=== PATIENT | female | born 1940 | race Caucasian/White ===

== ENCOUNTER 2017-06-03 12:57 | Emergency (ER) | payer BC ==
[~2017-06-03] VITALS: Ht 165.1 cm; Wt 74.7 kg
[~2017-06-03 12:57] MED LIST: ACET325T30 PO; ASPI81TA28 PO; ATEN-175 PO; ATOR-22 PO; ATV1 PO; CHOL100027 PO; CLOP1TAB5 PO; DICY20TA10 PO; ESCI1TAB10 PO; ESZO1TAB6 PO; FENO200C6 PO; LEVO125T4 PO; MULTTAB58 PO; OMEP40CA41 PO; [UNRECOGNIZED DRUG - MIXTURE] PO
[2017-06-03 13:17] VITALS: TEMP 37; Ht 165.1 cm; Wt 74.7 kg
[2017-06-03 13:35] VITALS: O2SAT 96
--- NOTE | 2017-06-03 14:15 | EMERGENCY ROOM VISIT NOTE ---
History First contact with patient: 13:45 Chief Complaint: SHORTNESS OF BREATH Stated Complaint: TROUBLE BREATHING, SOB Nursing Triage Summary: Patient reports shortness of breath for a couple weeks with increase in shortness of breath over the past two days. Patient does have a cardiac history denies any recent illness or cough. History of Present Illness The patient is a 76 year old female with a history of henderson's palsy (left side), left thalamic stroke in 2012, recent RCA stent placement who presents to the Emergency Room with complaints of shortness of breath. The patient states that she had been suffering for some time with chest pressure and SOBOE at the beginning of summer and it was decided she would undergo a cath to assess the heart. This was done in [place] in March by a Dr Sexton and it was found that the patient required a stent in her RCA. She was completely symptomatic after the stent until approx 2 weeks ago when she started to have gradual SOBOE. She states that it was very minor however on ( approx 5 days prior) she had a "different and more intense" SOB. This was not associated with the chest pressure/ discomfort or pain but with palpitations. As these symptoms continue the patient was concerned and contacted her PCP who recommended that she come to the ED for evaluation. Source of History: patient Onset: 2 weeks prior Review of Systems a 10 point review of systems was completed and was negative Past Medical/Surgical History Medical Problems: (1) Henderson's palsy Stroke RCA stent 2016 Hypertension Hyperlipidemia Hypothyroidism Anxiety/Depression Family History Diabetes mellitus Uncle Social History Smoking Status: Former Smoker Marital Status: Housing Status: lives with significant other Occupation Status: retired Current/Historical Medications Scheduled Amlodipine (Norvasc), 7.5 MG PO DAILY Aspirin (Aspir-81), 1 TAB PO DAILY Atenolol (Tenormin), 100 MG PO DAILY Atorvastatin Calcium (Lipitor), 80 MG PO Q2D Baclofen (Lioresal), 20 MG PO UD Cholecalciferol (Vitamin D3), 1 TAB PO DAILY Ciprofloxacin Tab (Cipro), 1 TAB PO BID Ciprofloxacin-Dexamethasone (Ciprodex Otic), 4 DROPS OT BID Clopidogrel Bisulfate (Plavix), 75 MG PO DAILY Dicyclomine Hcl (Bentyl), 20 MG PO BID Escitalopram Oxalate (Lexapro), 20 MG PO DAILY Levothyroxine Sodium (Synthroid), 175 MCG PO DAILY Lisinopril (Prinivil), 20 MG PO BID Mirtazapine (Remeron), 15 MG PO HS Omeprazole (Prilosec), 40 MG PO BID Propranolol (Inderal), 10 MG PO BID Scheduled PRN Acetaminophen (Tylenol), 500 MG PO TID PRN for Pain Lorazepam (Ativan), 0.5 MG PO TID PRN for Anxiety Physical Exam Vital Signs Date Time Temp Pulse Resp B/P (MAP) Pulse Ox O2 Delivery O2 Flow Rate FiO2 06/03/17 16:00 71 18 136/73 95 Room Air 06/03/17 14:15 71 16 142/85 96 Room Air 06/03/17 13:40 96 Room Air 06/03/17 13:35 96 06/03/17 13:33 74 06/03/17 13:17 37.0 72 24 167/79 98 Room Air Physical Exam General: ambulatory, not in acute distress Skin: no rashes noted, no suspicious lesions, no areas of inflammations/ lacerations/ erythema noted CVS: S1/ S2 noted, RRR, no rubs/ murmurs noted, no cyanosis. no pedal edema, bilat dorsal pedalis noted at +2 RVS: Clear throughout bilaterally, not in acute respiratory distress, no wheezing/ rales/ crackles noted ENT: TM on left clear, on right there is erythema in the canal and desquamation , no erythema/ injection/ ulcerations noted in the pharynx, no lymphadenopathy , [place] Neck: inspection WNL, full ROM of neck, no bruits noted ABD: BSx4, no pain/ tenderness on palpation, no organomegaly, negative murphys, psoas, Rovsing, CVA tenderness MSK: inspection of all limbs WNL, motor and sensation intact in all limbs, no swelling/ pain on palpation of joints NVS: PERRL, EOMI, sensation intact in all extremities, left facial drooping which is BL for the patient Lymph: No lymphadenopathy palpable Medical Decision & Procedures ER Provider Diagnostic Interpretation: [~ rep ct add3]] CHEST ONE VIEW PORTABLE HISTORY: Short of breath. COMPARISON: Chest 02/16/2013. FINDINGS: The lungs are clear. Cardiac silhouette is normal in size. No pleural effusions. No pneumothorax. IMPRESSION: No acute process. Laboratory Results 06/03/17 13:40 Red Blood Count 4.30, Mean Corpuscular Volume 87.0, Mean Corpuscular Hemoglobin 27.9, Mean Corpuscular Hemoglobin Concent 32.1, Mean Platelet Volume 9.9, Neutrophils (%) (Auto) 67.6, Lymphocytes (%) (Auto) 21.6, Monocytes (%) (Auto) 8.8, Eosinophils (%) (Auto) 1.3, Basophils (%) (Auto) 0.4, Neutrophils # (Auto) 6.07, Lymphocytes # (Auto) 1.94, Monocytes # (Auto) 0.79, Eosinophils # (Auto) 0.12, Basophils # (Auto) 0.04 06/03/17 13:40 Test 06/03/17 13:40 06/03/17 14:31 White Blood Count 8.99 K/uL (4.8-10.8) Red Blood Count 4.30 M/uL (4.2-5.4) Hemoglobin 12.0 g/dL (12.0-16.0) Hematocrit 37.4 % (37-47) Mean Corpuscular Volume 87.0 fL (80-100) Mean Corpuscular Hemoglobin 27.9 pg (25-34) Mean Corpuscular Hemoglobin Concent 32.1 g/dl (32-36) Platelet Count 253 K/uL (130-400) Mean Platelet Volume 9.9 fL (7.4-10.4) Neutrophils (%) (Auto) 67.6 % Lymphocytes (%) (Auto) 21.6 % Monocytes (%) (Auto) 8.8 % Eosinophils (%) (Auto) 1.3 % Basophils (%) (Auto) 0.4 % Neutrophils # (Auto) 6.07 K/uL (1.4-6.5) Lymphocytes # (Auto) 1.94 K/uL (1.2-3.4) Monocytes # (Auto) 0.79 K/uL (0.11-0.59) Eosinophils # (Auto) 0.12 K/uL (0-0.5) Basophils # (Auto) 0.04 K/uL (0-0.2) RDW Standard Deviation 49.1 fL (36.4-46.3) RDW Coefficient of Variation 15.4 % (11.5-14.5) Immature Granulocyte % (Auto) 0.3 % Immature Granulocyte # (Auto) 0.03 K/uL (0.00-0.02) Prothrombin Time 10.0 SECONDS (9.0-12.0) Prothromb Time International Ratio 0.9 (0.9-1.1) Anion Gap 12.0 mmol/L (3-11) Est Creatinine Clear Calc Drug Dose 49.9 ml/min Estimated GFR () 64.3 Estimated GFR (Non- 55.5 BUN/Creatinine Ratio 11.1 (10-20) Calcium Level 9.6 mg/dl (8.5-10.1) Total Bilirubin 0.4 mg/dl (0.2-1) Aspartate Amino Transf (AST/SGOT) 20 U/L (15-37) Alanine Aminotransferase (ALT/SGPT) 37 U/L (12-78) Alkaline Phosphatase 97 U/L (45-117) Troponin I < 0.015 ng/ml (0-0.045) Total Protein 7.6 gm/dl (6.4-8.2) Albumin 4.0 gm/dl (3.4-5.0) Globulin 3.6 gm/dl (2.5-4.0) Albumin/Globulin Ratio 1.1 (0.9-2) Thyroid Stimulating Hormone (TSH) 0.020 uIu/ml (0.300-4.500) Free Thyroxine 1.42 ng/dl (0.80-1.60) Urine Color YELLOW Urine Appearance CLEAR (CLEAR) Urine pH 6.5 (4.5-7.5) Urine Specific [place] 1.003 (1.000-1.030) Urine Protein NEG (NEG) Urine Glucose (UA) NEG (NEG) Urine Ketones NEG (NEG) Urine Occult Blood NEG (NEG) Urine Nitrite NEG (NEG) Urine Bilirubin NEG (NEG) Urine Urobilinogen NEG (NEG) Urine Leukocyte Esterase MODERATE (NEG) Urine WBC (Auto) /hpf (0-5) Urine RBC (Auto) /hpf (0-4) Urine Hyaline Casts (Auto) /lpf (0-5) Urine Epithelial Cells (Auto) /lpf (0-5) Urine Bacteria (Auto) (NEG) Urine RBC 0-4 /hpf (0-4) Urine WBC 5-10 /hpf (0-5) Urine Epithelial Cells 10-20 /lpf (0-5) Urine Bacteria 2+ (NEG) ECG Indication: SOB/dyspnea Rate (beats per minute): 73 Rhythm: normal sinus Findings: other (moderate voltage criteria for LVH, no ectopy, no ischemic changes noted) Change: no significant change ED Course 1404: patient was assessed and evaluated by resident; appropriate w/u was ordered Medical Decision Differential diagnosis includes but is not limited to unstable angina, myocardial infarction, pulmonary embolism, iatrogenic hyperthyroidism, atrial fibrillation, pancreatitis, cholecystitis, anxiety and others were entertained This 76 yo f with a significant past medical history has been suffering from SOBOE and palpitations for approx 2 weeks in time. Appropriate labs and imaging were ordered. A ddimer was deferred as the patient has no history fo DVT or PE in her or family members and her Well's Criteria was 0. CBC was not reflective of anemia and no leukocytosis was noted. There was a slight left shift noted. CMP was unremarkable with a slightly elevated glucose at 139 which could be secondary to stress. Troponin was negative and this is very reassuring considering that the patient has been suffering from these symptoms for approx 2 weeks. The patient's urine was suspicious for a UTI so the patient was given 200 mg IV of cipro in house and d/c on 250 mg bid x 5 days. This could very well be the cause of the patient's shortness of breath however it was noted that the patient's free T4 was 1.42 and her TSH was 0.020. If the symptoms do not resolve after the course of abx it may be warranted to change her levothyroxine dose. The patient was also found to have a right OE so an rx for ciprodex was also transmitted to her pharmacy. 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 Head Trauma GCS Score: 15 Medication Reconcilliation Current Medication List: was personally reviewed by tx Blood Pressure Screening Patient's blood pressure: Elevated blood pressure Blood pressure disposition: Elevated BP felt to be situational, Referred to PCP Impression Primary Impression: Urinary tract infection Additional Impressions: Palpitations Low TSH level Departure Information Dispostion Home / Self-Care Condition GOOD Prescriptions Ciprofloxacin Tab (Cipro) 250 Mg Tab 1 TAB PO BID for 5 Days, #10 TAB Prov: Cortney Lund MD 06/03/17 Ciprofloxacin-Dexamethasone (CIPRODEX OTIC) 1 Allison Allison 4 DROPS OT BID for 7 Days, #1 BTL Prov: Cortney Lund MD 06/03/17 Referrals No Doctor, Assigned (PCP) Patient Instructions [facility] Problem Qualifiers Primary Impression: Urinary tract infection Urinary tract infection type: acute cystitis Hematuria presence: without hematuria Qualified Codes: N30.00 - Acute cystitis without hematuria
[2017-06-03] MEDS ORDERED: BACL20TA PO (14:34)
[2017-06-03] MEDS ORDERED: CHOL1000 PO (14:34)
[2017-06-03] MEDS ORDERED: ATV/1 PO (14:34)
[2017-06-03] MEDS ORDERED: MIRT15TA PO (14:34)
[2017-06-03] MEDS ORDERED: CLOP1TAB5 PO (14:34)
[2017-06-03] MEDS ORDERED: PROP10TA7 PO (14:34)
[2017-06-03] MEDS ORDERED: LISI20TA3 PO (14:34)
[2017-06-03] MEDS ORDERED: DICY20TA35 PO (14:34)
[2017-06-03] MEDS ORDERED: ESCI1TAB18 PO (14:34)
[2017-06-03] MEDS ORDERED: ACET-1256 PO (14:34)
[2017-06-03] MEDS ORDERED: ATEN-175 PO (14:34)
[2017-06-03] MEDS ORDERED: AMLO-110 PO (14:34)
[2017-06-03] MEDS ORDERED: LEVO175T PO (14:34)
[2017-06-03] MEDS ORDERED: ASPI-232 PO (14:34)
[2017-06-03] MEDS ORDERED: OMEP40CA41 PO (14:34)
[2017-06-03] MEDS ORDERED: ATOR80TA PO (14:35)
[2017-06-03 14:46] LABS: URINE APPEARANCE CLEAR (CLEAR); URINE BILIRUBIN NEG (NEG); URINE COLOR YELLOW; URINE NITRITE NEG (NEG); URINE PH 6.5 (4.5-7.5); URINE SPECIFIC GRAVITY 1.003 (1.000-1.030); UROBILINOGEN NEG (NEG); ZZUR CULT IF INDIC CLEAN CATCH YES
[2017-06-03 14:47] LABS: MANUAL MICROSCOPIC REQUIRED? YES; REVIEW REQ? NO
--- NOTE | 2017-06-03 14:55 | EMERGENCY ROOM VISIT NOTE ---
ED Visit Note First contact with patient: 13:45 Resident Physician Supervision Note: I was present with Dr. Lund during the history and exam. I discussed the case with the resident and agree with the findings and plan as documented in the note. Documented By: Herber Ruiz
--- NOTE | 2017-06-03 14:55 | DIAGNOSTIC IMAGING REPORT ---
CHEST ONE VIEW PORTABLE HISTORY: Short of breath. COMPARISON: Chest 02/16/2013. FINDINGS: The lungs are clear. Cardiac silhouette is normal in size. No pleural effusions. No pneumothorax. IMPRESSION: No acute process. Electronically signed by: Dat Connelly M.D. 06/03/2017 2:54 PM Dictated Date/Time: 06/03/2017 2:53 PM
[2017-06-03 15:05] LABS: URINE RBC 0-4 /hpf (0-4)
[2017-06-03 15:06] LABS: URINE BACTERIA 2+ (NEG)
[2017-06-03 15:45] LABS: BASO % 0.4 %; BASO ABS # 0.04 K/uL (0-0.2); COMPLETE YES; EOS % 1.3 %; HEMATOCRIT 37.4 % (37-47); IG% 0.3 %; LYMPH % 21.6 %; LYMPH ABS # 1.94 K/uL (1.2-3.4); MEAN CORPUSCULAR HEMOGLOBIN 27.9 pg (25-34); MEAN CORPUSCULAR HGB CONC 32.1 g/dl (32-36); MEAN PLATELET VOLUME 9.9 fL (7.4-10.4); MONO % 8.8 %; NEUT % 67.6 %; PLATELET COUNT 253 K/uL (130-400); WHITE BLOOD COUNT 8.99 K/uL (4.8-10.8)
[2017-06-03 15:53] LABS: ALT/SGPT 37 U/L (12-78); BLOOD UREA NITROGEN 11 mg/dl (7-18); BUN/CREATININE RATIO 11.1 (10-20); CALCIUM 9.6 mg/dl (8.5-10.1); CARBON DIOXIDE 22 mmol/L (21-32); CHLORIDE 104 mmol/L (98-107); GLUCOSE 139 mg/dl (70-99); POTASSIUM 4.3 mmol/L (3.5-5.1); SODIUM 138 mmol/L (136-145)
[2017-06-03 15:58] LABS: ALB/GLOB RATIO 1.1 (0.9-2); ALKALINE PHOSPHATASE 97 U/L (45-117); AST/SGOT 20 U/L (15-37); INR 0.9 (0.9-1.1)
[2017-06-03 16:13] LABS: THYROID STIMULATING HORMONE 0.02 uIu/ml (0.300-4.500)
[2017-06-03] MEDS ORDERED: CIPROFLOXACIN / D5W 200 MG in PREMIXED IN D5W 100 ML IV ONE (16:15)
[2017-06-03] MEDS ORDERED: CIPR1TAB11 PO (16:18)
[2017-06-03] MEDS ORDERED: CPRDOTS OT (16:18)
[2017-06-03 17:51] VITALS: BP 136/76; PULSE 60; O2SAT 95
== END 2017-06-03 18:19 | disposition home or self-care (01) ==
LOC: C.EDB 12:58 → C.EDA 18:19
DX: N30.00 Acute cystitis without hematuria (principal); R00.2 Palpitations; R94.6 Abnormal results of thyroid function studies; H60.91 Unspecified otitis externa, right ear; G51.0 Bell's palsy; I10 Essential (primary) hypertension; E78.5 Hyperlipidemia, unspecified; E03.9 Hypothyroidism, unspecified; F32.9 Major depressive disorder, single episode, unspecified; F41.9 Anxiety disorder, unspecified; Z86.73 Personal history of transient ischemic attack (TIA), and cerebral infarction without residual deficits; Z95.5 Presence of coronary angioplasty implant and graft; Z87.891 Personal history of nicotine dependence; Z79.82 Long term (current) use of aspirin; Z83.3 Family history of diabetes mellitus

== ENCOUNTER 2019-04-25 17:16 | Inpatient (IN) ==
--- OUTSIDE RECORDS SUMMARY | 2019-04-25 17:22 | External Medical Summary | Continuity of Care Document ---
:1940 Author Name Karina Alvarez Address Unavailable Unavailable , Care Team Providers Name Role Phone Unavailable Unavailable Unavailable Melida COREAS Unavailable Unavailable Problems Active medical history not documented Allergies and Adverse Reactions Allergy history not documented Medications Medications not documented Procedures Procedures not documented Immunizations Immunizations not documented Plan of Treatment Planned Observations Planned Goals not documented Results No Known Results Results not documented
[2019-04-25 18:04] LABS: Basophils # (auto) 0.04 K/uL (0-0.2); Basophils % (auto) 0.3 %; Eosinophils # (auto) 0.04 K/uL (0-0.5); Eosinophils % (auto) 0.3 %; Hematocrit (blood only) 29.6 % (37-47); Hemoglobin 9.4 g/dL (12.0-16.0); Immature Granulocytes # (auto) 0.04 K/uL (0.00-0.02); Immature Granulocytes % (auto) 0.3 %; Lymphocytes # (auto) 2.18 K/uL (1.2-3.4); Lymphocytes % (auto) 16.3 %; Mean Corpuscular Hgb Conc 31.8 g/dL (32-36); Mean Corpuscular Volume 87.6 fL (80-100); Mean Platelet Volume 9.4 fL (7.4-10.4); Monocytes # (auto) 0.64 K/uL (0.11-0.59); Monocytes % (auto) 4.8 %; Neutrophils # (auto) 10.42 K/uL (1.4-6.5); Platelet Count 338 K/uL (130-400); RDW Coefficient of Variation 15.2 % (11.5-14.5); RDW Standard Deviation 48.6 fL (36.4-46.3); Red Blood Count 3.38 M/uL (4.2-5.4); White Blood Count 13.36 K/uL (4.8-10.8)
[2019-04-25 18:14] LABS: INR 1.1 (0.9-1.1); Partial Thromboplastin Ratio 0.8; Partial Thromboplastin Time 22.5 Seconds (21.0-31.0); Prothrombin Time 10.8 Seconds (9.0-12.0)
--- NOTE | 2019-04-25 18:15 | XRay Report ---
XR chest 1V portable CLINICAL HISTORY: Atypical chest pain COMPARISON STUDY: 06/03/2017 FINDINGS: The cardiac and mediastinal contours are normal. There is no evidence of focal pulmonary co nsolidation. There is no evidence of failure. No pleural effusions are visualized.[ IMPRESSION: No active disease in the chest. Electronically signed by: Parveen Diane M.D. 04/25/2019 6:14 PM
[2019-04-25 18:28] LABS: Alanine Aminotransferase 54 U/L (12-78); Albumin Level 3.5 gm/dl (3.4-5.0); Aspartate Aminotransferase 30 U/L (15-37); BUN Creatinine Ratio 40.3 (10-20); Blood Urea Nitrogen 50 mg/dl (7-18); Calcium 9.8 mg/dl (8.5-10.1); Carbon Dioxide 26 mmol/L (21-32); Chloride 105 mmol/L (98-107); Creatinine Clr Calc Pharmacy 39.7 ml/min; Est GFR (African American) 48.9; Est GFR (Non-African American) 42.2; Glucose 197 mg/dl (70-99); Magnesium 1.8 mg/dl (1.8-2.4); Potassium 4.7 mmol/L (3.5-5.1); Sodium 138 mmol/L (136-145)
[2019-04-25 18:33] LABS: Albumin Globulin Ratio 1.1 (0.9-2); Alkaline Phosphatase 74 U/L (45-117); Bilirubin,Total 0.3 mg/dl (0.2-1); Globulin 3.1 gm/dl (2.5-4.0); Total Protein 6.6 gm/dl (6.4-8.2); Troponin I < 0.015 ng/ml (0-0.045)
[2019-04-25] MEDS ORDERED: SODIUM CHLORIDE 0.9% 1000ML 1,000 ML IV ONE (18:41)
--- NOTE | 2019-04-25 19:11 | Emergency Department Note ---
Entered by Briana Machado acting as a scribe for Donato Wilkerson MD History of Present Illness General Chief complaint: Chest Pain Time Seen by Provider: 04/25/19 17:19 Source: patient History of Present Illness Provider complaint: Chest pain Onset (ago): hour(s) Location: chest Pain Consistency: + now resolved Quality: + burning Associated symptoms: + diaphoresis, + nausea/vomiting (nausea), + shortness of breath (due to COPD) and + other (Positive: left sided jaw pain, feels "funny". Negative: vomiting, calf pain, leg swelling.); no chest pain The patient is a 78 year old white female w/ PMHx of blood clot in kidney, CAD, who presents to the ED w/ CC of now resolved chest pain that happened this morning when she woke up. The patient reports she woke up with a burning sensation in her and felt funny. She notes she developed jaw pain because she was anxious and crying. The patient additionally states the jaw pain resolved when she relaxed. She notes she was soaking wet this morning and nauseas. The patient reports she has history of blood clot in her kidney and had to get a stent. She additionally notes she has history of three stents in her heart. The patient states she is short of breath due to having history of COPD. She reports she takes aspirin and Plavix daily but did not take Plavix today. The patient denies vomiting, chest pain, leg swelling, or calf pain. PER EMS: The patient woke up this morning feeling funny, lightheaded, and nauseas. The patient has history of 3 stents done at [facility]. She also has history of CAD. She additionally states she has left sided jaw pain but denies chest pain. The patient just found out she has kidney failure. She was given 4 aspirins in the ambulance and was hypertensive. Home Medications Home Medications Medication Instructions Recorded Confirmed Type acetaminophen [Tylenol Extra 1,000 mg PO QID PRN #0 tab 06/03/17 04/25/19 History Strength] aspirin [Aspir-81] 81 mg PO BID 90 Days #90 tab 06/03/17 04/25/19 History atenolol 100 mg PO DAILY #0 tab 06/03/17 04/25/19 History atorvastatin 80 mg PO DAILY #0 tab 06/03/17 04/25/19 History cholecalciferol (vitamin D3) 1,000 unit PO DAILY #0 06/03/17 04/25/19 History [Vitamin D3] clopidogrel 75 mg PO DAILY #0 tab 06/03/17 04/25/19 History escitalopram oxalate [Lexapro] 20 mg PO DAILY #0 tab 06/03/17 04/25/19 History levothyroxine [Levoxyl] 112 mcg PO QAM #0 tab 06/03/17 04/25/19 History lisinopril [Prinivil] 20 mg PO BID #0 tab 06/03/17 04/25/19 History lorazepam [Ativan] 1 mg PO Q8H PRN #0 tab 06/03/17 04/25/19 History omeprazole 40 mg PO BID #0 cap 06/03/17 04/25/19 History albuterol sulfate [ProAir HFA] 2 puff INHALATION Q4H PRN 04/25/19 04/25/19 History amlodipine 2.3 mg PO DAILY 04/25/19 04/25/19 History dicyclomine 20 mg PO BID 04/25/19 04/25/19 History eszopiclone [Lunesta] 1 mg PO HS PRN 04/25/19 04/25/19 History ezetimibe 10 mg PO DAILY 04/25/19 04/25/19 History fluticasone propion-salmeterol 1 inh INHALATION BID 04/25/19 04/25/19 History [Advair Diskus] iron,carbonyl-vitamin C [Vitron-C] 1 tab PO DAILY 04/25/19 04/25/19 History nitroglycerin [Nitrostat] 0.4 mg SUBLINGUAL UD PRN 04/25/19 04/25/19 History ondansetron HCl [Zofran] 4 mg PO QAM PRN 04/25/19 04/25/19 History Allergies Allergy/AdvReac Type Severity Reaction Status Date / Time ampicillin Allergy Unknown Vaginitis. Verified 04/25/19 18:10 doxycycline Allergy Unknown Nausea and Verified 04/25/19 18:10 diarrhea. erythromycin base Allergy Unknown Nause and Verified 04/25/19 18:10 diarrhea. ranitidine Allergy Unknown Rash. Verified 04/25/19 18:10 morphine AdvReac Unknown AGITATION Verified 04/25/19 18:10 Past Med/Surg History Medical History CAD (coronary artery disease) Family History Other Family history non-contributory Social History Feels Safe at Home: Yes Smoking Status: Former smoker Review of Systems See HPI for pertinent positives & negatives. and A total of 10 systems reviewed and were otherwise negative Physical Exam Vital Signs Vital Signs - 24 hr 04/25/19 17:25 04/25/19 17:32 04/25/19 17:36 Temperature 37.0 C Temperature Source Oral Sepsis Recent Fever Within 48 Hours No Sepsis New/Unexplained Change in Mental Status No Sepsis Action Taken by Nursing No Action Required Pulse Rate 64 64 65 Pulse Rate from SpO2 Sensor 65 65 Respiratory Rate 20 20 18 Respiratory Effort / Characteristics Non-Labored Spontaneous Respiratory Depth Normal Blood Pressure 153/58 H 142/58 H Blood Pressure Mean 89 86 Pulse Oximetry 97 97 98 Oxygen Delivery Method Room Air Room Air Room Air 04/25/19 17:40 04/25/19 17:50 04/25/19 18:00 Temperature Temperature Source Sepsis Recent Fever Within 48 Hours Sepsis New/Unexplained Change in Mental Status Sepsis Action Taken by Nursing Pulse Rate 69 65 64 Pulse Rate from SpO2 Sensor 67 64 64 Respiratory Rate 15 16 17 Respiratory Effort / Characteristics Respiratory Depth Blood Pressure Blood Pressure Mean Pulse Oximetry 95 97 97 Oxygen Delivery Method Room Air Room Air Room Air 04/25/19 18:01 04/25/19 18:10 04/25/19 18:20 Temperature Temperature Source Sepsis Recent Fever Within 48 Hours Sepsis New/Unexplained Change in Mental Status Sepsis Action Taken by Nursing Pulse Rate 63 63 66 Pulse Rate from SpO2 Sensor 64 64 67 Respiratory Rate 24 25 H 20 Respiratory Effort / Characteristics Respiratory Depth Blood Pressure 133/59 L Blood Pressure Mean 83 Pulse Oximetry 97 98 96 Oxygen Delivery Method Room Air Room Air Room Air 04/25/19 18:30 04/25/19 18:31 04/25/19 18:40 Temperature Temperature Source Sepsis Recent Fever Within 48 Hours Sepsis New/Unexplained Change in Mental Status Sepsis Action Taken by Nursing Pulse Rate 65 61 68 Pulse Rate from SpO2 Sensor 66 63 70 Respiratory Rate 22 18 19 Respiratory Effort / Characteristics Respiratory Depth Blood Pressure 132/66 Blood Pressure Mean 88 Pulse Oximetry 96 95 92 Oxygen Delivery Method Room Air Room Air Room Air GENERAL: Mildly anxious in appearance, well nourished, non-toxic. Wearing glasses. EYE EXAM: Normal conjunctiva. PERRL, no anisocoria and EOM's grossly intact w/o pain. OROPHARYNX: Moist mucous membranes. Grossly normal dentition. NECK: Supple, no nuchal rigidity, no adenopathy, non-tender. No signs of meningismus. LUNGS: Clear to auscultation. Normal chest wall mechanics. HEART: NSR, no MRG. ABDOMEN: Abdomen soft, non-tender, normo-active bowel sounds, no masses, no rebound or guarding. BACK: No CVA TTP. SKIN: No rashes and no bruising. UPPER EXTREMITIES: Upper extremities are grossly normal. LOWER EXTREMITIES: No pitting edema. No calf pain. NEURO EXAM: A&O x3, cranial nerves II-XII grossly intact, normal speech, moves all 4 extremities on command w/o issue. Course 1721: The patient was evaluated in room A3. A complete history and physical exam was performed. 1841: I called the admitting team regarding the patients case 1844: I discussed the patients case with Bety Cornelius. Dr. Robertson, [facility] Hospitalist, will evaluate the patient for further management. 1849: Upon reevaluation, the patient is resting comfortably. I discussed laboratory and radiographic results with her. The patient verbalized agreement o f the treatment plan. The patient will be evaluated for further management and care. Consultations Consultation #1: I discussed the patients case with Bety Cornelius. She will evaluate the patient for further management. Time: 18:44 Administered Medications Sodium Chloride (Nss 1000ml) 1,000 mls @ 999 mls/hr IV .Q1H1M ONE Stop: 04/25/19 19:41 Last Admin: 04/25/19 19:06 Dose: 999 mls/hr Documented by: [id number] Medical Decision Making Differential Diagnosis Differential diagnosis: Etiologies such as cardiac ischemia, aortic dissection, pulmonary embolism, pneumonia, pneumothorax, musculoskeletal, infections, pericarditis, myocarditis, esophageal rupture, gastrointestinal, as well as others were entertained. Medical Records Attestation: I reviewed the patient's medical records. Home Medications Current Medication List: was personally reviewed by me Laboratory Data Attestation: I reviewed the patient's lab results. Result diagrams: 04/25/19 17:56 04/25/19 17:56 Lab Results 04/25/19 04/25/19 04/25/19 Range/Units 17:56 17:56 17:56 WBC 13.36 H (4.8-10.8) K/uL RBC 3.38 L (4.2-5.4) M/uL Hgb 9.4 L (12.0-16.0) g/dL Hct 29.6 L (37-47) % MCV 87.6 (80-100) fL MCH 27.8 (25-34) pg MCHC 31.8 L (32-36) g/dL RDW Std Deviation 48.6 H (36.4-46.3) fL RDW Coeff of Angel 15.2 H (11.5-14.5) % Plt Count 338 (130-400) K/uL MPV 9.4 (7.4-10.4) fL Immature Gran % (Auto) 0.3 % Neut % (Auto) 78.0 % Lymph % (Auto) 16.3 % [place] % (Auto) 4.8 % Eos % (Auto) 0.3 % Baso % (Auto) 0.3 % Immature Gran # (Auto) 0.04 H (0.00-0.02) K/uL Neut # (Auto) 10.42 H (1.4-6.5) K/uL Lymph # (Auto) 2.18 (1.2-3.4) K/uL [place] # (Auto) 0.64 H (0.11-0.59) K/uL Eos # (Auto) 0.04 (0-0.5) K/uL Baso # (Auto) 0.04 (0-0.2) K/uL PT 10.8 (9.0-12.0) Seconds INR 1.1 (0.9-1.1) APTT 22.5 (21.0-31.0) Seconds PTT Ratio 0.8 Sodium 138 (136-145) mmol/L Potassium 4.7 (3.5-5.1) mmol/L Chloride 105 (98-107) mmol/L Carbon Dioxide 26 (21-32) mmol/L Anion Gap 6.0 (3-11) BUN 50 H (7-18) mg/dl Creatinine 1.24 H (0.6-1.2) mg/dl Est Cr Clr Drug Dosing 39.7 ml/min Est GFR ( Amer) 48.9 Est GFR (Non-Af Amer) 42.2 BUN/Creatinine Ratio 40.3 H (10-20) Glucose 197 H (70-99) mg/dl Calcium 9.8 (8.5-10.1) mg/dl Magnesium 1.8 (1.8-2.4) mg/dl Total Bilirubin 0.3 (0.2-1) mg/dl AST 30 (15-37) U/L ALT 54 (12-78) U/L Alkaline Phosphatase 74 (45-117) U/L Troponin I < 0.015 (0-0.045) ng/ml Total Protein 6.6 (6.4-8.2) gm/dl Albumin 3.5 (3.4-5.0) gm/dl Globulin 3.1 (2.5-4.0) gm/dl Albumin/Globulin Ratio 1.1 (0.9-2) Lipase 85 (73-393) U/L Imaging Data Radiologist's Impression: Radiology results as stated below per my review and the radiologist's interpretation: XR chest 1V portable CLINICAL HISTORY: Atypical chest pain COMPARISON STUDY: 06/03/2017 FINDINGS: The cardiac and mediastinal contours are normal. There is no evidence of focal pulmonary consolidation. There is no evidence of failure. No pleural effusions are visualized.[ IMPRESSION: No active disease in the chest. Electronically signed by: Parveen Diane M.D. 04/25/2019 6:14 PM ECG Data Attestation: I personally reviewed and interpreted this ECG as follows: Indication: chest pain Rate (beats per minute): 63 Rhythm: normal sinus Findings: + other (Normal intervals and normal axis.), + Q waves (in lead 3 and V2) and + T-wave inversion (in V2) Comparison ECG Date: from (06/03/17) Change: the following changes noted (T-wave inversions are new from 06/03/17) Blood Pressure Blood Pressure Findings: Elevated blood pressure Blood Pressure Disposition: elevated BP felt to be situational MDM Narrative The patient is a 78 year old white female w/ PMHx of blood clot in kidney, CAD, who presents to the ED w/ CC of now resolved chest pain that happened this morning when she woke up. Patient was seen and evaluated the bedside. The patient did relate to "feeling funny." The patient relates that this continued and then she developed some left-sided jaw pain. The patient was seen by the paramedics the patient denies any chest pains or shortness of breath. Patient was given a full dose aspirin. The patient still does not complain any chest pains or shortness of breath. The patient did a blood work completed. The patient does have a new T wave inversion is in V2. Troponin is undetectable. Patient does have an elevated BUN/creatinine ratio. The patient's hemoglobin is slightly lower compared to prior but this is from 2 years ago. The patient does take both aspirin and Plavix and did not take her Plavix today. The patient denies any dark tarry stool or bright red blood per rectum. The patient does not complain of any abdominal pain. I did discuss that given the patient's EKG changes history of CAD with an atypical story it would be of benefit to continue to trend her cardiac enzymes. Patient was admitted to the medicine service. Impression & Plan Atypical chest pain, Dehydration Discharge Plan Visit Data Chief Complaint: Chest Pain ED Provider: Donato Wilkerson Discharge Problem: Atypical chest pain, Dehydration Patient Disposition: Being Evaluated by Hospitalist Forms Stand Alone Forms: Call Back Authorization, [facility] Prescriptions Prescriptions: No Action atenolol 100 mg Tablet 100 mg PO DAILY Qty: 0 RF: 0 lisinopril [Prinivil] 20 mg Tablet 20 mg PO BID Qty: 0 RF: 0 clopidogrel 75 mg Tablet 75 mg PO DAILY Qty: 0 RF: 0 omeprazole 40 mg Capsule,Delayed Release(Dr/Ec) 40 mg PO BID Qty: 0 RF: 0 aspirin [Aspir-81] 81 mg Tablet,Delayed Release (Dr/Ec) 81 mg PO BID 90 Days Qty: 90 RF: 3 acetaminophen [Tylenol Extra Strength] 500 mg Tablet 1,000 mg PO QID PRN (Reason: Pain) Qty: 0 RF: 0 lorazepam [Ativan] 1 mg Tablet 1 mg PO Q8H PRN (Reason: Anxiety) Qty: 0 RF: 0 levothyroxine [Levoxyl] 112 mcg Tablet 112 mcg PO QAM Qty: 0 RF: 0 cholecalciferol (vitamin D3) [Vitamin D3] 1,000 unit Capsule 1,000 unit PO DAILY Qty: 0 RF: 0 escitalopram oxalate [Lexapro] 20 mg Tablet 20 mg PO DAILY Qty: 0 RF: 0 atorvastatin 80 mg Tablet 80 mg PO DAILY Qty: 0 RF: 0 fluticasone propion-salmeterol [Advair Diskus] 250-50 mcg/dose Blister With Device 1 inh INHALATION BID RF: 0 ondansetron HCl [Zofran] 4 mg Tablet 4 mg PO QAM PRN (Reason: Nausea) RF: 0 dicyclomine 20 mg Tablet 20 mg PO BID RF: 0 nitroglycerin [Nitrostat] 0.4 mg Tablet, Sublingual 0.4 mg sublingual UD PRN (Reason: Chest Pain) RF: 0 ezetimibe 10 mg tablet 10 mg PO DAILY RF: 0 Vitron-C 65 mg iron- 125 mg Tablet,Delayed Release (Dr/Ec) 1 tab PO DAILY RF: 0 amlodipine 2.5 mg tablet 2.3 mg PO DAILY RF: 0 eszopiclone [Lunesta] 1 mg Tablet 1 mg PO HS PRN (Reason: Sleep) RF: 0 albuterol sulfate [ProAir HFA] 90 mcg/actuation Hfa Aerosol Inhaler 2 puff INHALATION Q4H PRN (Reason: Wheezing) RF: 0 Referrals Referrals: PCP,NO [Primary Care Provider] - The scribe's documentation has been prepared under my direction and personally reviewed by me in its entirety. I confirm that the note above accurately reflects all work, treatment, procedures, and medical decision making performed by me.
[2019-04-25] MEDS ORDERED: CONSULT PHARMACY STA (21:05)
--- NOTE | 2019-04-25 21:26 | History & Physical Report ---
Date of Service April 25, 2019 Assessment & Plan (1) Anemia: Please refer to Dr. Robertson's addendum for assessment and plan. History of Present Illness Chief Complaint: "spitting up dark stuff", low blood pressure Primary Care Provider: Dr. Hamilton 78 year old female who presents to the ED with reports of "spitting up dark stuff" and low blood pressure. Patient reports she has been worsening GERD like symptoms for the past few months. She was seen by her PCP and her PPI was changed. Patient reports this did not improve her symptoms. This morning patient reports she very weak and lightheaded. She was in the bathroom and laid down on the floor because she felt as though she was going to pass out. There was no loss of consciousness. She had some belching and reports she brought up thick mucous that was very dark brown in color. This happened a few times. She reports she took her blood pressure at home and that it was very low. She then came to the ED for further evaluation. According to the ER, patient also had reported some chest pain however she denies this to me. She reports she has chronic shortness of breath which is unchanged from baseline. She reports epigastric pain that has been present for over one year. She describes it as a constant ache, sometime worse after eating. She reports her stools are always dark due to taking pepto bismol. No fevers or chills. She denies urinary symptoms. In the ED, hgb is 9.4 and BUN is 50, creat 1.2. Patient was given IVF. Allergies Allergy/AdvReac Type Severity Reaction Status Date / Time ampicillin Allergy Unknown Vaginitis. Verified 04/25/19 18:10 doxycycline Allergy Unknown Nausea and Verified 04/25/19 18:10 diarrhea. erythromycin base Allergy Unknown Nause and Verified 04/25/19 18:10 diarrhea. ranitidine Allergy Unknown Rash. Verified 04/25/19 18:10 morphine AdvReac Unknown AGITATION Verified 04/25/19 18:10 Home Medications Home Medications Medication Instructions Recorded Confirmed Type acetaminophen [Tylenol Extra 1,000 mg PO QID PRN #0 tab 06/03/17 04/25/19 History Strength] aspirin [Aspir-81] 81 mg PO DAILY 90 Days #90 tab 06/03/17 04/25/19 History atenolol 100 mg PO DAILY #0 tab 06/03/17 04/25/19 History atorvastatin 80 mg PO DAILY #0 tab 06/03/17 04/25/19 History cholecalciferol (vitamin D3) 1,000 unit PO DAILY #0 06/03/17 04/25/19 History [Vitamin D3] clopidogrel 75 mg PO DAILY #0 tab 06/03/17 04/25/19 History escitalopram oxalate [Lexapro] 20 mg PO DAILY #0 tab 06/03/17 04/25/19 History levothyroxine [Levoxyl] 112 mcg PO QAM #0 tab 06/03/17 04/25/19 History lisinopril [Prinivil] 20 mg PO BID #0 tab 06/03/17 04/25/19 History lorazepam [Ativan] 1 mg PO Q8H PRN #0 tab 06/03/17 04/25/19 History albuterol sulfate [ProAir HFA] 2 puff INHALATION Q4H PRN 04/25/19 04/25/19 History amlodipine 2.5 mg PO DAILY 04/25/19 04/25/19 History dicyclomine 20 mg PO BID 04/25/19 04/25/19 History eszopiclone [Lunesta] 1 mg PO HS PRN 04/25/19 04/25/19 History ezetimibe 10 mg PO DAILY 04/25/19 04/25/19 History fluticasone propion-salmeterol 1 inh INHALATION BID 04/25/19 04/25/19 History [Advair Diskus] iron,carbonyl-vitamin C [Vitron-C] 1 tab PO DAILY 04/25/19 04/25/19 History isosorbide mononitrate 60 mg PO DAILY 04/25/19 04/25/19 History metformin 500 mg PO DAILY 04/25/19 04/25/19 History nitroglycerin [Nitrostat] 0.4 mg SUBLINGUAL UD PRN 04/25/19 04/25/19 History ondansetron HCl [Zofran] 4 mg PO QAM PRN 04/25/19 04/25/19 History pantoprazole 20 mg PO DAILY 04/25/19 04/25/19 History tiotropium bromide [Spiriva with 1 cap INHALATION DAILY 04/25/19 04/25/19 History HandiHaler] Past Med/Surg History Medical History IBS (irritable bowel syndrome) (Chronic) GERD (gastroesophageal reflux disease) (Chronic) CKD (chronic kidney disease), stage III (Chronic) HTN (hypertension) (Chronic) Abdominal aortic ectasia (Chronic) Carotid artery disease (Chronic) COPD (chronic obstructive pulmonary disease) (Chronic) Dyslipidemia (Chronic) Hypothyroidism (Chronic) Renal artery stenosis (Chronic) History of stent insertion of renal artery (Chronic) 2011 with restenosis in 2013 and 2014 CAD (coronary artery disease) (Chronic) cath 03/25/17 - ALICE to RCA repeat cath at [facility] [place] 07/10/18 - ALICE to the first diagonal branch, ALICE to the prox LAD, 1 ALICE to the ostial LM Surgical History H/O repair of right rotator cuff (Chronic) History of appendectomy (Chronic) History of back surgery (Chronic) H/O tubal ligation (Chronic) H/O dilation and curettage (Chronic) Family History Mother Stroke Social History Preferred Language: Spanish Communication Ability: Effective Investment Representative Required: No Beliefs That Will Affect Care: None Current Living Situation: Spouse Other Information That Helps Us Care for You: No Feels Safe at Home: Yes Safety Concerns: Feels Safe At This Time Smoking Status: Former smoker Tobacco Type: cigarettes ; Do You Dip or Chew Tobacco: No ; Second Hand Exposure: No ; Tobacco Cessation Education Requested by Patient: No Hx Alcohol Use: No Hx Substance Use: No Review of Systems Review of Systems: ROS per HPI, all other systems reviewed and negative Physical Exam Constitutional: WD/WN, vitals as above Eyes: PERRL, conjunctivae normal, anicteric sclerae ENMT: external ear and nose normal, oropharynx normal Respiratory: normal respiratory effort, lungs clear to auscultation Cardiovascular: Rate/Rhythm: regular rate and regular rhythm Vessels: normal peripheral pulses Extremities: no edema Gastrointestinal (Abdomen): Inspection/Auscultation: normal bowel sounds; abdomen not distended Percussion/Palpation: + abdomen tender (mild, epigastric) and abdomen soft; no hepatosplenomegaly Musculoskeletal: no cyanosis or clubbing, extremities motor strength 5/5 Skin: no rashes, warm and dry Neurologic: PERRL, EOMI, accommodation nl, no face palsy, no dysarthria Psychiatric: A+Ox3, euthymic affect Results & Data Vital Signs (Past 12 Hours) Vital Signs Temp Pulse Pulse Resp BP BP Pulse Ox 04/25/19 19:37 61 20 146/62 H 97 04/25/19 18:40 68 19 92 04/25/19 18:31 61 18 132/66 95 04/25/19 18:30 65 22 96 04/25/19 18:20 66 20 96 04/25/19 18:10 63 25 H 98 04/25/19 18:01 63 24 133/59 L 97 04/25/19 18:00 64 17 97 04/25/19 17:50 65 16 97 04/25/19 17:40 69 15 95 04/25/19 17:36 65 18 98 04/25/19 17:32 64 20 142/58 H 97 04/25/19 17:25 37.0 C 64 20 153/58 H 97 Laboratory Results Short CBC 04/25/19 Range/Units 17:56 WBC 13.36 H (4.8-10.8) K/uL Hgb 9.4 L (12.0-16.0) g/dL Hct 29.6 L (37-47) % Plt Count 338 (130-400) K/uL BMP 04/25/19 17:56 Sodium 138 Potassium 4.7 Chloride 105 Carbon Dioxide 26 BUN 50 H Creatinine 1.24 H Glucose 197 H Calcium 9.8 Cardiac Enzymes 04/25/19 04/25/19 Range/Units 17:56 19:56 Troponin I < 0.015 0.017 (0-0.045) ng/ml Liver Function 04/25/19 Range/Units 17:56 Total Bilirubin 0.3 (0.2-1) mg/dl AST 30 (15-37) U/L ALT 54 (12-78) U/L Alkaline Phosphatase 74 (45-117) U/L Albumin 3.5 (3.4-5.0) gm/dl Diagnostic Findings CXR IMPRESSION: No active disease in the chest. Code Status & VTE Plan VTE Prophylaxis Plan VTE Prophylaxis will be ordered: Yes Supervising Physician Co-Signing Physician Notes IM ATTENDING : Patient seen and examined. History obtained from patient and records. Preceding documentation by AMBER Curry reviewed. FINAL ASSESSMENT AND PLAN as follows : UGIB (Differentials include esophagitis, gastritis, hx PUD as per records) Ongoing antiplatelet Rx for hx CAD sp CAD status post stent (more recent LAD and LMCA stents placed 07/2018, recommended minimum 6 months DAPT already completed although long-term DAPT Rx recommended as per [facility] cath report) Acute on chronic anemia secondary to above Hemoglobin drop from baseline Exertional S OB secondary to symptomatic anemia Hypertension, slightly elevated Hyperlipidemia on statin Rx History CVA History of Henderson's palsy hx COPD, past tobacco abuse, pulmonary status at baseline CRI, creatinine at baseline DM 2, diet-controlled, well-controlled as of recent outpatient hemoglobin A1c of 6.6 last April Hypothyroidism, recent outpatient TSH slightly elevated at 4.8 Medical telemetry IV PPI BID GI consult RE U GIB Hold antiplatelet Rx for now given hemoglobin drop from baseline causing symptomatic anemia. Transfuse PRBC to maintain hemoglobin greater than 8 and/or for symptomatic anemia May need Cardiology eval prior to endoscopy and opinion regarding antiplatelet Rx/hx stent 07/2018 given GI bleed. ISS BG goal 140-180 DVT prophylaxis. SCDs RE GI bleed Full code Patient son requesting updates from providers. Mr. Nogueira Armando, contact #[phone].
[2019-04-25] MEDS ORDERED: PANTOprazole 40 MG in SYRINGE 0 ML IV SCH (21:30)
[2019-04-25 21:43] LABS: Gastric Occult Blood Positive (Negative); pH Gastric Fluid 3
[2019-04-25] MEDS ORDERED: GLUCOSE 40% GEL 15 GM TUBE PO PRN (22:11)
[2019-04-25] MEDS ORDERED: ACETAMINOPHEN 325 MG TAB PO PRN (22:11)
[2019-04-25] MEDS ORDERED: PROMETHAZINE HCL 12.5 MG in SODIUM CHLORIDE 0.9% 50 ML IV PRN (22:11)
[2019-04-25] MEDS ORDERED: DEXTROSE 50% 50 ML SYRINGE IV PRN (22:11)
[2019-04-25] MEDS ORDERED: HYDROmorphone INJ 0.5 MG/0.5 ML SYR IV PRN (22:11)
[2019-04-25] MEDS ORDERED: LORazepam 1 MG TAB PO PRN (22:11)
[2019-04-25] MEDS ORDERED: GLUCAGON FOR INJ 1 MG VIAL SQ PRN (22:11)
[2019-04-25] MEDS ORDERED: TRAMADOL HCL 50 MG TABLET PO PRN (22:11)
[2019-04-25] MEDS ORDERED: CARBOHYDRATES FOR HYPOGLYCEMIA PO PRN (22:11)
[2019-04-25] MEDS ORDERED: NITROGLYCERIN SL 0.4 MG/TAB TAB SL PRN ×2 (22:11)
[2019-04-25] MEDS ORDERED: GLUCOSE 10 TABS/TUBE PO PRN (22:11)
--- NOTE | 2019-04-25 22:28 | CT Scan Report ---
CT SCAN OF THE ABDOMEN AND PELVIS WITHOUT CONTRAST CLINICAL HISTORY: abd pain COMPARISON STUDY: No previous studies for comparison. TECHNIQUE: CT scan of the abdomen and pelvis was performed from the lung bases to the proximal femurs . Images are reviewed in the axial, sagittal, and coronal planes. IV contrast was not administered fo r this examination. A dose lowering technique was utilized adhering to the principles of ALARA. CT DOSE: 472.86 mGy.cm FINDINGS: Lower chest: There is a partially visualized right lower lobe mucoid impaction. Liver: There is an indeterminate 2 cm hypodensity within the right hepatic lobe. Gallbladder: Unremarkable. Spleen: The spleen is mildly enlarged measuring 12.9 cm. Pancreas: Unremarkable. Adrenal glands: There is mild left adrenal gland thickening. Kidneys: The left kidney appears atrophic. There is a 14 mm lower pole left renal cyst and 16 mm mid pole left renal cyst. No renal calculi are visualized. There is mild fullness of the right renal livan ecting system. There is a 3 mm mid right ureteral calculus versus a phlebolith. If this differentiati on becomes clinically important, and excretory phase CT scan could be obtained in follow-up. Bowel: There is extensive colonic diverticulosis. Mild sigmoid wall thickening is likely secondary to peridiverticular muscular hypertrophy. There is no current evidence of acute diverticulitis. By hist ory the appendix is surgically absent. There are no transition zones indicate bowel obstruction. Peritoneum: There is no intraperitoneal free air or abdominal ascites. Vasculature: There are bilateral renal artery stents. There is a 31 mm infrarenal abdominal aortic an eurysm. Adenopathy: None. Pelvic viscera: The bladder, and pelvic viscera are unremarkable. Skeletal structures: Postsurgical changes are present within the spine. IMPRESSION: 1. No evidence of bowel obstruction. No evidence of free air 2. Extensive colonic diverticulosis. No evidence of acute diverticulitis 3. Mild fullness of the right renal collecting system. 3 mm mid right ureteral calculus versus phlebo lith. 4. Atrophic left kidney 5. Mild splenomegaly 6. Indeterminate 2 cm right hepatic lobe hypodensity 7. 31 mm infrarenal abdominal aortic aneurysm Electronically signed by: Parveen Diane M.D. 04/25/2019 10:26 PM
[2019-04-25 22:37] LABS: Hematocrit (blood only) 25.5 % (37-47); Hemoglobin 8.2 g/dL (12.0-16.0)
[2019-04-25] MEDS: SODIUM CHLORIDE 0.9% 1000ML 1,000 ML IV SCH (23:20)
[2019-04-26] MEDS: INSULIN ASPART 100 UNITS/ML 3 ML PEN SC SCH ×4 (00:32→17:17)
[2019-04-26] MEDS ORDERED: SODIUM CHLORIDE 0.9% 250 ML IV PRN ×2 (03:10→11:51)
[2019-04-26] MEDS: LEVOTHYROXINE SODIUM 112 MCG TABLET PO SCH (05:03)
[2019-04-26 08:12] LABS: Basophils # (auto) 0.03 K/uL (0-0.2); Basophils % (auto) 0.3 %; Eosinophils # (auto) 0.13 K/uL (0-0.5); Eosinophils % (auto) 1.3 %; Hematocrit (blood only) 26.8 % (37-47); Hemoglobin 8.6 g/dL (12.0-16.0); Immature Granulocytes # (auto) 0.03 K/uL (0.00-0.02); Immature Granulocytes % (auto) 0.3 %; Lymphocytes # (auto) 3.56 K/uL (1.2-3.4); Lymphocytes % (auto) 36.4 %; Mean Corpuscular Hgb Conc 32.1 g/dL (32-36); Mean Platelet Volume 9.3 fL (7.4-10.4); Monocytes % (auto) 7.2 %; Neutrophils # (auto) 5.33 K/uL (1.4-6.5); Neutrophils % (auto) 54.5 %; Platelet Count 239 K/uL (130-400); RDW Coefficient of Variation 14.9 % (11.5-14.5); RDW Standard Deviation 47.5 fL (36.4-46.3); Red Blood Count 3.08 M/uL (4.2-5.4); White Blood Count 9.78 K/uL (4.8-10.8)
[2019-04-26 08:41] LABS: BUN Creatinine Ratio 49.4 (10-20); Blood Urea Nitrogen 49 mg/dl (7-18); Calcium 8.1 mg/dl (8.5-10.1); Carbon Dioxide 23 mmol/L (21-32); Chloride 110 mmol/L (98-107); Est GFR (African American) 64.2; Est GFR (Non-African American) 55.4; Glucose 126 mg/dl (70-99); Sodium 141 mmol/L (136-145)
[2019-04-26 08:51] LABS: Troponin I < 0.015 ng/ml (0-0.045)
[2019-04-26] MEDS ORDERED: AMLODIPINE BESYLATE 5 MG TAB PO SCH (09:00)
[2019-04-26] MEDS: EZETIMIBE 10 MG TABLET PO SCH (09:51)
[2019-04-26] MEDS: ATENOLOL 50 MG TABLET PO SCH (09:52)
[2019-04-26] MEDS: ISOSORBIDE MONO EXTENDED REL 60 MG TABCR PO SCH (09:52)
[2019-04-26] MEDS: ATORVASTATIN 40 MG TAB PO SCH (09:52)
[2019-04-26] MEDS: ESCITALOPRAM OXALATE 20 MG TAB PO SCH (09:52)
[2019-04-26] MEDS: FLUTICASONE/SALMETEROL 250/50 (ADVAIR) 14 PUFF/1 INHALER INH SCH ×2 (09:53→20:43)
[2019-04-26] MEDS: PANTOprazole 40 MG in DEXTROSE 5% 100 ML IV SCH ×4 (09:54→22:32)
[2019-04-26] MEDS: TIOTROPIUM BROMIDE 5 PUFF/90 MCG INH INH SCH (09:55)
--- NOTE | 2019-04-26 10:28 | Hospitalist Progress Note ---
Date of Service April 26, 2019 Assessment & Plan (1) Acute blood loss anemia: ACUTE BLOOD LOSS ANEMIA likely secondary to Upper GI bleed HISTORY OF CAD on ASA and Plavix for CAD, s/p Stent Placement (last placed July 2018) s/p 1 unit pRBC transfusion Hg 9.4 to 8.6 no recurrence of hematemesis on admission BP stable Protonix drip started NPO gentle IV fluids GI consulted ASA and Plavix on hold Validation Analyst consulted for recommendations dual antiplatelet therapy DM hold Metformin ISS HYPERTENSION stable at this time continue Atenolol, Amlodipine, ISMN COPD respiratory status stable continue Spiriva CKD 3 crea improved from 1.24 to 0.99 HISTORY OF RENAL ARTERY STENOSIS BP stable DVT prophylaxis SCDs only in light of GI bleed Full Code Disposition pending usually lives at home will need PT/OT evaluation Subjective ff up for possible Upper Gi Bleed seen sleeping but easily rousable states she feels ok overall denies abdominal pain, nausea last episode of emesis yesterday denies melena/hematochezia no chest pain, dyspnea, palpitations, dizziness, nausea/vomiting Review of Systems Review of Systems: All systems reviewed & are unremarkable except as noted in HPI & below Physical Exam Physical Exam: General- oriented x 3, not in distress, speaks in sentences with no effort or accessory muscle use Head- atraumatic Eyes- PERRL, EOMI, anicteric ENT- oropharynx clear Neck- supple, no JVD, no adenopathy, no thyromegaly; carotids +2/2, no bruits appreciated Lungs- clear to auscultation bilaterally, no rales/wheezes Heart- normal rate, regular rhythm; no murmur, no gallop, no rub appreciated Abdomen- normal bowel sounds, nondistended, soft, nontender, no masses or hepatosplenomegaly Extremities- no pretibial edema, no calf tenderness; peripheral pulses intact Neuro- alert, oriented x 3; CN 2-12 grossly intact; motor 5/5 bilaterally;sensation 100% on all extremities; no other gross focal neurologic deficits Skin- warm & dry Results & Data Vital Signs (Past 12 Hours) Vital Signs Temp Pulse Pulse Resp BP BP Pulse Ox 04/26/19 07:26 70 04/26/19 07:02 37.2 C 67 20 145/72 H 97 04/26/19 06:28 37.4 C 66 16 121/75 98 04/26/19 05:30 37.3 C 72 18 103/62 95 04/26/19 05:00 37.4 C 73 14 114/67 99 04/26/19 04:59 37.4 C 73 14 114/67 99 04/26/19 04:45 37.2 C 69 16 143/71 H 98 04/26/19 04:25 37.5 C 77 16 149/75 H 97 04/26/19 03:00 37.3 C 68 18 130/74 96 04/26/19 00:00 70 Laboratory Results Laboratory Results - last 24 hr 04/25/19 04/25/19 04/25/19 17:56 17:56 17:56 WBC 13.36 H RBC 3.38 L Hgb 9.4 L Hct 29.6 L MCV 87.6 MCH 27.8 MCHC 31.8 L RDW Std Deviation 48.6 H RDW Coeff of Angel 15.2 H Plt Count 338 MPV 9.4 Immature Gran % (Auto) 0.3 Neut % (Auto) 78.0 Lymph % (Auto) 16.3 Elliott % (Auto) 4.8 Eos % (Auto) 0.3 Baso % (Auto) 0.3 Immature Gran # (Auto) 0.04 H Neut # (Auto) 10.42 H Lymph # (Auto) 2.18 Elliott # (Auto) 0.64 H Eos # (Auto) 0.04 Baso # (Auto) 0.04 PT 10.8 INR 1.1 APTT 22.5 PTT Ratio 0.8 Sodium 138 Potassium 4.7 Chloride 105 Carbon Dioxide 26 Anion Gap 6.0 BUN 50 H Creatinine 1.24 H Est Cr Clr Drug Dosing 39.7 Est GFR ( Amer) 48.9 Est GFR (Non-Af Amer) 42.2 BUN/Creatinine Ratio 40.3 H Glucose 197 H POC Glucose Calcium 9.8 Magnesium 1.8 Total Bilirubin 0.3 AST 30 ALT 54 Alkaline Phosphatase 74 Troponin I < 0.015 Total Protein 6.6 Albumin 3.5 Globulin 3.1 Albumin/Globulin Ratio 1.1 Lipase 85 Gastric Fluid pH Gastric Occult Blood Blood Type Antibody Screen Crossmatch 04/25/19 04/25/19 04/25/19 19:56 20:30 22:27 WBC RBC Hgb 8.2 L Hct 25.5 L MCV MCH MCHC RDW Std Deviation RDW Coeff of Angel Plt Count MPV Immature Gran % (Auto) Neut % (Auto) Lymph % (Auto) Elliott % (Auto) Eos % (Auto) Baso % (Auto) Immature Gran # (Auto) Neut # (Auto) Lymph # (Auto) Elliott # (Auto) Eos # (Auto) Baso # (Auto) PT INR APTT PTT Ratio Sodium Potassium Chloride Carbon Dioxide Anion Gap BUN Creatinine Est Cr Clr Drug Dosing Est GFR ( Amer) Est GFR (Non-Af Amer) BUN/Creatinine Ratio Glucose POC Glucose Calcium Magnesium Total Bilirubin AST ALT Alkaline Phosphatase Troponin I 0.017 Total Protein Albumin Globulin Albumin/Globulin Ratio Lipase Gastric Fluid pH 3 Gastric Occult Blood Positive A Blood Type Antibody Screen Crossmatch 04/25/19 04/26/19 04/26/19 22:27 00:29 06:16 WBC RBC Hgb Hct MCV MCH MCHC RDW Std Deviation RDW Coeff of Angel Plt Count MPV Immature Gran % (Auto) Neut % (Auto) Lymph % (Auto) Elliott % (Auto) Eos % (Auto) Baso % (Auto) Immature Gran # (Auto) Neut # (Auto) Lymph # (Auto) Elliott # (Auto) Eos # (Auto) Baso # (Auto) PT INR APTT PTT Ratio Sodium Potassium Chloride Carbon Dioxide Anion Gap BUN Creatinine Est Cr Clr Drug Dosing Est GFR ( Amer) Est GFR (Non-Af Amer) BUN/Creatinine Ratio Glucose POC Glucose 133 H 145 H Calcium Magnesium Total Bilirubin AST ALT Alkaline Phosphatase Troponin I Total Protein Albumin Globulin Albumin/Globulin Ratio Lipase Gastric Fluid pH Gastric Occult Blood Blood Type A Negative Antibody Screen NEGATIVE Crossmatch See Detail 04/26/19 04/26/19 07:55 07:55 WBC 9.78 RBC 3.08 L Hgb 8.6 L Hct 26.8 L MCV 87.0 MCH 27.9 MCHC 32.1 RDW Std Deviation 47.5 H RDW Coeff of Angel 14.9 H Plt Count 239 MPV 9.3 Immature Gran % (Auto) 0.3 Neut % (Auto) 54.5 Lymph % (Auto) 36.4 Elliott % (Auto) 7.2 Eos % (Auto) 1.3 Baso % (Auto) 0.3 Immature Gran # (Auto) 0.03 H Neut # (Auto) 5.33 Lymph # (Auto) 3.56 H Elliott # (Auto) 0.70 H Eos # (Auto) 0.13 Baso # (Auto) 0.03 PT INR APTT PTT Ratio Sodium 141 Potassium 4.0 Chloride 110 H Carbon Dioxide 23 Anion Gap 8.0 BUN 49 H Creatinine 0.99 Est Cr Clr Drug Dosing 49.0 Est GFR ( Amer) 64.2 Est GFR (Non-Af Amer) 55.4 BUN/Creatinine Ratio 49.4 H Glucose 126 H POC Glucose Calcium 8.1 L D Magnesium Total Bilirubin AST ALT Alkaline Phosphatase Troponin I < 0.015 Total Protein Albumin Globulin Albumin/Globulin Ratio Lipase Gastric Fluid pH Gastric Occult Blood Blood Type Antibody Screen Crossmatch
--- NOTE | 2019-04-26 11:39 | Cardiology Consultation ---
Date of Consultation April 26, 2019 Assessment & Plan (1) Acute blood loss anemia: (2) CAD (coronary artery disease): Ms. Osorio has a complex history of atherosclerotic vascular disease with history of past bilateral renal artery stents, carotid disease, left subclavian stenosis, and coronary heart disease with multiple percutaneous coronary interventions. In March 2017 she received a drug-eluting stent for treatment of a 99% stenosis of the right coronary artery at [facility] She was referred for repeat cardiac catheterization at [facility] on 07/10/2018 which demonstrated multivessel coronary heart disease and she received a drug-eluting stent to the first diagonal, a drug-eluting stent to the proximal LAD, and a drug-eluting stent that extended to the ostial left main. She has been maintained on chronic aspirin and clopidogrel. She recently been seen for recurrent chest discomfort which she described as a squeezing sensation, and in the meantime, has developed dyspepsia, black tarry stool, and anemia. She is being treated for a suspected upper gastrointestinal bleed. She has received Protonix, and 1 unit of packed red blood cells thus far she is comfortable and hemodynamically stable. She has no current angina. She has a history of an EGD performed in February 2015 that was within normal limits. She however has been on dual antiplatelet therapy since 2017 in the interim. Due to the patient's history of complex coronary heart disease including bryan drug-eluting stent to the left main in July 2018, recommend that her dual antiplatelet therapy discontinued due to risk of in-stent thrombosis. Would recommend transfusing to goal hemoglobin of 10 g/dL. Repeat EKG had recently been performed this morning 04/26/2019 at 11:42 AM which reveals stable findings. She is stable from a cardiac perspective to proceed with endoscopy if deemed indicated by the GI team. History of Present Illness Attending Physician: Camron Doll MD History of Present Illness Ronel Osorio is a 78 year old female seen in cardiology consultation per the request of Dr Doll for recommendations given her history of coronary heart disease with multiple complex percutaneous coronary interventions. I had most recently seen the patient as an outpatient in 2015 and she is followed with Silvia Infante PA-C of our practice in the interim with most recent visit having been 5 days ago on 04/21/2019. At that time she described vague chest tightness and a nuclear stress test was tentatively planned. In the meantime starting yesterday she has been having symptoms of dyspepsia that she describes as "heartburn". She belched frequently, and reports that she brought up thick mucus that was dark and brown in color. This morning at 10 AM while in the hospital she had a bowel movement that she states was very dark and perhaps she had a similar bowel movement yesterday, but this is not been going on longer than that. When she presented to the emergency department yesterday she reported that she had recently felt weak and lightheaded and actually laid down in her bathroom floor at home because she felt like she was going to pass out. Her hemoglobin on presentation 04/25/2019 at 1756 was 9.4 compared to outpatient hemoglobin performed 12/02/2018 which was 11.9. The patient received IV Protonix bolus, and received 1 unit of packed red blood cells which was completed around 630 this morning. Her most recent hemoglobin at 755 this morning was 8.6. At present she is comfortable. Her diet has been held. And her chronic aspirin and clopidogrel therapy have been held. Allergies Allergy/AdvReac Type Severity Reaction Status Date / Time ampicillin Allergy Unknown Vaginitis. Verified 04/25/19 18:10 doxycycline Allergy Unknown Nausea and Verified 04/25/19 18:10 diarrhea. erythromycin base Allergy Unknown Nause and Verified 04/25/19 18:10 diarrhea. ranitidine Allergy Unknown Rash. Verified 04/25/19 18:10 morphine AdvReac Unknown AGITATION Verified 04/25/19 18:10 Home Medications Home Medications Medication Instructions Recorded Confirmed Type acetaminophen [Tylenol Extra 1,000 mg PO QID PRN #0 tab 06/03/17 04/25/19 History Strength] aspirin [Aspir-81] 81 mg PO DAILY 90 Days #90 tab 06/03/17 04/25/19 History atenolol 100 mg PO DAILY #0 tab 06/03/17 04/25/19 History atorvastatin 80 mg PO DAILY #0 tab 06/03/17 04/25/19 History cholecalciferol (vitamin D3) 1,000 unit PO DAILY #0 06/03/17 04/25/19 History [Vitamin D3] clopidogrel 75 mg PO DAILY #0 tab 06/03/17 04/25/19 History escitalopram oxalate [Lexapro] 20 mg PO DAILY #0 tab 06/03/17 04/25/19 History levothyroxine [Levoxyl] 112 mcg PO QAM #0 tab 06/03/17 04/25/19 History lisinopril [Prinivil] 20 mg PO BID #0 tab 06/03/17 04/25/19 History lorazepam [Ativan] 1 mg PO Q8H PRN #0 tab 06/03/17 04/25/19 History albuterol sulfate [ProAir HFA] 2 puff INHALATION Q4H PRN 04/25/19 04/25/19 History amlodipine 2.5 mg PO DAILY 04/25/19 04/25/19 History dicyclomine 20 mg PO BID 04/25/19 04/25/19 History eszopiclone [Lunesta] 1 mg PO HS PRN 04/25/19 04/25/19 History ezetimibe 10 mg PO DAILY 04/25/19 04/25/19 History fluticasone propion-salmeterol 1 inh INHALATION BID 04/25/19 04/25/19 History [Advair Diskus] iron,carbonyl-vitamin C [Vitron-C] 1 tab PO DAILY 04/25/19 04/25/19 History isosorbide mononitrate 60 mg PO DAILY 04/25/19 04/25/19 History metformin 500 mg PO DAILY 04/25/19 04/25/19 History nitroglycerin [Nitrostat] 0.4 mg SUBLINGUAL UD PRN 04/25/19 04/25/19 History ondansetron HCl [Zofran] 4 mg PO QAM PRN 04/25/19 04/25/19 History pantoprazole 20 mg PO DAILY 04/25/19 04/25/19 History tiotropium bromide [Spiriva with 1 cap INHALATION DAILY 04/25/19 04/25/19 History HandiHaler] Patient History Medical History IBS (irritable bowel syndrome) (Chronic) GERD (gastroesophageal reflux disease) (Chronic) CKD (chronic kidney disease), stage III (Chronic) HTN (hypertension) (Chronic) Abdominal aortic ectasia (Chronic) Carotid artery disease (Chronic) COPD (chronic obstructive pulmonary disease) (Chronic) Dyslipidemia (Chronic) Hypothyroidism (Chronic) Renal artery stenosis (Chronic) History of stent insertion of renal artery (Chronic) 2011 with restenosis in 2013 and 2014 CAD (coronary artery disease) (Chronic) cath 03/25/17 - ALICE to RCA repeat cath at [facility] 07/10/18 - ALICE to the first diagonal branch, ALICE to the prox LAD, 1 ALICE to the ostial LM Surgical History H/O repair of right rotator cuff (Chronic) History of appendectomy (Chronic) History of back surgery (Chronic) H/O tubal ligation (Chronic) H/O dilation and curettage (Chronic) Family History Mother Stroke Social History Preferred Language: Surinamese Communication Ability: Effective Ext Js Developer Required: No Beliefs That Will Affect Care: None Current Living Situation: Spouse Other Information That Helps Us Care for You: No Feels Safe at Home: Yes Safety Concerns: Feels Safe At This Time Smoking Status: Former smoker Tobacco Type: cigarettes ; Do You Dip or Chew Tobacco: No ; Second Hand Exposure: No ; Tobacco Cessation Education Requested by Patient: No Hx Alcohol Use: No Hx Substance Use: No Review of Systems Review of Systems: All systems reviewed & are unremarkable except as noted in HPI & below Physical Exam Physical Exam: Temp Pulse Resp BP Pulse Ox 37.2 C 70 20 145/72 H 97 04/26/19 07:02 04/26/19 07:26 04/26/19 07:02 04/26/19 07:02 04/26/19 07:02 Constitutional: WD/WN, vitals as above Respiratory: normal respiratory effort, lungs clear to auscultation Cardiovascular: RRR, no murmur, no edema Gastrointestinal (Abdomen): normal bowel sounds, soft, nontender, no hepatosplenomegaly Neurologic: PERRL, EOMI, accommodation nl, no face palsy, no dysarthria Results & Data Laboratory Results Cardiac Enzymes 04/25/19 04/25/19 04/26/19 Range/Units 17:56 19:56 07:55 AST 30 (15-37) U/L Troponin I < 0.015 0.017 < 0.015 (0-0.045) ng/ml Coagulation 04/25/19 Range/Units 17:56 PT 10.8 (9.0-12.0) Seconds APTT 22.5 (21.0-31.0) Seconds CBC 04/25/19 04/25/19 04/26/19 Range/Units 17:56 22:27 07:55 WBC 13.36 H 9.78 (4.8-10.8) K/uL RBC 3.38 L 3.08 L (4.2-5.4) M/uL Hgb 9.4 L 8.2 L 8.6 L (12.0-16.0) g/dL Hct 29.6 L 25.5 L 26.8 L (37-47) % Plt Count 338 239 (130-400) K/uL Neut # (Auto) 10.42 H 5.33 (1.4-6.5) K/uL Lymph # (Auto) 2.18 3.56 H (1.2-3.4) K/uL Preston # (Auto) 0.64 H 0.70 H (0.11-0.59) K/uL Eos # (Auto) 0.04 0.13 (0-0.5) K/uL Baso # (Auto) 0.04 0.03 (0-0.2) K/uL Comprehensive Metabolic Panel 04/25/19 04/26/19 Range/Units 17:56 07:55 Sodium 138 141 (136-145) mmol/L Potassium 4.7 4.0 (3.5-5.1) mmol/L Chloride 105 110 H (98-107) mmol/L Carbon Dioxide 26 23 (21-32) mmol/L BUN 50 H 49 H (7-18) mg/dl Creatinine 1.24 H 0.99 (0.6-1.2) mg/dl Glucose 197 H 126 H (70-99) mg/dl Calcium 9.8 8.1 L D (8.5-10.1) mg/dl AST 30 (15-37) U/L ALT 54 (12-78) U/L Alkaline Phosphatase 74 (45-117) U/L Total Protein 6.6 (6.4-8.2) gm/dl Albumin 3.5 (3.4-5.0) gm/dl Intake and Output 04/25/19 04/26/19 04/26/19 22:59 06:59 14:59 Intake Total 1000 / 1828.333 828.333 / 1828.333 Output Total 300 / 300 Balance 1000 / 1528.333 528.333 / 1528.333 Intake: IV 1000 / 1258.333 258.333 / 1258.333 Nss 1000ML 1,000 ml @ 50 mls/hr 1000 / 1258.333 258.333 / 1258.[address] [facility] Rx#:[id number] Oral 200 / 200 Intake (Blood Product) Amt 310 / 310 Packed Cells, Leukoreduced 310 / 310 Unit [id number] Other 60 / 60 Packed Cells, Leukoreduced 60 / 60 Unit [id number] Output: Urine 300 / 300 Other: Other Intake Source Packed Cells, Leukoreduced ns Unit [id number] Weight 77.3 kg 74.9 kg Diagnostic Findings EKG performed 04/25/2019 at 1726 and reviewed independently: Normal sinus rhythm at 63 bpm,, the preliminary computer interpretation and consider possible age-indeterminate septal infarction pattern is present. There is however a small R waves noted in lead V2. When compared to the recent outpatient EKG dated 04/21/2019, I do not think there is a significant interval change in terms of the precordial leads.. There is however development of a change in the axis and lead III which is negative now and have been upright in April 2019. Medications Administered Current Inpatient Medications Acetaminophen (Tylenol) 650 mg PO Q4H PRN PRN Reason: Pain or Fever Stop: 05/25/19 22:10 Amlodipine Besylate (Norvasc) 2.[address] [facility] Stop: 05/26/19 08:59 Last Admin: 04/26/19 09:51 Dose: 2.5 mg Documented by: Aspirin (Ecotrin Ectab) [address] [facility] Stop: 05/26/19 11:44 Atenolol (Tenormin) [address] [facility] Stop: 05/26/19 08:59 Last Admin: 04/26/19 09:52 Dose: 100 mg Documented by: Atorvastatin Calcium (Lipitor) [address] [facility] Stop: 05/26/19 08:59 Last Admin: 04/26/19 09:52 Dose: 80 mg Documented by: Clopidogrel Bisulfate (Plavix) [address] [facility] Stop: 05/26/19 11:44 Dextrose (Dextrose 50%) 25 - 50 ml IV UD PRN; Protocol PRN Reason: Hypoglycemia Protocol Stop: 05/25/19 22:10 Ezetimibe (Zetia) 10 mg PO DAILY [facility] Stop: 05/26/19 08:59 Last Admin: 04/26/19 09:51 Dose: 10 mg Documented by: Escitalopram Oxalate (Lexapro Tab) 20 mg PO DAILY [facility]I Stop: 05/26/19 08:59 Last Admin: 04/26/19 09:52 Dose: 20 mg Documented by: Glucagon (Glucagen) 1 mg SQ UD PRN; Protocol PRN Reason: Hypoglycemia Protocol Stop: 05/25/19 22:10 Glucose (Glucose 40%) 15 - 30 gm PO UD PRN; Protocol PRN Reason: Hypoglycemia Protocol Stop: 05/25/19 22:10 Glucose (Dex4 Glucose) 4 - 8 tabs PO UD PRN; Protocol PRN Reason: Hypoglycemia Protocol Stop: 05/25/19 22:10 Hydromorphone HCl (Dilaudid) 0.25 mg IV Q3H PRN PRN Reason: Pain Stop: 05/09/19 22:10 Promethazine HCl 12.5 mg/ (Sodium Chloride) 50.5 mls @ 202 mls/hr IV Q6H PRN PRN Reason: Nausea And Vomiting Stop: 05/25/19 22:10 Sodium Chloride (Nss 1000ml) 1,000 mls @ 50 mls/hr IV .Q20H [facility]I Stop: 05/25/19 22:10 Last Infusion: 04/26/19 06:30 Dose: 50 mls/hr Documented by: Sodium Chloride (Nss) 250 mls @ 15 mls/hr IV .[id number] PRN PRN Reason: For Transfusion Stop: 05/26/19 03:09 Pantoprazole Sodium 40 mg/ (Dextrose) 100 mls @ 20 mls/hr IV Q5H [facility]I Stop: 05/26/19 08:59 Last Admin: 04/26/19 09:54 Dose: 20 mls/hr Documented by: Insulin Aspart (Novolog Flexpen) 0 units SC Q6 [facility]I Stop: 05/25/19 22:59 Last Admin: 04/26/19 06:36 Dose: Not Given Documented by: Isosorbide Mononitrate (Imdur Extended Rel) [address] [facility] Stop: 05/26/19 08:59 Last Admin: 04/26/19 09:52 Dose: 60 mg Documented by: Levothyroxine Sodium (Synthroid) 112 mcg PO DAILYBB [facility]I Stop: 05/26/19 06:29 Last Admin: 04/26/19 05:03 Dose: 112 mcg Documented by: Lorazepam (Ativan) 1 mg PO Q8H PRN PRN Reason: Anxiety Stop: 05/25/19 22:10 Miscellaneous (Carbohydrates For Hypoglycemia) 15 - 30 gm PO UD PRN PRN Reason: Hypoglycemia Treatment Stop: 05/25/19 22:10 Nitroglycerin (Nitrostat) 0.4 mg SL UD PRN PRN Reason: Chest Pain Stop: 05/25/19 22:10 Fluticasone/Salmeterol (Advair Diskus 250/50) 1 puffs INH BID YARI Stop: 05/26/19 08:59 Last Admin: 04/26/19 09:53 Dose: 1 puffs Documented by: Tiotropium [place] (Spiriva) 1 puffs INH DAILY [facility]ARI Stop: 05/26/19 08:59 Last Admin: 04/26/19 09:55 Dose: 1 puffs Documented by: Tramadol HCl (Ultram) 25 mg PO Q4H PRN PRN Reason: Pain Stop: 05/25/19 22:10
[2019-04-26] MEDS: CLOPIDOGREL BISULFATE 75 MG TAB PO SCH (13:07)
[2019-04-26] MEDS: ASPIRIN 81 MG ECTAB PO SCH (13:07)
--- NOTE | 2019-04-26 13:20 | Gastrointestinal Consultation ---
Date of Consultation April 26, 2019 Assessment & Plan (1) Acute blood loss anemia: Continue Pantoprazole 8 mg per hour gtt Transfuse PRN to maintain H/H around 10/30 due to CAD Clear liquid diet today NPO after midnight EGD in AM (2) GERD (gastroesophageal reflux disease): (3) Melena: (4) Chest pain due to GERD: History of Present Illness Reason for Consultation: Upper GI bleed Attending Physician: Camron Doll MD History of Present Illness Ronel Osorio presented to the [facility] last evening, with complaints of chest pain, worsening GERD and belching. She states that on several occasions prior to her arrival, and while in the ER, she noted dark liquid which was foul tasting in her mouth following a belch. She states that she did have some feeling of lightheadedness prior to her arrival. She does have a history of GERD, which has been worsening recently, as well as a history of CAD with mul tiple stent placements in the past. On arrival to the ER, she was noted to have an H/H of 9.4/29.6, and was also noted to have an elevated BUN of 50. She was placed on a protonix gtt, and was seen by Cardiology, and did receive a blood transfusion with 1 u PRBC. At the time that I saw her, her lightheadedness had resolved. She did admit to having some dark stools in the weeks leading up to this event. She denies any use of NSAID's, however, is on ASA and plavix for history of CAD with recent stent placement. I discussed this case in detail with Dr. Shrestha of Cardiology, due to her recent cardiology issues, and she will remain on ASA and plavix at this time. She has had prior EGD and colonoscopy exams with [facility], however, I do not have these records at present. She has no further complaints. Allergies Allergy/AdvReac Type Severity Reaction Status Date / Time ampicillin Allergy Unknown Vaginitis. Verified 04/25/19 18:10 doxycycline Allergy Unknown Nausea and Verified 04/25/19 18:10 diarrhea. erythromycin base Allergy Unknown Nause and Verified 04/25/19 18:10 diarrhea. ranitidine Allergy Unknown Rash. Verified 04/25/19 18:10 morphine AdvReac Unknown AGITATION Verified 04/25/19 18:10 Home Medications Home Medications Medication Instructions Recorded Confirmed Type acetaminophen [Tylenol Extra 1,000 mg PO QID PRN #0 tab 06/03/17 04/25/19 History Strength] aspirin [Aspir-81] 81 mg PO DAILY 90 Days #90 tab 06/03/17 04/25/19 History atenolol 100 mg PO DAILY #0 tab 06/03/17 04/25/19 History atorvastatin 80 mg PO DAILY #0 tab 06/03/17 04/25/19 History cholecalciferol (vitamin D3) 1,000 unit PO DAILY #0 06/03/17 04/25/19 History [Vitamin D3] clopidogrel 75 mg PO DAILY #0 tab 06/03/17 04/25/19 History escitalopram oxalate [Lexapro] 20 mg PO DAILY #0 tab 06/03/17 04/25/19 History levothyroxine [Levoxyl] 112 mcg PO QAM #0 tab 06/03/17 04/25/19 History lisinopril [Prinivil] 20 mg PO BID #0 tab 06/03/17 04/25/19 History lorazepam [Ativan] 1 mg PO Q8H PRN #0 tab 06/03/17 04/25/19 History albuterol sulfate [ProAir HFA] 2 puff INHALATION Q4H PRN 04/25/19 04/25/19 History amlodipine 2.5 mg PO DAILY 04/25/19 04/25/19 History dicyclomine 20 mg PO BID 04/25/19 04/25/19 History eszopiclone [Lunesta] 1 mg PO HS PRN 04/25/19 04/25/19 History ezetimibe 10 mg PO DAILY 04/25/19 04/25/19 History fluticasone propion-salmeterol 1 inh INHALATION BID 04/25/19 04/25/19 History [Advair Diskus] iron,carbonyl-vitamin C [Vitron-C] 1 tab PO DAILY 04/25/19 04/25/19 History isosorbide mononitrate 60 mg PO DAILY 04/25/19 04/25/19 History metformin 500 mg PO DAILY 04/25/19 04/25/19 History nitroglycerin [Nitrostat] 0.4 mg SUBLINGUAL UD PRN 04/25/19 04/25/19 History ondansetron HCl [Zofran] 4 mg PO QAM PRN 04/25/19 04/25/19 History pantoprazole 20 mg PO DAILY 04/25/19 04/25/19 History tiotropium bromide [Spiriva with 1 cap INHALATION DAILY 04/25/19 04/25/19 History HandiHaler] Patient History Medical History IBS (irritable bowel syndrome) (Chronic) GERD (gastroesophageal reflux disease) (Chronic) CKD (chronic kidney disease), stage III (Chronic) HTN (hypertension) (Chronic) Abdominal aortic ectasia (Chronic) Carotid artery disease (Chronic) COPD (chronic obstructive pulmonary disease) (Chronic) Dyslipidemia (Chronic) Hypothyroidism (Chronic) Renal artery stenosis (Chronic) History of stent insertion of renal artery (Chronic) 2011 with restenosis in 2013 and 2014 CAD (coronary artery disease) (Chronic) cath 03/25/17 - ALICE to RCA [place] [facility] [place] - ALICE to the first diagonal branch, ALICE to the prox LAD, 1 ALICE to the ostial LM Surgical History H/O repair of right rotator cuff (Chronic) History of appendectomy (Chronic) History of back surgery (Chronic) H/O tubal ligation (Chronic) H/O dilation and curettage (Chronic) Family History Mother Stroke Social History Preferred Language: Luxembourgish Communication Ability: Effective 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 Beliefs That Will Affect Care: None Current Living Situation: Spouse Other Information That Helps Us Care for You: No Feels Safe at Home: Yes Safety Concerns: Feels Safe At This Time Smoking Status: Former smoker Tobacco Type: cigarettes ; Do You Dip or Chew Tobacco: No ; Second Hand Exposure: No ; Tobacco Cessation Education Requested by Patient: No Hx Alcohol Use: No Hx Substance Use: No Review of Systems Constitutional: no fever, no chills and no weight loss Eyes: no eye pain Ear, Nose, Mouth, Throat: no dizziness and no pain with swallowing Respiratory: no cough, no dyspnea, no dyspnea on exertion and no hemoptysis Cardiovascular: no chest pain, no chest pain with activity, no radiating jaw, neck or arm pain and no dyspnea Gastrointestinal: + belching; no hematemesis and no dysphagia Genitourinary: no dysuria and no hematuria Musculoskeletal: no back pain Integumentary: no rash Neurologic: no gait abnormality Psychiatric: no depression and no anxiety Hematologic / Lymphatic: no easy bleeding and no easy bruising Allergy / Immunological: + GI upset with certain foods; no cough Physical Exam Constitutional: WD/WN, vitals as above Respiratory: normal respiratory effort, lungs clear to auscultation Cardiovascular: RRR, no murmur, no edema Gastrointestinal (Abdomen): normal bowel sounds, soft, nontender, no hepatosplenomegaly Results & Data Vital Signs (Past 12 Hours) Vital Signs Temp Pulse Pulse Resp BP BP Pulse Ox 04/26/19 11:51 36.7 C 65 18 118/56 L 95 04/26/19 07:26 70 04/26/19 07:02 37.2 C 67 20 145/72 H 97 04/26/19 06:28 37.4 C 66 16 121/75 98 04/26/19 05:30 37.3 C 72 18 103/62 95 04/26/19 05:00 37.4 C 73 14 114/67 99 04/26/19 04:59 37.4 C 73 14 114/67 99 04/26/19 04:45 37.2 C 69 16 143/71 H 98 04/26/19 04:25 37.5 C 77 16 149/75 H 97 04/26/19 03:00 37.3 C 68 18 130/74 96 PG Care Time/CCT Total # of Minutes Spent Total Time Spent with Patient: Total time spent is greater than 50% in coordination of care (as documented) at patient's floor/unit and/or counseling patient:
[2019-04-26 19:31] LABS: Hemoglobin 9.4 g/dL (12.0-16.0)
[2019-04-27] MEDS: INSULIN ASPART 100 UNITS/ML 3 ML PEN SC SCH ×5 (00:32→20:55)
[2019-04-27] MEDS: SODIUM CHLORIDE 0.9% 1000ML 1,000 ML IV SCH (01:06)
[2019-04-27] MEDS: PANTOprazole 40 MG in DEXTROSE 5% 100 ML IV SCH ×2 (03:33→08:56)
[2019-04-27] MEDS: LEVOTHYROXINE SODIUM 112 MCG TABLET PO SCH (06:24)
[2019-04-27] MEDS ORDERED: SODIUM CHLORIDE 0.9% 250 ML IV PRN (07:53)
--- NOTE | 2019-04-27 08:23 | History & Physical Report ---
Date of Service April 27, 2019 Assessment & Plan (1) Gastritis and duodenitis: EGD Present on Admission?: Yes History of Present Illness Chief Complaint: GI bleed follow up Primary Care Provider: NO PCP Previous EGD with gastritis and duodenal erosion, anemia Allergies Allergy/AdvReac Type Severity Reaction Status Date / Time ampicillin Allergy Unknown Vaginitis. Verified 04/25/19 18:10 doxycycline Allergy Unknown Nausea and Verified 04/25/19 18:10 diarrhea. erythromycin base Allergy Unknown Nause and Verified 04/25/19 18:10 diarrhea. ranitidine Allergy Unknown Rash. Verified 04/25/19 18:10 morphine AdvReac Unknown AGITATION Verified 04/25/19 18:10 Home Medications Home Medications Medication Instructions Recorded Confirmed Type acetaminophen [Tylenol Extra 1,000 mg PO QID PRN #0 tab 06/03/17 04/25/19 History Strength] aspirin [Aspir-81] 81 mg PO DAILY 90 Days #90 tab 06/03/17 04/25/19 History atenolol 100 mg PO DAILY #0 tab 06/03/17 04/25/19 History atorvastatin 80 mg PO DAILY #0 tab 06/03/17 04/25/19 History cholecalciferol (vitamin D3) 1,000 unit PO DAILY #0 06/03/17 04/25/19 History [Vitamin D3] clopidogrel 75 mg PO DAILY #0 tab 06/03/17 04/25/19 History escitalopram oxalate [Lexapro] 20 mg PO DAILY #0 tab 06/03/17 04/25/19 History levothyroxine [Levoxyl] 112 mcg PO QAM #0 tab 06/03/17 04/25/19 History lisinopril [Prinivil] 20 mg PO BID #0 tab 06/03/17 04/25/19 History lorazepam [Ativan] 1 mg PO Q8H PRN #0 tab 06/03/17 04/25/19 History albuterol sulfate [ProAir HFA] 2 puff INHALATION Q4H PRN 04/25/19 04/25/19 History amlodipine 2.5 mg PO DAILY 04/25/19 04/25/19 History dicyclomine 20 mg PO BID 04/25/19 04/25/19 History eszopiclone [Lunesta] 1 mg PO HS PRN 04/25/19 04/25/19 History ezetimibe 10 mg PO DAILY 04/25/19 04/25/19 History fluticasone propion-salmeterol 1 inh INHALATION BID 04/25/19 04/25/19 History [Advair Diskus] iron,carbonyl-vitamin C [Vitron-C] 1 tab PO DAILY 04/25/19 04/25/19 History isosorbide mononitrate 60 mg PO DAILY 04/25/19 04/25/19 History metformin 500 mg PO DAILY 04/25/19 04/25/19 History nitroglycerin [Nitrostat] 0.4 mg SUBLINGUAL UD PRN 04/25/19 04/25/19 History ondansetron HCl [Zofran] 4 mg PO QAM PRN 04/25/19 04/25/19 History pantoprazole 20 mg PO DAILY 04/25/19 04/25/19 History tiotropium bromide [Spiriva with 1 cap INHALATION DAILY 04/25/19 04/25/19 History HandiHaler] Past Med/Surg History Medical History IBS (irritable bowel syndrome) (Chronic) GERD (gastroesophageal reflux disease) (Chronic) CKD (chronic kidney disease), stage III (Chronic) HTN (hypertension) (Chronic) Abdominal aortic ectasia (Chronic) Carotid artery disease (Chronic) COPD (chronic obstructive pulmonary disease) (Chronic) Dyslipidemia (Chronic) Hypothyroidism (Chronic) Renal artery stenosis (Chronic) History of stent insertion of renal artery (Chronic) 2011 with restenosis in 2013 and 2014 CAD (coronary artery disease) (Chronic) cath 03/25/17 - ALICE to RCA repeat cath at [facility] [place] 07/10/18 - ALICE to the first diagonal branch, ALICE to the prox LAD, 1 ALICE to the ostial LM Surgical History H/O repair of right rotator cuff (Chronic) History of appendectomy (Chronic) History of back surgery (Chronic) H/O tubal ligation (Chronic) H/O dilation and curettage (Chronic) Family History Mother Stroke Social History Preferred Language: Lithuanian Communication Ability: Effective 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 Beliefs That Will Affect Care: None Current Living Situation: Spouse Other Information That Helps Us Care for You: No Feels Safe at Home: Yes Safety Concerns: Feels Safe At This Time Smoking Status: Former smoker Tobacco Type: cigarettes ; Do You Dip or Chew Tobacco: No ; Second Hand Exposure: No ; Tobacco Cessation Education Requested by Patient: No Hx Alcohol Use: No Hx Substance Use: No Physical Exam Constitutional: WD/WN, vitals as above Respiratory: normal respiratory effort, lungs clear to auscultation Cardiovascular: RRR, no murmur, no edema Gastrointestinal (Abdomen): normal bowel sounds, soft, nontender, no hepatosplenomegaly Results & Data Vital Signs (Past 12 Hours) Vital Signs Temp Pulse Pulse Resp BP BP Pulse Ox 04/27/19 07:20 36.8 C 66 16 160/66 H 97 04/27/19 04:34 37 C 73 16 157/76 H 95 04/27/19 00:00 70 04/26/19 23:38 37.3 C 77 22 133/56 L 97 Code Status & VTE Plan VTE Prophylaxis Plan VTE Prophylaxis will be ordered: Yes
--- NOTE | 2019-04-27 09:21 | Cardiology Progress Note ---
Date of Service April 27, 2019 Assessment & Plan (1) Acute blood loss anemia: Suspected upper GI bleed. Continue protonix. GI input noted and appreciated. Pt stable from cardiac perspective for endoscopy. (2) CAD (coronary artery disease): h/o multiple percutaneous interventions including ALICE to LAD , left main in 07/2018. Had complained of recent chest pain at outpt cardio visit 1 week ago, perhaps due to anemia. Given complex CAD, ASA and plavix continued for now. Await endoscopy results. Will administer am BP mends now, ASA and plavix after EGD. Discussed with nursing, family at bedside. Subjective CC: follow up generalized weakness, anemia, h/o complex coronary heart disease Subjective: Pt without dizziness or chest pain. Telemetry reveals SR in the range of 60s-70s. No chest pain or dizziness. Had additional BM with black tarry stool last night. Review of Systems Review of Systems: All systems reviewed & are unremarkable except as noted in HPI & below Physical Exam Physical Exam: Temp Pulse Resp BP Pulse Ox 36.8 C 68 17 160/73 H 95 04/27/19 09:14 04/27/19 09:26 04/27/19 09:14 04/27/19 09:14 04/27/19 09:14 Constitutional: WD/WN, vitals as above Respiratory: normal respiratory effort, lungs clear to auscultation Cardiovascular: RRR, no murmur, no edema Vessels: no JVD Extremities: no edema Gastrointestinal (Abdomen): normal bowel sounds, soft, nontender, no hep atosplenomegaly Neurologic: PERRL, EOMI, accommodation nl, no face palsy, no dysarthria Results & Data Vital Signs (Past 12 Hours) Vital Signs Temp Pulse Pulse Resp BP BP BP 04/27/19 09:14 36.8 C 67 17 160/73 H 04/27/19 07:20 36.8 C 66 16 160/66 H 04/27/19 04:34 37 C 73 16 157/76 H 04/27/19 00:00 70 04/26/19 23:38 37.3 C 77 22 133/56 L Pulse Ox 04/27/19 09:14 95 04/27/19 07:20 97 04/27/19 04:34 95 04/27/19 00:00 04/26/19 23:38 97 Laboratory Results CBC 04/26/19 Range/Units 19:02 Hgb 9.4 L (12.0-16.0) g/dL Hct 28.0 L (37-47) % Intake and Output 04/26/19 04/27/19 04/27/19 22:59 06:59 14:59 Intake Total 1620.667 / 1803.334 100 / 1803.334 100 / 100 Output Total 802 800 / 802 Balance 1619.667 / 1001.334 -700 / 1001.334 100 / 100 Intake: IV 910.667 / 1093.334 100 / 1093.334 100 / 100 Protonix 40 mg In D5 100 ml @ 169 / 351.667 100 / 351.667 100 / 100 20 mls/hr IV Q5H [facility] Rx#: [id number] Nss 1000ML 1,000 ml @ 50 mls/hr 741.667 / 741.667 IV .Q20H [facility] Rx#:[id number] Oral 400 / 400 Intake (Blood Product) Amt 310 / 310 0 / 0 Packed Cells, Leukoreduced 310 / 310 Unit [id number] Packed Cells, Leukoreduced 0 / 0 Unit [id number] Output: Urine 800 / 800 # Bowel Movements 1 / 2 Other: Other Intake Source NPO # Unmeasured Voids 2 Weight 74.5 kg Current Inpatient Medications Acetaminophen (Tylenol) 650 mg PO Q4H PRN PRN Reason: Pain or Fever Stop: 05/25/19 22:10 Aspirin (Ecotrin Ectab) 81 mg PO [facility] Stop: 05/26/19 11:44 Last Admin: 04/26/19 13:07 Dose: 81 mg Documented by: Atenolol (Tenormin) 100 mg PO DAILY [facility] Stop: 05/26/19 08:59 Last Admin: 04/27/19 09:24 Dose: 100 mg Documented by: Atorvastatin Calcium (Lipitor) 80 mg PO DAILY [facility] Stop: 05/26/19 08:59 Last Admin: 04/26/19 09:52 Dose: 80 mg Documented by: Clopidogrel Bisulfate (Plavix) 75 mg PO QAM [facility] Stop: 05/26/19 11:44 Last Admin: 04/26/19 13:07 Dose: 75 mg Documented by: Dextrose (Dextrose 50%) 25 - 50 ml IV UD PRN; Protocol PRN Reason: Hypoglycemia Protocol Stop: 05/25/19 22:10 Ezetimibe (Zetia) 10 mg PO DAILY [facility] Stop: 05/26/19 08:59 Last Admin: 04/26/19 09:51 Dose: 10 mg Documented by: Escitalopram Oxalate (Lexapro Tab) 20 mg PO DAILY [facility] Stop: 05/26/19 08:59 Last Admin: 04/26/19 09:52 Dose: 20 mg Documented by: Glucagon (Glucagen) 1 mg SQ UD PRN; Protocol PRN Reason: Hypoglycemia Protocol Stop: 05/25/19 22:10 Glucose (Glucose 40%) 15 - 30 gm PO UD PRN; Protocol PRN Reason: Hypoglycemia Protocol Stop: 05/25/19 22:10 Glucose (Dex4 Glucose) 4 - 8 tabs PO UD PRN; Protocol PRN Reason: Hypoglycemia Protocol Stop: 05/25/19 22:10 Hydromorphone HCl (Dilaudid) 0.25 mg IV Q3H PRN PRN Reason: Pain Stop: 05/09/19 22:10 Promethazine HCl 12.5 mg/ (Sodium Chloride) 50.5 mls @ 202 mls/hr IV Q6H PRN PRN Reason: Nausea And Vomiting Stop: 05/25/19 22:10 Sodium Chloride (Nss 1000ml) 1,000 mls @ 50 mls/hr IV .Q20H [facility] Stop: 05/25/19 22:10 Last Admin: 04/27/19 01:06 Dose: 50 mls/hr Documented by: Sodium Chloride (Nss) 250 mls @ 15 mls/hr IV .[id number] PRN PRN Reason: For Transfusion Stop: 05/26/19 03:09 Pantoprazole Sodium 40 mg/ (Dextrose) 100 mls @ 20 mls/hr IV Q5H [facility] Stop: 05/26/19 08:59 Last Admin: 04/27/19 08:56 Dose: 20 mls/hr Documented by: Sodium Chloride (Nss) 250 mls @ 15 mls/hr IV .[id number] PRN PRN Reason: For Transfusion Stop: 05/26/19 11:50 Sodium Chloride (Nss) 250 mls @ 15 mls/hr IV .[id number] PRN PRN Reason: For Transfusion Stop: 04/27/19 23:59 Insulin Aspart (Novolog Flexpen) 0 units SC Q6 [facility] Stop: 05/25/19 22:59 Last Admin: 04/27/19 06:00 Dose: Not Given Documented by: Isosorbide Mononitrate (Imdur Extended Rel) 60 mg PO DAILY [facility] Stop: 05/26/19 08:59 Last Admin: 04/27/19 09:24 Dose: 60 mg Documented by: Levothyroxine Sodium (Synthroid) 112 mcg PO DAILYBB [facility] Stop: 05/26/19 06:29 Last Admin: 04/27/19 06:24 Dose: 112 mcg Documented by: Lorazepam (Ativan) 1 mg PO Q8H PRN PRN Reason: Anxiety Stop: 05/25/19 22:10 Miscellaneous (Carbohydrates For Hypoglycemia) 15 - 30 gm PO UD PRN PRN Reason: Hypoglycemia Treatment Stop: 05/25/19 22:10 Nitroglycerin (Nitrostat) 0.4 mg SL UD PRN PRN Reason: Chest Pain Stop: 05/25/19 22:10 Fluticasone/Salmeterol (Advair Diskus 250/50) 1 puffs INH BID [facility] Stop: 05/26/19 08:59 Last Admin: 04/27/19 09:31 Dose: 1 puffs Documented by: Tiotropium [place] (Spiriva) 1 puffs INH DAILY [facility] Stop: 05/26/19 08:59 Last Admin: 04/27/19 09:32 Dose: 1 puffs Documented by: Tramadol HCl (Ultram) 25 mg PO Q4H PRN PRN Reason: Pain Stop: 05/25/19 22:10
[2019-04-27] MEDS: ISOSORBIDE MONO EXTENDED REL 60 MG TABCR PO SCH (09:24)
[2019-04-27] MEDS: ATENOLOL 50 MG TABLET PO SCH (09:24)
[2019-04-27] MEDS: FLUTICASONE/SALMETEROL 250/50 (ADVAIR) 14 PUFF/1 INHALER INH SCH ×2 (09:31→20:38)
[2019-04-27] MEDS: TIOTROPIUM BROMIDE 5 PUFF/90 MCG INH INH SCH (09:32)
[2019-04-27] MEDS ORDERED: ATROPINE SULFATE 0.1 MG/ML 10ML SYR IV PRN (10:37)
[2019-04-27] MEDS ORDERED: ePHEDrine sulfate 50 MG/ML AMP IV PRN (10:37)
--- NOTE | 2019-04-27 10:37 | Anesthesiology Consultation ---
Date of Service April 27, 2019 Assessment & Plan Chart Review Chart Review: Acceptable Risk for Surgery and Patient NOT seen in Pre Admission Testing Consults Requested none ASA ASA4 Proposed Anesthesia Anesthesia Type: MAC Risk / Benefits Reviewed With: PT / POA / Parent / Guardian, Accepts Plan and Informed Consent Obtained History Surgery Operation Date: 04/27/19 08:30 Proposed Procedures p Esophagogastroduodenoscopy Dr Navas - Herber Watkins MD Height/Weight Height: 5 ft 5 in Weight: 74.5 kg Allergies Allergy/AdvReac Type Severity Reaction Status Date / Time ampicillin Allergy Unknown Vaginitis. Verified 04/27/19 10:10 doxycycline Allergy Unknown Nausea and Verified 04/27/19 10:10 diarrhea. erythromycin base Allergy Unknown Nause and Verified 04/27/19 10:10 diarrhea. ranitidine Allergy Unknown Rash. Verified 04/27/19 10:10 morphine AdvReac Unknown AGITATION Verified 04/27/19 10:10 Medications Home Medications Medication Instructions Recorded Confirmed Last Taken acetaminophen [Tylenol Extra 1,000 mg PO QID PRN #0 tab 06/03/17 04/25/19 Unknown Strength] aspirin [Aspir-81] 81 mg PO DAILY 90 Days #90 tab 06/03/17 04/25/19 04/25/19 atenolol 100 mg PO DAILY #0 tab 06/03/17 04/25/19 04/24/19 atorvastatin 80 mg PO DAILY #0 tab 06/03/17 04/25/19 04/24/19 cholecalciferol (vitamin D3) 1,000 unit PO DAILY #0 06/03/17 04/25/19 Unknown [Vitamin D3] clopidogrel 75 mg PO DAILY #0 tab 06/03/17 04/25/19 04/24/19 escitalopram oxalate [Lexapro] 20 mg PO DAILY #0 tab 06/03/17 04/25/19 04/24/19 levothyroxine [Levoxyl] 112 mcg PO QAM #0 tab 06/03/17 04/25/19 04/24/19 lisinopril [Prinivil] 20 mg PO BID #0 tab 06/03/17 04/25/19 04/24/19 lorazepam [Ativan] 1 mg PO Q8H PRN #0 tab 06/03/17 04/25/19 Unknown albuterol sulfate [ProAir HFA] 2 puff INHALATION Q4H PRN 04/25/19 04/25/19 Unknown amlodipine 2.5 mg PO DAILY 04/25/19 04/25/19 Unknown dicyclomine 20 mg PO BID 04/25/19 04/25/19 Unknown eszopiclone [Lunesta] 1 mg PO HS PRN 04/25/19 04/25/19 Unknown ezetimibe 10 mg PO DAILY 04/25/19 04/25/19 04/24/19 fluticasone propion-salmeterol 1 inh INHALATION BID 04/25/19 04/25/19 Unknown [Advair Diskus] iron,carbonyl-vitamin C [Vitron-C] 1 tab PO DAILY 04/25/19 04/25/19 04/24/19 isosorbide mononitrate 60 mg PO DAILY 04/25/19 04/25/19 Unknown metformin 500 mg PO DAILY 04/25/19 04/25/19 Unknown nitroglycerin [Nitrostat] 0.4 mg SUBLINGUAL UD PRN 04/25/19 04/25/19 Unknown ondansetron HCl [Zofran] 4 mg PO QAM PRN 04/25/19 04/25/19 Unknown pantoprazole 20 mg PO DAILY 04/25/19 04/25/19 Unknown tiotropium bromide [Spiriva with 1 cap INHALATION DAILY 04/25/19 04/25/19 Unknown HandiHaler] Active Medications Generic Name Dose Route Start Last Admin Trade Name Freq PRN Reason Stop Dose Admin Aspirin 81 mg 04/26/19 11:45 04/26/19 13:07 Ecotrin Ectab PO 05/26/19 11:44 81 mg QAM YAIR Administration Atenolol 100 mg 04/26/19 09:00 04/27/19 09:24 Tenormin PO 05/26/19 08:59 100 mg DAILY YARI Administration Atorvastatin Calcium 80 mg 04/26/19 09:00 04/26/19 09:52 Lipitor PO 05/26/19 08:59 80 mg DAILY YARI Administration Clopidogrel Bisulfate 75 mg 04/26/19 11:45 04/26/19 13:07 Plavix PO 05/26/19 11:44 75 mg QAM YARI Administration Ezetimibe 10 mg 04/26/19 09:00 04/26/19 09:51 Zetia PO 05/26/19 08:59 10 mg DAILY YARI Administration Escitalopram Oxalate 20 mg 04/26/19 09:00 04/26/19 09:52 Lexapro Tab PO 05/26/19 08:59 20 mg DAILY YARI Administration Sodium Chloride 1,000 mls @ 50 mls/hr 04/25/19 22:11 04/27/19 01:06 Nss 1000ml IV 05/25/19 22:10 50 mls/hr .Q20H YARI Administration Pantoprazole Sodium 40 mg/ 100 mls @ 20 mls/hr 04/26/19 09:00 04/27/19 08:56 Dextrose IV 05/26/19 08:59 20 mls/hr Q5H YARI Administration Insulin Aspart 0 units 04/25/19 23:00 04/27/19 06:00 Novolog Flexpen SC 05/25/19 22:59 Not Given Q6 YARI Isosorbide Mononitrate 60 mg 04/26/19 09:00 04/27/19 09:24 Imdur Extended Rel PO 05/26/19 08:59 60 mg DAILY YARI Administration Levothyroxine Sodium 112 mcg 04/26/19 06:30 04/27/19 06:24 Synthroid PO 05/26/19 06:29 112 mcg DAILYBB YARI Administration Fluticasone/Salmeterol 1 puffs 04/26/19 09:00 04/27/19 09:31 Advair Diskus 250/50 INH 05/26/19 08:59 1 puffs BID YARI Administration Tiotropium [place] 1 puffs 04/26/19 09:00 04/27/19 09:32 Spiriva INH 05/26/19 08:59 1 puffs DAILY YARI Administration NPO Date Last Intake of Fluids: 04/26/19 Time Last Intake of Fluids: 23:59 Date Last Intake of Solids: 04/26/19 Time Last Intake of Solids: 23:59 Past Medical History Medical History IBS (irritable bowel syndrome) (Chronic) GERD (gastroesophageal reflux disease) (Chronic) CKD (chronic kidney disease), stage III (Chronic) HTN (hypertension) (Chronic) Abdominal aortic ectasia (Chronic) Carotid artery disease (Chronic) COPD (chronic obstructive pulmonary disease) (Chronic) Dyslipidemia (Chronic) Hypothyroidism (Chronic) Renal artery stenosis (Chronic) History of stent insertion of renal artery (Chronic) 2011 with restenosis in 2013 and 2014 CAD (coronary artery disease) (Chronic) cath 03/25/17 - ALICE to RCA repeat [place] [facility] [place]18 - ALICE to the first diagonal branch, ALICE to the prox LAD, 1 ALICE to the ostial LM Exercise / Class Metabolic Activity III < 4 Walking/Shop/Light housework Past Family History Family History Mother Stroke Past Surgical History Surgical History H/O repair of right rotator cuff (Chronic) History of appendectomy (Chronic) History of back surgery (Chronic) H/O tubal ligation (Chronic) H/O dilation and curettage (Chronic) Past Anesthesia History No Hx of Anesthesia Complications and No Family Hx of Anesthesia Complications History of PONV No Hx of PONV and No Hx of Motion Sickness Social History Smoking Status: Former smoker tobacco type: cigarettes Do You Dip or Chew Tobacco: No Hx Alcohol Use: No Hx Substance Use: No Physical Exam Vital Signs Last Vital Signs Temp 36.8 C 04/27/19 10:15 Pulse 66 04/27/19 10:15 Resp 16 04/27/19 10:15 BP 144/74 H 04/27/19 10:15 Pulse Ox 98 04/27/19 10:15 Constitutional not obese ENMT Mouth: + edentulous Thyromental Distance: > or= 3.5 Finger Breadths Mallampati Class: II Neck normal visual inspection and trachea midline; neck extension not limited Respiratory normal respiratory effort Auscultation: lungs clear to auscultation bilaterally Cardiovascular Rate/Rhythm: regular rate and regular rhythm Heart Sounds: no murmur Vessels: no carotid bruit Musculoskeletal Spine: normal cervical ROM Neurologic moves all extremities Motor/Sensory: no sensory deficit Psychiatric Orientation: alert and oriented x 3 Testing Laboratory Results 04/26/19 19:02 04/26/19 07:55 PT 10.8 Seconds (9.0-12.0) 04/25/19 17:56 INR 1.1 (0.9-1.1) 04/25/19 17:56 APTT 22.5 Seconds (21.0-31.0) 04/25/19 17:56 Blood Type A Negative 04/25/19 22:27 Antibody Screen NEGATIVE 04/25/19 22:27 04/27/19 04/27/19 05:57 00:18 POC Glucose 166 H 153 H
[2019-04-27] MEDS ORDERED: PROPOFOL IV EMULSION 10 MG/ML 20 ML VIAL IV ONE (10:55)
[2019-04-27] MEDS ORDERED: LIDOCAINE HCL 2% 2 ML VIAL/AMP(20MG/ML) INFIL ONE (10:55)
[2019-04-27] MEDS ORDERED: ONDANSETRON INJ 2 MG/ML 2 ML VIAL ONE (10:55)
--- NOTE | 2019-04-27 11:29 | Gastroenterology Progress Note ---
Date of Service April 27, 2019 Assessment & Plan (1) Gastritis and duodenitis: EGD Supervising Physician Co-Signing Physician Notes I have performed a history and physical examination of this patient and reviewed the electronic medical record. Specifically, on physical examination there is minimal epigastric tenderness. I have discussed the case with AMBER Black. The above note reflects my findings, conclusions, and recommendations. Herber Watkins MD Subjective Ms. Osorio is a 78 yr old female admitted on 04/25 for melena x 3-4 days, anemi a, Hb 9.4 on arrival, dropped to 8.2, received 2 units of RBC and today 9.4 again, receiving 3rd unit of RBC. after 2 units of RBCs. On protonix drip. Pt reports about 2 months of upper abdomen discomfort, worsened GERD. PMH CAD, on Plavix ASA, per cardiology they request to continue ASA, Plavix. Review of Systems Review of Systems: ROS: Gen: Denies weakness, fevers, weight loss Eyes: No eye redness, or pain, no recent vision changes Resp: No SOB, no cough Cardio: No palpitations/irregular beats, no chest pain GI: No abdominal pain, no nausea/vomiting : Denies pain on urination Skin: No jaundice, itching or new rashes Constitutional: +weakness, weight loss, denies fevers Eyes: No eye redness, no impaired vision or double vision Results & Data Vital Signs (Past 12 Hours) Vital Signs Temp Pulse Pulse Resp BP BP BP 04/27/19 11:04 36.8 C 62 16 127/63 04/27/19 10:34 37 C 63 16 143/64 H 04/27/19 10:15 36.8 C 66 16 144/74 H 04/27/19 10:04 36.8 C 66 16 140/78 04/27/19 09:49 36.8 C 66 16 164/76 H 04/27/19 09:34 36.9 C 69 17 173/62 H 04/27/19 09:26 68 04/27/19 09:14 36.8 C 67 17 160/73 H 04/27/19 07:20 36.8 C 66 16 160/66 H 04/27/19 04:34 37 C 73 16 157/76 H 04/27/19 00:00 70 04/26/19 23:38 37.3 C 77 22 133/56 L Pulse Ox 04/27/19 11:04 96 04/27/19 10:34 96 04/27/19 10:15 98 04/27/19 10:04 98 04/27/19 09:49 95 04/27/19 09:34 97 04/27/19 09:26 04/27/19 09:14 95 04/27/19 07:20 97 04/27/19 04:34 95 04/27/19 00:00 04/26/19 23:38 97
--- NOTE | 2019-04-27 11:57 | GI REPORT ---
Patient Name: Ronel Osorio Procedure Date: 04/27/2019 11:47 AM Date of : 1940 Admit Type: Inpatient Age: 78 Gender: Female Attending MD: Herber Watkins MD Procedure: Upper GI endoscopy Providers: Herber Watkins MD Referring MD: Camron Doll Indications: Acute post hemorrhagic anemia Medicines: Monitored Anesthesia Care Complications: No immediate complications. Estimated blood loss: None. Estimated Blood Loss: Estimated blood loss: none. Procedure: Pre-Anesthesia Assessment: - Prior to the procedure, a History and Physical was performed, and patient medications, allergies and sensitivities were reviewed. The patient's tolerance of previous anesthesia was reviewed. - ASA Grade Assessment: IV - A patient with severe systemic disease that is a constant threat to life. After obtaining informed consent, the endoscope was passed under direct vision. Throughout the procedure, the patient's blood pressure, pulse, and oxygen saturations were monitored continuously. The upper GI endoscopy was accomplished with ease. The patient tolerated the procedure well. The Endoscope was introduced through the mouth, and advanced to the third part of duodenum. Findings: The upper third of the esophagus, middle third of the esophagus and lower third of the esophagus were normal. The Z-line was regular and was found 36 cm from the incisors. The entire examined stomach was normal. Biopsies were taken with a cold forceps for Helicobacter pylori testing. The examined duodenum was normal. Impression: - Normal upper third of esophagus, middle third of esophagus and lower third of esophagus. - Z-line regular, 36 cm from the incisors. - Normal stomach. Biopsied. - Normal examined duodenum. Recommendation: - Await pathology results. - Return patient to hospital [facility] for ongoing care. Herber Watkins M.D. Herber Watkins MD 04/27/2019 11:56:52 AM This report has been signed electronically. Note Initiated On: 04/27/2019 11:47 AM Number of Addenda: 0 I attest to the content of the Intraoperative Record and orders documented therein, exceptions below {[id number]}
--- NOTE | 2019-04-27 12:04 | Anesthesiology Progress Note ---
Date of Service April 27, 2019 Anesthesia Post Procedure Vital Signs Vital Signs: Temp Pulse Pulse Resp BP BP BP 04/27/19 11:04 36.8 C 62 16 127/63 04/27/19 10:34 37 C 63 16 143/64 H 04/27/19 10:15 36.8 C 66 16 144/74 H 04/27/19 10:04 36.8 C 66 16 140/78 04/27/19 09:49 36.8 C 66 16 164/76 H 04/27/19 09:34 36.9 C 69 17 173/62 H 04/27/19 09:26 68 04/27/19 09:14 36.8 C 67 17 160/73 H 04/27/19 07:20 36.8 C 66 16 160/66 H 04/27/19 04:34 37 C 73 16 157/76 H 04/27/19 00:00 70 04/26/19 23:38 37.3 C 77 22 133/56 L 04/26/19 19:19 36.9 C 66 18 148/74 H 04/26/19 17:55 36.9 C 68 17 140/70 04/26/19 17:52 37.1 C 68 21 148/71 H 04/26/19 17:05 36.9 C 62 17 128/52 L 04/26/19 16:53 64 04/26/19 16:05 37.1 C 61 19 115/56 L 04/26/19 15:35 37.0 C 64 18 119/56 L 04/26/19 15:20 36.9 C 64 19 122/54 L 04/26/19 15:05 37.1 C 64 18 Pulse Ox 04/27/19 11:04 96 04/27/19 10:34 96 04/27/19 10:15 98 04/27/19 10:04 98 04/27/19 09:49 95 04/27/19 09:34 97 04/27/19 09:26 04/27/19 09:14 95 04/27/19 07:20 97 04/27/19 04:34 95 04/27/19 00:00 04/26/19 23:38 97 04/26/19 19:19 95 04/26/19 17:55 95 04/26/19 17:52 98 04/26/19 17:05 97 04/26/19 16:53 04/26/19 16:05 96 04/26/19 15:35 94 04/26/19 15:20 94 04/26/19 15:05 Transfer of Care Handoff Completed per policy Notes Mental Status: alert / awake / arousable Patient Amnestic to Procedure: Yes Nausea / Vomiting: adequately controlled Pain: adequately controlled Airway Patency, RR, SpO2: stable & adequate BP & HR: stable & adequate Hydration State: stable & adequate Anesthetic Complications: no major complications apparent
[2019-04-27] MEDS: ATORVASTATIN 40 MG TAB PO SCH (13:56)
[2019-04-27] MEDS: ASPIRIN 81 MG ECTAB PO SCH (13:57)
[2019-04-27] MEDS: EZETIMIBE 10 MG TABLET PO SCH (13:57)
[2019-04-27] MEDS: CLOPIDOGREL BISULFATE 75 MG TAB PO SCH (13:57)
[2019-04-27] MEDS: ESCITALOPRAM OXALATE 20 MG TAB PO SCH (13:57)
[2019-04-27 13:59] LABS: Hematocrit (blood only) 30.5 % (37-47); Hemoglobin 10.2 g/dL (12.0-16.0)
[2019-04-27] MEDS ORDERED: FUROSEMIDE 20 MG in SYRINGE 0 ML IV ONE (14:00)
[2019-04-27] MEDS ORDERED: Nursing to Pharmacy Communication ONE (14:10)
--- NOTE | 2019-04-27 15:26 | Hospitalist Progress Note ---
Date of Service April 27, 2019 Assessment & Plan (1) Acute blood loss anemia: ACUTE BLOOD LOSS ANEMIA likely secondary to Upper GI bleed HISTORY OF CAD on ASA and Plavix for CAD, s/p Stent Placement (last placed July 2018) s/p 3 units pRBC transfusion Hg now 10 s/p EGD: no gastritis/ulcer noted change Protonix drip to PO daily repeat CBC tomorrow awaiting further recommendations of GI ASA and Plavix continued in light of CAD, Stent placement 07/2018 DM hold Metformin ISS HYPERTENSION stable at this time continue Atenolol, Amlodipine, ISMN COPD respiratory status stable continue Spiriva CKD 3 crea improved from 1.24 to 0.99 HISTORY OF RENAL ARTERY STENOSIS BP stable DVT prophylaxis SCDs only in light of GI bleed Full Code Disposition pending usually lives at home will need PT/OT evaluation Subjective ff up for GI bleed, anemia seen resting in bed, comfortable not in distress states she feels ok overall denies chest pain, dyspnea, palpitations, dizziness no abdominal pain, nausea/vomiting last BMS yesterday, dark no other symptoms Ms. Osorio is a 78 yr old female admitted on 04/25 for melena x 3-4 days, anemia, Hb 9.4 on arrival, dropped to 8.2, received 2 units of RBC and today 9.4 again, receiving 3rd unit of RBC. after 2 units of RBCs. On protonix drip. Pt reports about 2 months of upper abdomen discomfort, worsened GERD. PMH CAD, on Plavix ASA, per cardiology they request to continue ASA, Plavix. Review of Systems Review of Systems: All systems reviewed & are unremarkable except as noted in HPI & below Physical Exam Physical Exam: General- oriented x 3, not in distress, speaks in sentences with no effort or accessory muscle use Eyes- anicteric Neck- no JVD Lungs- mild rales left base, clear on the left no wheezing Heart- normal rate, regular rhythm; no murmurs Abdomen- normal bowel sounds, nondistended, soft, nontender Extremities- no pretibial edema, no calf tenderness Neuro- alert, oriented x 3; no gross focal neurologic deficits Skin- warm & dry Results & Data Vital Signs (Past 12 Hours) Vital Signs Temp Pulse Pulse Resp BP BP BP 04/27/19 13:45 62 17 161/71 H 04/27/19 12:38 63 18 137/64 04/27/19 12:13 61 18 115/58 L 04/27/19 11:58 36.8 C 60 18 91/52 L 04/27/19 11:04 36.8 C 62 16 127/63 04/27/19 10:34 37 C 63 16 143/64 H 04/27/19 10:15 36.8 C 66 16 144/74 H 04/27/19 10:04 36.8 C 66 16 140/78 04/27/19 09:49 36.8 C 66 16 164/76 H 04/27/19 09:34 36.9 C 69 17 173/62 H 04/27/19 09:26 68 04/27/19 09:14 36.8 C 67 17 160/73 H 04/27/19 07:20 36.8 C 66 16 160/66 H 04/27/19 04:34 37 C 73 16 157/76 H Pulse Ox 04/27/19 13:45 98 04/27/19 12:38 96 04/27/19 12:13 96 04/27/19 11:58 95 04/27/19 11:04 96 04/27/19 10:34 96 04/27/19 10:15 98 04/27/19 10:04 98 04/27/19 09:49 95 04/27/19 09:34 97 04/27/19 09:26 04/27/19 09:14 95 04/27/19 07:20 97 04/27/19 04:34 95 Laboratory Results Laboratory Results - last 24 hr 04/25/19 04/26/19 04/26/19 22:27 16:10 19:02 Hgb 9.4 L Hct 28.0 L POC Glucose 177 H Blood Type A Negative Antibody Screen NEGATIVE Crossmatch See Detail 04/26/19 04/27/19 04/27/19 19:56 00:18 05:57 Hgb Hct POC Glucose 162 H 153 H 166 H Blood Type Antibody Screen Crossmatch 04/27/19 04/27/19 13:23 13:43 Hgb 10.2 L Hct 30.5 L POC Glucose 176 H Blood Type Antibody Screen Crossmatch
[2019-04-27] MEDS ORDERED: IOVERSOL 100ml IV PRN (16:14)
--- NOTE | 2019-04-27 16:38 | CT Scan Report ---
CT SCAN OF THE ABDOMEN COMBO LIVER PROTOCOL CLINICAL HISTORY: Follow-up right lobe hepatic lesion. COMPARISON STUDY: Abdominal CT dated 04/25/2019. TECHNIQUE: Before and following the IV administration of 94 cc of Optiray 320, CT scan of the abdome n is performed from the lung bases to the pelvic inlet using the liver protocol. Images are reviewed in the axial, sagittal, and coronal planes. IV contrast was administered without complication. A dose lowering technique was utilized adhering to the principles of ALARA. The examination is degraded by streak artifact from metallic spinal orthopedic hardware. CT DOSE: 1452.79 mGycm FINDINGS: Lung bases: The heart is enlarged and without pericardial effusion. The coronary arteries are densely calcified. There is no airspace consolidation or pleural effusion. Scarring/atelectasis is seen at b oth lung bases. Small foci of tree-in-bud nodularity are noted at the right lung base. There is a tin y hiatal hernia. Liver: The contrast-enhanced liver is enlarged, measuring 20.3 cm in length. There is no intrahepatic biliary ductal dilatation. The hepatic veins and portal veins are patent. The 2.1 cm low-attenuation right lobe hepatic lesion shows foci of peripheral discontinuous nodular enhancement and complete fi lling on the delayed series. This is consistent with a benign hemangioma. No additional hepatic lesio n is clearly identified. Gallbladder: The gallbladder is distended but otherwise normal in appearance. Spleen: The spleen is enlarged, measuring 14 cm in length. Pancreas: Moderately atrophic and grossly unremarkable. Adrenal glands: Mild nodularity of the adrenal glands is similar to previous. Kidneys: There is asymmetric cortical atrophy of the left kidney as compared the right. There is mild . The right renal collecting system. No hydronephrosis is seen. No renal calculi are seen on the unen hanced series. The kidneys enhance symmetrically. Scattered renal cysts measure up to 2.1 cm. Additio nal subcentimeter cortical hypodensities also likely represent cysts but are too small for definitive characterization. Abdominal vasculature: There is advanced atherosclerotic calcification of the abdominal aorta. Bilate ral renal artery stents are noted. 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 Bowel: Visualized loops of small bowel and colon are normal in course and caliber. There is moderate diverticulosis of the visualized colon without CT evidence of acute diverticulitis. Peritoneum: There is no intraperitoneal free air or abdominal ascites. There is a small fat-containin g umbilical hernia. Lymphadenopathy: None. Skeletal structures: The skeletal structures are osteopenic. There is lumbosacral spondylosis with ev idence of laminectomy and posterior fusion in the lower lumbar spine. No lytic or blastic lesions are seen. IMPRESSION: 1. The 2.1 cm right lobe hepatic lesion shows enhancement kinetics consistent with a benign hemangiom a. 2. No additional hepatic lesion is seen. 3. Hepatosplenomegaly. 4. Cardiomegaly. 5. There is moderate diverticulosis of the imaged colon without CT evidence of acute diverticulitis. 6. 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 7. 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 8. The gallbladder is distended but otherwise normal in appearance. 9. The presumed right ureteral stone seen on 04/25/2019 is no longer apparent. 10. There are small foci of tree-in-bud nodularity identified in the right lower lobe. Correlate clin ically for evidence of a mild infectious/inflammatory pneumonitis. 11. Additional findings as above. Electronically signed by: Yogi Kearney M.D. 04/27/2019 4:36 PM
[2019-04-28] MEDS: LEVOTHYROXINE SODIUM 112 MCG TABLET PO SCH (05:34)
[2019-04-28] MEDS: FLUTICASONE/SALMETEROL 250/50 (ADVAIR) 14 PUFF/1 INHALER INH SCH (07:46)
[2019-04-28] MEDS: INSULIN ASPART 100 UNITS/ML 3 ML PEN SC SCH ×2 (07:46→12:22)
[2019-04-28] MEDS: ASPIRIN 81 MG ECTAB PO SCH (07:46)
[2019-04-28] MEDS: ESCITALOPRAM OXALATE 20 MG TAB PO SCH (07:46)
[2019-04-28] MEDS: CLOPIDOGREL BISULFATE 75 MG TAB PO SCH (07:47)
[2019-04-28] MEDS: ISOSORBIDE MONO EXTENDED REL 60 MG TABCR PO SCH (07:47)
[2019-04-28] MEDS: EZETIMIBE 10 MG TABLET PO SCH (07:47)
[2019-04-28] MEDS: ATENOLOL 50 MG TABLET PO SCH (07:48)
[2019-04-28] MEDS: ATORVASTATIN 40 MG TAB PO SCH (07:48)
[2019-04-28] MEDS: TIOTROPIUM BROMIDE 5 PUFF/90 MCG INH INH SCH (07:49)
--- NOTE | 2019-04-28 08:05 | Anesthesiology Progress Note ---
Date of Service April 28, 2019 Anesthesia Post Procedure Vital Signs Vital Signs: Temp Pulse Pulse Resp BP BP BP 04/28/19 07:23 36.9 C 59 L 18 164/67 H 04/28/19 03:41 37.1 C 58 L 16 134/55 L 04/27/19 23:23 37.0 C 60 16 166/71 H 04/27/19 19:15 36.7 C 57 L 18 127/60 04/27/19 16:01 36.5 C 66 18 121/69 04/27/19 16:00 65 04/27/19 13:45 62 17 161/71 H 04/27/19 12:38 63 18 137/64 04/27/19 12:13 61 18 115/58 L 04/27/19 11:58 36.8 C 60 18 91/52 L 04/27/19 11:04 36.8 C 62 16 127/63 04/27/19 10:34 37 C 63 16 143/64 H 04/27/19 10:15 36.8 C 66 16 144/74 H 04/27/19 10:04 36.8 C 66 16 140/78 04/27/19 09:49 36.8 C 66 16 164/76 H 04/27/19 09:34 36.9 C 69 17 173/62 H 04/27/19 09:26 68 04/27/19 09:14 36.8 C 67 17 160/73 H Pulse Ox 04/28/19 07:23 92 04/28/19 03:41 95 04/27/19 23:23 94 04/27/19 19:15 94 04/27/19 16:01 96 04/27/19 16:00 04/27/19 13:45 98 04/27/19 12:38 96 04/27/19 12:13 96 04/27/19 11:58 95 04/27/19 11:04 96 04/27/19 10:34 96 04/27/19 10:15 98 04/27/19 10:04 98 04/27/19 09:49 95 04/27/19 09:34 97 04/27/19 09:26 04/27/19 09:14 95 Notes Mental Status: alert / awake / arousable and participated in evaluation Patient Amnestic to Procedure: Yes Nausea / Vomiting: adequately controlled Pain: adequately controlled Airway Patency, RR, SpO2: stable & adequate BP & HR: stable & adequate Hydration State: stable & adequate Anesthetic Complications: no major complications apparent and Pt Satisfied with anesthetic care
[2019-04-28 08:24] LABS: Folate (Folic Acid) 13.79 ng/ml (>5.38)
[2019-04-28] MEDS ORDERED: PANTOprazole 40 MG TAB PO SCH (09:00)
[2019-04-28 09:45] LABS: Basophils # (auto) 0.03 K/uL (0-0.2); Basophils % (auto) 0.4 %; Eosinophils # (auto) 0.12 K/uL (0-0.5); Eosinophils % (auto) 1.5 %; Hematocrit (blood only) 32.2 % (37-47); Immature Granulocytes # (auto) 0.01 K/uL (0.00-0.02); Immature Granulocytes % (auto) 0.1 %; Lymphocytes # (auto) 1.38 K/uL (1.2-3.4); Lymphocytes % (auto) 17.1 %; Mean Corpuscular Hgb Conc 34.2 g/dL (32-36); Mean Corpuscular Volume 86.8 fL (80-100); Mean Platelet Volume 8.9 fL (7.4-10.4); Monocytes # (auto) 0.66 K/uL (0.11-0.59); Monocytes % (auto) 8.2 %; Neutrophils # (auto) 5.88 K/uL (1.4-6.5); Neutrophils % (auto) 72.7 %; Platelet Count 237 K/uL (130-400); RDW Coefficient of Variation 14.9 % (11.5-14.5); RDW Standard Deviation 46.8 fL (36.4-46.3); Red Blood Count 3.71 M/uL (4.2-5.4); White Blood Count 8.08 K/uL (4.8-10.8)
--- NOTE | 2019-04-28 09:56 | Gastroenterology Progress Note ---
Date of Service April 28, 2019 Assessment & Plan (1) Gastritis and duodenitis: Most likely her black tarry stools are caused by Pepto Bismol. She has had normalcytic anemia since 2009, likely multifactorial. Recommend: Daily po PPI. For tx of irregular BMs, would stop the Pepto Bismol and instead try one dose of fiber daily. Additionally if diarrhea, may use Imodium occasionally. She does not have a story of persistent diarrhea, though if becomes persistant, more than 2-3/day then would consider OP colonoscopy. Would defer disposition regarding infrarenal aneurysm to primary hospitalist/OP primary care provider, but important to f/u. Supervising Physician Co-Signing Physician Notes I have performed a history and physical examination of this patient and reviewed the electronic medical record. Specifically, on physical examination thre is mild epigastric tenderness. I have discussed the case with AMBER Black. The above note reflects my findings, conclusions, and recommendations. Herber Watkins MD Subjective Ms. Ronel Osorio is a 78 yr old female admitted on 04/25 for melena x 3-4 days, anemia, Hb 9.4 on arrival, dropped to 8.2, received 3 units of RBC and today Hb 11. Tells me today that she takes "a lot of Pepto Bismol." Approx "one bottle/week." She takes this for tx of intermittent urgent, loose BMs. Pattern is - no BM for 2-3 days then 1-2 urgent, loose BMs the next few days. EGD yesterday - normal. Pt reports about 2 months of upper abdomen discomfort, worsened GERD. PMH CAD, on Plavix ASA, per cardiology they request to continue ASA, Plavix. Ct liver with hemangioma. Also noted is an infrarenal aneuyrsm. Review of Systems Review of Systems: ROS: Gen: Denies weakness, fevers, weight loss Eyes: No eye redness, or pain, no recent vision changes Resp: No SOB, no cough Cardio: No palpitations/irregular beats, no chest pain GI: No abdominal pain, no nausea/vomiting : Denies pain on urination Skin: No jaundice, itching or new rashes Constitutional: +weakness, weight loss, denies fevers Eyes: No eye redness, no impaired vision or double vision Physical Exam Constitutional: WD/WN, vitals as above Eyes: PERRL, conjunctivae normal, anicteric sclerae ENMT: external ear and nose normal, oropharynx normal Neck: trachea midline, no thyromegaly Respiratory: normal respiratory effort, lungs clear to auscultation Cardiovascular: RRR, no murmur, no edema Gastrointestinal (Abdomen): Inspection/Auscultation: abdomen normal to inspection; abdomen not distended Percussion/Palpation: + abdomen tender (mild epigastric tenderness; also tender on the xiphoid) and abdomen soft Skin: no rashes, warm and dry Neurologic: PERRL, EOMI, accommodation nl, no face palsy, no dysarthria Psychiatric: A+Ox3, euthymic affect Lymphatic: no cervical or axillary lymphadenopathy Results & Data Vital Signs (Past 12 Hours) Vital Signs Temp Pulse Pulse Resp BP BP Pulse Ox 04/28/19 07:23 36.9 C 59 L 18 164/67 H 92 04/28/19 06:45 59 L 04/28/19 03:41 37.1 C 58 L 16 134/55 L 95 04/27/19 23:23 37.0 C 60 16 166/71 H 94
[2019-04-28 10:56] LABS: BUN Creatinine Ratio 14.5 (10-20); Calcium 8.7 mg/dl (8.5-10.1); Creatinine Clr Calc Pharmacy 47.3 ml/min; Est GFR (African American) 62.6; Potassium 3.8 mmol/L (3.5-5.1)
--- NOTE | 2019-04-28 12:33 | Cardiology Progress Note ---
Date of Service April 28, 2019 Assessment & Plan (1) Anemia: Hemoglobin stable. CT reveals liver finding consistent with benign hemangioma (2) Abdominal aortic ectasia: Mild ectasia of the abdominal aorta, 3.1 cm maximum dimension without IV contrast, 2.8 cm maximum dimension on CT with contrast. We will continue to monitor with a ultrasound evaluation recommended at a 6 to 12-month interval. (3) CAD (coronary artery disease): The patient had been seen in outpatient cardiology follow-up recently complained of chest discomfort. This may have been due to her anemia. She is tentatively scheduled for a nuclear stress test on 05/01/2019 as an outpatient. At this time, I believe we should continue her current medication therapy, and give her a little bit of a longer time to recover from this hospital stay and delay her stress test until the week of 05/12/2019, and keep her cardiology follow-up visit as scheduled for 05/26/2019. Subjective Chief complaint: Follow-up dyspepsia, coronary heart disease Subjective: Patient states she feels better this morning. She continues to have dark stools. EGD was negative for source of bleeding. Hemoglobin over 11 this morning. Telemetry reveals sinus bradycardia in the mid 50 bpm range. Review of Systems Review of Systems: All systems reviewed & are unremarkable except as noted in HPI & below Physical Exam Physical Exam: Temp Pulse Resp BP Pulse Ox 36.6 C 53 L 19 127/60 95 04/28/19 11:38 04/28/19 11:38 04/28/19 11:38 04/28/19 11:38 04/28/19 11:38 Constitutional: WD/WN, vitals as above Respiratory: normal respiratory effort, lungs clear to auscultation Cardiovascular: RRR, no murmur, no edema Gastrointestinal (Abdomen): normal bowel sounds, soft, nontender, no hepatosplenomegaly Neurologic: PERRL, EOMI, accommodation nl, no face palsy, no dysarthria Results & Data Vital Signs (Past 12 Hours) Vital Signs Temp Pulse Pulse Resp BP BP Pulse Ox 04/28/19 11:38 36.6 C 53 L 19 127/60 95 04/28/19 11:25 36.6 C 53 L 19 127/60 95 04/28/19 10:53 95 04/28/19 07:23 36.9 C 59 L 18 164/67 H 92 08/20/19 06:45 59 L 04/28/19 03:41 37.1 C 58 L 16 134/55 L 95 Laboratory Results CBC 04/27/19 04/28/19 Range/Units 13:43 09:38 WBC 8.08 (4.8-10.8) K/uL RBC 3.71 L (4.2-5.4) M/uL Hgb 10.2 L 11.0 L (12.0-16.0) g/dL Hct 30.5 L 32.2 L (37-47) % Plt Count 237 (130-400) K/uL Neut # (Auto) 5.88 (1.4-6.5) K/uL Lymph # (Auto) 1.38 (1.2-3.4) K/uL [place] # (Auto) 0.66 H (0.11-0.59) K/uL Eos # (Auto) 0.12 (0-0.5) K/uL Baso # (Auto) 0.03 (0-0.2) K/uL Comprehensive Metabolic Panel 04/28/19 Range/Units 09:38 Sodium 138 (136-145) mmol/L Potassium 3.8 (3.5-5.1) mmol/L Chloride 106 (98-107) mmol/L Carbon Dioxide 23 (21-32) mmol/L BUN 15 (7-18) mg/dl Creatinine 1.01 (0.6-1.2) mg/dl Glucose 155 H (70-99) mg/dl Calcium 8.7 (8.5-10.1) mg/dl Intake and Output 04/27/19 04/28/19 04/28/19 22:59 06:59 14:59 Intake Total 475 / 2119.167 Output Total 1300 / 1301 Balance -825 / 818.167 Intake: Oral 475 / 1265 Output: Urine 1300 / 1300 Other: # Unmeasured Voids 1 Weight 74.5 kg 72.7 kg 72.7 kg Patient Weight 04/29/19 06:59 Weight 72.7 kg Medications Administered Current Inpatient Medications Acetaminophen (Tylenol) 650 mg PO Q4H PRN PRN Reason: Pain or Fever Stop: 05/25/19 22:10 Aspirin (E[facility]rin E[facility]ab) [facility] [place] Stop: 05/26/19 11:44 Last Admin: 04/28/19 07:46 Dose: 81 mg Documented by: Atenolol (Tenormin) 100 mg PO DAILY [facility] Stop: 05/26/19 08:59 Last Admin: 04/28/19 07:48 Dose: 100 mg Documented by: Atorvastatin Calcium (Lipitor) 80 mg PO DAILY [facility] Stop: 05/26/19 08:59 Last Admin: 04/28/19 07:48 Dose: 80 mg Documented by: Clopidogrel Bisulfate (Plavix) 75 mg PO QAM [facility] Stop: 05/26/19 11:44 Last Admin: 04/28/19 07:47 Dose: 75 mg Documented by: Dextrose (Dextrose 50%) 25 - 50 ml IV UD PRN; Protocol PRN Reason: Hypoglycemia Protocol Stop: 05/25/19 22:10 Ezetimibe (Zetia) 10 mg PO DAILY [facility] Stop: 05/26/19 08:59 Last Admin: 04/28/19 07:47 Dose: 10 mg Documented by: Escitalopram Oxalate (Lexapro Tab) 20 mg PO DAILY [facility] Stop: 05/26/19 08:59 Last Admin: 04/28/19 07:46 Dose: 20 mg Documented by: Glucagon (Glucagen) 1 mg SQ UD PRN; Protocol PRN Reason: Hypoglycemia Protocol Stop: 05/25/19 22:10 Glucose (Glucose 40%) 15 - 30 gm PO UD PRN; Protocol PRN Reason: Hypoglycemia Protocol Stop: 05/25/19 22:10 Glucose (Dex4 Glucose) 4 - 8 tabs PO UD PRN; Protocol PRN Reason: Hypoglycemia Protocol Stop: 05/25/19 22:10 Hydromorphone HCl (Dilaudid) 0.25 mg IV Q3H PRN PRN Reason: Pain Stop: 05/09/19 22:10 Promethazine HCl 12.5 mg/ (Sodium Chloride) 50.5 mls @ 202 mls/hr IV Q6H PRN PRN Reason: Nausea And Vomiting Stop: 05/25/19 22:10 Sodium Chloride (Nss) 250 mls @ 15 mls/hr IV .[id number] PRN PRN Reason: For Transfusion Stop: 05/26/19 03:09 Sodium Chloride (Nss) 250 mls @ 15 mls/hr IV .[id number] PRN PRN Reason: For Transfusion Stop: 05/26/19 11:50 Insulin Aspart (Novolog Flexpen) 0 units SC ACHS [facility] Stop: 05/27/19 16:29 Last Admin: 04/28/19 12:22 Dose: 1 units Documented by: Ioversol (Optiray 320 100ml) 94 ml IV ONCE PRN PRN Reason: Interaction Checking Stop: 05/01/19 16:13 Last Admin: 04/27/19 16:16 Dose: 94 ml Documented by: Isosorbide Mononitrate (Imdur Extended Rel) 60 mg PO DAILY [facility] Stop: 05/26/19 08:59 Last Admin: 04/28/19 07:47 Dose: 60 mg Documented by: Levothyroxine Sodium (Synthroid) 112 mcg PO DAILYBB [facility] Stop: 05/26/19 06:29 Last Admin: 04/28/19 05:34 Dose: 112 mcg Documented by: Lorazepam (Ativan) 1 mg PO Q8H PRN PRN Reason: Anxiety Stop: 05/25/19 22:10 Miscellaneous (Carbohydrates For Hypoglycemia) 15 - 30 gm PO UD PRN PRN Reason: Hypoglycemia Treatment Stop: 05/25/19 22:10 Nitroglycerin (Nitrostat) 0.4 mg SL UD PRN PRN Reason: Chest Pain Stop: 05/25/19 22:10 Pantoprazole Sodium (Protonix) 40 mg PO QAM [facility] Stop: 05/28/19 08:59 Last Admin: 04/28/19 07:46 Dose: 40 mg Documented by: Fluticasone/Salmeterol (Advair Diskus 250/50) 1 puffs INH BID [facility] Stop: 05/26/19 08:59 Last Admin: 04/28/19 07:46 Dose: 1 puffs Documented by: Tiotropium [place] (Spiriva) 1 puffs INH DAILY [facility] Stop: 05/26/19 08:59 Last Admin: 04/28/19 07:49 Dose: 1 puffs Documented by: Tramadol HCl (Ultram) 25 mg PO Q4H PRN PRN Reason: Pain Stop: 05/25/19 22:10
--- NOTE | 2019-04-28 12:47 | Hospitalist Progress Note ---
Date of Service April 28, 2019 Assessment & Plan (1) Acute blood loss anemia: ACUTE BLOOD LOSS ANEMIA likely secondary to Upper GI bleed HISTORY OF CAD on ASA and Plavix for CAD, s/p Stent Placement (last placed July 2018) s/p 3 units pRBC transfusion Hg now 11 s/p EGD: no gastritis/ulcer noted anemia panel: iron 76, ferritin 29, Vit b12 255, Folate 13 changed Protonix drip to Protonix 40mg PO daily ASA and Plavix continued in light of CAD, Stent placement 07/2018, per Peer Specialist recommendation repeat CBC on ff up with PCP, monitor regularly refer to Horticultural Farm Manager, Intermission Coordinator for anemia- possibly from CKD, Anemia of Chronic Disease She is tentatively scheduled for a nuclear stress test on 05/01/[address] as an outpatient per Dr. Shrestha outpatient Colonoscopy if diarrhea persists INFRARENAL ABDOMINAL AORTIC ANEURYSM CT abdomen and pelvis: 31 mm infrarenal abdominal aortic aneurysm (full report on Procedure section) monitor and follow up as outpatient refer to Vascular Surgery LIVER HEMANGIOMA CT liver: The 2.1 cm right lobe hepatic lesion shows enhancement kinetics consistent with a benign hemangioma. (full report on Procedure section) monitor and follow up as outpatient DM resume Metformin on May 01, 2019 as patient received contrast for CT scan of the liver 04/28/19 HYPERTENSION stable at this time continue Atenolol, Amlodipine, ISMN COPD respiratory status stable continue Spiriva CKD 3 crea improved from 1.24 to 0.99 HISTORY OF RENAL ARTERY STENOSIS s/p Stent placement ff up with Vascular Surgery DVT prophylaxis SCDs only in light of GI bleed Full Code Disposition d/c to home ff up with PCP as outlined in D/C instructions ff up with Cardiology, GI, Nephrology, Vascular Surgery Subjective ff up for anemia seen resting in bedside chair, comfortable states she feels much better overall denies chest pain, dyspnea, dizziness no abdominal pain, nausea/vomiting no BM since yesterday (+) flatus ambulating in the room with no problems states she is ready and would like to be discharged today Review of Systems Review of Systems: All systems reviewed & are unremarkable except as noted in HPI & below Physical Exam Physical Exam: General- oriented x 3, not in distress, speaks in sentences with no effort or accessory muscle use Eyes- anicteric Neck- no JVD Lungs- clear BS BL no rales/wheezes Heart- normal rate, regular rhythm; no murmurs Abdomen- normal bowel sounds, nondistended, soft, nontender Extremities- no pretibial edema, no calf tenderness Neuro- alert, oriented x 3; no gross focal neurologic deficits Skin- warm & dry Results & Data Vital Signs (Past 12 Hours) Vital Signs Temp Pulse Pulse Resp BP BP Pulse Ox 04/28/19 11:38 36.6 C 53 L 19 127/60 95 04/28/19 11:25 36.6 C 53 L 19 127/60 95 04/28/19 10:53 95 04/28/19 07:23 36.9 C 59 L 18 164/67 H 92 04/28/19 06:45 59 L 04/28/19 03:41 37.1 C 58 L 16 134/55 L 95 Laboratory Results Laboratory Results - last 24 hr 04/25/19 04/27/19 04/27/19 22:27 13:23 13:43 WBC RBC Hgb 10.2 L Hct 30.5 L MCV MCH MCHC RDW Std Deviation RDW Coeff of Angel Plt Count MPV Immature Gran % (Auto) Neut % (Auto) Lymph % (Auto) [place] % (Auto) Eos % (Auto) Baso % (Auto) Immature Gran # (Auto) Neut # (Auto) Lymph # (Auto) [place] # (Auto) Eos # (Auto) Baso # (Auto) Sodium Potassium Chloride Carbon Dioxide Anion Gap BUN Creatinine Est Cr Clr Drug Dosing Est GFR ( Amer) Est GFR (Non-Af Amer) BUN/Creatinine Ratio Glucose POC Glucose 176 H Calcium Iron TIBC Transferrin Ferritin Vitamin B12 Folate Crossmatch See Detail 04/27/19 04/27/19 04/28/19 16:19 20:37 05:41 WBC RBC Hgb Hct MCV MCH MCHC RDW Std Deviation RDW Coeff of Agnel Plt Count MPV Immature Gran % (Auto) Neut % (Auto) Lymph % (Auto) [place] % (Auto) Eos % (Auto) Baso % (Auto) Immature Gran # (Auto) Neut # (Auto) Lymph # (Auto) [place] # (Auto) Eos # (Auto) Baso # (Auto) Sodium Potassium Chloride Carbon Dioxide Anion Gap BUN Creatinine Est Cr Clr Drug Dosing Est GFR ( Amer) Est GFR (Non-Af Amer) BUN/Creatinine Ratio Glucose POC Glucose 174 H 137 H Calcium Iron 76 TIBC 362 Transferrin 278 Ferritin 29.0 Vitamin B12 Folate Crossmatch 04/28/19 04/28/19 04/28/19 05:41 07:23 09:38 WBC 8.08 RBC 3.71 L Hgb 11.0 L Hct 32.2 L MCV 86.8 MCH 29.6 MCHC 34.2 RDW Std Deviation 46.8 H RDW Coeff of Angel 14.9 H Plt Count 237 MPV 8.9 Immature Gran % (Auto) 0.1 Neut % (Auto) 72.7 Lymph % (Auto) 17.1 [place] % (Auto) 8.2 Eos % (Auto) 1.5 Baso % (Auto) 0.4 Immature Gran # (Auto) 0.01 Neut # (Auto) 5.88 Lymph # (Auto) 1.38 [place] # (Auto) 0.66 H Eos # (Auto) 0.12 Baso # (Auto) 0.03 Sodium Potassium Chloride Carbon Dioxide Anion Gap BUN Creatinine Est Cr Clr Drug Dosing Est GFR ( Amer) Est GFR (Non-Af Amer) BUN/Creatinine Ratio Glucose POC Glucose 147 H Calcium Iron TIBC Transferrin Ferritin Vitamin B12 255 Folate 13.79 Crossmatch 04/28/19 04/28/19 09:38 11:24 WBC RBC Hgb Hct MCV MCH MCHC RDW Std Deviation RDW Coeff of Angel Plt Count MPV Immature Gran % (Auto) Neut % (Auto) Lymph % (Auto) [place] % (Auto) Eos % (Auto) Baso % (Auto) Immature Gran # (Auto) Neut # (Auto) Lymph # (Auto) [place] # (Auto) Eos # (Auto) Baso # (Auto) Sodium 138 Potassium 3.8 Chloride 106 Carbon Dioxide 23 Anion Gap 9.0 BUN 15 Creatinine 1.01 Est Cr Clr Drug Dosing 47.3 Est GFR ( Amer) 62.6 Est GFR (Non-Af Amer) 54.0 BUN/Creatinine Ratio 14.5 Glucose 155 H POC Glucose 162 H Calcium 8.7 Iron TIBC Transferrin Ferritin Vitamin B12 Folate Crossmatch
--- NOTE | 2019-04-28 12:57 | Discharge Summary ---
Date of Service April 28, 2019 Admission HPI Per Admitting Provider Chief Complaint: "spitting up dark stuff", low blood pressure Primary Care Provider: Dr. Hamilton 78 year old female who presents to the ED with reports of "spitting up dark stuff" and low blood pressure. Patient reports she has been worsening GERD like symptoms for the past few months. She was seen by her PCP and her PPI was changed. Patient reports this did not improve her symptoms. This morning patient reports she very weak and lightheaded. She was in the bathroom and laid down on the floor because she felt as though she was going to pass out. There was no loss of consciousness. She had some belching and reports she brought up thick mucous that was very dark brown in color. This happened a few times. She reports she took her blood pressure at home and that it was very low. She then came to the ED for further evaluation. According to the ER, patient also had reported some chest pain however she denies this to me. She reports she has chronic shortness of breath which is unchanged from baseline. She reports epigastric pain that has been present for over one year. She describes it as a constant ache, sometime worse after eating. She reports her stools are always dark due to taking pepto bismol. No fevers or chills. She denies urinary symptoms. In the ED, hgb is 9.4 and BUN is 50, creat 1.2. Patient was given IVF. Admission Exam Per Admitting Provider Constitutional: WD/WN, vitals as above Eyes: PERRL, conjunctivae normal, anicteric sclerae ENMT: external ear and nose normal, oropharynx normal Respiratory: normal respiratory effort, lungs clear to auscultation Cardiovascular: Rate/Rhythm: regular rate and regular rhythm Vessels: normal peripheral pulses Extremities: no edema Gastrointestinal (Abdomen): Inspection/Auscultation: normal bowel sounds; abdomen not distended Percussion/Palpation: + abdomen tender (mild, epigastric) and abdomen soft; no hepatosplenomegaly Musculoskeletal: no cyanosis or clubbing, extremities motor strength 5/5 Skin: no rashes, warm and dry Neurologic: PERRL, EOMI, accommodation nl, no face palsy, no dysarthria Psychiatric: A+Ox3, euthymic affect Principal Diagnosis Anemia, possibly secondary to chronic kidney disease, anemia of chronic disease Discharge Exam General- oriented x 3, not in distress, speaks in sentences with no effort or accessory muscle use Eyes- anicteric Neck- no JVD Lungs- clear BS BL no rales/wheezes Heart- normal rate, regular rhythm; no murmurs Abdomen- normal bowel sounds, nondistended, soft, nontender Extremities- no pretibial edema, no calf tenderness Neuro- alert, oriented x 3; no gross focal neurologic deficits Skin- warm & dry Discharge Data Allergies Allergy/AdvReac Type Severity Reaction Status Date / Time ampicillin Allergy Unknown Vaginitis. Verified 04/27/19 10:10 doxycycline Allergy Unknown Nausea and Verified 04/27/19 10:10 diarrhea. erythromycin base Allergy Unknown Nause and Verified 04/27/19 10:10 diarrhea. ranitidine Allergy Unknown Rash. Verified 04/27/19 10:10 morphine AdvReac Unknown AGITATION Verified 04/27/19 10:10 Consultations 04/25/19 18:46 ED Decision to Admit Stat 04/25/19 22:11 Consult Gastroenterology Routine 04/26/19 10:31 Consult Cardiology Routine Procedures Performed Operation Date: 04/27/19 08:30 Actual Procedures p EGD Biopsy Cytology - Herber Watkins MD Ordered Studies 04/25/19 21:05 CT SCAN OF THE ABDOMEN AND PELVIS WITHOUT CONTRAST CLINICAL HISTORY: abd pain COMPARISON STUDY: No previous studies for comparison. TECHNIQUE: CT scan of the abdomen and pelvis was performed from the lung bases to the proximal femurs. Images are reviewed in the axial, sagittal, and coronal planes. IV contrast was not administered for this examination. A dose lowering technique was utilized adhering to the principles of ALARA. CT DOSE: 472.86 mGy.cm FINDINGS: Lower chest: There is a partially visualized right lower lobe mucoid impaction. Liver: There is an indeterminate 2 cm hypodensity within the right hepatic lobe. Gallbladder: Unremarkable. Spleen: The spleen is mildly enlarged measuring 12.9 cm. Pancreas: Unremarkable. Adrenal glands: There is mild left adrenal gland thickening. Kidneys: The left kidney appears atrophic. There is a 14 mm lower pole left renal cyst and 16 mm mid pole left renal cyst. No renal calculi are visualized. There is mild fullness of the right renal collecting system. There is a 3 mm mid right ureteral calculus versus a phlebolith. If this differentiation becomes clinically important, and excretory phase CT scan could be obtained in follow- up. Bowel: There is extensive colonic diverticulosis. Mild sigmoid wall thickening is likely secondary to peridiverticular muscular hypertrophy. There is no current evidence of acute diverticulitis. By history the appendix is surgically absent. There are no transition zones indicate bowel obstruction. Peritoneum: There is no intraperitoneal free air or abdominal ascites. Vasculature: There are bilateral renal artery stents. There is a 31 mm infrarenal abdominal aortic aneurysm. Adenopathy: None. Pelvic viscera: The bladder, and pelvic viscera are unremarkable. Skeletal structures: Postsurgical changes are present within the spine. IMPRESSION: 1. No evidence of bowel obstruction. No evidence of free air 2. Extensive colonic diverticulosis. No evidence of acute diverticulitis 3. Mild fullness of the right renal collecting system. 3 mm mid right ureteral calculus versus phlebolith. 4. Atrophic left kidney 5. Mild splenomegaly 6. Indeterminate 2 cm right hepatic lobe hypodensity 7. 31 mm infrarenal abdominal aortic aneurysm 04/27/19 10:10 CT liver wo/w con Routine CT SCAN OF THE ABDOMEN COMBO LIVER PROTOCOL CLINICAL HISTORY: Follow-up right lobe hepatic lesion. COMPARISON STUDY: Abdominal CT dated 04/25/2019. TECHNIQUE: Before and following the IV administration of 94 cc of Optiray 320, CT scan of the abdomen is performed from the lung bases to the pelvic inlet using the liver protocol. Images are reviewed in the axial, sagittal, and coronal planes. IV contrast was administered without complication. A dose lower ing technique was utilized adhering to the principles of ALARA. The examination is degraded by streak artifact from metallic spinal orthopedic hardware. CT DOSE: 1452.79 mGycm FINDINGS: Lung bases: The heart is enlarged and without pericardial effusion. The coronary arteries are densely calcified. There is no airspace consolidation or pleural effusion. Scarring/atelectasis is seen at both lung bases. Small foci of tree-in-bud nodularity are noted at the right lung base. There is a tiny hiatal hernia. Liver: The contrast-enhanced liver is enlarged, measuring 20.3 cm in length. There is no intrahepatic biliary ductal dilatation. The hepatic veins and portal veins are patent. The 2.1 cm low-attenuation right lobe hepatic lesion shows foci of peripheral discontinuous nodular enhancement and complete filling on the delayed series. This is consistent with a benign hemangioma. No additional hepatic lesion is clearly identified. Gallbladder: The gallbladder is distended but otherwise normal in appearance. Spleen: The spleen is enlarged, measuring 14 cm in length. Pancreas: Moderately atrophic and grossly unremarkable. Adrenal glands: Mild nodularity of the adrenal glands is similar to previous. Kidneys: There is asymmetric cortical atrophy of the left kidney as compared the right. There is mild. The right renal collecting system. No hydronephrosis is seen. No renal calculi are seen on the unenhanced series. The kidneys enhance symmetrically. Scattered renal cysts measure up to 2.1 cm. Additional subcentimeter cortical hypodensities also likely represent cysts but are too s mall for definitive characterization. Abdominal vasculature: There is advanced atherosclerotic calcification of the abdominal aorta. Bilateral renal artery stents are noted. 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 Bowel: Visualized loops of small bowel and colon are normal in course and kamlesh rosa. There is moderate diverticulosis of the visualized colon without CT evidence of acute diverticulitis. Peritoneum: There is no intraperitoneal free air or abdominal ascites. There is a small fat-containing umbilical hernia. Lymphadenopathy: None. Skeletal structures: The skeletal structures are osteopenic. There is lumbosacral spondylosis with evidence of laminectomy and posterior fusion in the lower lumbar spine. No lytic or blastic lesions are seen. IMPRESSION: 1. The 2.1 cm right lobe hepatic lesion shows enhancement kinetics consistent with a benign hemangioma. 2. No additional hepatic lesion is seen. 3. Hepatosplenomegaly. 4. Cardiomegaly. 5. There is moderate diverticulosis of the imaged colon without CT evidence of acute diverticulitis. 6. 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 7. 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 8. The gallbladder is distended but otherwise normal in appearance. 9. The presumed right ureteral stone seen on 04/25/2019 is no longer apparent. 10. There are small foci of tree-in-bud nodularity identified in the right lower lobe. Correlate clinically for evidence of a mild infectious/inflammatory pneumonitis. 11. Additional findings as above. Hospital Course (1) Acute blood loss anemia: (2) Anemia: LIKELY SECONDARY TO CKD, ANEMIA OF CHRONIC DISEASE HISTORY OF CAD on ASA and Plavix for CAD, s/p Stent Placement (last placed July 2018) s/p 3 units pRBC transfusion Hg improved to 11 s/p EGD: no gastritis/ulcer noted anemia panel: iron 76, ferritin 29, Vit b12 255, Folate 13 changed Protonix drip to Protonix 40mg PO daily ASA and Plavix continued in light of CAD, Stent placement 07/2018, per C ardiologist recommendation repeat CBC on ff up with PCP, monitor regularly refer to Paraoptometric, Stretching Machine Tender Frame for anemia- possibly from CKD, Anemia of Chronic Disease She is tentatively scheduled for a nuclear stress test on 05/01/2019 as an outpatient per Dr. Shrestha outpatient Colonoscopy if diarrhea persists INFRARENAL ABDOMINAL AORTIC ANEURYSM CT abdomen and pelvis: 31 mm infrarenal abdominal aortic aneurysm (full report on Procedure section) monitor and follow up as outpatient refer to Vascular Surgery LIVER HEMANGIOMA CT liver: The 2.1 cm right lobe hepatic lesion shows enhancement kinetics consistent with a benign hemangioma. (full report on Procedure section) monitor and follow up as outpatient DM resume Metformin on May 01, 2019 as patient received contrast for CT scan of the liver 04/28/19 HYPERTENSION stable at this time continue Atenolol, Amlodipine, ISMN COPD respiratory status stable continue Spiriva CKD 3 crea improved from 1.24 to 0.99 HISTORY OF RENAL ARTERY STENOSIS s/p Stent placement ff up with Vascular Surgery Disposition d/c to home ff up with PCP as outlined in D/C instructions ff up with Cardiology, GI, Nephrology, Vascular Surgery Total Time Total Time Spent Total Time Spent (In Minutes): 55 minutes Discharge Plan Discharge Items Patient Disposition: Home - Self-Care Reason For Visit: UGIB Discharge Diagnosis: Anemia, likely secondary to chronic kidney disease and anemia of chronic disease Discharge Goals: Diagnostic testing and Therapeutic intervention Activity: As commented below Activity Comment: Resume activity gradually as tolerated, no heavy exertion Lifting: Wait until after follow-up appointment Exercise/Sports: Wait until after follow-up appointment Driving/Machine Use Comment: No driving until reevaluated by primary care physician and companion Non-emergency contact: Primary Care Provider Call non-emergency contact if: you have any medication questions and you have a fever Diet: Carb Consistent or DM2 and Heart Healthy Addtl Provider Instructions: Change in medication: Protonix increased from 20 to 40 mg by mouth daily, always take at least 30 minutes before first meal of the day As you had intravenous contrast for CAT scan, do not take metformin starting today April 28, 2019 until April 30, 2019. Resume metformin on May 01, 2019. Follow-up with primary care physician Dr. Claude Hathaway on Sunday, May 05, 2019 at 11 PM. Follow-up with [facility] cardiology clinic for outpatient stress test. The clinic will be calling you for the appointment. Call primary care physician or return to the ER immediately with worsening symptoms, Shortness of breath, weakness, nausea, persistent diarrhea, bloody or black stools. Prescriptions: New pantoprazole 40 mg Tablet,Delayed Release (Dr/Ec) 40 mg PO QAM 30 Days Qty: 30 RF: 1 Continued atenolol 100 mg Tablet 100 mg PO DAILY Qty: 0 RF: 0 lisinopril [Prinivil] 20 mg Tablet 20 mg PO BID Qty: 0 RF: 0 clopidogrel 75 mg Tablet 75 mg PO DAILY Qty: 0 RF: 0 aspirin [Aspir-81] 81 mg Tablet,Delayed Release (Dr/Ec) 81 mg PO DAILY 90 Days Qty: 90 RF: 3 acetaminophen [Tylenol Extra Strength] 500 mg Tablet 1,000 mg PO QID PRN (Reason: Pain) Qty: 0 RF: 0 lorazepam [Ativan] 1 mg Tablet 1 mg PO Q8H PRN (Reason: Anxiety) Qty: 0 RF: 0 levothyroxine [Levoxyl] 112 mcg Tablet 112 mcg PO QAM Qty: 0 RF: 0 cholecalciferol (vitamin D3) [Vitamin D3] 1,000 unit Capsule 1,000 unit PO DAILY Qty: 0 RF: 0 escitalopram oxalate [Lexapro] 20 mg Tablet 20 mg PO DAILY Qty: 0 RF: 0 atorvastatin 80 mg Tablet 80 mg PO DAILY Qty: 0 RF: 0 fluticasone propion-salmeterol [Advair Diskus] 250-50 mcg/dose Blister With Device 1 inh INHALATION BID RF: 0 ondansetron HCl [Zofran] 4 mg Tablet 4 mg PO QAM PRN (Reason: Nausea) RF: 0 dicyclomine 20 mg Tablet 20 mg PO BID RF: 0 nitroglycerin [Nitrostat] 0.4 mg Tablet, Sublingual 0.4 mg sublingual UD PRN (Reason: Chest Pain) RF: 0 ezetimibe 10 mg tablet 10 mg PO DAILY RF: 0 Vitron-C 65 mg iron- 125 mg Tablet,Delayed Release (Dr/Ec) 1 tab PO DAILY RF: 0 amlodipine 2.5 mg tablet 2.5 mg PO DAILY RF: 0 eszopiclone [Lunesta] 1 mg Tablet 1 mg PO HS PRN (Reason: Sleep) RF: 0 albuterol sulfate [ProAir HFA] 90 mcg/actuation Hfa Aerosol Inhaler 2 puff INHALATION Q4H PRN (Reason: Wheezing) RF: 0 isosorbide mononitrate 60 mg tablet extended release 24 hr 60 mg PO DAILY RF: 0 Spiriva with HandiHaler 18 mcg capsule, w/inhalation device 1 cap inhalation DAILY RF: 0 metformin 500 mg tablet extended release 24 hr 500 mg PO DAILY Qty: 0 RF: 0 Discontinued pantoprazole 20 mg tablet,delayed release (DR/EC) 20 mg PO DAILY RF: 0 Stand-Alone Forms: Call Back Authorization, [facility]/Other Patient Handouts: Diabetes Healthy Meals Discharge Orders: Discharge Order (Routine); Ordered 04/28/19 Ordered By: Camron Doll Admission Data Admit Date/Time: 04/25/19 21:09 Attending Provider: Camron Doll Admit Provider: Woody Robertson Primary Care Provider: PCP,NO Other Providers: Woody Robertson ; Patel Shrestha ; Fly Gil[place] Service: Telemetry Medical Other Interventions: Discharge Summary Assessment (RN) Last Done: 04/28/19 11:38
--- NOTE | 2019-05-04 08:17 | Coding Query ---
CODING QUERY To promote full compliance with coding requirements relating to patient care, provider participation is requested in all cases of coffee weigher uncertainty. Please assist us with the question(s) below: Coding Question(s): On admission the patient was thought to have acute blood loss anemia due to an upper GI bleed; however, upon further investigation no evidence of bleed was found with EGD. GI bleed documentation seized and new documentation of anemia due to CKD started but the documentation for acute blood loss anemia remained. Please clarify below the cause of the patient's admission after study. Physician's Response(s): ( ) Upper GI bleed with acute blood loss anemia ( ) Anemia of CKD (upper GI bleed ruled out) ( X ) Other, please specify Most likely Anemia of CKD, Upper GI bleed ruled out Thank you Lara Ford Principal Diagnosis: "that condition established after study, to be chiefly responsible for occasioning the admission of the patient to the hospital for care." Co-Existing Principal Diagnosis: "when two or more diagnoses equally meet the criteria for principal diagnosis as determined by the circumstances of admission, diagnostic work up, and/or therapy provided, and the Alphabetic Index, Tabular List, or another coding guideline does not provide sequencing direction, any one of the diagnoses may be sequenced first." "When the physician has documented what appears to be a current diagnosis in the body of the record, but has not included the diagnosis in the final diagnostic statement, the physician should be asked whether the diagnosis should be added." (Source Coding Clinic 2 QTR90. p3-4) [facility]
== END 2019-04-28 13:28 | disposition home or self-care (01) | DRG 684 ==
LOC: ED 17:16 → SUATTDRO 21:09 → 2N 21:09 → 2E 04-26 14:00
DX: D18.03 Hemangioma of intra-abdominal structures; Z87.891 Personal history of nicotine dependence; I25.10 Atherosclerotic heart disease of native coronary artery without angina pectoris; Z86.79 Personal history of other diseases of the circulatory system; Z88.5 Allergy status to narcotic agent; T47.6X5A Adverse effect of antidiarrheal drugs, initial encounter; I12.9 Hypertensive chronic kidney disease with stage 1 through stage 4 chronic kidney disease, or unspecified chronic kidney disease; J44.9 Chronic obstructive pulmonary disease, unspecified; N18.3 Chronic kidney disease, stage 3 (moderate); Z95.5 Presence of coronary angioplasty implant and graft; E78.5 Hyperlipidemia, unspecified; E03.9 Hypothyroidism, unspecified; Z88.0 Allergy status to penicillin; Z79.51 Long term (current) use of inhaled steroids; R19.5 Other fecal abnormalities; I71.4 Abdominal aortic aneurysm, without rupture; Z88.1 Allergy status to other antibiotic agents; Z79.02 Long term (current) use of antithrombotics/antiplatelets; Z79.899 Other long term (current) drug therapy; Z95.820 Peripheral vascular angioplasty status with implants and grafts; Z79.84 Long term (current) use of oral hypoglycemic drugs; Z87.19 Personal history of other diseases of the digestive system; D63.1 Anemia in chronic kidney disease; E11.22 Type 2 diabetes mellitus with diabetic chronic kidney disease; Z86.73 Personal history of transient ischemic attack (TIA), and cerebral infarction without residual deficits; K21.9 Gastro-esophageal reflux disease without esophagitis; Z88.8 Allergy status to other drugs, medicaments and biological substances; Z79.82 Long term (current) use of aspirin

== ENCOUNTER 2024-12-01 22:08 | Inpatient (IN) ==
[2024-12-01] MEDS: SODIUM CHLORIDE 0.9% 1,000 ML IV ONE ×2 (22:54→23:51)
[2024-12-01 23:05] LABS: Basophils # (auto) 0.06 K/uL (0.00-0.20); Basophils % (auto) 0.8 %; Eosinophils # (auto) 0.13 K/uL (0.00-0.50); Eosinophils % (auto) 1.8 %; Hematocrit (blood only) 38.3 % (37.0-47.0); Hemoglobin 11.8 g/dl (12.0-16.0); Immature Granulocytes # (auto) 0.01 K/uL (0.01-0.20); Immature Granulocytes % (auto) 0.1 %; Lymphocytes # (auto) 1.85 K/uL (1.20-3.40); Lymphocytes % (auto) 25.9 %; Mean Corpuscular Hemoglobin 24.6 pg (25.0-34.0); Mean Corpuscular Hgb Conc 30.8 g/dL (32.0-36.0); Mean Platelet Volume 9.8 fL (9.4-12.4); Monocytes # (auto) 0.62 K/uL (0.11-0.59); Monocytes % (auto) 8.7 %; Neutrophils # (auto) 4.48 K/uL (1.40-6.50); Neutrophils % (auto) 62.7 %; Platelet Count 272 K/uL (130-400); RDW Coefficient of Variation 15.9 % (11.5-14.5); RDW Standard Deviation 46.1 fL (36.4-46.3); Red Blood Count 4.79 M/uL (4.20-5.40); White Blood Count 7.15 K/ul (4.8-10.8)
[2024-12-01 23:13] LABS: Appearance Urine Clear (Clear); Bacteria Urine Automated 4+ (None Seen); Bilirubin Urine Negative (Negative); Blood Urine Negative (Negative); Cast Urine Automated 0-2 /lpf (0-2); Color Urine Yellow; Epithelial Cell Urine Auto 0-2 /hpf (0-2); Glucose Urine UA Negative (Negative); Ketones Urine Negative (Negative); Leukocyte Esterase Urine Negative (Negative); Nitrite Urine Negative (Negative); Protein Urine 2+ (Negative); RBC Urine Automated 0-2 /hpf (0-2); Specific Gravity Urine 1.004 (1.000-1.030); Urobilinogen Urine Negative (Negative); WBC Urine Automated 0-5 /hpf (0-5); pH Urine 6.5 (4.5-7.5)
[2024-12-01 23:27] LABS: Albumin Globulin Ratio 1.6 (0.9-2); Albumin Level 4.8 gm/dl (3.4-5.0); BUN Creatinine Ratio 12.3 (10-20); Bilirubin,Total 0.3 mg/dl (0.2-1.0); Calcium 9.7 mg/dl (8.6-10.3); Creatinine Clr Calc Pharmacy 38.3 ml/min; Potassium 3.8 mmol/L (3.5-5.1); Total Protein 7.8 gm/dl (6.0-8.3)
--- NOTE | 2024-12-01 23:32 | Emergency Department Note ---
Impression & Plan Abdominal pain, Atrial fibrillation with RVR, Elevated troponin ED Provider Note ED Provider Note NAME: NABEEL GARG AGE:84 SEX: Female : 1940 ARRIVES VIA: Private vehicle INFORMANT: Patient ED PROVIDER(s): Janette Vale DO CHIEF COMPLAINT: Left-sided abdominal pain HPI: This is an 84-year-old female who presents emergency department due to concern for left mid and left lower abdominal pain. Patient states symptoms initially began yesterday and were intermittent. She states today the pain seemed more constant and began getting worse this evening around 7 PM. She states the pain feels similar to a prior episode of diverticulitis many years ago. She denies any recent change in her bowel movements and denies any blood in her bowel movements. No recent change in urine or urinary habits. She states pain does not radiate into her back. She denies any fevers or chills, chest pain, difficulty breathing, nausea or vomiting. No recent change in diet or medications. No trauma or change in activity. Patient states she does have a history of COPD and is often short of breath with exertion however that is felt at baseline. Patient also notes she has a history of coronary artery disease and does have stents. PAST MEDICAL HISTORY:See Below PAST SURGICAL HISTORY:See Below FAMILY HISTORY:See Below SOCIAL HISTORY:See Below HOME MEDICATIONS:See Below ALLERGIES:See Below VITALS:See Below PHYSICAL EXAMINATION: GENERAL: alert, well appearing, well nourished, no distress, non-toxic EYE EXAM: normal conjunctiva, PERRL and EOM's grossly intact OROPHARYNX: no exudate, no erythema, lips, buccal mucosa, and tongue normal and mucous membranes are dry NECK: supple, no nuchal rigidity, no adenopathy, non-tender LUNGS: Clear to auscultation. Normal chest wall mechanics, no w/r/r HEART: no murmurs, S1 normal and S2 normal ABDOMEN: abdomen soft, mild, left lower abdominal pain with palpation, normo- active bowel sounds, no masses, no rebound or guarding. BACK: Back is symmetrical on inspection and there is no deformity, no midline tenderness, no CVA tenderness. SKIN: no rashes, petechiae, orbruising UPPER EXTREMITIES: upper extremities are grossly normal. FROM, nml pulses b/l. LOWER EXTREMITIES: No pitting edema. FROM, nml pulses b/l. NEURO EXAM: Normal sensorium, cranial nerves II-XII grossly intact, normal speech, no facial droop,nogross weakness of arms, no gross weakness of legs. Gross sensation intact. No ataxia. Vital Signs: reviewed and remarkable Differential Diagnosis: Colitis, SBO, diverticulitis, perforation, ureterolithiasis, UTI, pyelonephritis, medication ADR, constipation, volvulus, gastroparesis, viral syndrome, herpes zoster, as well as others were considered MEDICAL DECISION MAKING: This is an 84-year-old female who presented to Emergency Department with concern for abdominal pain and possible recurrent diverticulitis. Patient afebrile and vital signs stable on arrival however she was noted to be tachycardic. Labs drawn and sent, IV established, EKG and CXR performed and interpreted at bedside, and patient placed on telemetry. While her tachycardia was initially thought to be related to pain, EKG revealed patient to be in atrial fibrillation. I could not find any prior documented history in our system of atrial fibrillation and ask case management to review the [employer] system. Urine collected and sent additionally. Patient started on IV fluids and given IV Tylenol. She was sent for CT of the abdomen and pelvis. Patient's initial labs reassuring. Mild elevation of her troponin at 23 and mild elevation of her lactic acid at 2.4. Her heart rate did improve here with IV fluids and IV Tylenol however was still noted to be irregular. Following IV fluids and while awaiting CT results, repeat lactic acid was improved to 1.8 however troponin increased to 63. CT revealed extensive diverticulosis but no obvious diverticulitis. No other acute pathology noted to explain her abdominal pain. I discussed the results with patient and family at bedside including concern for new dysrhythmia with unknown time of onset. Patient's prior medical problems would lead to an increased [id number] 2 score. Patient does already use aspirin and Plavix. Will defer decision for further anticoagulation to hospitalist and cardiology. Patient's heart rate here when she was given IV fluids and pain control was between 90s and low 100s. Case discussed with the hospitalist team for additional evaluation and management. Consultation(s): [id number]: Discussed with Dr. Lea, [facility] hospitalist team, for additional evaluation and management. ER Treatment Provided: See below Diagnostics Interpreted By Me: -ECG: a.fib at 139, nml axis, nml QRS, prolonged QTc, ST depression noted I, II, V4-6 -Cardiac Monitoring: An order was placed for continuous cardiac monitoring. The monitor shows a rate of 98 with a.fib rhythm. -Laboratory studies: As stated above and show below. -Imaging studies: X-ray Chest: A single view study of the chest was reviewed and was negative for cardiomegaly, focal infiltrate, effusion, pulmonary edema, or wide mediastinum. Triage Nursing Note Reviewed Prior/Outside Records Reviewed -reviewed cardiology note from November 2023 Past Med/Surg History Problem List (Updated 12/02/24 @ 01:49 by Janette Vale DO) Elevated troponin (Acute) Atrial fibrillation with RVR (Acute) Abdominal pain (Acute) Anemia Melena Acute blood loss anemia Anemia Medical History (Updated 12/02/24 @ 01:49 by Janette Vale DO) Osteoarthritis Hypothyroidism Diabetes mellitus, type 2 Hearing deficit Anxiety Asthma RARE RESC. INH USE IBS (irritable bowel syndrome) GERD (gastroesophageal reflux disease) CKD (chronic kidney disease), stage III HTN (hypertension) Abdominal aortic ectasia JUST WATCHING FOR NOW > [place] > UNSURE OF SIZE > FOUND IN APR 2018 Carotid artery disease COPD (chronic obstructive pulmonary disease) Dyslipidemia Renal artery stenosis History of stent insertion of renal artery 2011 with restenosis in 2013 and 2014 CAD (coronary artery disease) cath 03/25/17 - [place] [facility] [place] ALICE to the first diagonal branch, ALICE to the prox LAD, 1 ALICE to the ostial LM Surgical History History of left cataract surgery History of tonsillectomy History of esophagogastroduodenoscopy (EGD) History of heart artery stent 3 STENTS LAST ONE JUL 2018 > FOR CHEST PRESSURE >[facility] [employer] CARDIOLOGY History of cardiac cath H/O repair of right rotator cuff History of appendectomy History of back surgery LUMBAR AREA H/O tubal ligation H/O dilation and curettage Family History Mother Stroke Social History Smoking Status: Never smoker Second Hand Exposure: No; Do You Dip or Chew Tobacco: No; Tobacco Cessation Education Requested by Patient: No Hx Alcohol Use: No Hx Substance Use: No Preferred Language: Indonesian Communication Ability: Effective [employer] Company Required: No Beliefs That Will Affect Care: None Current Living Situation: Family Current Living Situation Comment: Son lives with her Other Information That Helps Us Care for You: No Feels Safe at Home: Yes Safety Concerns: Feels Safe At This Time Assistive Devices: Denture - Upper, Denture - Lower, Glasses and Hearing Aid - Right Allergies Allergies Allergy/AdvReac Type Severity Reaction Status Date / Time ranitidine Allergy Intermediate Rash. Verified 12/01/24 23:24 ampicillin AdvReac Intermediate Vaginitis. Verified 12/01/24 23:24 ciprofloxacin [From Cipro] AdvReac Intermediate NERVOUSNESS Verified 12/01/24 23:24 /SHAKINESS doxycycline AdvReac Intermediate Nausea and Verified 12/01/24 23:24 diarrhea. erythromycin base AdvReac Intermediate Nause and Verified 12/01/24 23:24 diarrhea. morphine AdvReac Intermediate AGITATION Verified 12/01/24 23:24 Home Meds Home Medications Medication Instructions Recorded Confirmed acetaminophen 500 mg tablet 1,000 mg PO DIRECTED PRN Pain 06/03/17 12/01/24 (Tylenol Extra Strength) #0 tabs atorvastatin 80 mg tablet 80 mg PO QPM #0 tabs 06/03/17 12/01/24 cholecalciferol (vitamin D3) 25 2,000 unit PO DAILY ##0 06/03/17 12/01/24 mcg (1,000 unit) capsule (Vitamin D3) clopidogrel 75 mg tablet 75 mg PO DAILY #0 tabs 06/03/17 12/01/24 lorazepam 1 mg tablet (Ativan) 1 mg PO Q8H PRN Anxiety #0 tabs 06/03/17 12/01/24 amlodipine 2.5 mg tablet 2.5 mg PO DAILY 04/25/19 12/01/24 dicyclomine 20 mg tablet 20 mg PO BID 04/25/19 12/01/24 ezetimibe 10 mg tablet 10 mg PO QAM 04/25/19 12/01/24 nitroglycerin 0.4 mg sublingual 0.4 mg sublingual DIRECTED PRN 04/25/19 12/01/24 tablet (Nitrostat) Chest Pain metformin 500 mg tablet,extended 1,000 mg PO QAM 09/14/19 12/01/24 release 24 hr pantoprazole 20 mg tablet,delayed 40 mg PO BID 09/14/19 12/01/24 release albuterol sulfate 2.5 mg/3 mL 2.5 mg inhalation Q4H PRN Wheezing 12/01/24 12/01/24 (0.083 %) solution for nebulization albuterol sulfate 90 mcg/actuation 2 puff inhalation Q4H PRN 12/01/24 12/01/24 aerosol inhaler Shortness Of Breath Or Wheezing aspirin 81 mg tablet,delayed 81 mg PO DAILY 12/01/24 12/01/24 release buspirone 5 mg tablet 5 mg PO BID 12/01/24 12/01/24 cyanocobalamin (vitamin B-12) 1,000 mcg PO DAILY 12/01/24 12/01/24 1,000 mcg tablet (Vitamin B-12) fluticasone fur. 100 mcg-umeclid 1 inh inhalation DAILY 12/01/24 12/01/24 62.5 mcg-vilant 25 mcg inhalat.powder (Trelegy Ellipta) fluticasone propionate 50 2 spray intranasal DAILY 12/01/24 12/01/24 mcg/actuation nasal spray,suspension gabapentin 100 mg capsule 100 mg PO TID 12/01/24 12/01/24 hydrochlorothiazide 12.5 mg tablet 12.5 mg PO QAM 12/01/24 12/01/24 icosapent ethyl 1 gram capsule 2 g PO BIDM 12/01/24 12/01/24 (Vascepa) levothyroxine 100 mcg tablet 100 mcg PO DAILYBB 12/01/24 12/01/24 lisinopril 20 mg tablet 20 mg PO ONCE 12/01/24 12/01/24 lisinopril 20 mg tablet 30 mg PO QAM 12/01/24 12/01/24 loperamide 2 mg capsule 2 mg PO QID PRN Diarrhea 12/01/24 12/01/24 metoprolol succinate 25 mg 25 mg PO DAILY 12/01/24 12/01/24 tablet,extended release 24 hr nystatin 100,000 unit/mL oral 5 ml buccal DIRECTED PRN 12/01/24 12/01/24 suspension NEEDED polyvinyl alcohol 1.4 % eye drops 1 drp ophthalmic (eye) QID 12/01/24 12/01/24 sertraline 50 mg tablet 50 mg PO DAILY 12/01/24 12/01/24 Results & Data (ED) Vital Signs Vital Signs - 24 hr 12/01/24 22:11 12/01/24 22:14 12/01/24 22:15 Temperature 36.4 C L Temperature Source Oral Pulse Rate 119 H 112 H Pulse Rate [Finger] Pulse Rate from SpO2 Sensor Respiratory Rate 20 Respiratory Effort / Characteristics Non-Labored Spontaneous Respiratory Depth Normal Blood Pressure 128/93 128/93 Blood Pressure [Right Arm] Blood Pressure Mean 104 105 Blood Pressure Mean [Right Arm] Pulse Oximetry 96 Oxygen Delivery Method Room Air Oxygen Flow Rate Sepsis Recent Fever Within 48 Hours No Sepsis New/Unexplained Change in Mental Status N/A Sepsis Action Taken by Nursing No Action Required 12/01/24 22:15 12/01/24 22:15 12/01/24 22:31 Temperature Temperature Source Pulse Rate Pulse Rate [Finger] Pulse Rate from SpO2 Sensor Respiratory Rate Respiratory Effort / Characteristics Respiratory Depth Blood Pressure 128/93 128/93 137/85 Blood Pressure [Right Arm] Blood Pressure Mean 105 105 103 Blood Pressure Mean [Right Arm] Pulse Oximetry Oxygen Delivery Method Oxygen Flow Rate Sepsis Recent Fever Within 48 Hours Sepsis New/Unexplained Change in Mental Status Sepsis Action Taken by Nursing 12/01/24 22:31 12/01/24 22:31 12/01/24 22:31 Temperature Temperature Source Pulse Rate Pulse Rate [Finger] Pulse Rate from SpO2 Sensor Respiratory Rate Respiratory Effort / Characteristics Respiratory Depth Blood Pressure 137/85 137/85 137/85 Blood Pressure [Right Arm] Blood Pressure Mean 103 103 103 Blood Pressure Mean [Right Arm] Pulse Oximetry Oxygen Delivery Method Oxygen Flow Rate Sepsis Recent Fever Within 48 Hours Sepsis New/Unexplained Change in Mental Status Sepsis Action Taken by Nursing 12/01/24 22:31 12/01/24 22:31 12/01/24 22:31 Temperature Temperature Source Pulse Rate Pulse Rate [Finger] Pulse Rate from SpO2 Sensor Respiratory Rate Respiratory Effort / Characteristics Respiratory Depth Blood Pressure 137/85 137/85 137/85 Blood Pressure [Right Arm] Blood Pressure Mean 103 103 103 Blood Pressure Mean [Right Arm] Pulse Oximetry Oxygen Delivery Method Oxygen Flow Rate Sepsis Recent Fever Within 48 Hours Sepsis New/Unexplained Change in Mental Status Sepsis Action Taken by Nursing 12/01/24 22:31 12/01/24 22:31 12/01/24 22:31 Temperature Temperature Source Pulse Rate Pulse Rate [Finger] Pulse Rate from SpO2 Sensor Respiratory Rate Respiratory Effort / Characteristics Respiratory Depth Blood Pressure 137/85 137/85 137/85 Blood Pressure [Right Arm] Blood Pressure Mean 103 103 103 Blood Pressure Mean [Right Arm] Pulse Oximetry Oxygen Delivery Method Oxygen Flow Rate Sepsis Recent Fever Within 48 Hours Sepsis New/Unexplained Change in Mental Status Sepsis Action Taken by Nursing 12/01/24 22:31 12/01/24 22:33 12/01/24 22:45 Temperature Temperature Source Pulse Rate 98 H 104 H Pulse Rate [Finger] Pulse Rate from SpO2 Sensor 102 H 122 H Respiratory Rate 22 24 Respiratory Effort / Characteristics Respiratory Depth Blood Pressure 137/85 Blood Pressure [Right Arm] Blood Pressure Mean 103 Blood Pressure Mean [Right Arm] Pulse Oximetry 95 95 Oxygen Delivery Method Oxygen Flow Rate Sepsis Recent Fever Within 48 Hours Sepsis New/Unexplained Change in Mental Status Sepsis Action Taken by Nursing 12/01/24 22:46 12/01/24 22:51 12/01/24 23:00 Temperature Temperature Source Pulse Rate 93 H Pulse Rate [Finger] Pulse Rate from SpO2 Sensor 98 H Respiratory Rate 21 Respiratory Effort / Characteristics Respiratory Depth Blood Pressure 147/86 H Blood Pressure [Right Arm] Blood Pressure Mean 109 Blood Pressure Mean [Right Arm] Pulse Oximetry 94 95 Oxygen Delivery Method Room Air Oxygen Flow Rate Sepsis Recent Fever Within 48 Hours Sepsis New/Unexplained Change in Mental Status Sepsis Action Taken by Nursing 12/01/24 23:00 12/01/24 23:00 12/01/24 23:00 Temperature Temperature Source Pulse Rate Pulse Rate [Finger] Pulse Rate from SpO2 Sensor Respiratory Rate Respiratory Effort / Characteristics Respiratory Depth Blood Pressure 147/86 H 147/86 H 147/86 H Blood Pressure [Right Arm] Blood Pressure Mean 109 109 109 Blood Pressure Mean [Right Arm] Pulse Oximetry Oxygen Delivery Method Oxygen Flow Rate Sepsis Recent Fever Within 48 Hours Sepsis New/Unexplained Change in Mental Status Sepsis Action Taken by Nursing 12/01/24 23:00 12/01/24 23:00 12/01/24 23:06 Temperature Temperature Source Pulse Rate 90 Pulse Rate [Finger] Pulse Rate from SpO2 Sensor 90 Respiratory Rate 21 Respiratory Effort / Characteristics Respiratory Depth Blood Pressure 147/86 H 147/86 H Blood Pressure [Right Arm] Blood Pressure Mean 109 109 Blood Pressure Mean [Right Arm] Pulse Oximetry 96 Oxygen Delivery Method Oxygen Flow Rate Sepsis Recent Fever Within 48 Hours Sepsis New/Unexplained Change in Mental Status Sepsis Action Taken by Nursing 12/01/24 23:12 12/01/24 23:30 12/01/24 23:30 Temperature Temperature Source Pulse Rate 94 H 109 H Pulse Rate [Finger] Pulse Rate from SpO2 Sensor 94 H 104 H Respiratory Rate 20 20 Respiratory Effort / Characteristics Respiratory Depth Blood Pressure 137/99 Blood Pressure [Right Arm] Blood Pressure Mean 114 Blood Pressure Mean [Right Arm] Pulse Oximetry 95 96 Oxygen Delivery Method Oxygen Flow Rate Sepsis Recent Fever Within 48 Hours Sepsis New/Unexplained Change in Mental Status Sepsis Action Taken by Nursing 12/01/24 23:30 12/01/24 23:30 12/01/24 23:30 Temperature Temperature Source Pulse Rate Pulse Rate [Finger] Pulse Rate from SpO2 Sensor Respiratory Rate Respiratory Effort / Characteristics Respiratory Depth Blood Pressure 137/99 137/99 137/99 Blood Pressure [Right Arm] Blood Pressure Mean 114 114 114 Blood Pressure Mean [Right Arm] Pulse Oximetry Oxygen Delivery Method Oxygen Flow Rate Sepsis Recent Fever Within 48 Hours Sepsis New/Unexplained Change in Mental Status Sepsis Action Taken by Nursing 12/01/24 23:30 12/01/24 23:30 12/01/24 23:30 Temperature Temperature Source Pulse Rate Pulse Rate [Finger] Pulse Rate from SpO2 Sensor Respiratory Rate Respiratory Effort / Characteristics Respiratory Depth Blood Pressure 137/99 137/99 137/99 Blood Pressure [Right Arm] Blood Pressure Mean 114 114 114 Blood Pressure Mean [Right Arm] Pulse Oximetry Oxygen Delivery Method Oxygen Flow Rate Sepsis Recent Fever Within 48 Hours Sepsis New/Unexplained Change in Mental Status Sepsis Action Taken by Nursing 12/01/24 23:30 12/01/24 23:30 12/02/24 00:00 Temperature Temperature Source Pulse Rate Pulse Rate [Finger] Pulse Rate from SpO2 Sensor Respiratory Rate Respiratory Effort / Characteristics Respiratory Depth Blood Pressure 137/99 137/99 127/75 Blood Pressure [Right Arm] Blood Pressure Mean 114 114 97 Blood Pressure Mean [Right Arm] Pulse Oximetry Oxygen Delivery Method Oxygen Flow Rate Sepsis Recent Fever Within 48 Hours Sepsis New/Unexplained Change in Mental Status Sepsis Action Taken by Nursing 12/02/24 00:00 12/02/24 00:00 12/02/24 00:00 Temperature Temperature Source Pulse Rate Pulse Rate [Finger] Pulse Rate from SpO2 Sensor Respiratory Rate Respiratory Effort / Characteristics Respiratory Depth Blood Pressure 127/75 127/75 127/75 Blood Pressure [Right Arm] Blood Pressure Mean 97 97 97 Blood Pressure Mean [Right Arm] Pulse Oximetry Oxygen Delivery Method Oxygen Flow Rate Sepsis Recent Fever Within 48 Hours Sepsis New/Unexplained Change in Mental Status Sepsis Action Taken by Nursing 12/02/24 00:00 12/02/24 00:00 12/02/24 00:00 Temperature Temperature Source Pulse Rate Pulse Rate [Finger] Pulse Rate from SpO2 Sensor Respiratory Rate Respiratory Effort / Characteristics Respiratory Depth Blood Pressure 127/75 127/75 127/75 Blood Pressure [Right Arm] Blood Pressure Mean 97 97 97 Blood Pressure Mean [Right Arm] Pulse Oximetry Oxygen Delivery Method Oxygen Flow Rate Sepsis Recent Fever Within 48 Hours Sepsis New/Unexplained Change in Mental Status Sepsis Action Taken by Nursing 12/02/24 00:00 12/02/24 00:00 12/02/24 00:00 Temperature Temperature Source Pulse Rate Pulse Rate [Finger] Pulse Rate from SpO2 Sensor Respiratory Rate Respiratory Effort / Characteristics Respiratory Depth Blood Pressure 127/75 127/75 127/75 Blood Pressure [Right Arm] Blood Pressure Mean 97 97 97 Blood Pressure Mean [Right Arm] Pulse Oximetry Oxygen Delivery Method Oxygen Flow Rate Sepsis Recent Fever Within 48 Hours Sepsis New/Unexplained Change in Mental Status Sepsis Action Taken by Nursing 12/02/24 00:00 12/02/24 00:03 12/02/24 00:12 Temperature Temperature Source Pulse Rate 95 H 106 H Pulse Rate [Finger] Pulse Rate from SpO2 Sensor 97 H 104 H Respiratory Rate 21 21 Respiratory Effort / Characteristics Respiratory Depth Blood Pressure 127/75 Blood Pressure [Right Arm] Blood Pressure Mean 97 Blood Pressure Mean [Right Arm] Pulse Oximetry 95 96 Oxygen Delivery Method Oxygen Flow Rate Sepsis Recent Fever Within 48 Hours Sepsis New/Unexplained Change in Mental Status Sepsis Action Taken by Nursing 12/02/24 00:24 12/02/24 00:30 12/02/24 00:30 Temperature Temperature Source Pulse Rate 98 H 92 H Pulse Rate [Finger] Pulse Rate from SpO2 Sensor 104 H 102 H Respiratory Rate 24 21 Respiratory Effort / Characteristics Respiratory Depth Blood Pressure 151/76 H Blood Pressure [Right Arm] Blood Pressure Mean 105 Blood Pressure Mean [Right Arm] Pulse Oximetry 96 96 Oxygen Delivery Method Oxygen Flow Rate Sepsis Recent Fever Within 48 Hours Sepsis New/Unexplained Change in Mental Status Sepsis Action Taken by Nursing 12/02/24 00:30 12/02/24 00:30 12/02/24 00:30 Temperature Temperature Source Pulse Rate Pulse Rate [Finger] Pulse Rate from SpO2 Sensor Respiratory Rate Respiratory Effort / Characteristics Respiratory Depth Blood Pressure 151/76 H 151/76 H 151/76 H Blood Pressure [Right Arm] Blood Pressure Mean 105 105 105 Blood Pressure Mean [Right Arm] Pulse Oximetry Oxygen Delivery Method Oxygen Flow Rate Sepsis Recent Fever Within 48 Hours Sepsis New/Unexplained Change in Mental Status Sepsis Action Taken by Nursing 12/02/24 00:30 12/02/24 00:30 12/02/24 00:30 Temperature Temperature Source Pulse Rate Pulse Rate [Finger] Pulse Rate from SpO2 Sensor Respiratory Rate Respiratory Effort / Characteristics Respiratory Depth Blood Pressure 151/76 H 151/76 H 151/76 H Blood Pressure [Right Arm] Blood Pressure Mean 105 105 105 Blood Pressure Mean [Right Arm] Pulse Oximetry Oxygen Delivery Method Oxygen Flow Rate Sepsis Recent Fever Within 48 Hours Sepsis New/Unexplained Change in Mental Status Sepsis Action Taken by Nursing 12/02/24 00:30 12/02/24 00:30 12/02/24 00:30 Temperature Temperature Source Pulse Rate Pulse Rate [Finger] Pulse Rate from SpO2 Sensor Respiratory Rate Respiratory Effort / Characteristics Respiratory Depth Blood Pressure 151/76 H 151/76 H 151/76 H Blood Pressure [Right Arm] Blood Pressure Mean 105 105 105 Blood Pressure Mean [Right Arm] Pulse Oximetry Oxygen Delivery Method Oxygen Flow Rate Sepsis Recent Fever Within 48 Hours Sepsis New/Unexplained Change in Mental Status Sepsis Action Taken by Nursing 12/02/24 00:51 12/02/24 01:00 12/02/24 02:08 Temperature Temperature Source Pulse Rate 98 H 83 Pulse Rate [Finger] 67 Pulse Rate from SpO2 Sensor 105 H Respiratory Rate 21 18 Respiratory Effort / Characteristics Non-Labored Respiratory Depth Normal Blood Pressure Blood Pressure [Right Arm] 152/75 H Blood Pressure Mean Blood Pressure Mean [Right Arm] 100 Pulse Oximetry 93 98 Oxygen Delivery Method Nasal Cannula Oxygen Flow Rate 2 Sepsis Recent Fever Within 48 Hours Sepsis New/Unexplained Change in Mental Status Sepsis Action Taken by Nursing Laboratory Data 12/01/24 22:10 12/01/24 22:10 Lab Results 12/01/24 12/01/24 12/01/24 Range/Units 22:10 22:39 22:55 WBC 7.15 (4.8-10.8) K/ul RBC 4.79 (4.20-5.40) M/uL Hgb 11.8 L (12.0-16.0) g/dl Hct 38.3 (37.0-47.0) % MCV 80.0 (80.0-100.0) fL MCH 24.6 L (25.0-34.0) pg MCHC 30.8 L (32.0-36.0) g/dL RDW Std Deviation 46.1 (36.4-46.3) fL RDW Coeff of Angel 15.9 H (11.5-14.5) % Plt Count 272 (130-400) K/uL MPV 9.8 (9.4-12.4) fL Immature Gran % (Auto) 0.1 % Neut % (Auto) 62.7 % Lymph % (Auto) 25.9 % [place] % (Auto) 8.7 % Eos % (Auto) 1.8 % Baso % (Auto) 0.8 % Neut # (Auto) 4.48 (1.40-6.50) K/uL Lymph # (Auto) 1.85 (1.20-3.40) K/uL [place] # (Auto) 0.62 H (0.11-0.59) K/uL Eos # (Auto) 0.13 (0.00-0.50) K/uL Baso # (Auto) 0.06 (0.00-0.20) K/uL Immature Gran # (Auto) 0.01 (0.01-0.20) K/uL PT Cancelled INR Cancelled Sodium 135 L (136-145) mmol/L Potassium 3.8 (3.5-5.1) mmol/L Chloride 100 (98-107) mmol/L Carbon Dioxide 26 (21-32) mmol/L Anion Gap 9 (3-11) BUN 13 (6-23) mg/dl Creatinine 1.06 (0.6-1.2) mg/dl Est Cr Clr Drug Dosing 38.3 ml/min eGFR 52.45 BUN/Creatinine Ratio 12.3 (10-20) Glucose 197 H (70-99(Fasting)) mg/dl Lactate 2.4 H* (0.4-2.0) mmol/L Calcium 9.7 (8.6-10.3) mg/dl Magnesium (1.7-2.4) mg/dl Total Bilirubin 0.3 (0.2-1.0) mg/dl AST 14 (13-39) U/L ALT 11 (7-52) U/L Alkaline Phosphatase 62 (34-104) U/L Troponin I High Sens 27.9 H (0-14) pg/ml Total Protein 7.8 (6.0-8.3) gm/dl Albumin 4.8 (3.4-5.0) gm/dl Globulin 3.0 (2.5-4.0) gm/dl Albumin/Globulin Ratio 1.6 (0.9-2) Lipase 29 (11-82) U/L TSH (0.300-4.500) uIu/ml Free T4 (0.61-1.60) ng/dl Urine Color Yellow Urine Appearance Clear (Clear) Urine pH 6.5 (4.5-7.5) Ur Specific [place] 1.004 (1.000-1.030) Urine Protein 2+ H (Negative) Urine Glucose (UA) Negative (Negative) Urine Ketones Negative (Negative) Urine Blood Negative (Negative) Urine Nitrite Negative (Negative) Urine Bilirubin Negative (Negative) Urine Urobilinogen Negative (Negative) Ur Leukocyte Esterase Negative (Negative) Urine WBC (Auto) 0-5 (0-5) /hpf Urine RBC (Auto) 0-2 (0-2) /hpf U Hyaline Cast (Auto) 0-2 (0-2) /lpf U Epithel Cells (Auto) 0-2 (0-2) /hpf Urine Bacteria (Auto) 4+ H (None Seen) Lyme Disease Screen Negative (Negative) 12/01/24 12/02/24 Range/Units 23:12 00:34 WBC (4.8-10.8) K/ul RBC (4.20-5.40) M/uL Hgb (12.0-16.0) g/dl Hct (37.0-47.0) % MCV (80.0-100.0) fL MCH (25.0-34.0) pg MCHC (32.0-36.0) g/dL RDW Std Deviation (36.4-46.3) fL RDW Coeff of Angel (11.5-14.5) % Plt Count (130-400) K/uL MPV (9.4-12.4) fL Immature Gran % (Auto) % Neut % (Auto) % Lymph % (Auto) % [place] % (Auto) % Eos % (Auto) % Baso % (Auto) % Neut # (Auto) (1.40-6.50) K/uL Lymph # (Auto) (1.20-3.40) K/uL [place] # (Auto) (0.11-0.59) K/uL Eos # (Auto) (0.00-0.50) K/uL Baso # (Auto) (0.00-0.20) K/uL Immature Gran # (Auto) (0.01-0.20) K/uL PT 10.7 INR 1.0 Sodium (136-145) mmol/L Potassium (3.5-5.1) mmol/L Chloride (98-107) mmol/L Carbon Dioxide (21-32) mmol/L Anion Gap (3-11) BUN (6-23) mg/dl Creatinine (0.6-1.2) mg/dl Est Cr Clr Drug Dosing ml/min eGFR BUN/Creatinine Ratio (10-20) Glucose (70-99(Fasting)) mg/dl Lactate 1.8 (0.4-2.0) mmol/L Calcium (8.6-10.3) mg/dl Magnesium 1.7 (1.7-2.4) mg/dl Total Bilirubin (0.2-1.0) mg/dl AST (13-39) U/L ALT (7-52) U/L Alkaline Phosphatase (34-104) U/L Troponin I High Sens 63.7 H* D (0-14) pg/ml Total Protein (6.0-8.3) gm/dl Albumin (3.4-5.0) gm/dl Globulin (2.5-4.0) gm/dl Albumin/Globulin Ratio (0.9-2) Lipase (11-82) U/L TSH 6.652 H (0.300-4.500) uIu/ml Free T4 0.86 (0.61-1.60) ng/dl Urine Color Urine Appearance (Clear) Urine pH (4.5-7.5) Ur Specific [place] (1.000-1.030) Urine Protein (Negative) Urine Glucose (UA) (Negative) Urine Ketones (Negative) Urine Blood (Negative) Urine Nitrite (Negative) Urine Bilirubin (Negative) Urine Urobilinogen (Negative) Ur Leukocyte Esterase (Negative) Urine WBC (Auto) (0-5) /hpf Urine RBC (Auto) (0-2) /hpf U Hyaline Cast (Auto) (0-2) /lpf U Epithel Cells (Auto) (0-2) /hpf Urine Bacteria (Auto) (None Seen) Lyme Disease Screen (Negative) Administered Medications Magnesium Sulfate/Dextrose (Magnesium Sulfate / D5w) 1 gm in 100 mls @ 50 mls/hr IV Q2H [facility] Stop: 12/02/24 05:59 Last Admin: 12/02/24 04:38 Dose: 50 mls/hr Documented By: Infusion: 12/02/24 04:36 Dose: Infused Documented By: Admin: 12/02/24 02:36 Dose: 50 mls/hr Documented By: DELTA Potassium Chloride/Sodium Chloride (Normal Saline W/20 Meq Kcl) 20 meq in 1,000 mls @ 75 mls/hr IV .[id number] ONE Stop: 12/02/24 15:17 Last Admin: 12/02/24 02:36 Dose: 75 mls/hr Documented By: DELTA Heparin Sodium/Dextrose (Heparin 85358 Unit/500 Ml D5w) 25,000 units in 500 mls @ 15 mls/hr IV .Q24H [facility]; Protocol Stop: 01/01/25 03:29 Last Admin: 12/02/24 04:48 Dose: 750 units/hr, 15 mls/hr Documented By: RICHA Co-signed By: NANCI Insulin Aspart (Insulin Aspart Per Unit Charge) 0 units SC ACHS [facility] Stop: 01/01/25 03:33 Last Admin: 12/02/24 03:54 Dose: 3 units Documented By: RICHA Co-signed By: NANCI Insulin Glargine (Lantus Per Unit Charge) 5 units SQ DAILY [facility] Stop: 01/01/25 04:14 Last Admin: 12/02/24 04:48 Dose: 5 units Documented By: RICHA Co-signed By: NANCI Discontinued Medications Heparin Sodium/Dextrose (Heparin Iv Adult Wt-Based Low-Dose *No* Initial Bolus Protocol) 1 each IV NOW STA; Protocol Stop: 12/02/24 03:27 Last Admin: 12/02/24 04:48 Dose: 1 each Documented By: RICHA Sodium Chloride (Nss) 1,000 mls @ 999 mls/hr IV .Q1H1M ONE Stop: 12/01/24 23:43 Last Infusion: 12/02/24 00:05 Dose: Infused Documented By: Admin: 12/01/24 22:54 Dose: 999 mls/hr Documented By: ABDIAS Acetaminophen (Ofirmev) 1,000 mg in 100 mls @ 400 mls/hr IV NOW STA Stop: 12/01/24 23:55 Last Infusion: 12/02/24 00:06 Dose: Infused Documented By: Admin: 12/01/24 23:50 Dose: 400 mls/hr Documented By: DELTA Sodium Chloride (Nss) 1,000 mls @ 999 mls/hr IV .Q1H1M ONE Stop: 12/02/24 00:43 Last Infusion: 12/02/24 01:00 Dose: Infused Documented By: Admin: 12/01/24 23:51 Dose: 999 mls/hr Documented By: DELTA Ampicillin Sodium/Sulbactam Sodium (Unasyn) 3,000 mg in 100 mls @ 200 mls/hr IV NOW STA Stop: 12/02/24 03:32 Last Admin: 12/02/24 04:32 Dose: 200 mls/hr Documented By: RICHA Ioversol (Optiray 320 100ml) 100 ml IV ONCE ONE Stop: 12/01/24 23:47 Last Admin: 12/01/24 23:47 Dose: 93 ml Documented By: JAMES Metoprolol Succinate (Metoprolol Succ 25mg Ext Rel Tab) 25 mg PO NOW STA Stop: 12/02/24 02:18 Last Admin: 12/02/24 03:53 Dose: 25 mg Documented By: RICHA Imaging Data Radiologist's Impression: Abdomen/Pelvis CT 12/01/24 22:43 Exam(s): CT ABDOMEN + PELVIS With Contrast IV Amt: 93 ml optiray 320 EXAM: CT Abdomen and Pelvis With Intravenous Contrast CLINICAL HISTORY: Reason for exam: LLQ abd pain. TECHNIQUE: Axial computed tomography images of the abdomen and pelvis with intravenous contrast. CTDI is 18.59 mGy and DLP is 840.29 mGy-cm. Automated exposure control was utilized for the study. A dose lowering technique was utilized adhering to the principles of ALARA. CONTRAST: Patient received 93 ml optiray 320 of IV contrast COMPARISON: April 27, 2019 FINDINGS: Lung bases: Unremarkable. No mass. No consolidation. ABDOMEN: Liver: Borderline enlarged is 18.5 cm. No focal mass lesion. . No mass. Gallbladder and bile ducts: Unremarkable. No calcified stones. No ductal dilation. Pancreas: Unremarkable. No mass. No ductal dilation. Spleen: Unremarkable. No splenomegaly. Adrenals: Unremarkable. No mass. Kidneys and ureters: 2.3 cm simple cyst in the upper pole the left kidney. No follow-up is required. No hydronephrosis. Stomach and bowel: Bowel loops are nondilated. There is extensive diverticulosis throughout the transverse, left, and sigmoid colon without evidence of acute diverticulitis. No pneumoperitoneum, free fluid, or acute inflammatory changes are seen involving the bowel. Slight wall thickening throughout the sigmoid colon appears chronic. PELVIS: Appendix: No findings to suggest acute appendicitis. Bladder: The urinary bladder is fully distended but nondilated measuring 13 cm craniocaudad. Reproductive: Unremarkable as visualized. ABDOMEN and PELVIS: Intraperitoneal space: See above. Bones/joints: Moderate to severe multilevel degenerative changes throughout the spine with previous multilevel instrumentation, fusion, and laminectomy. No acute fracture is seen. 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 No dislocation. Soft tissues: Unremarkable. 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 There are metallic stents in the renal arteries bilaterally. Probable severe right and moderate left common iliac artery stenosis. Lymph nodes: Unremarkable. No enlarged lymph nodes. IMPRESSION: Bowel loops are nondilated. There is extensive diverticulosis throughout the transverse, left, and sigmoid colon without evidence of acute diverticulitis. No pneumoperitoneum, free fluid, or acute inflammatory changes are seen involving the bowel. Slight wall thickening throughout the sigmoid colon appears chronic. Electronically signed by: Daniel Wright MD 12/02/24 00:34 AM Chest X-Ray 12/02/24 01:27 EXAM: XR chest 1V portable CLINICAL HISTORY: SOB TECHNIQUE: An X-ray image of the chest is obtained in AP projection. COMPARISON: 04/25/2019 FINDINGS: Pulmonary Parenchyma: Hyperexpanded lungs with coarse bronchovascular markings. No evidence of consolidation, collapse, or focal opacities. No pulmonary nodules are identified. No evidence of pleural effusion or pleural thickening. Heart and Mediastinum: Heart size and shape are normal. No mediastinal widening or masses. No hilar or mediastinal lymphadenopathy. Unfolded aorta with aortic arch calcifications. Bony Thorax: Bony thorax appears intact without fractures or deformities. Soft Tissues: Soft tissues overlying the chest wall are unremarkable. IMPRESSION: Hyperexpanded lungs with coarse bronchovascular markings, [place] prominent on current examination. It might be suggestive of congestion, but lower airway infection cannot be excluded. clinical correlation. Unfolded aorta with aortic arch calcifications. Stable. Electronically signed by Brice Bower 12-02-2024 02:36 AM Discharge Plan Visit Data Chief Complaint: Abdominal Pain Stated Complaint: Left Lower Quadrant Abdominal Pain ED Provider: Janette Vale Discharge Problem: Abdominal pain, Atrial fibrillation with RVR, Elevated troponin Patient Disposition: Admitted As Inpatient Discharge Instructions Interventions: ED Discharge Assessment Last Done: 12/02/24 03:24
[2024-12-01 23:34] LABS: Troponin I High Sensitivity 27.9 pg/ml (0-14)
[2024-12-01] MEDS: OPTIRAY 320 100ml IV ONE (23:47)
[2024-12-01 23:50] LABS: Prothrombin Time 10.7 Seconds (9.0-12.0)
[2024-12-01] MEDS: ACETAMINOPHEN 1,000 MG/100 ML VIAL IV STA (23:50)
--- NOTE | 2024-12-02 00:35 | CT Scan Report ---
Exam(s): CT ABDOMEN + PELVIS With Contrast IV Amt: 93 ml optiray 320 EXAM: CT Abdomen and Pelvis With Intravenous Contrast CLINICAL HISTORY: Reason for exam: LLQ abd pain. TECHNIQUE: Axial computed tomography images of the abdomen and pelvis with intravenous contrast. CTDI is 18.59 mGy and DLP is 840.29 mGy-cm. Automated exposure control was utilized for the study. A dose lowering technique was utilized adhering to the principles of ALARA. CONTRAST: Patient received 93 ml optiray 320 of IV contrast COMPARISON: April 27, 2019 FINDINGS: Lung bases: Unremarkable. No mass. No consolidation. ABDOMEN: Liver: Borderline enlarged is 18.5 cm. No focal mass lesion. . No mass. Gallbladder and bile ducts: Unremarkable. No calcified stones. No ductal dilation. Pancreas: Unremarkable. No mass. No ductal dilation. Spleen: Unremarkable. No splenomegaly. Adrenals: Unremarkable. No mass. Kidneys and ureters: 2.3 cm simple cyst in the upper pole the left kidney. No follow-up is required. No hydronephrosis. Stomach and bowel: Bowel loops are nondilated. There is extensive diverticulosis throughout the transverse, left, and sigmoid colon without evidence of acute diverticulitis. No pneumoperitoneum, free fluid, or acute inflammatory changes are seen involving the bowel. Slight wall thickening throughout the sigmoid colon appears chronic. PELVIS: Appendix: No findings to suggest acute appendicitis. Bladder: The urinary bladder is fully distended but nondilated measuring 13 cm craniocaudad. Reproductive: Unremarkable as visualized. ABDOMEN and PELVIS: Intraperitoneal space: See above. Bones/joints: Moderate to severe multilevel degenerative changes throughout the spine with previous multilevel instrumentation, fusion, and laminectomy. No acute fracture is seen. 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 No dislocation. Soft tissues: Unremarkable. 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 There are metallic stents in the renal arteries bilaterally. Probable severe right and moderate left common iliac artery stenosis. Lymph nodes: Unremarkable. No enlarged lymph nodes. IMPRESSION: Bowel loops are nondilated. There is extensive diverticulosis throughout the transverse, left, and sigmoid colon without evidence of acute diverticulitis. No pneumoperitoneum, free fluid, or acute inflammatory changes are seen involving the bowel. Slight wall thickening throughout the sigmoid colon appears chronic. Electronically signed by: Daniel Wright MD 12/02/24 00:34 AM
[2024-12-02 01:23] LABS: Troponin I High Sensitivity 63.7 pg/ml (0-14)
[2024-12-02 01:51] LABS: Magnesium 1.7 mg/dl (1.7-2.4)
--- NOTE | 2024-12-02 02:18 | History & Physical Report ---
Date of Service December 02, 2024 Assessment & Plan (1) Atrial fibrillation with RVR: Plan: New onset Multifactorial: Left-sided abdominal pain from recurrent diverticulitis attack, mild chronic inflammation as per CT imaging, no sepsis for now Anxiety and bereavement from recent demise contributory Troponin elevation secondary to tachyarrhythmia hx CAD status post stent/PVD status post surgery hx CVA on dual antiplatelet Rx hypertension, slight elevated hyperlipidemia, on statin Rx COPD, not in acute exacerbation hx GERD/Jernigan's esophagus, 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 DM 2, on oral medications, suboptimal control as of recent hemoglobin A1c of 7.7 last March 2024 Hypothyroidism, TSH elevated at 6, normal free T4 chronic anemia, hemoglobin at baseline past tobacco abuse Admit to PCU Titrate home beta-andres IV heparin for thromboembolic prophylaxis TTE, Cardiology consult re: new onset A-fib Unasyn followed by Augmentin course for recurrent diverticulitis, outpatient GI consult for recurrent diverticulitis Anxiolytic as needed Psych consult as per patient request for uncontrolled anxiety following demise (Patient awaiting counselor appointment to be arranged by PCPs office.) Basal bolus insulin adjusted for clear liquid diet, ISS BG goal 1 10-1 40, carb count coverage DVT prophylaxis. IV heparin Full code Patient son requesting updates from providers. Mr. Jero Roberts, contact #[phone]. Text document was generated using [employer] voice recognition software. It may contain grammatical or spelling errors. Kindly contact undersigned for clarification of any documentation item in question. History of Present Illness Chief Complaint: Left-sided abdominal discomfort Primary Care Provider: Gisela Hamilton MD History obtained from patient, family, and records. Medical history significant for CAD status post stent, PVD status post surgery, CVA, hypertension, hyperlipidemia, COPD, GERD/Jernigan's esophagus, IBS, diverticulosis, DM2 on oral medications, chronic anemia (baseline hemoglobin 10- 11), history of Henderson's palsy, anxiety/mood disorder, past tobacco abuse. Few days history of left-sided abdominal discomfort similar to diverticulitis attack. No fever, no chills. Possible left-sided chest pain, SOB, palpitations. No black/bloody stools. Anxiety and stress since last month after 's demise. Denies suicidality. BuSpar and as needed lorazepam prescribed by PCP but not helping as per patient. Compliant with home medications. Patient noted to be in rapid A-fib upon arrival at the ER. Heart rate 120s. 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 Verified 12/01/24 23:24 ampicillin AdvReac Intermediate Vaginitis. Verified 12/01/24 23:24 ciprofloxacin [From Cipro] AdvReac Intermediate NERVOUSNESS Verified 12/01/24 23:24 /SHAKINESS doxycycline AdvReac Intermediate Nausea and Verified 12/01/24 23:24 diarrhea. erythromycin base AdvReac Intermediate Nause and Verified 12/01/24 23:24 diarrhea. morphine AdvReac Intermediate AGITATION Verified 12/01/24 23:24 Home Medications Medication Instructions Recorded Confirmed Type acetaminophen 500 mg tablet 1,000 mg PO DIRECTED PRN Pain 06/03/17 12/01/24 History (Tylenol Extra Strength) #0 tabs atorvastatin 80 mg tablet 80 mg PO QPM #0 tabs 06/03/17 12/01/24 History cholecalciferol (vitamin D3) 25 2,000 unit PO DAILY ##0 06/03/17 12/01/24 Hist ory mcg (1,000 unit) capsule (Vitamin D3) clopidogrel 75 mg tablet 75 mg PO DAILY #0 tabs 06/03/17 12/01/24 History lorazepam 1 mg tablet (Ativan) 1 mg PO Q8H PRN Anxiety #0 tabs 06/03/17 12/01/24 History amlodipine 2.5 mg tablet 2.5 mg PO DAILY 04/25/19 12/01/24 History dicyclomine 20 mg tablet 20 mg PO BID 04/25/19 12/01/24 History ezetimibe 10 mg tablet 10 mg PO QAM 04/25/19 12/01/24 History nitroglycerin 0.4 mg sublingual 0.4 mg sublingual DIRECTED PRN 04/25/19 12/01/24 History tablet (Nitrostat) Chest Pain metformin 500 mg tablet,extended 1,000 mg PO QAM 09/14/19 12/01/24 History release 24 hr pantoprazole 20 mg tablet,delayed 40 mg PO BID 09/14/19 12/01/24 History release albuterol sulfate 2.5 mg/3 mL 2.5 mg inhalation Q4H PRN Wheezing 12/01/24 12/01/24 History (0.083 %) solution for nebulization albuterol sulfate 90 mcg/actuation 2 puff inhalation Q4H PRN 12/01/24 12/01/24 History aerosol inhaler Shortness Of Breath Or Wheezing aspirin 81 mg tablet,delayed 81 mg PO DAILY 12/01/24 12/01/24 History release buspirone 5 mg tablet 5 mg PO BID 12/01/24 12/01/24 History cyanocobalamin (vitamin B-12) 1,000 mcg PO DAILY 12/01/24 12/01/24 History 1,000 mcg tablet (Vitamin B-12) fluticasone fur. 100 mcg-umeclid 1 inh inhalation DAILY 12/01/24 12/01/24 History 62.5 mcg-vilant 25 mcg inhalat.powder (Trelegy Ellipta) fluticasone propionate 50 2 spray intranasal DAILY 12/01/24 12/01/24 History mcg/actuation nasal spray,suspension gabapentin 100 mg capsule 100 mg PO TID 12/01/24 12/01/24 History hydrochlorothiazide 12.5 mg tablet 12.5 mg PO QAM 12/01/24 12/01/24 History icosapent ethyl 1 gram capsule 2 g PO BIDM 12/01/24 12/01/24 History (Vascepa) levothyroxine 100 mcg tablet 100 mcg PO DAILYBB 12/01/24 12/01/24 History lisinopril 20 mg tablet 20 mg PO ONCE 12/01/24 12/01/24 History lisinopril 20 mg tablet 30 mg PO QAM 12/01/24 12/01/24 History loperamide 2 mg capsule 2 mg PO QID PRN Diarrhea 12/01/24 12/01/24 History metoprolol succinate 25 mg 25 mg PO DAILY 12/01/24 12/01/24 History tablet,extended release 24 hr nystatin 100,000 unit/mL oral 5 ml buccal DIRECTED PRN 12/01/24 12/01/24 History suspension NEEDED polyvinyl alcohol 1.4 % eye drops 1 drp ophthalmic (eye) QID 12/01/24 12/01/24 History sertraline 50 mg tablet 50 mg PO DAILY 12/01/24 12/01/24 History Past Med/Surg History Problem List (Updated 12/02/24 @ 01:49 by Janette Vale DO) Elevated troponin (Acute) Atrial fibrillation with RVR (Acute) Abdominal pain (Acute) Anemia Melena Acute blood loss anemia Anemia Medical History (Updated 12/02/24 @ 01:49 by Janette Vale DO) Osteoarthritis Hypothyroidism Diabetes mellitus, type 2 Hearing deficit Anxiety Asthma RARE RESC. INH USE IBS (irritable bowel syndrome) GERD (gastroesophageal reflux disease) CKD (chronic kidney disease), stage III HTN (hypertension) Abdominal aortic ectasia JUST WATCHING FOR NOW > [employer] [place] > UNSURE OF SIZE > FOUND IN APR 2018 Carotid artery disease COPD (chronic obstructive pulmonary disease) Dyslipidemia Renal artery stenosis History of stent insertion of renal artery 2011 with restenosis in 2013 and 2014 CAD (coronary artery disease) cath 03/25/17 - ALICE to RCA repeat cath at [facility] [place] 07/10/18 - ALICE to the first diagonal branch, ALICE to the prox LAD, 1 ALICE to the ostial LM Surgical History History of left cataract surgery History of tonsillectomy History of esophagogastroduodenoscopy (EGD) History of heart artery stent 3 STENTS LAST ONE JUL 2018 > FOR CHEST PRESSURE >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 [employer] 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 History of cardiac cath H/O repair of right rotator cuff History of appendectomy History of back surgery LUMBAR AREA H/O tubal ligation H/O dilation and curettage Family History Mother Stroke Social History Smoking Status: Never smoker Second Hand Exposure: No; Do You Dip or Chew Tobacco: No; Tobacco Cessation Education Requested by Patient: No Hx Alcohol Use: No Hx Substance Use: No Preferred Language: Greek Communication Ability: Effective 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 Beliefs That Will Affect Care: None Current Living Situation: Family Current Living Situation Comment: Son lives with her Other Information That Helps Us Care for You: No Feels Safe at Home: Yes Safety Concerns: Feels Safe At This Time Assistive Devices: Denture - Upper, Denture - Lower, Glasses and Hearing Aid - Right Review of Systems Review of Systems: As per HPI, all other systems reviewed and negative Physical Exam Physical Exam: GENERAL: Comfortable, slightly anxious, pleasant, no respiratory distress SKIN: Pallor, warm HEENT: Pale palpebral conjunctivae, no ptosis, dry buccal mucosa NECK : Supple, no tenderness CHEST : Decreased breath sounds, no tenderness HEART : Irregular, no obvious murmurs ABDOMEN: Some distention, minimal left-sided abdominal tenderness EXTREMITIES : Minimal LE swelling without LE tenderness, palpable pulses, no other conspicuous deformities noted NEUROLOGIC : Coherent, no facial asymmetry, no other gross focality Results & Data Results & Data Vital Signs (Past 12 Hours) Vital Signs Temp Pulse Pulse Resp BP BP Pulse Ox 12/02/24 02:08 83 12/02/24 01:00 67 18 152/75 H 98 12/02/24 00:51 98 H 21 93 12/02/24 00:30 151/76 H 12/02/24 00:30 151/76 H 12/02/24 00:30 151/76 H 12/02/24 00:30 151/76 H 12/02/24 00:30 151/76 H 12/02/24 00:30 151/76 H 12/02/24 00:30 151/76 H 12/02/24 00:30 151/76 H 12/02/24 00:30 151/76 H 12/02/24 00:30 151/76 H 12/02/24 00:30 92 H 21 96 12/02/24 00:24 98 H 24 96 12/02/24 00:12 106 H 21 96 12/02/24 00:03 95 H 21 95 12/02/24 00:00 127/75 12/02/24 00:00 127/75 12/02/24 00:00 127/75 12/02/24 00:00 127/75 12/02/24 00:00 127/75 12/02/24 00:00 127/75 12/02/24 00:00 127/75 12/02/24 00:00 127/75 12/02/24 00:00 127/75 12/02/24 00:00 127/75 12/02/24 00:00 127/75 12/01/24 23:30 137/99 12/01/24 23:30 137/99 12/01/24 23:30 137/99 12/01/24 23:30 137/99 12/01/24 23:30 137/99 12/01/24 23:30 137/99 12/01/24 23:30 137/99 12/01/24 23:30 137/99 12/01/24 23:30 137/99 12/01/24 23:30 109 H 20 96 12/01/24 23:12 94 H 20 95 12/01/24 23:06 90 21 96 12/01/24 23:00 147/86 H 12/01/24 23:00 147/86 H 12/01/24 23:00 147/86 H 12/01/24 23:00 147/86 H 12/01/24 23:00 147/86 H 12/01/24 23:00 147/86 H 12/01/24 22:51 93 H 21 95 12/01/24 22:46 94 12/01/24 22:45 104 H 24 95 12/01/24 22:33 98 H 22 95 12/01/24 22:31 137/85 12/01/24 22:31 137/85 12/01/24 22:31 137/85 12/01/24 22:31 137/85 12/01/24 22:31 137/85 12/01/24 22:31 137/85 12/01/24 22:31 137/85 12/01/24 22:31 137/85 12/01/24 22:31 137/85 12/01/24 22:31 137/85 12/01/24 22:31 137/85 12/01/24 22:15 128/93 12/01/24 22:15 128/93 12/01/24 22:15 128/93 12/01/24 22:14 112 H 12/01/24 22:11 36.4 C L 119 H 20 128/93 96 O2 Del Method O2 Flow Rate 12/02/24 02:08 12/02/24 01:00 Nasal Cannula 2 12/02/24 00:51 12/02/24 00:30 12/02/24 00:30 12/02/24 00:30 12/02/24 00:30 12/02/24 00:30 12/02/24 00:30 12/02/24 00:30 12/02/24 00:30 12/02/24 00:30 12/02/24 00:30 12/02/24 00:30 12/02/24 00:24 12/02/24 00:12 12/02/24 00:03 12/02/24 00:00 12/02/24 00:00 12/02/24 00:00 12/02/24 00:00 12/02/24 00:00 12/02/24 00:00 12/02/24 00:00 12/02/24 00:00 12/02/24 00:00 12/02/24 00:00 12/02/24 00:00 12/01/24 23:30 12/01/24 23:30 12/01/24 23:30 12/01/24 23:30 12/01/24 23:30 12/01/24 23:30 12/01/24 23:30 12/01/24 23:30 12/01/24 23:30 12/01/24 23:30 12/01/24 23:12 12/01/24 23:06 12/01/24 23:00 12/01/24 23:00 12/01/24 23:00 12/01/24 23:00 12/01/24 23:00 12/01/24 23:00 12/01/24 22:51 12/01/24 22:46 Room Air 12/01/24 22:45 12/01/24 22:33 12/01/24 22:31 12/01/24 22:31 12/01/24 22:31 12/01/24 22:31 12/01/24 22:31 12/01/24 22:31 12/01/24 22:31 12/01/24 22:31 12/01/24 22:31 12/01/24 22:31 12/01/24 22:31 12/01/24 22:15 12/01/24 22:15 12/01/24 22:15 12/01/24 22:14 12/01/24 22:11 Room Air Laboratory Results Laboratory Results WBC 7.15 K/ul (4.8-10.8) 12/01/24 22:10 RBC 4.79 M/uL (4.20-5.40) 12/01/24 22:10 Hgb 11.8 g/dl (12.0-16.0) L 12/01/24 22:10 Hct 38.3 % (37.0-47.0) 12/01/24 22:10 MCV 80.0 fL (80.0-100.0) 12/01/24 22:10 MCH 24.6 pg (25.0-34.0) L 12/01/24 22:10 MCHC 30.8 g/dL (32.0-36.0) L 12/01/24 22:10 RDW Std Deviation 46.1 fL (36.4-46.3) 12/01/24 22:10 RDW Coeff of Angel 15.9 % (11.5-14.5) H 12/01/24 22:10 Plt Count 272 K/uL (130-400) 12/01/24 22:10 MPV 9.8 fL (9.4-12.4) 12/01/24 22:10 Immature Gran % (Auto) 0.1 % 12/01/24 22:10 Neut % (Auto) 62.7 % 12/01/24 22:10 Lymph % (Auto) 25.9 % 12/01/24 22:10 [place] % (Auto) 8.7 % 12/01/24 22:10 Eos % (Auto) 1.8 % 12/01/24 22:10 Baso % (Auto) 0.8 % 12/01/24 22:10 Neut # (Auto) 4.48 K/uL (1.40-6.50) 12/01/24 22:10 Lymph # (Auto) 1.85 K/uL (1.20-3.40) 12/01/24 22:10 [place] # (Auto) 0.62 K/uL (0.11-0.59) H 12/01/24 22:10 Eos # (Auto) 0.13 K/uL (0.00-0.50) 12/01/24 22:10 Baso # (Auto) 0.06 K/uL (0.00-0.20) 12/01/24 22:10 Immature Gran # (Auto) 0.01 K/uL (0.01-0.20) 12/01/24 22:10 PT 10.7 Seconds (9.0-12.0) 12/01/24 23:12 INR 1.0 (0.9-1.1) 12/01/24 23:12 Sodium 135 mmol/L (136-145) L 12/01/24 22:10 Potassium 3.8 mmol/L (3.5-5.1) 12/01/24 22:10 Chloride 100 mmol/L (98-107) 12/01/24 22:10 Carbon Dioxide 26 mmol/L (21-32) 12/01/24 22:10 Anion Gap 9 (3-11) 12/01/24 22:10 BUN 13 mg/dl (6-23) 12/01/24 22:10 Creatinine 1.06 mg/dl (0.6-1.2) 12/01/24 22:10 Est Cr Clr Drug Dosing 38.3 ml/min 12/01/24 22:10 eGFR 52.45 12/01/24 22:10 BUN/Creatinine Ratio 12.3 (10-20) 12/01/24 22:10 Glucose 197 mg/dl (70-99(Fasting)) H 12/01/24 22:10 Lactate 1.8 mmol/L (0.4-2.0) 12/02/24 00:34 Calcium 9.7 mg/dl (8.6-10.3) 12/01/24 22:10 Magnesium 1.7 mg/dl (1.7-2.4) 12/02/24 00:34 Total Bilirubin 0.3 mg/dl (0.2-1.0) 12/01/24 22:10 AST 14 U/L (13-39) 12/01/24 22:10 ALT 11 U/L (7-52) 12/01/24 22:10 Alkaline Phosphatase 62 U/L (34-104) 12/01/24 22:10 Troponin I High Sens 63.7 pg/ml (0-14) H* D 12/02/24 00:34 Total Protein 7.8 gm/dl (6.0-8.3) 12/01/24 22:10 Albumin 4.8 gm/dl (3.4-5.0) 12/01/24 22:10 Globulin 3.0 gm/dl (2.5-4.0) 12/01/24 22:10 Albumin/Globulin Ratio 1.6 (0.9-2) 12/01/24 22:10 Lipase 29 U/L (11-82) 12/01/24 22:10 Urine Color Yellow 12/01/24 22:39 Urine Appearance Clear (Clear) 12/01/24 22:39 Urine pH 6.5 (4.5-7.5) 12/01/24 22:39 Ur Specific [place] 1.004 (1.000-1.030) 12/01/24 22:39 Urine Protein 2+ (Negative) H 12/01/24 22:39 Urine Glucose (UA) Negative (Negative) 12/01/24:39 Urine Ketones Negative (Negative) 12/01/24:39 Urine Blood Negative (Negative) 12/01/24 22:39 Urine Nitrite Negative (Negative) 12/01/24 22:39 Urine Bilirubin Negative (Negative) 12/01/24 22:39 Urine Urobilinogen Negative (Negative) 12/01/24 22:39 Ur Leukocyte Esterase Negative (Negative) 12/01/24 22:39 Urine WBC (Auto) 0-5 /hpf (0-5) 12/01/24 22:39 Urine RBC (Auto) 0-2 /hpf (0-2) 12/01/24 22:39 U Hyaline Cast (Auto) 0-2 /lpf (0-2) 12/01/24 22:39 U Epithel Cells (Auto) 0-2 /hpf (0-2) 12/01/24 22:39 Urine Bacteria (Auto) 4+ (None Seen) H 12/01/24 22:39 Lyme Disease Screen Negative (Negative) 12/01/24 22:10 Impressions Abdomen/Pelvis CT 12/01/24 22:43 Exam(s): CT ABDOMEN + PELVIS With Contrast IV Amt: 93 ml optiray 320 EXAM: CT Abdomen and Pelvis With Intravenous Contrast CLINICAL HISTORY: Reason for exam: LLQ abd pain. TECHNIQUE: Axial computed tomography images of the abdomen and pelvis with intravenous contrast. CTDI is 18.59 mGy and DLP is 840.29 mGy-cm. Automated exposure control was utilized for the study. A dose lowering technique was utilized adhering to the principles of ALARA. CONTRAST: Patient received 93 ml optiray 320 of IV contrast COMPARISON: April 27, 2019 FINDINGS: Lung bases: Unremarkable. No mass. No consolidation. ABDOMEN: Liver: Borderline enlarged is 18.5 cm. No focal mass lesion. . No mass. Gallbladder and bile ducts: Unremarkable. No calcified stones. No ductal dilation. Pancreas: Unremarkable. No mass. No ductal dilation. Spleen: Unremarkable. No splenomegaly. Adrenals: Unremarkable. No mass. Kidneys and ureters: 2.3 cm simple cyst in the upper pole the left kidney. No follow-up is required. No hydronephrosis. Stomach and bowel: Bowel loops are nondilated. There is extensive diverticulosis throughout the transverse, left, and sigmoid colon without evidence of acute diverticulitis. No pneumoperitoneum, free fluid, or acute inflammatory changes are seen involving the bowel. Slight wall thickening throughout the sigmoid colon appears chronic. PELVIS: Appendix: No findings to suggest acute appendicitis. Bladder: The urinary bladder is fully distended but nondilated measuring 13 cm craniocaudad. Reproductive: Unremarkable as visualized. ABDOMEN and PELVIS: Intraperitoneal space: See above. Bones/joints: Moderate to severe multilevel degenerative changes throughout the spine with previous multilevel instrumentation, fusion, and laminectomy. No acute fracture is seen. 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 No dislocation. Soft tissues: Unremarkable. 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 There are metallic stents in the renal arteries bilaterally. Probable severe right and moderate left common iliac artery stenosis. Lymph nodes: Unremarkable. No enlarged lymph nodes. IMPRESSION: Bowel loops are nondilated. There is extensive diverticulosis throughout the transverse, left, and sigmoid colon without evidence of acute diverticulitis. No pneumoperitoneum, free fluid, or acute inflammatory changes are seen involving the bowel. Slight wall thickening throughout the sigmoid colon appears chronic. Electronically signed by: Daniel Wright MD 12/02/24 00:34 AM Diagnostic Findings EKG as per my interpretation :Rate 140, A-fib, normal axis, LVH, ST depression lateral leads
[2024-12-02] MEDS: NSS + 20MEQ KCL 20 MEQ/1,000 ML BAG IV ONE (02:36)
[2024-12-02] MEDS: MAGNESIUM SULFATE / D5W 1 GM/100 ML BAG IV SCH ×2 (02:36→11:12)
--- NOTE | 2024-12-02 02:37 | XRay Report ---
EXAM: XR chest 1V portable CLINICAL HISTORY: SOB TECHNIQUE: An X-ray image of the chest is obtained in AP projection. COMPARISON: 04/25/2019 FINDINGS: Pulmonary Parenchyma: Hyperexpanded lungs with coarse bronchovascular markings. No evidence of consolidation, collapse, or focal opacities. No pulmonary nodules are identified. No evidence of pleural effusion or pleural thickening. Heart and Mediastinum: Heart size and shape are normal. No mediastinal widening or masses. No hilar or mediastinal lymphadenopathy. Unfolded aorta with aortic arch calcifications. Bony Thorax: Bony thorax appears intact without fractures or deformities. Soft Tissues: Soft tissues overlying the chest wall are unremarkable. IMPRESSION: Hyperexpanded lungs with coarse bronchovascular markings, [place] prominent on current examination. It might be suggestive of congestion, but lower airway infection cannot be excluded. clinical correlation. Unfolded aorta with aortic arch calcifications. Stable. Electronically signed by Brice Bower 12-02-2024 02:36 AM
[2024-12-02 02:51] LABS: Thyroid Stimulating Hormone 6.652 uIu/ml (0.300-4.500)
[2024-12-02] MEDS ORDERED: NITROGLYCERIN SL 0.4 MG/TAB TAB SL PRN (03:05)
[2024-12-02] MEDS ORDERED: LORazepam 1 MG TAB PO PRN (03:05)
[2024-12-02] MEDS ORDERED: traMADol HCL 50 MG TABLET PO PRN (03:07)
[2024-12-02] MEDS ORDERED: ACETAMINOPHEN 325 MG TAB PO PRN (03:07)
[2024-12-02] MEDS ORDERED: PROMETHAZINE 6.25 MG/50.25 ML BAG IV PRN (03:08)
[2024-12-02 03:28] LABS: T4 Free Thyroxine 0.86 ng/dl (0.61-1.60)
[2024-12-02] MEDS ORDERED: DEXTROSE 50% 50 ML SYRINGE IV PRN (03:34)
[2024-12-02] MEDS ORDERED: CARBOHYDRATES FOR HYPOGLYCEMIA PO PRN (03:34)
[2024-12-02] MEDS ORDERED: GLUCAGON FOR INJ 1 MG VIAL SQ PRN (03:34)
[2024-12-02] MEDS ORDERED: GLUCOSE 40% GEL 15 GM TUBE PO PRN (03:34)
[2024-12-02] MEDS ORDERED: GLUCOSE 10 TAB/TUBE PO PRN (03:34)
[2024-12-02] MEDS: METOPROLOL SUCC 25MG EXT REL TAB PO STA (03:53)
[2024-12-02] MEDS: INSULIN ASPART PER UNIT CHARGE SC SCH (03:54)
[2024-12-02] MEDS: AMPICILLIN/SULBACTAM SOD 3,000 MG/100 ML BAG IV STA (04:32)
[2024-12-02] MEDS: HEPARIN 25000 UNIT/500 ML D5W 25,000 UNITS/500 ML BAG IV SCH (04:48)
[2024-12-02] MEDS: LANTUS PER UNIT CHARGE SQ SCH (04:48)
[2024-12-02] MEDS: Heparin IV Adult Wt-Based Low-Dose *NO* INITIAL Bolus Protocol IV STA (04:48)
[2024-12-02] MEDS: LEVOTHYROXINE SODIUM 100 MCG TABLET PO SCH (06:11)
[2024-12-02 06:23] LABS: Basophils # (auto) 0.06 K/uL (0.00-0.20); Basophils % (auto) 0.7 %; Eosinophils # (auto) 0.17 K/uL (0.00-0.50); Hematocrit (blood only) 32.5 % (37.0-47.0); Immature Granulocytes # (auto) 0.02 K/uL (0.01-0.20); Immature Granulocytes % (auto) 0.2 %; Lymphocytes # (auto) 2.87 K/uL (1.20-3.40); Lymphocytes % (auto) 33.6 %; Mean Corpuscular Hemoglobin 24.6 pg (25.0-34.0); Mean Corpuscular Hgb Conc 30.8 g/dL (32.0-36.0); Mean Platelet Volume 9.7 fL (9.4-12.4); Monocytes # (auto) 0.74 K/uL (0.11-0.59); Monocytes % (auto) 8.7 %; Neutrophils # (auto) 4.68 K/uL (1.40-6.50); Neutrophils % (auto) 54.8 %; Platelet Count 256 K/uL (130-400); RDW Coefficient of Variation 15.9 % (11.5-14.5); RDW Standard Deviation 45.9 fL (36.4-46.3); Red Blood Count 4.06 M/uL (4.20-5.40); White Blood Count 8.54 K/ul (4.8-10.8)
[2024-12-02 06:44] LABS: BUN Creatinine Ratio 11.4 (10-20); Calcium 8.5 mg/dl (8.6-10.3); Creatinine Clr Calc Pharmacy 46.1 ml/min; Potassium 3.7 mmol/L (3.5-5.1)
[2024-12-02 07:42] LABS: Estimated Average Glucose 140 mg/dl; Hemoglobin A1C 6.5 % (4.5-5.6)
--- NOTE | 2024-12-02 09:16 | Cardiology Consultation ---
Date of Consultation December 02, 2024 Assessment & Plan (1) Atrial fibrillation with RVR: (2) Elevated troponin: (3) Vascular disease: (4) CAD (coronary artery disease): Plan Patient admitted with palpitations/SOB/abdominal pain Diagnosed with afib RVR. Duration unknown. Elevated HR's on arrival, improving with beta andres therapy. Oral metoprolol increased from 25 mg daily to 25 mg BID. Currently remains in afib, rates controlled. Asymptomatic. Started on IV heparin on admission. High CHADSVASC score of 8. 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 Minimally elevated troponin on admission - repeat pending. Echo with preserved LVEF. No wall motion abnormalities. She did have ST depression with the Afib RVR, likely demand ischemia Repeat EKG pending No anginal complaints currently. She does have history of CAD s/p RCA stent in 2016 Continue outpatient cardiac meds including plavix, statin, zetia, amlodipine, beta andres. Consider outpatient nuclear lexiscan stress test given abnormal EKG and minimally elevated troponin. Patient is on chronic ASA and Plavix due to complex history of vascular disease s/p b/l renal artery stenting with in stent restenosis back in 2013. Likely will need Plavix + Eliquis on discharge and likely will stop ASA. She is being treated for possible diverticulitis. Symptoms improving with antibiotics. Once improved and we verify no procedures are needed, would transition from IV heparin to Eliquis Supplement potassium and magnesium. Ordered. Further recommendations pending evaluation and discussion with Dr. Shrestha. Will follow. Case discussed with Dr. Shrestha I spent a total of 60 minutes on the date of service in preparation, delivery, and documentation of the care provided to this patient, excluding any time spent in the performance of separately billed services. Silvia Infante PA-C Department of Cardiology, [facility] This chart was completed in part utilizing Speech Voice Recognition Software. Grammatical errors, random word insertions, pronoun errors, and incomplete sentences are an occasional consequence of this system due to software limitations, ambient noise, and hardware issues. Any formal questions or concerns about the content, text, or information contained within the body of this dictation should be directly addressed to the provider for clarification. Supervising Physician Co-Signing Physician Notes Attending attestation: Case reviewed with the advanced practitioner. I have personally performed a history and physical examination on the patient. I have reviewed the advanced practitioner's documentation on the date of service referenced in note, and I agree with, and take responsibility for the plan of care. AF RVR noted on presentation, now rates down to the 50s. Per patient abdominal pain improved, with mild residuaul tenderness. Continue heparin bridge. ST depression noted on presenting EKG and mild troponin elevation, likely to to myocardial strain from the transient tachycardia. I spent a total of 20 minutes coordinating, documenting, and providing care for this patient excluding time spent in the performance of separately billed services or time spent by another provider. Patel Shrestha, DO History of Present Illness Reason for Consultation: Afib RVR Requesting Physician: Bety Yang Attending Physician: Dr. Shrestha History of Present Illness Patient is a complex patient admitted to [facility] with abdominal pain, SOB and palpitations. She had called the cardiology office yesterday with complaints of intermittent p alpitations and elevated HR's. Appt requested and in the meantime, outpatient ZIO and EKG was ordered. Last night patient reported worsening palpitations with SOB and abdominal pain so she came to the ER. Found to have atrial fibrillation with RVR. She had ST/T wave abnormalities on EKG while tachycardic. No chest pain reported. HS troponin minimally elevated on arrival in the 20's, trending upward to 60's. repeat pending. Started on IV heparin due to Afib RVR and stroke prophylaxis. There was concern for possible diverticulitis and she was started on antibiotics as well. Started on antibiotics. Treated with IV metoprolol in ER and heart rates improved. oral metoprolol increased to 25 mg BID and rates are currently well controlled this morning. At time of consult, patient feeling much improved. Abdominal pain improving. SOB/palpitations improved. No chest pain. Echo revealed preserved LVEF without wall motion abnormalities.' Patient reports a great deal of stress as her a few months ago. Tearful at time of exam discussing. She has had alot of anxiety and depression. she is awaiting outpatient counselor appt. History includes: 1. Coronary artery disease S/P cardiac cath on 07/10/18 with ALICE placement to the diagonal branch, 1 ALICE to the proximal LAD lesion, and 1 ALICE to the LMCA. No anginal symptoms. 2. Prior ALICE to the RCA on 03/25/17, 70% 2nd OM noted at that time 3. Mild aortic sclerosis, no stenosis, per last echo 2022 4. Hypertension 5. Palpitations 6. Anemia of chronic disease 7. Vascular disease - renal artery stenosis S/P multiple interventions: S/P percutaneous angioplasty and stenting of the right renal artery on 12/06/[address] Bashir. S/P left renal artery angioplasty (in distal main renal artery), left renal artery stent (at [facility] / proximal renal artery), right renal artery stent (at [facility] / proximal renal artery) on 05/08/[address] Bashir. S/P cutting balloon [employer] of right renal artery for in-stent stenosis and redo left renal artery (covered) stent for in-stent stenosis on 01/22/[address] Bashir. 8. CKD - Follows with nephrology 9. Dyslipidemia goal < 70. 10. Asthma/COPD/chronic tobacco abuse Allergies Allergy/AdvReac Type Severity Reaction Status Date / Time ranitidine Allergy Intermediate Rash. Verified 12/01/24 23:24 ampicillin AdvReac Intermediate Vaginitis. Verified 12/01/24 23:24 ciprofloxacin [From Cipro] AdvReac Intermediate NERVOUSNESS Verified 12/01/24 23:24 /SHAKINESS doxycycline AdvReac Intermediate Nausea and Verified 12/01/24 23:24 diarrhea. erythromycin base AdvReac Intermediate Nause and Verified 12/01/24 23:24 diarrhea. morphine AdvReac Intermediate AGITATION Verified 12/01/24 23:24 Home Medications Medication Instructions Recorded Confirmed Type acetaminophen 500 mg tablet 1,000 mg PO DIRECTED PRN Pain 06/03/17 12/01/24 History (Tylenol Extra Strength) #0 tabs atorvastatin 80 mg tablet 80 mg PO QPM #0 tabs 06/03/17 12/01/24 History cholecalciferol (vitamin D3) 25 2,000 unit PO DAILY ##0 06/03/17 12/01/24 History mcg (1,000 unit) capsule (Vitamin D3) clopidogrel 75 mg tablet 75 mg PO DAILY #0 tabs 06/03/17 12/01/24 History lorazepam 1 mg tablet (Ativan) 1 mg PO Q8H PRN Anxiety #0 tabs 06/03/17 12/01/24 History amlodipine 2.5 mg tablet 2.5 mg PO DAILY 04/25/19 12/01/24 History dicyclomine 20 mg tablet 20 mg PO BID 04/25/19 12/01/24 History ezetimibe 10 mg tablet 10 mg PO QAM 04/25/19 12/01/24 History nitroglycerin 0.4 mg sublingual 0.4 mg sublingual DIRECTED PRN 04/25/19 12/01/24 History tablet (Nitrostat) Chest Pain metformin 500 mg tablet,extended 1,000 mg PO QAM 09/14/19 12/01/24 History release 24 hr pantoprazole 20 mg tablet,delayed 40 mg PO BID 09/14/19 12/01/24 History release albuterol sulfate 2.5 mg/3 mL 2.5 mg inhalation Q4H PRN Wheezing 12/01/24 12/01/24 History (0.083 %) solution for nebulization albuterol sulfate 90 mcg/actuation 2 puff inhalation Q4H PRN 12/01/24 12/01/24 History aerosol inhaler Shortness Of Breath Or Wheezing aspirin 81 mg tablet,delayed 81 mg PO DAILY 12/01/24 12/01/24 History release buspirone 5 mg tablet 5 mg PO BID 12/01/24 12/01/24 History cyanocobalamin (vitamin B-12) 1,000 mcg PO DAILY 12/01/24 12/01/24 History 1,000 mcg tablet (Vitamin B-12) fluticasone fur. 100 mcg-umeclid 1 inh inhalation DAILY 12/01/24 12/01/24 History 62.5 mcg-vilant 25 mcg inhalat.powder (Trelegy Ellipta) fluticasone propionate 50 2 spray intranasal DAILY 12/01/24 12/01/24 History mcg/actuation nasal spray,suspension gabapentin 100 mg capsule 100 mg PO TID 12/01/24 12/01/24 History hydrochlorothiazide 12.5 mg tablet 12.5 mg PO QAM 12/01/24 12/01/24 History icosapent ethyl 1 gram capsule 2 g PO BIDM 12/01/24 12/01/24 History (Vascepa) levothyroxine 100 mcg tablet 100 mcg PO DAILYBB 12/01/24 12/01/24 History lisinopril 20 mg tablet 20 mg PO ONCE 12/01/24 12/01/24 History lisinopril 20 mg tablet 30 mg PO QAM 12/01/24 12/01/24 History loperamide 2 mg capsule 2 mg PO QID PRN Diarrhea 12/01/24 12/01/24 History metoprolol succinate 25 mg 25 mg PO DAILY 12/01/24 12/01/24 History tablet,extended release 24 hr nystatin 100,000 unit/mL oral 5 ml buccal DIRECTED PRN 12/01/24 12/01/24 History suspension NEEDED polyvinyl alcohol 1.4 % eye drops 1 drp ophthalmic (eye) QID 12/01/24 12/01/24 History sertraline 50 mg tablet 50 mg PO DAILY 12/01/24 12/01/24 History Patient History Medical History (Updated 12/02/24 @ 10:40 by Silvia Infante PA-C) Osteoarthritis Hypothyroidism Diabetes mellitus, type 2 Hearing deficit Anxiety Asthma RARE RESC. INH USE IBS (irritable bowel syndrome) GERD (gastroesophageal reflux disease) CKD (chronic kidney disease), stage III HTN (hypertension) Abdominal aortic ectasia JUST WATCHING FOR NOW > [facility] > UNSURE OF SIZE > FOUND IN APR 2018 Carotid artery disease COPD (chronic obstructive pulmonary disease) Dyslipidemia Renal artery stenosis History of stent insertion of renal artery 2011 with restenosis in 2013 and 2014 CAD (coronary artery disease) cath 03/25/17 - ALICE to RCA repeat [facility] [place] [facility] [place]/10/18 - ALICE to the first diagonal branch, ALICE to the prox LAD, 1 ALICE to the ostial LM Surgical History History of left cataract surgery History of tonsillectomy History of esophagogastroduodenoscopy (EGD) History of heart artery stent 3 STENTS LAST ONE JUL 2018 > FOR CHEST PRESSURE >FOLLOWS [employer] CARDIOLOGY History of cardiac cath H/O repair of right rotator cuff History of appendectomy History of back surgery LUMBAR AREA H/O tubal ligation H/O dilation and curettage Family History Mother Stroke Social History Smoking Status: Never smoker Second Hand Exposure: No; Do You Dip or Chew Tobacco: No; Tobacco Cessation Education Requested by Patient: No Hx Alcohol Use: No Hx Substance Use: No Preferred Language: Palauan Communication Ability: Effective Squirrel Man Required: No Beliefs That Will Affect Care: None Current Living Situation: Family Current Living Situation Comment: Son lives with her Other Information That Helps Us Care for You: No Feels Safe at Home: Yes Safety Concerns: Feels Safe At This Time Assistive Devices: Denture - Upper, Denture - Lower, Glasses and Hearing Aid - Right Review of Systems Review of Systems: All systems reviewed & are unremarkable except as noted in HPI & below Physical Exam Constitutional: WD/WN, vitals as above no acute distress Neck: trachea midline, no thyromegaly Respiratory: normal respiratory effort, lungs clear to auscultation Cardiovascular: Rate/Rhythm: + irregularly irregular Heart Sounds: normal S1 and normal S2; no murmur Vessels: no JVD Extremities: no edema Gastrointestinal (Abdomen): normal bowel sounds, soft, nontender, no hepatosplenomegaly Musculoskeletal: no cyanosis or clubbing, extremities motor strength 5/5 Neurologic: PERRL, EOMI, accommodation nl, no face palsy, no dysarthria Results & Data Vital Signs (Past 12 Hours) Vital Signs Temp Pulse Pulse Resp BP BP Pulse Ox 12/02/24 07:45 50 L 12/02/24 07:28 36.7 C 56 L 18 118/74 95 12/02/24 04:15 72 12/02/24 04:00 12/02/24 03:34 36.8 C 74 18 125/68 97 12/02/24 03:24 82 18 129/82 98 12/02/24 02:08 83 12/02/24 01:00 67 18 152/75 H 98 12/02/24 00:51 98 H 21 93 12/02/24 00:30 151/76 H 12/02/24 00:30 151/76 H 12/02/24 00:30 151/76 H 12/02/24 00:30 151/76 H 12/02/24 00:30 151/76 H 12/02/24 00:30 151/76 H 12/02/24 00:30 151/76 H 12/02/24 00:30 151/76 H 12/02/24 00:30 151/76 H 12/02/24 00:30 151/76 H 12/02/24 00:30 92 H 21 96 12/02/24 00:24 98 H 24 96 12/02/24 00:12 106 H 21 96 12/02/24 00:03 95 H 21 95 12/02/24 00:00 127/75 12/02/24 00:00 127/75 12/02/24 00:00 127/75 12/02/24 00:00 127/75 12/02/24 00:00 127/75 12/02/24 00:00 127/75 12/02/24 00:00 127/75 12/02/24 00:00 127/75 12/02/24 00:00 127/75 12/02/24 00:00 127/75 12/02/24 00:00 127/75 12/01/24 23:30 137/99 12/01/24 23:30 137/99 12/01/24 23:30 137/99 12/01/24 23:30 137/99 12/01/24 23:30 137/99 12/01/24 23:30 137/99 12/01/24 23:30 137/99 12/01/24 23:30 137/99 12/01/24 23:30 137/99 12/01/24 23:30 109 H 20 96 12/01/24 23:12 94 H 20 95 12/01/24 23:06 90 21 96 12/01/24 23:00 147/86 H 12/01/24 23:00 147/86 H 12/01/24 23:00 147/86 H 12/01/24 23:00 147/86 H 12/01/24 23:00 147/86 H 12/01/24 23:00 147/86 H 12/01/24 22:51 93 H 21 95 12/01/24 22:46 94 12/01/24 22:45 104 H 24 95 12/01/24 22:33 98 H 22 95 12/01/24 22:31 137/85 12/01/24 22:31 137/85 12/01/24 22:31 137/85 12/01/24 22:31 137/85 12/01/24 22:31 137/85 12/01/24 22:31 137/85 12/01/24 22:31 137/85 12/01/24 22:31 137/85 12/01/24 22:31 137/85 12/01/24 22:31 137/85 12/01/24 22:31 137/85 12/01/24 22:15 128/93 12/01/24 22:15 128/93 12/01/24 22:15 128/93 12/01/24 22:14 112 H 12/01/24 22:11 36.4 C L 119 H 20 128/93 96 O2 Del Method O2 Flow Rate 12/02/24 07:45 12/02/24 07:28 Room Air 12/02/24 04:15 12/02/24 04:00 Room Air 12/02/24 03:34 Room Air 12/02/24 03:24 Room Air 12/02/24 02:08 12/02/24 01:00 Nasal Cannula 2 12/02/24 00:51 12/02/24 00:30 12/02/24 00:30 12/02/24 00:30 12/02/24 00:30 12/02/24 00:30 12/02/24 00:30 12/02/24 00:30 12/02/24 00:30 12/02/24 00:30 12/02/24 00:30 12/02/24 00:30 12/02/24 00:24 12/02/24 00:12 12/02/24 00:03 12/02/24 00:00 12/02/24 00:00 12/02/24 00:00 12/02/24 00:00 12/02/24 00:00 12/02/24 00:00 12/02/24 00:00 12/02/24 00:00 12/02/24 00:00 12/02/24 00:00 12/02/24 00:00 12/01/24 23:30 12/01/24 23:30 12/01/24 23:30 12/01/24 23:30 12/01/24 23:30 12/01/24 23:30 12/01/24 23:30 12/01/24 23:30 12/01/24 23:30 12/01/24 23:30 12/01/24 23:12 12/01/24 23:06 12/01/24 23:00 12/01/24 23:00 12/01/24 23:00 12/01/24 23:00 12/01/24 23:00 12/01/24 23:00 12/01/24 22:51 12/01/24 22:46 Room Air 12/01/24 22:45 12/01/24 22:33 12/01/24 22:31 12/01/24 22:31 12/01/24 22:31 12/01/24 22:31 12/01/24 22:31 12/01/24 22:31 12/01/24 22:31 12/01/24 22:31 12/01/24 22:31 12/01/24 22:31 12/01/24 22:31 12/01/24 22:15 12/01/24 22:15 12/01/24 22:15 12/01/24 22:14 12/01/24 22:11 Room Air Laboratory Results Cardiac Enzymes 12/01/24 12/02/24 Range/Units 22:10 00:34 AST 14 (13-39) U/L Troponin I High Sens 27.9 H 63.7 H* D (0-14) pg/ml Coagulation 12/01/24 12/01/24 Range/Units 22:10 23:12 PT Cancelled 10.7 CBC 12/01/24 12/02/24 Range/Units 22:10 05:36 WBC 7.15 8.54 (4.8-10.8) K/ul RBC 4.79 4.06 L (4.20-5.40) M/uL Hgb 11.8 L 10.0 L (12.0-16.0) g/dl Hct 38.3 32.5 L (37.0-47.0) % Plt Count 272 256 (130-400) K/uL Neut # (Auto) 4.48 4.68 (1.40-6.50) K/uL Lymph # (Auto) 1.85 2.87 (1.20-3.40) K/uL [place] # (Auto) 0.62 H 0.74 H (0.11-0.59) K/uL Eos # (Auto) 0.13 0.17 (0.00-0.50) K/uL Baso # (Auto) 0.06 0.06 (0.00-0.20) K/uL Comprehensive Metabolic Panel 12/01/24 12/02/24 Range/Units 22:10 05:36 Sodium 135 L 137 (136-145) mmol/L Potassium 3.8 3.7 (3.5-5.1) mmol/L Chloride 100 106 (98-107) mmol/L Carbon Dioxide 26 27 (21-32) mmol/L BUN 13 10 (6-23) mg/dl Creatinine 1.06 0.88 (0.6-1.2) mg/dl Glucose 197 H 150 H (70-99(Fasting)) mg/dl Calcium 9.7 8.5 L (8.6-10.3) mg/dl AST 14 (13-39) U/L ALT 11 (7-52) U/L Alkaline Phosphatase 62 (34-104) U/L Total Protein 7.8 (6.0-8.3) gm/dl Albumin 4.8 (3.4-5.0) gm/dl Intake and Output 12/01/24 12/02/24 12/02/24 22:59 06:59 14:59 Intake Total 2600 / 2600 100 / 100 Balance 2600 / 2600 100 / 100 Intake: IV 2300 / 2300 100 / 100 Acetaminophen 1,000 mg In 100 100 / 100 ml @ 400 mls/hr IV NOW STA Rx#: [id number] Ampicillin/Sulbactam Sod 3,000 100 / 100 mg In 100 ml @ 200 mls/hr IV NOW STA Rx#:[id number] Magnesium Sulfate / D5w 1 gm In 100 / 100 100 / 100 100 ml @ 50 mls/hr IV Q2H [facility] Rx#:[id number] Sodium Chloride 0.9% 1,000 ml @ 2000 / 2000 999 mls/hr IV .Q1H1M ONE Rx#: [id number] Oral 300 / 300 Other: # Unmeasured Voids 1 Weight 67.4 kg 67.188 kg Weight Measurement Method [facility] Diagnostic Findings Telemetry reviewed: Afib RVR on admission. HR's improved and currently afib with controlled rates in the 60-80's. EKG: Afib RVR at 139 bmp [address] and lateral [address] depression echo report reviewed: Mild concentric LVH LV systolic function is normal LVEF 65-70% No regional wall motion abnormalities noted Aortic valve sclerosis mild, without significant aortic valvular stenosis. Abdomen/Pelvis CT 12/01/24 22:43 IMPRESSION: Bowel loops are nondilated. There is extensive diverticulosis throughout the transverse, left, and sigmoid colon without evidence of acute diverticulitis. No pneumoperitoneum, free fluid, or acute inflammatory changes are seen involving the bowel. Slight wall thickening throughout the sigmoid colon appears chronic. Electronically signed by: Daniel Wright MD 12/02/24 00:34 AM Chest X-Ray 12/02/24 01:27 IMPRESSION: Hyperexpanded lungs with coarse bronchovascular markings, [place] prominent on current examination. It might be suggestive of congestion, but lower airway infection cannot be excluded. clinical correlation. Unfolded aorta with aortic arch calcifications. Stable. Electronically signed by Brice Bower 12-02-2024 02:36 AM Medications Administered Current Inpatient Medications Acetaminophen (Acetaminophen 325 Mg Tab) 650 mg PO QID PRN PRN Reason: pain/fever Stop: 01/01/25 03:06 Amlodipine Besylate (Amlodipine Besylate 5 Mg Tab) 2.5 mg PO DAILY [facility] Stop: 01/01/25 08:59 Last Admin: 12/02/24 09:24 Dose: 2.5 mg Amoxicillin/Clavulanate Potassium (Amoxicillin/Clavulanate 875 Mg Tab) 1 tab PO BIDM [facility]; Protocol Stop: 12/12/24 19:59 Artificial Tears (Artificial Tears) 1 drops OP QID [facility] Stop: 01/01/25 08:59 Last Admin: 12/02/24 09:30 Dose: Not Given Aspirin (Aspirin 81 Mg Ectab) 81 mg PO DAILY [facility] Stop: 01/01/25 08:59 Last Admin: 12/02/24 09:24 Dose: 81 mg Atorvastatin Calcium (Atorvastatin 40 Mg Tab) 80 mg PO QPM [facility] Stop: 01/01/25 20:59 Buspirone HCl (Buspirone 5 Mg Tab) 5 mg PO BID [facility] Stop: 01/01/25 08:59 Last Admin: 12/02/24 09:23 Dose: 5 mg Clopidogrel Bisulfate (Clopidogrel Bisulfate 75 Mg Tab) 75 mg PO DAILY [facility] Stop: 01/01/25 08:59 Last Admin: 12/02/24 09:24 Dose: 75 mg Cyanocobalamin (Cyanocobalamin (B-12) 500 Mcg Tablet) 1,000 mcg PO DAILY [facility] Stop: 01/01/25 08:59 Last Admin: 12/02/24 09:23 Dose: 1,000 mcg Dextrose (Dextrose 50% 50 Ml Syringe) 25 - 50 ml IV UD PRN; Protocol PRN Reason: Hypoglycemia Protocol Stop: 01/01/25 03:33 Ezetimibe (Ezetimibe 10 Mg Tab) 10 mg PO QAM [facility] Stop: 01/01/25 08:59 Last Admin: 12/02/24 09:25 Dose: 10 mg Fluticasone Furoate (Fluticasone Furoate 100mcg 14 Puffs/Inhaler) 1 puffs INH DAILY [facility] Stop: 01/01/25 08:59 Last Admin: 12/02/24 09:23 Dose: 1 puffs Gabapentin (Gabapentin 100 Mg Cap) 100 mg PO TID [facility] Stop: 01/01/25 08:59 Last Admin: 12/02/24 09:23 Dose: 100 mg Glucagon (Glucagon For Inj 1 Mg Vial) 1 mg SQ UD PRN; Protocol PRN Reason: Hypoglycemia Protocol Stop: 01/01/25 03:33 Glucose (Glucose 40% Gel 15 Gm Tube) 15 - 30 gm PO UD PRN; Protocol PRN Reason: Hypoglycemia Protocol Stop: 01/01/25 03:33 Glucose (Glucose 10 Tab/Tube) 4 - 8 tab PO UD PRN; Protocol PRN Reason: Hypoglycemia Protocol Stop: 01/01/25 03:33 Potassium Chloride/Sodium Chloride (Normal Saline W/20 Meq Kcl) 20 meq in 1,000 mls @ 75 mls/hr IV .[id number] ONE Stop: 12/02/24 15:17 Last Admin: 12/02/24 02:36 Dose: 75 mls/hr Heparin Sodium/Dextrose (Heparin 35514 Unit/500 Ml D5w) 25,000 units in 500 mls @ 15 mls/hr IV .Q24H [facility]; Protocol Stop: 01/01/25 03:29 Last Admin: 12/02/24 04:48 Dose: 750 units/hr, 15 mls/hr Promethazine HCl (Phenergan) 6.25 mg in 50.25 mls @ 201 mls/hr IV Q6H PRN PRN Reason: Nausea And Vomiting Stop: 01/01/25 03:07 Magnesium Sulfate/Dextrose (Magnesium Sulfate / D5w) 1 gm in 100 mls @ 50 mls/hr IV Q2H [facility] Stop: 12/02/24 14:29 Insulin Aspart (Insulin Aspart Per Unit Charge) 0 units SC ACHS [facility] Stop: 01/01/25 03:33 Last Admin: 12/02/24 03:54 Dose: 3 units Insulin Glargine (Lantus Per Unit Charge) 5 units SQ DAILY [facility] Stop: 01/01/25 04:14 Last Admin: 12/02/24 04:48 Dose: 5 units Levothyroxine Sodium (Levothyroxine Sodium 100 Mcg Tablet) 100 mcg PO DAILYBB [facility] Stop: 01/01/25 06:29 Last Admin: 12/02/24 06:11 Dose: 100 mcg Lisinopril (Lisinopril 10 Mg Tab) 30 mg PO QAM [facility] Stop: 01/01/25 08:59 Last Admin: 12/02/24 09:23 Dose: 30 mg Lorazepam (Lorazepam 1 Mg Tab) 1 mg PO Q6H PRN PRN Reason: Anxiety Stop: 01/01/25 03:04 Metoprolol Succinate (Metoprolol Succ 25mg Ext Rel Tab) 25 mg PO BID [facility] Stop: 01/01/25 20:59 Miscellaneous (Vascepa - Order Awaiting Action) 1 each N/A QS [facility] Stop: 01/01/25 07:59 Last Admin: 12/02/24 09:19 Dose: Not Given Miscellaneous (Carbohydrates For Hypoglycemia ) 15 - 30 gm PO UD PRN PRN Reason: Hypoglycemia Protocol Stop: 01/01/25 03:33 Nitroglycerin (Nitroglycerin Sl 0.4 Mg/Tab Tab) 0.4 mg SL UD PRN PRN Reason: Chest Pain Stop: 01/01/25 03:04 Pantoprazole Sodium (Pantoprazole 40 Mg Tab) 40 mg PO BID [facility] Stop: 01/01/25 08:59 Last Admin: 12/02/24 09:25 Dose: 40 mg Sertraline HCl (Sertraline Hcl 50 Mg Tablet) 50 mg PO DAILY [facility] Stop: 01/01/25 08:59 Last Admin: 12/02/24 09:24 Dose: 50 mg Tramadol HCl (Tramadol Hcl 50 Mg Tablet) 25 mg PO Q4H PRN PRN Reason: Pain Stop: 01/01/25 03:06 Umeclidinium/Vilanterol (Umeclidinium/Vilanterol 62.5/25mcg 7 Puffs/Inhaler) 1 puffs INH DAILY [facility] Stop: 01/01/25 08:59 Last Admin: 12/02/24 09:23 Dose: 1 puffs
[2024-12-02] MEDS: FLUTICASONE FUROATE 100MCG 14 PUFFS/INHALER INH SCH (09:23)
[2024-12-02] MEDS: UMECLIDINIUM/VILANTEROL 62.5/25MCG 7 PUFFS/INHALER INH SCH (09:23)
[2024-12-02] MEDS: CYANOCOBALAMIN (B-12) 500 MCG TABLET PO SCH (09:23)
[2024-12-02] MEDS: busPIRone 5 MG TAB PO SCH (09:23)
[2024-12-02] MEDS: lisinopril 10 MG TAB PO SCH (09:23)
[2024-12-02] MEDS: GABAPENTIN 100 MG CAP PO SCH (09:23)
[2024-12-02] MEDS: amLODIPine BESYLATE 5 MG TAB PO SCH (09:24)
[2024-12-02] MEDS: SERTRALINE HCL 50 MG TABLET PO SCH (09:24)
[2024-12-02] MEDS: CLOPIDOGREL BISULFATE 75 MG TAB PO SCH (09:24)
[2024-12-02] MEDS: ASPIRIN 81 MG ECTAB PO SCH (09:24)
[2024-12-02] MEDS: EZETIMIBE 10 MG TAB PO SCH (09:25)
[2024-12-02] MEDS: PANTOprazole 40 MG TAB PO SCH (09:25)
[2024-12-02] MEDS: ARTIFICIAL TEARS OP SCH (09:28)
--- OUTSIDE RECORDS SUMMARY | 2024-12-02 10:39 | External Medical Summary | Summary of Care ---
Author Name Unknown Organization [facility] Address [address] [place] [address] Phone [phone] Care Team Providers Care Orthopaedic Surgeon Name Role Phone Gisela Coley MD Primary Care Prov ider Encounter Details Date Type Department Care Team (Late st Contact Info) Description 09/29/2024 Orders Only PATIENT PORTAL DO NOT DELETE THIS DEPT USED BY [place] [id number] Allergies Active Allergy Reactions Criticality Noted Date Comments Ampicillin 11/16/1997 vaginitis Ciprofloxacin 06/13/2017 Had in [facility] ER 03/09/2017. Made her feel very ill. C/o shakeness, nervousness Doxycycline 11/16/1997 Erythromycin 11/16/1997 Ranitidine 11/16/1997 rash documented as of this encounter (statuses as of 09/29/2024) Medications TYLENOL EXTRA STRENGTH 500 MG PO TABS 2 pills as needed Active aspirin 81 MG chewable tablet Take 1 Tab by mouth daily. 34 Tab 11 07/12/20 18 Active Cholecalciferol (VITAMIN D) 50 MCG (1999) Capsule Take 2,000 Units by mouth daily. Active Blood Glucose Monitoring Suppl (Be Sport ULTRA MINI) w/Device KIT Use as directed to test blood sugars. E11.9 1 Kit 10/13/19 20 Active artificial tears (TEARS AGAIN) 1.4 % ophthalmic solutionIndicatio ns:Right-sided Henderson's palsy Instill 1 Drop into the right eye 4 times a day. 15 mL 04/23/20 20 Active Fluticasone Propionate 50 MCG/ACT Nasal Suspension (Flonase)Indicati ons:Allergic rhinitis, unspecified seasonality, unspecified trigger Administer 2 Sprays into each nostril daily. 48 g 09/23/19 Active OneTouch Ultra Blue In Vitro Strip (Glucose Blood) Use to test blood sugars once daily E11.9 100 Strip 09/23/19 Active Lancet Device Test once daily E11.9 100 Each 3 10/02/19 21 Active Zoster Vac Recomb Adjuvanted 50 MCG/0.5ML Intramuscular Suspension Reconstituted (Shingrix)Indicat ions:Need for shingles vaccine Inject 0.5 mL into a large muscle now and repeat dose in 60 to 180 days 1 Each 03/28/20 22 Active Nitroglycerin 0.4 MG Sublingual Tablet Sublingual (Nitrostat)Indica tions:Coronary artery disease involving northway coronary artery of northway heart without angina pectoris Place under the tongue 1 Tablet every 5 minutes as needed for Pain, Chest. 25 Tablet 03/28/20 22 Active B-12 1000 MCG Oral Tablet Take by mouth. 01/17/20 23 Active Loperamide HCl 2 MG Oral Capsule Take 1 Capsule by mouth 4 times a day as needed for Diarrhea. Active Sertraline HCl 50 MG Oral Tablet (Zoloft)Indicatio ns:KWABENA (generalized anxiety disorder) Take 1 Tablet by mouth in the morning. 09/12/19 24 Active Icosapent Ethyl 1 GM Oral Capsule (Vascepa) Take 2 Capsules by mouth 2 times a day with morning and evening meals. Swallow capsules whole, do not open or break. 120 Capsule 09/20/19 24 Active Albuterol Sulfate (2.5 MG/3ML) 0.083% Inhalation Nebulization Solution (Proventil)Indica tions:COPD exacerbation (HCC) Inhale 1 Vial via nebulizer every 4 hours as needed for Wheezing. 120 mL 10/04/19 24 Active Additional Information Patient not taking.Reported on 11/26/2023 Compressor NebulizerIndicati ons:COPD exacerbation (HCC) Inhale via nebulizer. 1 nebulizer with tubing. Dx: COPD exacerbation 1 Each 10/04/19 24 Active OneTouch Delica Plus [id number] ons:Type 2 diabetes mellitus with stage 3b chronic kidney disease, without long-term current use of insulin (HCC) Test once a day E11.9 100 Each 3 10/23/19 24 Active Clopidogrel Bisulfate 75 MG Oral Tablet (pLAVix) TAKE 1 TABLET BY MOUTH EVERY DAY IN THE MORNING 90 Tablet 3 11/06/19 24 Active Ezetimibe 10 MG Oral Tablet (Zetia)Indication s:High triglycerides,Dys lipidemia, goal LDL below 100 TAKE 1 TABLET BY MOUTH EVERY DAY IN THE MORNING 90 Tablet 3 11/06/19 24 Active Albuterol Sulfate HFA 108 (90 Base) MCG/ACT Inhalation Aerosol SolutionIndicatio ns:SOB (shortness of breath) Inhale 2 Puffs by mouth every 4 hours as needed for Cough, Shortness of Breath or Wheezing. 54 g 1 11/25/19 24 Active Nystatin 478035 UNIT/ML Mouth/Throat Suspension As needed 09/20/19 24 Active Loperamide HCl 2 MG Oral Tablet (Immodium (A-D)) Take 1 Tablet by mouth 4 times a day as needed for Diarrhea. 30 Tablet 12/02/19 24 Active Gabapentin 100 MG Oral Capsule (Neurontin)Indica tions:Diabetic peripheral neuropathy (HCC) Take 1 Capsule by mouth in the morning and 1 Capsule at noon and 1 Capsule before bedtime. 90 Capsule 5 12/02/19 24 Active Fluticasone-Umecl idin-Vilant 100-62.5-25 MCG/ACT Aerosol Powder Breath Activated (Trelegy Ellipta)Indicatio ns:COPD exacerbation (HCC) Inhale 1 Puff by mouth in the morning. 180 Blister Dosing Unit 1 02/11/20 24 Active Lisinopril 20 MG Oral Tablet (Prinivil)Indicat ions:HTN, goal below 140/90 Take 1.5 Tablets by mouth in the morning. 135 Tablet 3 04/01/20 24 Active hydroCHLOROthiazi de 12.5 MG Oral TabletIndications :HTN, goal below 140/90 TAKE 1 TABLET BY MOUTH EVERY DAY IN THE MORNING 30 Tablet 5 04/28/20 24 Active Dicyclomine HCl 20 MG Oral Tablet (Bentyl)Indicatio ns:Irritable bowel syndrome, unspecified type TAKE 1 TABLET BY MOUTH EVERY DAY IN THE MORNING AND AT BEDTIME 180 Tablet 1 06/19/20 24 Active Metoprolol Succinate ER 25 MG Oral Tablet Extended Release 24 Hour (toPROL XL)Indications:He art palpitations,HTN, goal below 140/90 TAKE 1 TABLET BY MOUTH EVERY DAY 90 Tablet 07/20/20 24 Active Atorvastatin Calcium 80 MG Oral Tablet (Lipitor)Indicati ons:Dyslipidemia, goal LDL below 70 TAKE 1 TABLET BY MOUTH EVERY DAY IN THE EVENING 90 Tablet 07/20/20 24 Active LORazepam 1 MG Oral Tablet (Ativan)Indicatio ns:Anxiety TAKE 1 TABLET BY MOUTH EVERY 8 HOURS NEEDED FOR ANXIETY 90 Tablet 2 08/26/20 24 Active Levothyroxine Sodium 100 MCG Oral Tablet (Levoxyl) TAKE 1 TABLET BY MOUTH IN THE MORNING. (AT LEAST 30 MIN PRIOR TO BREAKFAST OR OTHER MEDS). 90 Tablet 09/03/20 24 Active amLODIPine Besylate 2.5 MG Oral Tablet (Norvasc) TAKE 1 TABLET BY MOUTH EVERY DAY 90 Tablet 1 09/03/20 24 Active Pantoprazole Sodium 40 MG Oral Tablet Delayed Release (Protonix)Indicat ions:Gastroesopha geal reflux disease, unspecified whether esophagitis present TAKE 1 TABLET BY MOUTH TWICE A DAY IN THE MORNING AND IN THE EVENING 180 Tablet 1 09/03/20 24 Active metFORMIN HCl ER 500 MG Oral Tablet Extended Release 24 Hour (Glucophage XR)Indications:Ty pe 2 diabetes mellitus with diabetic chronic kidney disease (HCC) TAKE 2 TABLETS BY MOUTH EVERY MORNING 180 Tablet 1 09/24/19 25 Active documented as of this encounter (statuses as of 09/29/2024) Active Problems Problem Noted Date Diagnosed Date BRCA2 positive 10/23/2023 Type 2 diabetes mellitus wit h stage 3b chronic kidney disease, with long-term current use of insulin 10/04/2023 Anemia due to stage 3b chronic kidney disease Overview: Per CKD protocol Benign hypertension with stage 3b chronic kidney disease 06/19/2021 Overview: Per CKD protocol Type 2 diabetes mellitus wit h stage 3b chronic kidney disease 06/19/2021 Overview: Per CKD protocol Chronic kidney disease, stage 3b 06/19/2021 Overview: Per CKD protocol Lesion of right external ear 05/24/2020 Persistent proteinuria, unspecified 12/31/2019 Renal artery stenosis 07/01/2019 Chronic left shoulder pain 07/01/2019 H/O: UGI bleed 07/01/2019 COPD, group B, by GOLD 2017 classification 02/16 Overview: Per COPD GOLD Classification 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 Increased risk for hereditary breast and ovarian cancer. S/P coronary artery stent placement 05/12/2017 Overview (05/12/2017): 03/25/17 to RCA Right-sided carotid artery disease 06/28/2016 Aortic ectasia, abdominal 06/28/2016 Ischemic nephropathy with at herosclerotic renal artery stenosis 06/23/2015 IBS (irritable bowel syndrome) 12/06/2011 High triglycerides 05/30/2011 Dyslipidemia, goal LDL below 70 08/18/2009 Gastroparesis 07/29/2009 MEDICATION USE AGREEMENT 08/06/2007 HTN, goal below 140/90 06/07/2004 Acquired hypothyroidism ADJ DISORDER W/DEPRES MOOD Esophageal reflux documented as of this encounter (statuses as of 09/29/2024) Resolved Problems Problem Noted Date Diagnosed Date Resolved Date Benign hypertension with sta ge 3a chronic kidney disease 01/17/2021 06/22/2021 Overview: Per CKD protocol Type 2 diabetes mellitus wit h stage 3a chronic kidney disease 01/17/2021 06/22/2021 Overview: Per CKD protocol Chronic kidney disease, stage 3a 01/17/2021 06/22/2021 Overview: Per CKD protocol Anemia due to stage 3a chronic kidney disease 07/18/2006/22/2021 Overview: Per CKD protocol - KIDNEY DISEASE, CHRONIC, STAGE III (GFR 30-59 ML/MIN) Diabetes mellitus with stage 3 chronic kidney disease 07/20/2019 01/19/2021 Overview: Per CKD protocol Chronic kidney disease due t o type 2 diabetes mellitus 07/01/2019 07/24/2019 Overview: Per CKD protocol Type 2 diabetes mellitus wit h stage 3 chronic kidney disease 07/21/2018 04/16/2019 COPD, severity to be determined 02/28/2018 02/18/2019 Overview: Per COPD GOLD Classification Benign hypertension with CKD (chronic kidney disease) stage III 09/19/2017 01/19/2021 Overview: Per CKD protocol Coronary artery disease invo lving northway coronary artery of northway heart without angina pectoris 05/12/2017 07/21/2018 Exertional angina 10/04/2016 06/25/2017 Atypical chest pain 05/29/2016 10/04/19 17 Anemia in chronic kidney disease(285.21) 04/04/2012 03/14/2017 Anemia due to stage 3 chronic kidney disease 2 07/21/2020 Overview (01/31/2012): Per CKD protocol #1 Dyslipidemia, goal to be determined 08/18/2009 04/01/2013 Overview (08/18/2009): Per Lipid Taxonomy. Displacement of lumbar inter vertebral disc without myelopathy 08/06/2007 07/21/2018 ADVANCE DIRECTIVE INFORMATION 11/20/2005 07/13/2024 Overview (11/20/2005): No, Advance Directive brochure given to patient at prior appointment. 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 OSTEOARTHROS NOS-SHLDER 07/10 TEMPOROMANDIBULAR JOINT DISO RDERS, UNSPECIFIED 07/21/2018 Peptic ulcer 07/21/2018 DIVERTICULOSIS OF COLON 07/10 Mixed dyslipidemia 9 Overview (10/14/2008): Resolved per Duplicate Protocol #2. documented as of this encounter (statuses as of 09/29/2024) Immunizations Name Administration Dates Next Due COVID-19 mRNA, LNP-s, No Pre serve, 2-Dose Series (Moderna) 01/16/2021,01/06/2021 COVID-19, MRNA-LNP, PF, 30 M CG/0.3 mL, 12 YRS AND ABOVE, IM (PFIZER-Comirnaty) 10/23/2023 COVID-19, mRNA, LNP-s, PF, B ooster, 100mcg/0.5mg (Moderna) 10/10/2021 Pneumococcal Conjugate Vacc, 13 Valent (Prevnar) 09/29/2015 Pneumococcal Polysaccharide PPV23 (Pneumovax) 08/23/2010 Seasonal Influenza Vac., MDV , IM, 0.5 mL (Fluzone) 05/31/2015,12/07/2014(),06/30/2013,,05/30/2011,08/23/2010,05/31/20 09,06/29/2008,07/03/2007 Seasonal Influenza, PF, 6 M & above, IM , (FluLaval or Fluzone) 07/03/2018,06/13/2017 Seasonal Influenza, Quadriva lent Hd (Fluzone Hd) 06/11/2023,09/20/2022,05/24/2021 Seasonal Influenza, Quadriva lent Hd, 65+ Yrs 07/19/2020 Seasonal Influenza, Quadriva lent,with Preserve, 3 yr & above, IM 05/18/2016 Seasonal Influenza, Trivalen t, Adjuvanted, 65+ YRS, PF, (Fluad) 07/20/2019 TD, Preservative Free 04/26/2008 TDAP (age 10 and older)(Boostrix) 07/21/2018 Varicella Zoster Vaccine (Adult) 11/15/2008 Zoster Vaccine Recombinant (Shingrix) 10/22/2019 documented as of this encounter Social History Tobacco Use Types Packs/Day Years Used Date Smoking Tobacco: Some Days Cigarettes 0.5 40 Started: 09/09/1971; Last attempted to quit: 09/09/2011 Smokeless Tobacco: Never Comments:04/29/2024 Smokes 1- 2 cigarettes per day, declines pamphlet. 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 Answer Date of Assessment Author No 12/06/2014 8:00 PM EDT Helena Chatterjee RN * Are you blind or do you have serious difficulty seeing, even when wearing glasses? Answer Date of Assessment Author No 12/06/2014 8:00 PM EDHleena Wisdom RN * Do you have serious difficulty walking or climbing stairs? (5 years old or older) Answer Date of Assessment Author No 12/06/2014 8:00 PM Helena Donato RN * Do you have difficulty dressing or bathing? (5 years old or older) Answer Date of Assessment Author No 12/06/2014 8:00 PM EDT Helena Chatterjee RN * Because of a physical, mental, or emotional condition, do you have difficulty doing errands alone such as visiting a doctors office or shopping? (15 years old or older) Answer Date of Assessment Author No 12/06/2014 8:00 PM Helena Donato RN documented as of this encounter Mental Status * Because of a physical, mental, or emotional condition, do you have serious difficulty concentrating, remembering, or making decisions? (5 years old or older) Answer Entry Date Author No 12/06/2014 8:00 PM Helena Donato RN documented in this encounter Plan of Treatment Upcoming Encounters Date Type Department Care Team (Late st Contact Info) Description 02/18/2025 3:00 PM EDT Office Visit Nephrology [address] [place] [id number] Ann-Marie Dudley MD [address] [facility] [place], [place] [id number] Scheduled Procedures Name Priority Associated Diagnoses Date/Ti me ESOPHAGOGASTRODUODENOSCOPY ( EGD), FLEXIBLE, TRANSORAL, DIAGNOSTIC Recall Heartburn Abdominal pain, unspecified abdominal location Change in stool habits Loose stools Health Maintenance Due Date Last Done Comments DISCUSS TOBACCO CESSATION (REFER TO SMARTSET #3291) 1942 Discuss Risk-Reducing Salpingo Oophorectomy (RRSO) Recommendation BRCA1/BRCA2,Ages 30 & Up 1972 Hepatitis B Vaccine (2 of 3 - 19+ 3-dose series) 05/27/1998 04/29/1998 Adult Wellness Visit 2008 Zoster Vaccines (3 of 3) 12/17/2019 10/22/2019, 05/2009 Depression Screening 04/26/2021 04/26/2020 CKD PHOS USE SMARTSET 54575 12/01/202311/08, 11/10/2021, 05/24/2021, Additional history exists COVID-19 Vaccine ( season) 2024 10/23/2023, 10/10/2021, 01/16/2021, Additional history exists Influenza Vaccine (FLU shot) (#1) 2024 06/11/2023, 09/20/2022, 05/24/2021, Additional history exists Diabetic Foot Exam 06/11/2024 06/11/2023, 0 04/19/2020, 07/20/2019, Additional history exists Diabetic Eye Exam 07/30/2024 07/30/2023, , 12/28/2021, Additional history exists HbA1c 09/26/2024 03/26/2024, 11/08, 06/11/2023, Additional history exists GFR 03/08/2025 09/07/2024, 03/09, 11/15/2023, Additional history exists TSH 03/26/2025 03/26/2024, 04/2024, 11/30/2022, Additional history exists Albumin/Creatinine Ratio 09/07/2025 024, 04/17/2023, 11/30/2022, Additional history exists CKD HGB USE SMARTSET 48926 09/07/202509/07, 09/16/2023, 11/30/2022, Additional history exists O2 ASSESSMENT COMPLETED IN PAST YEAR FOR COPD 09/07/2025 09/07/2024 DTap/Tdap Vaccines (2 - Td or Tdap) 07/21/2028 07/21/2018, 04/26/2008 Pneumococcal Vaccine: 50+ Years Completed 09/29/2015, 08/23/2010, 08/11/1993 Alpha-1 Antitrypsin Discontinued HPV (Gardasil) Vaccine Aged Out No lo nger eligible based on patient's age to complete this topic MENINGOCOCCAL (MENACTRA/MENVEO) Aged Out No longer eligible based on patient's age to complete this topic documented as of this encounter Medical Devices Implanted Type Area Data Warehouse Analyst Device Identifier Shelf Expiration Date Model / Serial / Lot Stent Bl Pa [id number] - [id number] Implanted:Qty: 1 on 05/08/2012 at OR [facility] Left: Renal Artery JNJ : [employer] 07/09/2014 [id number] / / [id number] Stent Bl Pa [id number] - [id number] Implanted:Qty: 1 on 05/08/2012 at OR [facility] Right: Renal Artery JNJ : C[employer]IS [employer]OVASC[employer] 01/06/2015 [id number] / / [id number] Stent Graft [id number] - [id number] Implanted:Qty: 1 on 01/22/2014 at OR [facility] Left: Renal [employer] 03/08/2016 [id number] / / [id number] Stent Graft [id number] - [id number] Implanted:Qty: 1 on 12/06/2014 by Warren Bashir MD at OR [facility] Right: Renal Artery [employer] 09/07/2017 [id number] / / [id number] documented as of this encounter Advance Directives * Full Code (Latest Code Status on File) Date Activated Date Inactivated Comments 07/10/2018 2:36 PM 07/13/2018 5:35 PM This order r eflects the patients wishes and were consensually agreed upon. Question Answer Comments Discussion of Advance Directives occurred with: Not Discussed Does the patient have a Living Will? No Does the patient have Health Care Power of Attor royal? No * Full Code Date Activated Date Inactivated Comments 12/06/2014 10:39 AM 12/08/2014 2:27 PM Question Answer Comments Discussion of Advance Directives occurred with: Not Discussed * Full Code Date Activated Date Inactivated Comments 01/22/2014 4:56 PM 01/23/2014 3:48 PM This order r eflects the patients wishes and were consensually agreed upon. * Full Code Date Activated Date Inactivated Comments 05/08/2012 10:04 AM 05/09/2012 1:38 PM This order reflects the patients wishes and were consensually agreed upon. Care Teams Orthopaedic Surgeon Relationship Specialty Start Date End Date Gisela Coley MD [address] [place] [address] [place] [id number] PCP - General Family Medicine 04/16/19 documented as of this encounter
--- OUTSIDE RECORDS SUMMARY | 2024-12-02 10:39 | External Medical Summary | Summary of Care ---
Author Name Unknown Organization [facility] Address [address] [place] [address] Phone [phone] Care Team Providers Care Knitted Garment Finisher Name Role Phone Gisela Coley MD Primary Care Prov ider Reason for Visit * Reason Onset Date Comments Medication Refill 11/17/2024 Encounter Details Date Type Department Care Team (Late st Contact Info) Description 11/17/2024 Refill Family Medicine [address] [id number] Gisela Coley MD [address] [place] [address] [place] [address] Anxiety Allergies Active Allergy Reactions Criticality Noted Date Comments Ampicillin 11/16/1997 vaginitis Ciprofloxacin 06/13/2017 Had in [facility] 03/09/2017. Made her feel very ill. C/o shakeness, nervousness Doxycycline 11/16/1997 Erythromycin 11/16/1997 Ranitidine 11/16/1997 rash documented as of this encounter (statuses as of 11/25/2024) Medications TYLENOL EXTRA STRENGTH 500 MG PO TABS 2 pills as needed Active aspirin 81 MG chewable tablet Take 1 Tab by mouth daily. 34 Tab 11 07/12/20 18 Active Cholecalciferol (VITAMIN D) 50 MCG (1999) Capsule Take 2,000 Units by mouth daily. Active Blood Glucose Monitoring Suppl (ethorityTOUCH ULTRA MINI) w/Device KIT Use as directed to test blood sugars. E11.9 1 Kit 10/13/19 Active artificial tears (TEARS AGAIN) 1.4 % ophthalmic solutionIndicatio ns:Right-sided Henderson's palsy Instill 1 Drop into the right eye 4 times a day. 15 mL 04/23/20 20 Active Fluticasone Propionate 50 MCG/ACT Nasal Suspension (Flonase)Indicati ons:Allergic rhinitis, unspecified seasonality, unspecified trigger Administer 2 Sprays into each nostril daily. 48 g 1 09/23/19 Active OneTouch Ultra Blue In Vitro Strip (Glucose Blood) Use to test blood sugars once daily E11.9 100 Strip 3 09/23/19 Active Lancet Device Test once daily E11.9 100 Each 3 10/02/19 21 Active Zoster Vac Recomb Adjuvanted 50 MCG/0.5ML Intramuscular Suspension Reconstituted (Shingrix)Indicat ions:Need for shingles vaccine Inject 0.5 mL into a large muscle now and repeat dose in 60 to 180 days 1 Each 1 03/28/20 22 Active Nitroglycerin 0.4 MG Sublingual Tablet Sublingual (Nitrostat)Indica tions:Coronary artery disease involving paimiut coronary artery of paimiut heart without angina pectoris Place under the tongue 1 Tablet every 5 minutes as needed for Pain, Chest. 25 Tablet 1 03/28/20 22 Active B-12 1000 MCG Oral [...] or break. 120 Capsule 09/20/19 24 Active Compressor NebulizerIndicati ons:COPD exacerbation (HCC) Inhale via nebulizer. 1 nebulizer with tubing. 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 90 Capsule 5 12/02/19 24 Active Lisinopril 20 MG Oral Tablet (Prinivil)Indicat ions:HTN, goal below 140/90 Take 1.5 Tablets by mouth in the morning. 135 Tablet 3 04/01/20 24 Active hydroCHLOROthiazi de 12.5 MG Oral TabletIndications :HTN, goal below 140/90 TAKE 1 TABLET BY MOUTH EVERY DAY IN THE MORNING 30 Tablet 5 04/28/20 24 Active Levothyroxine Sodium 100 MCG Oral [...] EVENING 180 Tablet 1 09/03/20 24 Active Atorvastatin Calcium 80 MG Oral Tablet (Lipitor)Indicati ons:Dyslipidemia, goal LDL below 70 TAKE 1 TABLET BY MOUTH EVERY DAY IN THE EVENING 90 Tablet 09/29/19 25 Active metFORMIN HCl ER 500 MG Oral Tablet Extended Release 24 Hour (Glucophage XR)Indications:Ty pe 2 diabetes mellitus with diabetic chronic kidney disease (HCC) TAKE 2 TABLETS BY MOUTH EVERY MORNING 180 Tablet 1 09/24/19 25 Active Metoprolol Succinate ER 25 MG Oral Tablet Extended Release 24 Hour (toPROL XL)Indications:He art palpitations,HTN, goal below 140/90 TAKE 1 TABLET BY MOUTH EVERY DAY 90 Tablet 09/29/19 25 Active Albuterol Sulfate HFA 108 (90 Base) MCG/ACT Inhalation Aerosol SolutionIndicatio ns:SOB (shortness of breath) Inhale 2 Puffs by mouth every 4 hours as needed for Cough, Shortness of Breath or Wheezing. 54 g 1 10/13/19 25 Active Albuterol Sulfate (2.5 MG/3ML) 0.083% Inhalation Nebulization Solution (Proventil)Indica tions:COPD exacerbation (HCC) Inhale 1 Vial via nebulizer every 4 hours as needed for Wheezing. 120 mL 1 10/13/19 25 Active busPIRone HCl 5 MG Oral Tablet (Buspar)Indicatio ns:Anxiety Take 1 Tablet by mouth in the morning and 1 Tablet before bedtime. 20 Tablet 10/13/19 25 Active Dicyclomine HCl 20 MG Oral Tablet (Bentyl)Indicatio ns:Irritable bowel syndrome, unspecified type TAKE 1 TABLET BY MOUTH EVERY DAY IN THE MORNING AND AT BEDTIME 180 Tablet 1 10/20/19 25 Active Clopidogrel Bisulfate 75 MG Oral Tablet (pLAVix) TAKE 1 TABLET BY MOUTH EVERY DAY IN THE MORNING 90 Tablet 3 10/20/19 25 Active Trelegy Ellipta 100-62.5-25 MCG/ACT Aerosol Powder Breath Activated (Fluticasone-Umec lidinium-Vilanter ol)Indications:CO PD exacerbation (HCC) INHALE 1 PUFF BY MOUTH IN THE MORNING 180 Each 1 10/20/19 25 Active LORazepam 1 MG Oral Tablet (Ativan)Indicatio ns:Anxiety TAKE 1 TABLET BY MOUTH EVERY 8 HOURS NEEDED FOR ANXIETY 90 Tablet 11/20/19 25 Active LORazepam 1 MG Oral Tablet (Ativan)Indicatio ns:Anxiety TAKE 1 TABLET BY MOUTH EVERY 8 HOURS NEEDED FOR ANXIETY 90 Tablet 2 08/26/20 24 025 Discontin ued(Refil l) documented as of this encounter (statuses as of 11/25/2024) Active Problems Problem Noted Date Diagnosed Date BRCA2 positive 10/23/2023 Type 2 diabetes mellitus wit h stage 3b chronic kidney disease, with long-term current use of insulin 10/04/2023 Anemia due to stage 3b chronic kidney disease 10 /07/2021 Overview: Per CKD protocol Benign hypertension with [...] GOLD Classification 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 Increased risk for hereditary breast and ovarian [...] as of this encounter (statuses as of 11/25/2024) Resolved Problems Problem Noted Date Diagnosed Date Resolved Date Benign hypertension with sta ge 3a chronic kidney disease 01/17/2021 06/22/2021 Overview: Per CKD protocol Type 2 diabetes mellitus wit h stage 3a chronic kidney disease 01/17/2021 06/22/2021 Overview: Per CKD protocol Chronic kidney disease, stage 3a 01/17/2021 06/22/2021 Overview: Per CKD protocol Anemia due to stage 3a chronic kidney disease 07/18/20 20 06/22/2021 Overview: Per CKD protocol - KIDNEY DISEASE, [...] CKD protocol Coronary artery disease invo lving paimiut coronary artery of paimiut heart without angina pectoris 05/12/2017 07/21/2018 Exertional [...] as of this encounter (statuses as of 11/25/2024) Immunizations Name Administration Dates Next Due COVID-19 [...] 12/06/2014 8:00 PM Helena Donato RN * Are you blind or do you have serious difficulty seeing, even when wearing glasses? Answer Date of Assessment Author No 12/06/2014 8:00 PM Helena Donato RN * Do you have serious difficulty walking or climbing stairs? (5 years old or older) Answer Date of Assessment Author No 12/06/2014 8:00 PM Helena Donato RN * Do you have difficulty dressing or bathing? (5 years old or older) Answer Date of Assessment Author No 12/06/2014 8:00 PM Helena Donato, TORSTEN * Because of a physical, mental, or emotional condition, do you have difficulty doing errands alone such as visiting a doctors office or shopping? (15 years old or older) Answer Date of Assessment Author No 12/06/2014 8:00 PM EDT Helena Chatterjee RN documented as of this encounter Mental Status * Because of a physical, mental, or emotional condition, do you have serious difficulty concentrating, remembering, or making decisions? (5 years old or older) Answer Entry Date Author No 12/06/2014 8:00 PM EDT Helena Chatterjee RN documented in this encounter Miscellaneous Notes * Telephone Encounter - Abilio Gold MD - 11/19/2024 1:59 PM EDT Signed Prescriptions: Disp Refills LORazepam 1 MG Oral Tablet (Ativan) 90 Tab*0 Sig: TAKE 1 TABLET BY MOUTH EVERY 8 HOURS NEEDED FOR ANXIETY Authorizing Provider: SUN JACOBSON * Telephone Encounter - Abilio Gold MD - 11/19/2024 1:59 PM EDT Signed Prescriptions: Disp Refills LORazepam 1 MG Oral Tablet (Ativan) 90 Tab*0 Sig: TAKE 1 TABLET BY MOUTH EVERY 8 HOURS NEEDED FOR ANXIETY Authorizing Provider: SUN JACOBSON * Telephone Encounter - Abilio Gold MD - 11/19/2024 1:59 PM EDT Signed Prescriptions: Disp Refills LORazepam 1 MG Oral Tablet (Ativan) 90 Tab*0 Sig: TAKE 1 TABLET BY MOUTH EVERY 8 HOURS NEEDED FOR ANXIETY Authorizing Provider: SUN JACOBSON * Telephone Encounter - Meaghan Gar, survey associate - 11/19/2024 1:31 PM EDT Pt calling to check status of request for Lorazepam. Pt was tearful on the phone stating it is veryimportant that medication be filled for her. PCP out of office until 11/21. Routing high priority to provider covered workgroup. Please advise. If agreeable, please send Rx to [id number] [address] [place] [address] Thank you, Meaghan Gar Buyer Liaison [facility] 11/19/2024,1:33 PM * Telephone Encounter - Maya Sultana CPhT - 11/19/2024 10:35 AM EDT Patient calling to check on status of refill asking if med can be ordered today Thank you, Maya Sultana Molded [employer]les [employer] [facility] (formerly Telepharmacy) 11/19/2024 10:35 AM * Telephone Encounter - Tamika Uribe [facility] - 11/19/2024 6:38 AM EDT Pending Prescriptions: Disp Refills LORazepam 1 MG Oral Tablet (Ativan) 90 Tab*2 Sig: TAKE 1 TABLET BY MOUTH EVERY 8 HOURS NEEDED FOR ANXIETY * Telephone Encounter - Tamika Uribe RPh - 11/19/2024 6:37 AM EDT I have reviewed the patients controlled substance dispensing history in the Prescription Drug Monitoring Program in compliance with the [facility] regulations before prescribing a controlled substance. PDMP checked on 11/19/2024. Pending Prescriptions: Disp Refills LORazepam 1 MG Oral Tablet (Ativan) 90 Tab*2 Sig: TAKE 1 TABLET BY MOUTH EVERY 8 HOURS NEEDED FOR ANXIETY Last Visit: 10/13/2024 (in office), Visit date not found (telemedicine) Next Visit: Visit date not found Date medication was last filled: 10/20/24 Date medication is due for refill: 11/17/24 Pharmacy: [id number] [address] [place] [address] Is this request for a controlled substance? Yes and Urine Drug Screen Not completed Toxicology results: Results for orders placed or performed in visit on 03/28/22 PAIN MANAGEMENT DRUG PANEL, URINE W/ INTERPRETATION Result Value Pain Management Interpretation Based on the medication information provided: The presence of lorazepam is CONSISTENT with lorazepam use. Amphetamines Screen, U Negative Benzodiazepines Screen, U Refer to confirmation results (A) Cannabinoids Screen, U Negative Cocaine Metabolite Screen, U Negative Fentanyl Screen, U Negative Hydrocodone Screen, U Negative Methadone Metabolite Screen, U Negative Morphine/Codeine Screen, U Negative Oxycodone Screen, U Negative Specimen Validity Interpretation Normal Creatinine, U 66 Narrative Cutoff Concentrations: Drug Level Amphetamines 500 ng/mL Benzodiazepines 100 ng/mL Cannabinoids 50 ng/mL Cocaine Metabolite 150 ng/mL Fentanyl 1 ng/mL Hydrocodone / Hydromorphone 300 ng/mL Methadone Metabolite 100 ng/mL Morphine / Codeine 300 ng/mL Oxycodone / Oxymorphone 100 ng/mL Screening results are presumptive and can only be used for medical purposes. Confirmatory testing is available upon request. *Note: Due to a large number of results and/or encounters for the requested time period, some results have not been displayed. A complete set of results can be found in Results Review. Please approve if appropriate. Thank you, Tamika Uribe PharmD Clinical Pharmacist [facility] [phone] 11/19/2024, 6:37 AM * Telephone Encounter - Allie Roland CPhT - 11/18/2024 12:48 PM EDT Patient calling to check on status of LORazepam 1 MG. Caller can be reached at [phone] . Thank you, Allie Roland [employer] [facility] 11/18/2024, 12:48 PM * Telephone Encounter - Maya Sultana CPhT - 11/17/2024 2:08 PM EDT Did you pend patient's preferred pharmacy and medication before forwarding?yes Pharmacy: [id number] [address] [facility] Pending Prescriptions: Disp Refills LORazepam 1 MG Oral Tablet (Ativan) 90 Tab*2 Sig: TAKE 1 TABLET BY MOUTH EVERY 8 HOURS NEEDED FOR ANXIETY Last Visit: 10/13/2024 (in office), Visit date not found (telemedicine) Next Visit: Visit date not found If no future appointments scheduled, and last appointment is greater than a year ago, please schedule patient for a follow-up appointment Last date the medication was ordered: [id number] Is this request for a controlled substance?Yes, What was the last refill date [id number] w/ quantity 90 and dosage 1mg and Urine Drug Screen Not completed Urine Drug Screen: Results for orders placed or performed in visit on 03/28/22 PAIN MANAGEMENT DRUG PANEL, URINE W/ INTERPRETATION Result Value Pain Management Interpretation Based on the medication information provided: The presence of lorazepam is CONSISTENT with lorazepam use. Amphetamines Screen, U Negative Benzodiazepines Screen, U Refer to confirmation results (A) Cannabinoids Screen, U Negative Cocaine Metabolite Screen, U Negative Fentanyl Screen, U Negative Hydrocodone Screen, U Negative Methadone Metabolite Screen, U Negative Morphine/Codeine Screen, U Negative Oxycodone Screen, U Negative Specimen Validity Interpretation Normal Creatinine, U 66 Narrative Cutoff Concentrations: Drug Level Amphetamines 500 ng/mL Benzodiazepines 100 ng/mL Cannabinoids 50 ng/mL Cocaine Metabolite 150 ng/mL Fentanyl 1 ng/mL Hydrocodone / Hydromorphone 300 ng/mL Methadone Metabolite 100 ng/mL Morphine / Codeine 300 ng/mL Oxycodone / Oxymorphone 100 ng/mL Screening results are presumptive and can only be used for medical purposes. Confirmatory testing is available upon request. *Note: Due to a large number of results and/or encounters for the requested time period, some results have not been displayed. A complete set of results can be found in Results Review. Patient Phone Numbers Labs: Lab Results Component Value Date/Time CREAT 1.2 (H) 09/07/2024 04:33 PM CREAT 1.1 (H) 04/19/2020 02:34 PM CREAT 1.0 12/24/1996 01:50 PM POTASSIUM 4.4 09/07/2024 04:33 PM POTASSIUM 4.6 04/19/2020 02:34 PM POTASSIUM 4.1 12/24/1996 01:50 PM TSH 7.79 (H) 03/26/2024 02:20 PM TSH 2.02 04/19/2020 02:34 PM TSH 17.14 (H) 12/24/1996 01:50 PM LDL 57 09/16/2023 02:11 PM LDL 74 04/19/2020 02:41 PM LDL UNINTERPRETABLE RESULT 04/16/2019 03:41 PM LDLCALC 105 05/27/2014 12:00 AM ALT 19 03/26/2024 02:20 PM ALT 26 11/03/2019 01:31 PM ALT 25 12/24/1996 01:50 PM HGBA1C 7.7 (H) 03/26/2024 02:20 PM HGBA1C 6.8 (H) 04/19/2020 02:34 PM documented in this encounter Plan of Treatment Upcoming Encounters Date Type Department Care Team (Late st Contact Info) Description 01/18/2025 1:30 PM EDT Office Visit Nephrology [address] [place] [address] Keke Sharpe PA-C [address] [place] [address] Scheduled Procedures Name Priority Associated Diagnoses Date/Ti [...] Zoster Vaccines (3 of 3) 12/17/2019 10/22/2019, 0305/2009 Depression Screening 04/26/2021 04/26/2020 CKD PHOS USE SMARTSET 61190 12/01/202311/08, 11/10/2021, 05/24/2021, Additional history exists COVID-19 [...] 11/15/2023, Additional history exists TSH 03/26/2025 03/26/2024, 0 04/2024, 11/30/2022, Additional history exists Albumin/Creatinine Ratio 09/07/2025 024, 04/17/2023, 11/30/2022, Additional history exists CKD HGB USE SMARTSET 50102 09/07/202509/07, 09/16/2023, 11/30/2022, Additional history exists O2 ASSESSMENT COMPLETED IN PAST YEAR FOR COPD 10/13/2025 10/13/2024 DTap/Tdap Vaccines (2 - Td or Tdap) 07/21/2028 07/21/2018, 04/26/2008 Pneumococcal Vaccine: 50+ Years Completed 09/29/2015, 08/23/2010, 08/11/1993 Alpha-1 Antitrypsin Discontinued HPV (Gardasil) Vaccine Aged Out No lo nger eligible based on patient's age to complete this topic MENINGOCOCCAL (MENACTRA/MENVEO) Aged Out No longer eligible based on patient's age to complete this topic Meningitis B Vaccine (Bexsero/Trumemba) Aged Out No longer eligible based on patient's age to complete this topic documented as of this encounter Medical Devices Implanted Type Area Loan Counselor Device Identifier Shelf Expiration Date Model / Serial / Lot Stent Bl Pa [id number] - [id number] [place] 1 [place]2012 [place] [facility] Renal Artery JNJ : [employer] 07/09/2014 [id number] / / [id number] Stent Bl Pa [id number] - [id number] [place]planted:Qty: 1 on 05/08/2012 [place] [facility] [place] Renal Artery JNJ : [employer] 01/06/2015 [id number] / / [id number] Stent Graft [id number] - [id number] Implanted:Qty: 1 on 01/22/2014 at [facility] Left: Renal [employer] 03/08/2016 [id number] / / [id number] Stent Graft [id number] - [id number] Implanted:Qty: 1 on 12/06/2014 by Warren Bashir MD at [facility] Right: Renal Artery [employer] 09/07/2017 [id number] / / [id number] documented as of this encounter Visit Diagnoses Diagnosis Anxiety Anxiety state, unspecified documented in this encounter Advance Directives * Full Code [...] and were consensually agreed upon. Care Teams Knitted Garment Finisher Relationship Specialty Start Date End Date Gisela Coley MD [address] [place] [address] [place] [address] PCP - General Family Medicine 04/16/19 documented as of this encounter
--- OUTSIDE RECORDS SUMMARY | 2024-12-02 10:39 | External Medical Summary | Summary of Care ---
Author Name Unknown Organization [facility] Address [address] [facility] [place] [address] Phone [phone] Care Team Providers Care Systems Accountant Name Role Phone Gisela Coley MD Primary Care Prov ider Reason for Visit * Reason Comments eRx-Medication Refill Encounter Details Date Type Department Care Team (Late st Contact Info) Description 11/19/2024 Refill Family Medicine [address] [phone] Gisela Coley MD [address] [place] [id number] Anxiety Allergies Active Allergy Reactions Criticality Noted Date Comments Ampicillin 11/16/1997 vaginitis Ciprofloxacin 06/13/2017 Had in [facility] ER 03/09/2017. Made her feel very ill. C/o shakeness, nervousness Doxycycline 11/16/1997 Erythromycin 11/16/1997 Ranitidine 11/16/1997 rash documented as of this encounter (statuses as of 11/20/2024) Medications TYLENOL EXTRA STRENGTH 500 MG PO TABS 2 pills as needed Active aspirin 81 MG chewable tablet Take 1 Tab by mouth daily. 34 Tab 11 07/12/20 18 Active Cholecalciferol (VITAMIN D) 50 MCG (1999) Capsule Take 2,000 Units by mouth daily. Active Blood Glucose Monitoring Suppl (ONETOUCH ULTRA MINI) w/Device KIT Use as directed [...] each nostril daily. 48 g 1 09/23/19 21 Active OneTouch Ultra Blue In Vitro Strip (Glucose Blood) Use to test blood sugars once daily E11.9 100 Strip 3 09/23/19 21 Active Lancet Device Test once daily E11.9 100 Each 3 10/02/19 21 Active Zoster Vac Recomb Adjuvanted 50 MCG/0.5ML Intramuscular Suspension Reconstituted (Shingrix)Indicat ions:Need for shingles vaccine Inject 0.5 mL into a large muscle now and repeat dose in 60 to 180 days 1 Each 1 03/28/20 22 Active Nitroglycerin 0.4 MG Sublingual Tablet Sublingual (Nitrostat)Indica tions:Coronary artery disease involving [place] coronary artery of [place] heart without angina pectoris Place under the [...] do not open or break. 120 Capsule 11 09/20/19 24 Active Compressor NebulizerIndicati ons:COPD exacerbation (HCC) Inhale via nebulizer. 1 nebulizer with tubing. Dx: COPD exacerbation 1 Each 1 10/04/19 24 Active OneTouch Delica Plus [id number] ons:Type 2 diabetes mellitus with stage 3b chronic kidney disease, without long-term current use of insulin (HCC) Test once a day E11.9 100 Each 3 10/23/19 24 Active Ezetimibe 10 MG Oral Tablet (Zetia)Indication s:High triglycerides,Dys lipidemia, goal LDL below 100 TAKE 1 TABLET BY MOUTH EVERY DAY IN THE MORNING 90 Tablet 3 11/06/19 24 Active Nystatin 666865 UNIT/ML Mouth/Throat Suspension As needed 09/20/19 24 [...] FOR ANXIETY 90 Tablet 11/20/19 25 Active documented as of this encounter (statuses as of 11/20/2024) Active Problems Problem Noted Date Diagnosed Date [...] GOLD Classification Coronary artery disease invo lving [place] coronary artery of [place] heart with angina pectoris 07/21/2018 Vitamin D deficiency 07/21/2018 Monoallelic mutation of BRCA2 gene 08/06/2017 Overview (08/06/2017): Pathogenic BRCA2 gene variant (c.4588A>T, p.[id number]) detected via MiNeeds. Increased risk for hereditary breast and ovarian [...] as of this encounter (statuses as of 11/20/2024) Resolved Problems Problem Noted Date Diagnosed Date [...] CKD protocol Coronary artery disease invo lving [place] coronary artery of [place] heart without angina pectoris 05/12/2017 07/21/2018 Exertional [...] as of this encounter (statuses as of 11/20/2024) Immunizations Name Administration Dates Next Due COVID-19 [...] 12/06/2014 8:00 PM Helena Donato RN * Because of a physical, mental, [...] encounter Miscellaneous Notes * Telephone Encounter - Radha Hong [facility] - 11/20/2024 3:51 PM EDTRefused Prescriptions: Disp Refills LORazepam 1 MG Oral Tablet (Ativan) 90 Tab*2 Sig: TAKE 1 TABLETBY MOUTH EVERY 8 HOURS NEEDED FOR ANXIETYRefused By: DEQUAN HONGNReason for Refusal: Duplicate Request documented in this encounter Plan of Treatment Upcoming Encounters Date Type Department Care Team (Late st Contact Info) Description 01/18/2025 1:30 PM EDT Office Visit Nephrology [address] [place] [phone] ZemaKeke wooten PA-C [address] [place] [address] [place] [address] Scheduled Procedures Name Priority Associated Diagnoses Date/Ti [...] Zoster Vaccines (3 of 3) 12/17/2019 10/22/2019, 03/05/2009 Depression Screening 04/26/2021 04/26/2020 CKD PHOS USE SMARTSET 62798 12/01/202311/08, 11/10/2021, 05/24/2021, Additional history exists COVID-19 Vaccine ( season) 2024 10/23/2023, 10/10/2021, 01/16/2021, Additional history exists Influenza Vaccine (FLU shot) (#1) 2024 06/11/2023, 09/20/2022, 05/24/2021, Additional history exists Diabetic Foot Exam 06/11/2024 06/11/2023, 0 04/19/2020, 07/20/2019, Additional history exists Diabetic Eye Exam 07/30/2024 07/30/2023, , 12/28/2021, Additional history exists HbA1c 09/26/2024 03/26/2024, 11/08, 06/11/2023, Additional history exists GFR 03/08/2025 09/07/2024, 0704/2024, 11/15/2023, Additional history exists TSH 03/26/2025 03/26/2024, 010 04/2024, 11/30/2022, Additional history exists Albumin/Creatinine Ratio 09/07/2025 024, 04/17/2023, 11/30/2022, Additional history exists CKD HGB USE SMARTSET 58068 09/07/202509/07, 09/16/2023, 11/30/2022, Additional history exists O2 [...] this encounter Medical Devices Implanted Type Area Assembler Cornc[employer] Pipes Device Identifier Shelf Expiration Date Model / Serial / Lot Stent Bl Pa [id number] - [id number] [place]planted:[place] 1 [place] [facility] [place] Renal Artery JNJ : CORDIS [employer]OVASC[employer] 07/09/2014 [id number] / / [id number] Stent Bl Pa [id number] - [id number] Implanted:Qty: 1 on 05/08/2012 [place] [facility] [place]: Renal Artery JNJ : CORDIS ENDOVASCULAR 01/06/2015 [id number] / / [id number] Stent Graft [id number] - [id number] Implanted:Qty: 1 on 01/22/2014 [place] [facility] [place]: Renal [employer] 03/08/2016 [id number] / / [id number] Stent Graft [id number] - [id number] Implanted:Qty: 1 on 12/06/2014 by Warren Bashir MD [place] [facility] [place]: Renal Artery [employer] 09/07/2017 [id number] / / [id number] documented as of this encounter Visit Diagnoses [...] and were consensually agreed upon. Care Teams Systems Accountant Relationship Specialty Start Date End Date Gisela Coley MD [address] [place] [address] [place] [phone] PCP - General Family Medicine 04/16/19 documented as of this encounter
--- OUTSIDE RECORDS SUMMARY | 2024-12-02 10:39 | External Medical Summary | Summary of Care ---
Author Name Unknown Organization [facility] Address [address] [facility] [place] [address] Phone [phone] Care Team Providers Care Christian Education Director Name Role Phone Gisela Coley MD Primary Care Prov ider Reason for Referral * Medication Prior Authorization - Closed Specialty Diagnoses / Procedures Referred By Miranda t Referred To Contact Diagnoses COPD exacerbation (HCC) Janiya Potter PA-C [address] [place] [address] [place] [address] Phone: tel: fax: Referral ID Status Reason Start Date Expiration Date Visits Re quested Visits Authorized [id number] Closed [phone] Reason for Visit * Reason Comments Acute Encounter Details Date Type Department Care Team (Late st Contact Info) Description 10/13/2024 2:40 PM EST Office Visit Family Medicine [address] [place] [phone] Janiya Potter PA-C [address] [place] [address] [place] [address] Anxiety*; SOB (shortness of breath); COPD exacerbation (HCC) Allergies Active Allergy Reactions Criticality Noted Date Comments Ampicillin 11/16/1997 vaginitis Ciprofloxacin 06/13/2017 Had in [facility] ER 03/09/2017. Made her feel very ill. C/o shakeness, nervousness Doxycycline 11/16/1997 Erythromycin 11/16/1997 Ranitidine 11/16/1997 rash documented as of this encounter (statuses as of 10/14/2024) Medications TYLENOL EXTRA STRENGTH 500 MG PO TABS 2 pills as needed Active aspirin 81 MG chewable tablet Take 1 Tab by mouth daily. 34 Tab 11 07/12/20 18 Active Cholecalciferol (VITAMIN D) 50 MCG (1999 UT) Capsule Take 2,000 Units by mouth daily. [...] Tablet Sublingual (Nitrostat)Indica tions:Coronary artery disease involving [place] coronary artery of [place] heart without angina pectoris Place under the [...] 1 10/04/19 24 Active OneTouch Delica Plus [id number] ons:Type 2 diabetes mellitus with stage 3b chronic kidney disease, without long-term current use of insulin (HCC) Test once a day E11.9 100 Each 10/23/19 24 Active Clopidogrel Bisulfate 75 MG Oral Tablet (pLAVix) TAKE 1 TABLET BY MOUTH EVERY DAY IN THE MORNING 90 Tablet 11/06/19 24 Active Ezetimibe 10 MG Oral Tablet (Zetia)Indication s:High triglycerides,Dys lipidemia, goal LDL below 100 TAKE 1 TABLET BY MOUTH EVERY DAY IN THE MORNING 90 Tablet 11/06/19 24 Active Nystatin 313764 UNIT/ML Mouth/Throat Suspension As needed 09/20/19 24 [...] BEDTIME 180 Tablet 1 06/19/20 24 Active LORazepam 1 MG Oral Tablet [...] before bedtime. 20 Tablet 10/13/19 25 Active Albuterol Sulfate (2.5 MG/3ML) 0.083% Inhalation Nebulization Solution (Proventil)Indica tions:COPD exacerbation (HCC) Inhale 1 Vial via nebulizer every 4 hours as needed for Wheezing. 120 mL 1 10/04/19 24 025 Discontin ued(Refil l) Albuterol Sulfate HFA 108 (90 Base) MCG/ACT Inhalation Aerosol SolutionIndicatio ns:SOB (shortness of breath) Inhale 2 Puffs by mouth every 4 hours as needed for Cough, Shortness of Breath or Wheezing. 54 g 1 11/25/19 24 025 Discontin ued(Refil l) documented as of this encounter (statuses as of 10/14/2024) Active Problems Problem Noted Date Diagnosed Date [...] GOLD Classification Coronary artery disease invo lving [place] coronary artery of [place] heart with angina pectoris 07/21/2018 Vitamin D deficiency 07/21/2018 Monoallelic mutation of BRCA2 gene 08/06/2017 Overview (08/06/2017): Pathogenic BRCA2 gene variant (c.4588A>T, p.[id number]) detected via [employer]ja[employer]. 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[place] heart without angina pectoris 05/12/2017 07/21/2018 Exertional [...] as of this encounter (statuses as of 10/14/2024) Immunizations Name Administration Dates Next Due COVID-19 [...] on file documented as of this encounter Last Filed Vital Signs Vital Sign Reading Time Taken Comments Blood Pressure 122/70 10/13/2024 2:34 PM EST Pulse 88 10/13/2024 2:34 PM EST Temperature 36.1 C (97 F) 10/13/2024 2:34 PM EST Respiratory Rate 16 10/13/2024 2:34 PM EST Oxygen Saturation 97% 10/13/2024 2:34 PM EST Inhaled Oxygen Concentration - - Weight 68 kg (150 lb) 10/13/2024 2:34 PM EST Height - - Body Mass Index 25.55 07/10/2023 4:47 PM EDT documented in this encounter Functional Status * Are you deaf or do you have serious difficulty hearing? Answer Date of Assessment Author No 12/06/2014 8:00 PM EDT Helena Chatterjee RN * Are you blind or do you have serious difficulty seeing, even when wearing glasses? Answer Date of Assessment Author No 12/06/2014 8:00 PM EDT Helena Chatterjee RN * Do you have serious difficulty walking or climbing stairs? (5 years old or older) Answer Date of Assessment Author No 12/06/2014 8:00 PM EDT Helena Chatterjee RN * Do you have difficulty dressing [...] Helena Chatterjee RN documented in this encounter Progress Notes * Janiya Potter PA-C - 10/13/2024 2:41 PM EST Nursing Notes: Leanne Gross, RN 10/13/24 3482 Sign at exiting of workspace Check up Pt would like to get some counseling also She is having anxiety and panic attacks since went to detention Also having some breathing issues. Needs her albuterol refilled Pt here today because she is having anxiety since her has gone into the detention. She has some panic attacks. She is taking the lorazepam as needed. It does help. She states that she isn't taking the zoloft. Review of patient's allergies indicates: Allergen Reactions Ampicillin vaginitis Ciprofloxacin Had in [facility] ER 03/09/2017. Made her feel very ill. C/o shakeness, nervousness Doxycycline Erythromycin Ranitidine rash Current Outpatient Medications Medication Sig Dispense Refill TYLENOL EXTRA STRENGTH 500 MG PO TABS 2 pills as needed aspirin 81 MG chewable tablet Take 1 Tab by mouth daily. 34 Tab 11 Cholecalciferol (VITAMIN D) 50 MCG (2000 UT) Capsule Take 2,000 Units by mouth daily. Blood Glucose Monitoring Suppl (Ipsat TherapiesTOUCH ULTRA MINI) w/Device KIT Use as directed to test blood sugars. E11.9 1 Kit 0 artificial tears (TEARS AGAIN) 1.4 % ophthalmic solution Instill 1 Drop into the right eye 4 times a day. 15 mL 0 Fluticasone Propionate 50 MCG/ACT Nasal Suspension (Flonase) Administer 2 Sprays into each nostril daily. 48 g 1 OneTouch Ultra Blue In Vitro Strip (Glucose Blood) Use to test blood sugars once daily E11.9 100 Strip 3 Lancet Device Test once daily E11.9 100 Each 3 Zoster Vac Recomb Adjuvanted 50 MCG/0.5ML Intramuscular Suspension Reconstituted (Shingrix) Inject 0.5 mL into a large muscle now and repeat dose in 60 to 180 days 1 Each 1 Nitroglycerin 0.4 MG Sublingual Tablet Sublingual (Nitrostat) Place under the tongue 1 Tablet every5 minutes as needed for Pain, Chest. 25 Tablet 1 B-12 1000 MCG Oral Tablet Take by mouth. Loperamide HCl 2 MG Oral Capsule Take 1 Capsule by mouth 4 times a day as needed for Diarrhea. Sertraline HCl 50 MG Oral Tablet (Zoloft) Take 1 Tablet by mouth in the morning. Icosapent Ethyl 1 GM Oral Capsule (Vascepa) Take 2 Capsules by mouth 2 times a day with morning andevening meals. Swallow capsules whole, do not open or break. 120 Capsule 11 Albuterol Sulfate (2.5 MG/3ML) 0.083% Inhalation Nebulization Solution (Proventil) Inhale 1 Vial via nebulizer every 4 hours as needed for Wheezing. 120 mL 1 Compressor Nebulizer Inhale via nebulizer. 1 nebulizer with tubing. Dx: COPD exacerbation 1 Each 1 OneTouch Delica Plus Ekaypz95H Test once a day E11.9 100 Each 3 Clopidogrel Bisulfate 75 MG Oral Tablet (pLAVix) TAKE 1 TABLET BY MOUTH EVERY DAY IN THE MORNING 90Tablet 3 Ezetimibe 10 MG Oral Tablet (Zetia) TAKE 1 TABLET BY MOUTH EVERY DAY IN THE MORNING 90 Tablet 3 Albuterol Sulfate HFA 108 (90 Base) MCG/ACT Inhalation Aerosol Solution Inhale 2 Puffs by mouth every 4 hours as needed for Cough, Shortness of Breath or Wheezing. 54 g 1 Nystatin 110851 UNIT/ML Mouth/Throat Suspension As needed Loperamide HCl 2 MG Oral Tablet (Immodium (A-D)) Take 1 Tablet by mouth 4 times a day as needed forDiarrhea. 30 Tablet 0 Gabapentin 100 MG Oral Capsule (Neurontin) Take 1 Capsule by mouth in the morning and 1 Capsule at noon and 1 Capsule before bedtime. 90 Capsule 5 Mrsnjgclium-Mhowcvbqd-Kznlax 100-62.5-25 MCG/ACT Aerosol Powder Breath Activated (Trelegy Ellipta) Inhale 1 Puff by mouth in the morning. 180 Blister Dosing Unit 1 Lisinopril 20 MG Oral Tablet (Prinivil) Take 1.5 Tablets by mouth in the morning. 135 Tablet 3 hydroCHLOROthiazide 12.5 MG Oral Tablet TAKE 1 TABLET BY MOUTH EVERY DAY IN THE MORNING 30 Tablet 5 Dicyclomine HCl 20 MG Oral Tablet (Bentyl) TAKE 1 TABLET BY MOUTH EVERY DAY IN THE MORNING AND AT BEDTIME 180 Tablet 1 LORazepam 1 MG Oral Tablet (Ativan) TAKE 1 TABLET BY MOUTH EVERY 8 HOURS NEEDED FOR ANXIETY 90 Tablet 2 Levothyroxine Sodium 100 MCG Oral Tablet (Levoxyl) TAKE 1 TABLET BY MOUTH IN THE MORNING. (AT LEAST30 MIN PRIOR TO BREAKFAST OR OTHER MEDS). 90 Tablet 0 amLODIPine Besylate 2.5 MG Oral Tablet (Norvasc) TAKE 1 TABLET BY MOUTH EVERY DAY 90 Tablet 1 Pantoprazole Sodium 40 MG Oral Tablet Delayed Release (Protonix) TAKE 1 TABLET BY MOUTH TWICE A DAYIN THE MORNING AND IN THE EVENING 180 Tablet 1 Atorvastatin Calcium 80 MG Oral Tablet (Lipitor) TAKE 1 TABLET BY MOUTH EVERY DAY IN THE EVENING 90Tablet 0 metFORMIN HCl ER 500 MG Oral Tablet Extended Release 24 Hour (Glucophage XR) TAKE 2 TABLETS BY MOUTH EVERY MORNING 180 Tablet 1 Metoprolol Succinate ER 25 MG Oral Tablet Extended Release 24 Hour (toPROL XL) TAKE 1 TABLET BY MOUTH EVERY DAY 90 Tablet 0 No current facility-administered medications for this visit. Facility-Administered Medications Ordered in Other Visits Medication Dose Route Frequency Provider Last Rate Last Admin propofol (DIPRIVAN) 1 % bolus Once PRN Nadine Tom, ADJUNCT WRITING INSTRUCTOR 20 mg at 07/05/16 1219 rocuronium (ZEMURON) inj Once PRN Nadine Tom, ADJUNCT WRITING INSTRUCTOR 50 mg at 05/08/12 0730 midazolam (VERSED) 1 mg/ml inj Once PRN Negro, Nadine Lopez, ADJUNCT WRITING INSTRUCTOR 2 mg at 05/08/12 0715 Past Medical History: Diagnosis Date Jernigan's esophagus 11/28/2011 await BX, path shows inflammation at end of esophagus consistant with acid reflux, possible Barretts esophagus repeat in 1 year 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 Displacement of lumbar intervertebral disc without myelopathy 08/06/2007 Diverticulosis of colon Esophageal reflux Esophageal reflux 07/06/09 HTN, goal below 140/90 Hypothyroidism Influenza A 09/17/14 positive nasal swab Mixed dyslipidemia OSTEOARTHROS NOS-SHLDER Peptic ulcer Temporomandibular joint disorders, unspecified Social History Socioeconomic History Marital status: Spouse name: Woody Number of children: 3 Years of education: Not on file Highest education level: Not on file Occupational History 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 Vaping Use Vaping status: Never Used Substance and Sexual Activity Alcohol use: No Drug use: No Sexual activity: Yes Partners: Male control/protection: Surgical Other Topics Concern Service Not Asked Blood Transfusions Not Asked Caffeine Concern Not Asked Occupational Exposure Not Asked Hobby Hazards Not Asked Sleep Concern Yes Comment: lost her son last fall Stress Concern Yes Comment: lost her son last fall Weight Concern No Special Diet Yes Comment: soft diet due to current dental work Back Care Not Asked Exercise Not Asked Bike Helmet Not Asked Seat Belt Not Asked Self-Exams Not Asked Social History Narrative Not on file Social Needs Financial Resource Strain: Not on file Food Insecurity: No Food Insecurity (05/03/2020) Hunger Vital Sign Worried About Running Out of Food in the Last Year: Never true Ran Out of Food in the Last Year: Never true Transportation Needs: Not on file Social Connections: Not on file Housing Stability: Not on file O:Blood pressure 122/70, pulse 88, temperature 97 F (36.1 C), resp. rate 16, weight 150 lb (68 kg), SpO2 97%. GENERAL: alert, healthy, and no distress A:Anxiety (Primary) - busPIRone HCl 5 MG Oral Tablet (Buspar); Take 1 Tablet by mouth in the morning and 1 Tablet before bedtime. SOB (shortness of breath) - Albuterol Sulfate HFA 108 (90 Base) MCG/ACT Inhalation Aerosol Solution; Inhale 2 Puffs by mouth every 4 hours as needed for Cough, Shortness of Breath or Wheezing. COPD exacerbation (HCC) - Albuterol Sulfate (2.5 MG/3ML) 0.083% Inhalation Nebulization Solution (Proventil); Inhale 1 Vialvia nebulizer every 4 hours as needed for Wheezing. Start buspar. Lorazepam as needed. Any questions/problems, please call. If anything changes, worsens, develops new sx, please call [facility]. Follow Up: Return if symptoms worsen or fail to improve. Janiya Potter PA-C documented in this encounter Nursing Notes * Leanne Gross RN - 10/13/2024 2:38 PM EST Check up Pt would like to get some counseling also She is having anxiety and panic attacks since went to detention Also having some breathing issues. Needs her albuterol refilled documented in this encounter Plan of Treatment Upcoming Encounters Date Type Department Care Team (Late st Contact Info) Description 02/18/2025 3:00 PM EDT Office Visit Nephrology [address] [place] [phone] Ann-Marie Dudley MD [address] [place] [address] 04/22/2025 1:00 PM EDT Office Visit Cardiology [address] [place] [address] Silvia Infante PA-C [address] [place] [address] Scheduled Procedures Name Priority Associated Diagnoses Date/Ti me ESOPHAGOGASTRODUODENOSCOPY ( EGD), FLEXIBLE, TRANSORAL, DIAGNOSTIC Recall Heartburn Abdominal pain, unspecified abdominal location Change in stool habits Loose stools Health Maintenance Due Date Last Done Comments DISCUSS TOBACCO CESSATION (REFER TO SMARTSET #7098) 1942 Discuss Risk-Reducing Salpingo Oophorectomy (RRSO) Recommendation BRCA1/BRCA2,Ages 30 & Up 1972 Hepatitis B Vaccine (2 of 3 - 19+ 3-dose series) 05/27/1998 04/29/1998 Adult Wellness Visit 2008 Zoster Vaccines (3 of 3) 12/17/2019 10/22/2019, 03/05/2009 Depression Screening 04/26/2021 04/26/2020 CKD PHOS USE SMARTSET 18164 12/01/202311/08, 11/10/2021, 05/24/2021, Additional history exists COVID-19 [...] Additional history exists CKD HGB USE SMARTSET 63639 09/07/202509/07, 09/16/2023, 11/30/2022, Additional history exists O2 [...] this encounter Medical Devices Implanted Type Area Field Applications Specialist Device Identifier Shelf Expiration Date Model / Serial / Lot Stent Bl Pa [id number] - [id number] Implanted:Qty: 1 on 05/08/[address] [facility] [place] Left: Renal Artery JNJ : C[employer]IS [employer]OVASC[employer] 07/09/2014 [id number] / / [id number] Stent Bl Pa [id number] - [id number] Implanted:Qty: 1 on 05/08/2012 at [facility] Right: Renal Artery JNJ : CORDIS ENDOVASCULAR 01/06/2015 [id number] / / [id number] Stent Graft [id number] - [id number] Implanted:Qty: 1 on 01/22/2014 at [facility] Left: Renal [employer] 03/08/2016 [id number] / / [id number] Stent Graft [id number] - [id number] Implanted:Qty: 1 on 12/06/2014 by Warren Bashir MD at [facility] Right: Renal Artery [employer] 09/07/2017 [id number] / / [id number] documented as of this encounter Visit Diagnoses Diagnosis Anxiety- Primary Anxiety state, unspecified SOB (shortness of breath) Shortness of breath COPD exacerbation (HCC) Obstructive chronic bronchitis with exacerbation documented in this encounter Advance Directives * [...] and were consensually agreed upon. Care Teams Christian Education Director Relationship Specialty Start Date End Date Gisela Coley MD [address] [place] [address] [place] [id number] PCP - General Family Medicine 04/16/19 documented as of this encounter
--- OUTSIDE RECORDS SUMMARY | 2024-12-02 10:40 | External Medical Summary ---
Author Name Unknown Address Unknown Organization K01:LABORATORY C - [address] [facility] [place] [address] Laboratory Report Ordering Provider Test Date Status NATY LANDRY 09/07/2024 16:33:07 Final Observation Date Value Abnormality Reference (Units ) Status Color of Urine by Auto 09/07/2024 16:33:07 Colorless Colorless, Light Yellow, Yellow, Dark Yellow Final Clarity, Urine 09/07/2024 16:33:07 Clear Clear Final Glucose [Mass/volume] in Urine by Automated test strip 09/07/2024 16:33:07 Negative Negative (mg/dL) Final Bilirubin.total [Presence] in Urine by Automated test strip 09/07/2024 16:33:07 Negative Negative Final Ketones [Mass/volume] in Urine by Automated test strip 09/07/2024 16:33:07 Negative Negative (mg/dL) Final Specific gravity, Urine 09/07/2024 16:33:07 1.009 1.003-1.030 Final Hemoglobin [Presence] in Urine by Automated test strip 09/07/2024 16:33:07 Negative Negative Final pH, Urine 09/07/2024 16:33:07 6.5 5.0-7.5 (Units) Final Protein [Mass/volume] in Urine by Automated test strip 09/07/2024 16:33:07 Negative Negative (mg/dL) Final Urobilinogen [Mass/volume] in Urine by Automated test strip 09/07/2024 16:33:07 Normal Normal (mg/dL) Final Nitrite [Presence] in Urine by Automated test strip 09/07/2024 16:33:07 Negative Negative Final Leukocyte esterase [Presence] in Urine by Automated test strip 09/07/2024 16:33:07 Trace Abnormal Negative Final RBC, Urine 09/07/2024 16:33:07 0-2 0-2 (/HPF) Final WBC, Urine 09/07/2024 16:33:07 6-9 Abnormal 0-2 (/HPF) Final Bacteria [#/area] in Urine sediment by Microscopy high power field 09/07/2024 16:33:07 26-50 Abnormal 0-25 (/HPF) Final Hyaline casts, Urine 09/07/2024 16:33:07 1-4 Abnormal None (/LPF) Final Performing Location LABORATORY [facility] [place] [facility] [address] [facility] [id number]
--- OUTSIDE RECORDS SUMMARY | 2024-12-02 10:40 | External Medical Summary ---
Author Name Unknown Address Unknown Organization K01:[place] [facility] [place] [address] [place] [address] Laboratory Report Ordering Provider Test Date Status NATY LANDRY 09/07/2024 16:33:07 Final Observation Date Value Abnormality Reference (Units ) Status Hemoglobin 09/07/2024 16:33:07 10.9 Below low normal 12 .0-15.3 (g/dL) Final Performing Location LABORATORY [facility] - [address] [place] [address]
--- OUTSIDE RECORDS SUMMARY | 2024-12-02 10:40 | External Medical Summary ---
Author Name Unknown Address Unknown Organization K01:LABORATORY [facility] - [address] [place] [address] Laboratory Report Ordering Provider Test Date Status NATY LANDRY 09/07/2024 16:33:07 Final Observation Date Value Abnormality Reference (Units ) Status Magnesium 09/07/2024 16:33:07 2.2 1.5-2.6 (m g/dL) Final Performing Location LABORATORY [facility] - [address] [place] [address]
--- OUTSIDE RECORDS SUMMARY | 2024-12-02 10:40 | External Medical Summary | Summary of Care ---
Author Name Unknown Organization [facility] Address [address] [facility] [place] [address] Phone [phone] Care Team Providers Care Distribution Operations Supervisor Name Role Phone Gisela Coley MD Primary Care Prov ider Reason for Visit * Reason Comments eRx-Medication Refill Encounter Details Date Type Department Care Team (Late st Contact Info) Description 09/22/2024 Refill Family Medicine [address] [phone] Gisela Coley MD [address] [place] [id number] Type 2 diabetes mellitus with diabetic chronic kidney disease (HCC) Allergies Active Allergy Reactions Criticality Noted Date Comments Ampicillin 11/16/1997 vaginitis Ciprofloxacin 06/13/2017 Had in [facility] ER 03/09/2017. Made her feel very ill. C/o shakeness, nervousness Doxycycline 11/16/1997 Erythromycin 11/16/1997 Ranitidine 11/16/1997 rash documented as of this encounter (statuses as of 09/23/2024) Medications TYLENOL EXTRA STRENGTH 500 MG PO TABS 2 pills as needed Active aspirin 81 MG chewable tablet Take 1 Tab by mouth daily. 34 Tab 11 07/12/20 18 Active Cholecalciferol (VITAMIN D) 50 MCG (2000 UT) [...] Tablet Sublingual (Nitrostat)Indica tions:Coronary artery disease involving eklutna coronary artery of eklutna heart without angina pectoris Place under the [...] break. 120 Capsule 11 09/20/19 24 Active Albuterol Sulfate (2.5 MG/3ML) 0.083% Inhalation Nebulization Solution (Proventil)Indica tions:COPD exacerbation (HCC) Inhale 1 Vial via nebulizer every 4 hours as needed for Wheezing. 120 mL 1 10/04/19 24 Active Additional Information Patient not taking.Reported on 11/26/2023 Compressor NebulizerIndicati ons:COPD exacerbation (HCC) Inhale via nebulizer. 1 nebulizer with tubing. Dx: COPD exacerbation 1 Each 1 10/04/19 24 Active OneTouch Delica Plus [id number] ons:Type 2 diabetes mellitus with stage 3b [...] 54 g 1 11/25/19 24 Active Nystatin 354473 UNIT/ML Mouth/Throat Suspension As needed 09/20/19 24 [...] EVERY DAY 90 Tablet 07/20/20 24 Active metFORMIN HCl ER 500 MG Oral Tablet Extended Release 24 Hour (Glucophage XR)Indications:Ty pe 2 diabetes mellitus with diabetic chronic kidney disease (HCC) TAKE 1 TABLET BY MOUTH EVERY DAY IN THE MORNING 90 Tablet 1 07/19/20 24 Active Atorvastatin Calcium 80 MG Oral [...] EVENING 180 Tablet 1 09/03/20 24 Active documented as of this encounter (statuses as of 09/23/2024) Active Problems Problem Noted Date Diagnosed Date [...] GOLD Classification 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 Increased risk for hereditary breast and ovarian [...] as of this encounter (statuses as of 09/23/2024) Resolved Problems Problem Noted Date Diagnosed Date [...] CKD protocol Coronary artery disease invo lving eklutna coronary artery of eklutna heart without angina pectoris 05/12/2017 07/21/2018 Exertional [...] as of this encounter (statuses as of 09/23/2024) Immunizations Name Administration Dates Next Due COVID-19 mRNA, LNP-s, No Pre serve, 2-Dose Series (Moderna) 01/16/2021,01/06/2021 COVID-19, MRNA-LNP, PF, 30 M CG/0.3 mL, 12 YRS AND ABOVE, IM ([facility]) 10/23/2023 COVID-19, mRNA, LNP-s, PF, B ooster, [...] encounter Miscellaneous Notes * Telephone Encounter - Nayla Monterroso [facility] - 09/23/2024 8:12 AM ESTRefused Prescriptions: Disp Refills metFORMIN HCl ER 500 MG Oral Tablet Extend*180 Ta*1 Sig: TAKE 2TABLETS BY MOUTH EVERY MORNINGRefused By: NAYLA MONTERROSO for Refusal: Too soon documented in this encounter Plan of Treatment Upcoming Encounters Date Type Department Care Team (Late st Contact Info) Description 02/18/2025 3:00 PM EDT Office Visit Nephrology [address] [place] [address] Ann-Marie Dudley MD [address] [place] [address] [place] [address] Scheduled Procedures Name Priority Associated Diagnoses Date/Ti [...] Screening 04/26/2021 04/26/2020 CKD PHOS USE SMARTSET 82490 12/01/202311/08, 11/10/2021, 05/24/2021, Additional history exists COVID-19 Vaccine ( season) 2024 10/23/2023, 10/10/2021, 01/16/2021, Additional history exists Influenza Vaccine (FLU shot) (#1) 2024 06/11/2023, 09/20/2022, 05/24/2021, Additional history exists Diabetic Foot Exam 06/11/2024 06/11/2023, 0 04/19/2020, 07/20/2019, Additional history exists Diabetic Eye Exam 07/30/2024 07/30/2023, , 12/28/2021, Additional history exists HbA1c 09/26/2024 03/26/2024, 11/08, 06/11/2023, Additional history exists GFR 03/08/2025 09/07/2024, 07/1 04/2024, 11/15/2023, Additional history exists TSH 03/26/2025 03/26/2024, 01/0 04/2024, 11/30/2022, Additional history exists Albumin/Creatinine Ratio 09/07/2025 024, 04/17/2023, 11/30/2022, Additional history exists CKD HGB USE SMARTSET 11431 09/07/202509/07, 09/16/2023, 11/30/2022, Additional history exists O2 [...] this encounter Medical Devices Implanted Type Area Crossing Flagman Device Identifier Shelf Expiration Date Model / Serial / Lot Stent Bl Pa [id number] - [id number] Implanted:Qty: 1 on 05/08/2012 [place] [facility] [place]: Renal Artery JNJ : CORDIS ENDOVASCULAR 07/09/2014 [id number] / / [id number] Stent Bl Pa [id number] - [id number] Implanted:Qty: 1 on 05/08/2012 at [facility] Right: Renal Artery JNJ : CORDIS ENDOVASCULAR 01/06/2015 [id number] / / [id number] Stent Graft [id number] - [id number] Implanted:Qty: 1 on 01/22/2014 at [place] [facility] [place]: Renal [employer] 03/08/2016 [id number] / / [id number] Stent Graft [id number] - [id number] Implanted:Qty: 1 on 12/06/2014 by [place] Bashir MD at [facility] Right: Renal Artery [employer] 09/07/2017 [id number] / / [id number] documented as of this encounter Visit Diagnoses Diagnosis Type 2 diabetes mellitus with diabetic chronic kidney disease (HCC) Type II or unspecified type diabetes mellitus with renal manifestations, not stated as uncontrolled documented in this encounter Advance Directives * [...] and were consensually agreed upon. Care Teams Distribution Operations Supervisor Relationship Specialty Start Date End Date Gisela Coley MD [address] [place] [address] [place] [address] PCP - General Family Medicine 04/16/19 documented as of this encounter
--- OUTSIDE RECORDS SUMMARY | 2024-12-02 10:40 | External Medical Summary ---
Author Name Unknown Address Unknown Organization K01:LABORATORY [facility] – [place], [place] - [address] [place] [address] Laboratory Report Ordering Provider Test Date Status GRISNATY 09/07/2024 16:33:07 Final Normal: <30 mg/g creatinine< br/>High: 30-300 mg/g creatinine
Very High: >300 mg/g creatinine
Nephrotic: >2200 mg/g creatinine Observation Date Value Abnormality Reference (Units ) Status Albumin, Urine 09/07/2024 16:33:07 4.00 (mg/dL) Final Creatinine, Urine 09/07/2024 16:33:07 37 (mg/dL) Final Albumin/Creatinine [Mass Ratio] in Urine 09/07/2024 16:33:07 108 Above high normal <30 (mg/g Creat) Final Performing Location LABORATORY [facility] – [place], [place] - [address] [place] [address]
--- OUTSIDE RECORDS SUMMARY | 2024-12-02 10:40 | External Medical Summary | Summary of Care ---
Author Name Unknown Organization [facility] Address [address] [facility] [place] [address] Phone [phone] Care Team Providers Care Port Cdl A Driver Name Role Phone Gisela Coley MD Primary Care Prov ider Reason for Visit * Reason Comments eRx-Medication Refill Encounter Details Date Type Department Care Team (Late st Contact Info) Description 09/24/2024 Refill Family Medicine [address] [phone] Gisela Coley MD [address] [place] [address] Type 2 diabetes mellitus with diabetic chronic kidney disease (HCC) Allergies Active Allergy Reactions Criticality Noted Date Comments Ampicillin 11/16/1997 vaginitis Ciprofloxacin 06/13/2017 Had in [facility] ER 03/09/2017. Made her feel very ill. C/o shakeness, nervousness Doxycycline 11/16/1997 Erythromycin 11/16/1997 Ranitidine 11/16/1997 rash documented as of this encounter (statuses as of 09/24/2024) Medications TYLENOL EXTRA STRENGTH 500 MG PO TABS 2 pills as needed Active aspirin 81 MG chewable tablet Take 1 Tab by mouth daily. 34 Tab 11 018 Active Cholecalciferol (VITAMIN D) 50 MCG (2000 UT) Capsule Take 2,000 Units by mouth daily. Active Blood Glucose Monitoring Suppl (ONETOUCH ULTRA MINI) w/Device KIT Use as directed to test blood sugars. E11.9 1 Kit 020 Active artificial tears (TEARS AGAIN) 1.4 % ophthalmic solutionIndicati ons:Right-sided Henderson's palsy Instill 1 Drop into the right eye 4 times a day. 15 mL 020 Active Fluticasone Propionate 50 MCG/ACT Nasal Suspension (Flonase)Indicat ions:Allergic rhinitis, unspecified seasonality, unspecified trigger Administer 2 Sprays into each nostril daily. 48 g 1 021 Active OneTouch Ultra Blue In Vitro Strip (Glucose Blood) Use to test blood sugars once daily E11.9 100 Strip 3 021 Active Lancet Device Test once daily E11.9 100 Each 3 021 Active Zoster Vac Recomb Adjuvanted 50 MCG/0.5ML Intramuscular Suspension Reconstituted (Shingrix)Indica tions:Need for shingles vaccine Inject 0.5 mL into a large muscle now and repeat dose in 60 to 180 days 1 Each 1 022 Active Nitroglycerin 0.4 MG Sublingual Tablet Sublingual (Nitrostat)Indic ations:Coronary artery disease involving mohegan coronary artery of mohegan heart without angina pectoris Place under the tongue 1 Tablet every 5 minutes as needed for Pain, Chest. 25 Tablet 1 022 Active B-12 1000 MCG Oral Tablet Take by mouth. 023 Active Loperamide HCl 2 MG Oral Capsule Take 1 Capsule by mouth 4 times a day as needed for Diarrhea. Active Sertraline HCl 50 MG Oral Tablet (Zoloft)Indicati ons:KWABENA (generalized anxiety disorder) Take 1 Tablet by mouth in the morning. 024 Active Icosapent Ethyl 1 GM Oral Capsule (Vascepa) Take 2 Capsules by mouth 2 times a day with morning and evening meals. Swallow capsules whole, do not open or break. 120 Capsule 11 024 Active Albuterol Sulfate (2.5 MG/3ML) 0.083% Inhalation Nebulization Solution (Proventil)Indic ations:COPD exacerbation (HCC) Inhale 1 Vial via nebulizer every 4 hours as needed for Wheezing. 120 mL 1 024 Active Additional Information Patient not taking.Reported on 11/26/2023 Compressor NebulizerIndicat ions:COPD exacerbation (HCC) Inhale via nebulizer. 1 nebulizer with tubing. Dx: COPD exacerbation 1 Each 1 024 Active OneTouch Delica Plus [id number] ions:Type 2 diabetes mellitus with stage 3b chronic kidney disease, without long-term current use of insulin (HCC) Test once a day E11.9 100 Each 3 024 Active Clopidogrel Bisulfate 75 MG Oral Tablet (pLAVix) TAKE 1 TABLET BY MOUTH EVERY DAY IN THE MORNING 90 Tablet 3 024 Active Ezetimibe 10 MG Oral Tablet (Zetia)Indicatio ns:High triglycerides,Dy slipidemia, goal LDL below 100 TAKE 1 TABLET BY MOUTH EVERY DAY IN THE MORNING 90 Tablet 3 024 Active Albuterol Sulfate HFA 108 (90 Base) MCG/ACT Inhalation Aerosol SolutionIndicati ons:SOB (shortness of breath) Inhale 2 Puffs by mouth every 4 hours as needed for Cough, Shortness of Breath or Wheezing. 54 g 1 024 Active Nystatin 779135 UNIT/ML Mouth/Throat Suspension As needed 024 Active Loperamide HCl 2 MG Oral Tablet (Immodium (A-D)) Take 1 Tablet by mouth 4 times a day as needed for Diarrhea. 30 Tablet 024 Active Gabapentin 100 MG Oral Capsule (Neurontin)Indic ations:Diabetic peripheral neuropathy (HCC) Take 1 Capsule by mouth in the morning and 1 Capsule at noon and 1 Capsule before bedtime. 90 Capsule 5 024 Active Fluticasone-Umec lidin-Vilant 100-62.5-25 MCG/ACT Aerosol Powder Breath Activated (Trelegy Ellipta)Indicati ons:COPD exacerbation (HCC) Inhale 1 Puff by mouth in the morning. 180 Blister Dosing Unit 1 024 Active Lisinopril 20 MG Oral Tablet (Prinivil)Indica tions:HTN, goal below 140/90 Take 1.5 Tablets by mouth in the morning. 135 Tablet 3 024 Active hydroCHLOROthiaz melody 12.5 MG Oral TabletIndication s:HTN, goal below 140/90 TAKE 1 TABLET BY MOUTH EVERY DAY IN THE MORNING 30 Tablet 5 024 Active Dicyclomine HCl 20 MG Oral Tablet (Bentyl)Indicati ons:Irritable bowel syndrome, unspecified type TAKE 1 TABLET BY MOUTH EVERY DAY IN THE MORNING AND AT BEDTIME 180 Tablet 1 024 Active Metoprolol Succinate ER 25 MG Oral Tablet Extended Release 24 Hour (toPROL XL)Indications:H eart palpitations,HTN , goal below 140/90 TAKE 1 TABLET BY MOUTH EVERY DAY 90 Tablet 024 Active Atorvastatin Calcium 80 MG Oral Tablet (Lipitor)Indicat ions:Dyslipidemi a, goal LDL below 70 TAKE 1 TABLET BY MOUTH EVERY DAY IN THE EVENING 90 Tablet 024 Active LORazepam 1 MG Oral Tablet (Ativan)Indicati ons:Anxiety TAKE 1 TABLET BY MOUTH EVERY 8 HOURS NEEDED FOR ANXIETY 90 Tablet 2 024 Active Levothyroxine Sodium 100 MCG Oral Tablet (Levoxyl) TAKE 1 TABLET BY MOUTH IN THE MORNING. (AT LEAST 30 MIN PRIOR TO BREAKFAST OR OTHER MEDS). 90 Tablet 024 Active amLODIPine Besylate 2.5 MG Oral Tablet (Norvasc) TAKE 1 TABLET BY MOUTH EVERY DAY 90 Tablet 1 024 Active Pantoprazole Sodium 40 MG Oral Tablet Delayed Release (Protonix)Indica tions:Gastroesop hageal reflux disease, unspecified whether esophagitis present TAKE 1 TABLET BY MOUTH TWICE A DAY IN THE MORNING AND IN THE EVENING 180 Tablet 1 024 Active metFORMIN HCl ER 500 MG Oral Tablet Extended Release 24 Hour (Glucophage XR)Indications: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) TAKE 2 TABLETS BY MOUTH EVERY MORNING 180 Tablet 1 025 Active metFORMIN HCl ER 500 MG Oral Tablet Extended Release 24 Hour (Glucophage XR)Indications: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) TAKE 1 TABLET BY MOUTH EVERY DAY IN THE MORNING 90 Tablet 1 024 2024 Discontinued documented as of this encounter (statuses as of 09/24/2024) Active Problems Problem Noted Date Diagnosed Date [...] GOLD Classification Coronary artery disease invo lving mohegan coronary artery of mohegan heart with angina pectoris 07/21/2018 Vitamin D deficiency 07/21/2018 Monoallelic mutation of BRCA2 gene 08/06/2017 Overview (08/06/2017): Pathogenic BRCA2 gene variant (c.4588A>T, p.Sih0510U) detected via 10Six. Increased risk for hereditary breast and ovarian [...] as of this encounter (statuses as of 09/24/2024) Resolved Problems Problem Noted Date Diagnosed Date [...] CKD protocol Coronary artery disease invo lving mohegan coronary artery of mohegan heart without angina pectoris 05/12/2017 07/21/2018 Exertional [...] as of this encounter (statuses as of 09/24/2024) Immunizations Name Administration Dates Next Due COVID-19 [...] 12/06/2014 8:00 PM Helena Donato, TORSTEN * Are you blind or do you [...] encounter Miscellaneous Notes * Telephone Encounter - Maximo Dickerson [facility] - 09/24/2024 2:52 PM ESTSigned Prescriptions: Disp Refills metFORMIN HCl ER 500 MG Oral Tablet Extend*180 Ta*1 Sig: TAKE 2 TABLETS BY MOUTH EVERY MORNINGAuthorizing Provider: GARRET ZAIDI User: MAXIMO DICKERSON * Telephone Encounter - Maximo Dickerson RP - 09/24/2024 2:48 PM EST Dose increased to two tablets daily 12/03/23. Refills authorized. Thank You Maximo Dickerson PharmD Clinical Pharmacist [facility] [phone] / [phone] 09/24/2024, 2:50 PM documented in this encounter Plan of Treatment Upcoming Encounters Date Type Department Care Team (Late st Contact Info) Description 02/18/2025 3:00 PM EDT Office Visit Nephrology [address] [place] [address] Ann-Marie Dudley MD [address] [place] [address] [place], [place] [address] Scheduled Procedures Name Priority Associated Diagnoses Date/Ti me ESOPHAGOGASTRODUODENOSCOPY ( EGD), FLEXIBLE, TRANSORAL, DIAGNOSTIC Recall Heartburn Abdominal pain, unspecified abdominal location Change in stool habits Loose stools Health Maintenance Due Date Last Done Comments DISCUSS TOBACCO CESSATION (REFER TO SMARTSET #3987) 1942 Discuss Risk-Reducing Salpingo Oophorectomy (RRSO) Recommendation BRCA1/BRCA2,Ages 30 & Up 1972 Hepatitis B Vaccine (2 of 3 - 19+ 3-dose series) 05/27/1998 04/29/1998 Adult Wellness Visit 2008 Zoster Vaccines (3 of 3) 12/17/2019 10/22/2019, 03/05/2009 Depression Screening 04/26/2021 04/26/2020 CKD PHOS USE SMARTSET 72455 12/01/202311/08, 11/10/2021, 05/24/2021, Additional history exists COVID-19 [...] Additional history exists CKD HGB USE SMARTSET 77689 09/07/202509/07, 09/16/2023, 11/30/2022, Additional history exists O2 [...] this encounter Medical Devices Implanted Type Area Piano Mechanic Device Identifier Shelf Expiration Date Model / Serial / Lot Stent Bl Pa [id number] - [id number] Implanted:Qty: 1 on 05/08/2012 at [place] [facility] [place] Left: Renal Artery JNJ : CORDIS ENDOVASCULAR 07/09/2014 [id number] / / [id number] Stent Bl Pa [id number] - [id number] Implanted:Qty: 1 on 05/08/2012 at [place] [facility] [place] Right: Renal Artery JNJ : CORDIS ENDOVASCULAR 01/06/2015 [id number] / / [id number] Stent Graft [id number] - [id number] Implanted:Qty: 1 on 01/22/2014 at [place] [facility] [place] Left: Renal [employer] 03/08/2016 [id number] / / [id number] Stent Graft [id number] - [id number] Implanted:Qty: 1 on 12/06/2014 by [place] Bashir MD at [place] [facility] [place] Right: Renal Artery [employer] 09/07/2017 [id number] / / [id number] documented as of this encounter Visit Diagnoses [...] and were consensually agreed upon. Care Teams Port Cdl A Driver Relationship Specialty Start Date End Date Gisela Coley MD [address] [place] [address] [place] [address] PCP - General Family Medicine 04/16/19 documented as of this encounter
--- OUTSIDE RECORDS SUMMARY | 2024-12-02 10:40 | External Medical Summary ---
Author Name Unknown Address Unknown Organization K01:LABORATORY [facility] [place] [address] [facility] [address] [place] [address] Laboratory Report Ordering Provider Test Date Status NATY LANDRY 09/07/2024 16:33:07 Final Observation Date Value Abnormality Reference (Units ) Status BUN 09/07/2024 16:33:07 13 6-20 (mg/dL) Final Creatinine 09/07/2024 16:33:07 1.2 Above high normal 0.5-1.0 (mg/dL) Final Glomerular filtration rate/1.73 sq M.predicted [Volume Rate/Area] in Serum, Plasma or Blood by Creatinine-based formula (CKD-EPI) 09/07/2024 16:33:07 46 Below low normal >=60 (mL/min) Final eGFR is calculated based on the CKD-EPI 2020 equation. Sodium 09/07/2024 16:33:07 138 135-146 (m mol/L) Final Potassium 09/07/2024 16:33:07 4.4 3.5-5.1 (m mol/L) Final Cl 09/07/2024 16:33:07 100 98-107 (mm ol/L) Final CO2 09/07/2024 16:33:07 25 22-32 (mmo l/L) Final Anion gap 09/07/2024 16:33:07 13 7-15 (mmol /L) Final Glucose 09/07/2024 16:33:07 107 70-120 (mg /dL) Final Calcium 09/07/2024 16:33:07 9.4 8.4-10.2 ( mg/dL) Final Performing Location LABORATORY [facility] [place] - [address] [place] [address]
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
--- OUTSIDE RECORDS SUMMARY | 2024-12-02 10:40 | External Medical Summary | Summary of Care ---
Author Name Unknown Organization [facility] Address [address] [facility] [place] [address] Phone [phone] Care Team Providers Care Day Care Aide Name Role Phone Gisela Coley MD Primary Care Prov ider Reason for Visit * Reason Onset Date Comments Test Results 09/16/2024 Encounter Details Date Type Department Care Team (Late st Contact Info) Description 09/16/2024 Telephone Family Medicine [address] [address] Gisela Coley MD [address] [place] [address] [address] Test Results Allergies Active Allergy Reactions Criticality Noted Date Comments Ampicillin 11/16/1997 vaginitis Ciprofloxacin 06/13/2017 Had in [facility] ER 03/09/2017. Made her feel very ill. C/o shakeness, nervousness Doxycycline 11/16/1997 Erythromycin 11/16/1997 Ranitidine 11/16/1997 rash documented as of this encounter (statuses as of 09/18/2024) Medications TYLENOL EXTRA STRENGTH 500 MG PO TABS 2 pills as needed Active aspirin 81 MG chewable tablet Take 1 Tab by mouth daily. 34 Tab 11 07/12/20 18 Active Cholecalciferol (VITAMIN D) 50 MCG (1999) Capsule Take 2,000 Units by mouth daily. 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 Increased risk for hereditary breast and ovarian [...] as of this encounter (statuses as of 09/18/2024) Resolved Problems Problem Noted Date Diagnosed Date [...] CKD protocol Coronary artery disease invo lving jackson coronary artery of jackson heart without angina pectoris 05/12/2017 07/21/2018 Exertional [...] as of this encounter (statuses as of 09/18/2024) Immunizations Name Administration Dates Next Due COVID-19 [...] Helena Donato RN documented in this encounter Miscellaneous Notes * Telephone Encounter - Pauline Howell CPhT - 09/18/2024 2:51 PM EST Pt is calling to confirm the medication that is recommended for her because of her recent labs. I relayed the message from another note that Vitron-C is recommended daily. Pt verbalized understanding. Thank you, Gissell Howell CPhT Anesthesia Assistant III [facility] [address] [place] [address], [address] 38-[address] * Telephone Encounter - Jennifer Cedillo LPN - 09/17/2024 1:08 PM EST Patient aware and verbalized understanding Kidney labs stable w/ mild-moderate protein in urine and known iron def anemia; BP uncontrolled; ptchecking in L arm at home and needs to check in R >await home BP log in R arm >likely will increase lisinopril dose but wait on results >pls tell her about MTDM > may ask her to follow w/ them depending on results >is there a reason she's not on iron ? Suggest vitron-c daily once Pt doesn't know why she stopped iron, it has been years. * Telephone Encounter - Hammad Fernandes OSA - 09/17/2024 1:08 PM EST Reason for patient's call: Return call Caller was transferred to Jennifer at the nurse line. * Telephone Encounter - Fatimah Palomo RN - 09/17/2024 10:42 AM EST Attempted to contact pt on both listed number. Cell number is [phone] not [phone]. Unable to leave message on either line. Will attempt later. * Telephone Encounter - Ann-Marie Dudley MD - 09/17/2024 10:16 AM EST See 09/08 result note and update pt pls * Telephone Encounter - Matt Long OSA - 09/16/2024 5:01 PM EST Patient calling in regarding test results. Were the test results abnormal? (Y/N) Yes If yes, no results were given by PCC. If no, did the patient have questions regarding the normal/negative results? (Y/N) No Attempted to transfer call to nurse line to go over results with patient. Please return patient's call. * Telephone Encounter - Gloria Dewitt CMA - 09/16/2024 4:48 PM EST See message * Telephone Encounter - William Jones OSA - 09/16/2024 11:37 AM EST RESULT REQUEST: [facility] called for results of blood tests Test(s) performed at [facility] Date test(s) performed on 09/07/2024. Please contact at mobile Patient Phone Numbers documented in this encounter Plan of Treatment Upcoming Encounters Date Type Department Care Team (Late st Contact Info) Description 02/18/2025 3:00 PM EDT Office Visit Nephrology [address] [place] [address] Ann-Marie Dudley MD [address] [place] [address] [place] [address] Scheduled Procedures Name Priority Associated Diagnoses Date/Ti me ESOPHAGOGASTRODUODENOSCOPY ( EGD), FLEXIBLE, TRANSORAL, DIAGNOSTIC Recall Heartburn Abdominal pain, unspecified abdominal location Change in stool habits Loose stools Health Maintenance Due Date Last Done Comments DISCUSS TOBACCO CESSATION (REFER TO SMARTSET #6037) 1942 Discuss Risk-Reducing Salpingo Oophorectomy (RRSO) Recommendation BRCA1/BRCA2,Ages 30 & Up 1972 Hepatitis B Vaccine (2 of 3 - 19+ 3-dose series) 05/27/1998 04/29/1998 Adult Wellness Visit 2008 Zoster Vaccines (3 of 3) 12/17/2019 10/22/2019, 05/2009 Depression Screening 04/26/2021 04/26/2020 CKD PHOS USE SMARTSET 82578 12/01/202311/08, 11/10/2021, 05/24/2021, Additional history exists COVID-19 [...] Additional history exists CKD HGB USE SMARTSET 36434 09/07/202509/07, 09/16/2023, 11/30/2022, Additional history exists O2 [...] this encounter Medical Devices Implanted Type Area Critical Care Clinical Nurse Specialist Device Identifier Shelf Expiration Date Model / Serial / Lot Stent Bl Pa [id number] - [id number] Implanted:Qty: 1 on 05/08/2012 at [place] [facility] [place] Left: Renal Artery JNJ : CORDIS ENDOVASCULAR 07/09/2014 [id number] / / [id number] Stent Bl Pa [id number] - [id number] Implanted:Qty: 1 on 05/08/2012 at OR [facility] [place] Right: Renal Artery JNJ : CORDIS ENDOVASCULAR 01/06/2015 [id number] / / [id number] Stent Graft [id number] - [id number] Implanted:Qty: 1 on 01/22/2014 at [place] [facility] [place] Left: Renal [employer] 03/08/2016 [id number] / / [id number] Stent Graft [id number] - [id number] Implanted:Qty: 1 on 12/06/2014 by Warren Bashir MD at [place] [facility] [place] Right: Renal Artery [employer] 09/07/2017 [id number] / / [id number] documented as of this encounter Advance Directives [...] and were consensually agreed upon. Care Teams Day Care Aide Relationship Specialty Start Date End Date Gisela Coley MD [address] [place] [address] [place] [address] PCP - General Family Medicine 04/16/19 documented as of this encounter
--- OUTSIDE RECORDS SUMMARY | 2024-12-02 10:40 | External Medical Summary | Summary of Care ---
Author Name Unknown Organization [facility] Address [address] [facility] [place] [address] Phone [phone] Care Team Providers Care Navigation Officer Name Role Phone Gisela Coley MD Primary Care Prov ider Reason for Visit * Reason Comments Outpatient Testing Encounter Details Date Type Department Care Team (Late st Contact Info) Description 09/07/2024 4:30 PM EST Laboratory Laboratory [address] [place] [phone] [place] [id number] Arrived Allergies Active Allergy Reactions Criticality Noted Date Comments Ampicillin 11/16/1997 vaginitis Ciprofloxacin 06/13/2017 Had in [facility] ER 03/09/2017. 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 Increased risk for hereditary breast and ovarian [...] CKD protocol Coronary artery disease invo lving [place] coronary artery of [place] heart without angina pectoris 05/12/2017 07/21/2018 Exertional [...] CG/0.3 mL, 12 YRS AND ABOVE, [facility] 10/23/2023 COVID-19, mRNA, LNP-s, PF, B ooster, [...] Helena Chatterjee RN documented in this encounter Plan of Treatment Upcoming Encounters Date Type Department Care Team (Late st Contact Info) Description 02/18/2025 3:00 PM EDT Office Visit Nephrology [address] [place] [address] Ann-Marie Dudely MD [address] [facility] [place] [id number] Scheduled Procedures Name Priority Associated Diagnoses Date/Ti me ESOPHAGOGASTRODUODENOSCOPY ( EGD), FLEXIBLE, TRANSORAL, DIAGNOSTIC Recall Heartburn Abdominal pain, unspecified abdominal location Change in stool habits Loose stools Health Maintenance Due Date Last Done Comments DISCUSS TOBACCO CESSATION (REFER TO SMARTSET #9621) 1940 Discuss Risk-Reducing Salpingo Oophorectomy (RRSO) Recommendation BRCA1/BRCA2,Ages 30 & Up 1972 Hepatitis B Vaccine (2 of 3 - 19+ 3-dose series) 05/27/1998 04/29/1998 Adult Wellness Visit 2008 Zoster Vaccines (3 of 3) 12/17/2019 10/22/2019, 0305/2009 Depression Screening 04/26/2021 04/26/2020 CKD PHOS USE SMARTSET 61678 12/01/202311/08, 11/10/2021, 05/24/2021, Additional history exists Albumin/Creatinine Ratio 04/17/2024 023, 11/30/2022, 11/10/2021, Additional history exists COVID-19 Vaccine ( season) 2024 10/23/2023, 10/10/2021, 01/16/2021, Additional history exists Influenza Vaccine (FLU shot) (#1) 2024 06/11/2023, 09/20/2022, 05/24/2021, Additional history exists Diabetic Foot Exam 06/11/2024 06/11/2023, 0 04/19/2020, 07/20/2019, Additional history exists Diabetic Eye Exam 07/30/2024 07/30/2023, , 12/28/2021, Additional history exists CKD HGB USE SMARTSET 20104 09/16/202409/16, 11/30/2022, 09/20/2022, Additional history exists GFR 09/26/2024 03/26/2024, 04/2024, 11/04/2023, Additional history exists HbA1c 09/26/2024 03/26/2024, 11/08, 06/11/2023, Additional history exists TSH 03/26/2025 03/26/2024, 04/2024, 11/30/2022, Additional history exists O2 ASSESSMENT [...] this encounter Medical Devices Implanted Type Area Labor Relations Specialist Device Identifier Shelf Expiration Date Model / Serial / Lot Stent Bl Pa [id number] - [id number] Implanted:Qty: 1 on 05/08/2012 at [place] [facility] [place] Left: Renal Artery JNJ : CORDIS ENDOVASCULAR 07/09/2014 [id number] / / [id number] Stent Bl Pa [id number] - [id number] Implanted:Qty: 1 on 05/08/2012 at [place] [facility] [place] Right: Renal Artery JNJ : CORDIS ENDOVASCULAR 01/06/2015 [id number] / / [id number] Stent Graft [id number] - [id number] Implanted:Qty: 1 on 01/22/2014 at [place] [facility] [place] Left: Renal [employer] 03/08/2016 [id number] / / [id number] Stent Graft [id number] - [id number] Implanted:Qty: 1 on 12/06/2014 by Warren Bashir MD at [facility] Right: Renal Artery [employer] 09/07/2017 [id number] / / [id number] documented as of this encounter Advance Directives [...] and were consensually agreed upon. Care Teams Navigation Officer Relationship Specialty Start Date End Date Gisela Coley MD [address] [place] [address] [place] [address] PCP - General Family Medicine 04/16/19 documented as of this encounter
--- OUTSIDE RECORDS SUMMARY | 2024-12-02 10:40 | External Medical Summary | Summary of Care ---
Author Name Unknown Organization [facility] Address [address] [facility] [place] [address] Phone [phone] Care Team Providers Care Diamond Sawer Name Role Phone Gisela Longoria MD Primary Care Prov ider Reason for Visit * Reason Onset Date Comments Medication Refill 08/25/2024 Encounter Details Date Type Department Care Team (Late st Contact Info) Description 08/25/2024 Refill Family Medicine [address] [address] Gisela Longoria MD [address] [place] [address] [place] [address] Anxiety Allergies Active Allergy Reactions Criticality Noted Date Comments Ampicillin 11/16/1997 vaginitis Ciprofloxacin 06/13/2017 Had in [facility] ER 03/09/2017. Made her feel very ill. C/o shakeness, nervousness Doxycycline 11/16/1997 Erythromycin 11/16/1997 Ranitidine 11/16/1997 rash documented as of this encounter (statuses as of 09/23/2024) Medications TYLENOL EXTRA STRENGTH 500 MG PO TABS 2 pills as needed Active aspirin 81 MG chewable tablet Take 1 Tab by mouth daily. 34 Tab 11 018 Active Cholecalciferol (VITAMIN D) 50 MCG (1999) Capsule Take 2,000 Units by mouth daily. 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 54 g 1 024 Active Nystatin 347299 UNIT/ML Mouth/Throat Suspension As needed Active Loperamide HCl 2 MG Oral Tablet [...] DAY IN THE MORNING 30 Tablet 5 08/20/2 024 Active Dicyclomine HCl 20 MG Oral Tablet (Bentyl)Indicati ons:Irritable bowel syndrome, unspecified type TAKE 1 TABLET BY MOUTH EVERY DAY IN THE MORNING AND AT BEDTIME 180 Tablet 1 Active Metoprolol Succinate ER 25 MG Oral Tablet Extended Release 24 Hour (toPROL XL)Indications:H eart palpitations,HTN , goal below 140/90 TAKE 1 TABLET BY MOUTH EVERY DAY 90 Tablet Active metFORMIN HCl ER 500 MG Oral Tablet Extended Release 24 Hour (Glucophage XR)Indications: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) TAKE 1 TABLET BY MOUTH EVERY DAY IN THE MORNING 90 Tablet 1 024 Active Atorvastatin Calcium 80 MG Oral Tablet (Lipitor)Indicat ions:Dyslipidemi a, goal LDL below 70 TAKE 1 TABLET BY MOUTH EVERY DAY IN THE EVENING 90 Tablet Active LORazepam 1 MG Oral Tablet (Ativan)Indicati ons:Anxiety TAKE 1 TABLET BY MOUTH EVERY 8 HOURS NEEDED FOR ANXIETY 90 Tablet 2 Active Pantoprazole Sodium 40 MG Oral Tablet Delayed Release (Protonix)Indica tions:Gastroesop hageal reflux disease, unspecified whether esophagitis present TAKE 1 TABLET BY MOUTH TWICE A DAY IN THE MORNING AND IN THE EVENING 180 Tablet 1 024 2023 Discontinued amLODIPine Besylate 2.5 MG Oral Tablet (Norvasc) TAKE 1 TABLET BY MOUTH EVERY DAY 90 Tablet 1 024 2023 Discontinued Levothyroxine Sodium 100 MCG Oral Tablet (Levoxyl) Take 1 Tablet by mouth in the morning. (at least 30 min prior to breakfast or other meds). 90 Tablet 1 024 2023 Discontinued LORazepam 1 MG Oral Tablet (Ativan)Indicati ons:Anxiety TAKE 1 TABLET BY MOUTH EVERY 8 HOURS NEEDED FOR ANXIETY 90 Tablet 024 2023 Discontinued(R efill) documented as of this encounter (statuses as [...] GOLD Classification Coronary artery disease invo lving [place] coronary artery of [place] heart with angina pectoris 07/21/2018 Vitamin D deficiency 07/21/2018 Monoallelic mutation of BRCA2 gene 08/06/2017 Overview (08/06/2017): Pathogenic BRCA2 gene variant (c.4588A>T, p.Kpi6999F) detected via [employer]Digital. Increased risk for hereditary breast and ovarian [...] CKD protocol Coronary artery disease invo lving [place] coronary artery of [place] heart without angina pectoris 05/12/2017 07/21/2018 Exertional [...] CG/0.3 mL, 12 YRS AND ABOVE, IM ([facility]) 10/23/2023 COVID-19, mRNA, LNP-s, PF, B ooster, 100mcg/0.5mg (Moderna) 10/10/2021 Hepatitis B Vaccine 04/29/1998 Pneumococcal Conjugate Vacc, 13 Valent (Prevnar) 09/29/2015 Pneumococcal Polysaccharide PPV23 (Pneumovax) 08/23/2010,08/11/1993 Seasonal Influenza Vac., MDV , IM, 0.5 mL (Fluzone) 05/31/2015,12/07/2014(),06/30/2013,,05/30/2011,08/23/2010,2008,06/29/2008,07/03/2007,08/08/2001 07/11/2002 Seasonal Influenza Virus Vac cine, Unspecified Formulation 06/27/1993 Seasonal Influenza, PF, 6 M & above, [...] 12/06/2014 8:00 PM Helena Donato, TORSTEN * Do you have difficulty dressing or [...] encounter Miscellaneous Notes * Telephone Encounter - Cameron Walker merchandising intern - 09/23/2024 11:27 AM EST PCC calling requesting a refill on this medication. Script sent 08/26/24 with 2 refills. Advised tohave Pt call pharmacy. Thank you, Cameron Walker Supervisor [employer] I [facility] ([facility]) 09/23/2024,11:28 AM * Telephone Encounter - Prema Zhou RPh - 08/26/2024 9:58 AM EST Signed Prescriptions: Disp Refills LORazepam 1 MG Oral Tablet (Ativan) 90 Tab*2 Sig: TAKE 1 TABLETBY MOUTH EVERY 8 HOURS NEEDED FOR ANXIETYAuthorizing Provider: GISELA LONGORIA------- Electronically signed by [facility] at 08/26/2024 9:58 AM EST * Telephone Encounter - Gisela Longoria MD - 08/26/2024 9:42 AM EST Signed Prescriptions: Disp Refills LORazepam 1 MG Oral Tablet (Ativan) 90 Tab*2 Sig: TAKE 1 TABLET BY MOUTH EVERY 8 HOURS NEEDED FOR ANXIETY Authorizing Provider: GISELA LONGORIA * Telephone Encounter - [facility] - 08/25/2024 3:46 PM ESTPending Prescriptions: Disp Refills LORazepam 1 MG Oral Tablet (Ativan) 90 Tab*0 Sig: TAKE 1 TABLET BY MOUTH EVERY 8 HOURS NEEDED FOR ANXIETY * Telephone Encounter - [facility] - 08/25/2024 3:45 PM EST I have reviewed the patients controlled substance dispensing history in the Prescription Drug Monitoring Program in compliance with the [facility] regulations before prescribing a controlled substance. PDMP checked on 08/25/2024. Pending Prescriptions: Disp Refills LORazepam 1 MG Oral Tablet (Ativan) 90 Tab*0 Sig: TAKE 1 TABLET BY MOUTH EVERY 8 HOURS NEEDED FOR ANXIETY Last Visit: 03/26/2024 (in office), Visit date not found (telemedicine) Next Visit: Visit date not found Date medication was last filled: 07/27/24 Date medication is due for refill: 08/25/24 Pharmacy: [id number] Is this request for a controlled substance? Yes and Urine Drug Screen Not completed Toxicology results: Results for orders placed or performed in visit on 03/28/22 PAIN MANAGEMENT DRUG PANEL, URINE W/ INTERPRETATION Result Value Compliance Interpretation Based on the medication information provided: The presence of lorazepam is CONSISTENT with lorazepam use. Amphetamines Screen, U Negative Benzodiazepines Screen, U Refer to confirmation results (A) Cannabinoids Screen, U Negative Cocaine Metabolite Screen, U Negative Fentanyl Screen, U Negative Hydrocodone Screen, U Negative Methadone Metabolite Screen, U Negative Morphine/Codeine Screen, U Negative Oxycodone Screen, U Negative Valid Interpretation Normal Creatinine, U 66 Narrative Cutoff [...] Results Review. Please approve if appropriate. Thank You, [facility] Clinical Pharmacist [facility] ([facility]) 08/25/2024, 3:45 PM Electronically signed by [facility] at 08/25/2024 3:46 PM EST * Telephone Encounter - Hedy Alejo CPhT - 08/25/2024 12:31 PM EST Did you pend patient's preferred pharmacy and medication before forwarding?yes Pharmacy: [id number] Pending Prescriptions: Disp Refills LORazepam 1 MG Oral Tablet (Ativan) 90 Tab*0 Sig: TAKE 1 TABLET BY MOUTH EVERY 8 HOURS NEEDED FOR ANXIETY Last Visit: 03/26/2024 (in office), Visit date not found (telemedicine) Next Visit: Visit date not found If no future appointments scheduled, and last appointment is greater than a year ago, please schedule patient for a follow-up appointment Last date the medication was ordered: 07/27/24 Is this request for a controlled substance?Yes, What was the last refill date 07/27/24 w/ quantity 90 and dosage 1 and Urine Drug Screen was completed Urine Drug Screen: Results for orders placed or performed in visit on 03/28/22 PAIN MANAGEMENT DRUG PANEL, URINE W/ INTERPRETATION Result Value Compliance Interpretation Based on the medication information provided: The presence of lorazepam is CONSISTENT with lorazepam use. Amphetamines Screen, U Negative Benzodiazepines Screen, U Refer to confirmation results (A) Cannabinoids Screen, U Negative Cocaine Metabolite Screen, U Negative Fentanyl Screen, U Negative Hydrocodone Screen, U Negative Methadone Metabolite Screen, U Negative Morphine/Codeine Screen, U Negative Oxycodone Screen, U Negative Valid Interpretation Normal Creatinine, U 66 Narrative Cutoff [...] Results Component Value Date/Time CREAT 1.2 (H) 03/26/2024 02:20 PM CREAT 1.1 (H) 04/19/2020 02:34 PM CREAT 1.0 12/24/1996 01:50 PM POTASSIUM 4.6 03/26/2024 02:20 PM POTASSIUM 4.6 04/19/2020 02:34 PM POTASSIUM [...] 3:00 PM EDT Office Visit Nephrology [address] [place] [address] Ann-Marie Dudley MD [address] [place] [address], [place] [address] Scheduled Procedures Name Priority Associated Diagnoses Date/Ti me ESOPHAGOGASTRODUODENOSCOPY ( EGD), FLEXIBLE, TRANSORAL, DIAGNOSTIC Recall Heartburn Abdominal pain, unspecified abdominal location Change in stool habits Loose stools Health Maintenance Due Date Last Done Comments DISCUSS TOBACCO CESSATION (REFER TO SMARTSET #4393) 1942 Discuss Risk-Reducing Salpingo Oophorectomy (RRSO) Recommendation BRCA1/BRCA2,Ages 30 & Up 1972 Hepatitis B Vaccine (2 of 3 - 19+ 3-dose series) 05/27/1998 04/29/1998 Adult Wellness Visit 2008 Zoster Vaccines (3 of 3) 12/17/2019 10/22/2019, 05/2009 Depression Screening 04/26/2021 04/26/2020 CKD PHOS USE SMARTSET 05972 12/01/202311/08, 11/10/2021, 05/24/2021, Additional history exists COVID-19 [...] Additional history exists CKD HGB USE SMARTSET 69313 09/07/202509/07, 09/16/2023, 11/30/2022, Additional history exists O2 [...] this encounter Medical Devices Implanted Type Area Reception Centre Manager Device Identifier Shelf Expiration Date Model / Serial / Lot Stent Bl [place] [id number] - [id number] Implanted:Qty: 1 on 05/08/2012 [place] [facility] Left: Renal Artery JNJ : CORDIS ENDOVASCULAR 07/09/2014 [id number] / / [id number] Stent Bl Pa [id number] - [id number] Implanted:Qty: 1 on 05/08/2012 at [place] [facility] [place] Right: Renal Artery JNJ : CORDIS ENDOVASCULAR 01/06/2015 [id number] / / [id number] Stent Graft [id number] - [id number] Implanted:Qty: 1 on 01/22/2014 at [place] [facility] [place] Left: Renal [employer] 03/08/2016 [id number] / / [id number] Stent Graft [id number] - [id number] Implanted:Qty: 1 on 12/06/2014 by Warren Bashir MD at [facility] Right: Renal Artery [employer] 09/07/2017 [id number] / / [id number] documented as of this encounter Visit Diagnoses [...] and were consensually agreed upon. Care Teams Diamond Sawer Relationship Specialty Start Date End Date Gisela Longoria MD [address] [place] [address] [place] [address] PCP - General Family Medicine 04/16/19 documented as of this encounter
--- NOTE | 2024-12-02 10:41 | Electrocardiogram Report ---
Test Reason : Blood Pressure : */* mmHG Vent. Rate : 139 BPM Atrial Rate : * BPM P-R Int : * ms QRS Dur : 94 ms QT Int : 340 ms P-R-T Axes : * 23 157 degrees QTcB Int : 517 ms Atrial fibrillation with rapid ventricular response Voltage criteria for left ventricular hypertrophy ( R in aVL ) Abnormal ECG When compared with ECG of 26-Apr-2019 11:42, Atrial fibrillation has replaced Sinus rhythm Vent. rate has increased by [address] now depressed in Inferior leads ST now depressed in Lateral leads T wave inversion now evident in Inferior leads Confirmed by Herber Herrera ([id number]) on 12/02/2024 10:41:28 AM Referred By: REFERRED SELF Confirmed By: Herber Herrera
--- OUTSIDE RECORDS SUMMARY | 2024-12-02 10:41 | External Medical Summary | Summary of Care ---
Author Name Unknown Organization [facility] Address [address] [facility] [place] [address] Phone [phone] Care Team Providers Care Cattle Producers Name Role Phone Gisela Coley MD Primary Care Prov ider Reason for Visit * Reason Onset Date Comments Advice 08/24/2024 Encounter Details Date Type Department Care Team (Late st Contact Info) Description 08/24/2024 Telephone Family Medicine [address] [place] [address] Gisela Coley MD [address] [place], [place] [address] [address] Advice Allergies Active Allergy Reactions Criticality Noted Date Comments Ampicillin 11/16/1997 vaginitis Ciprofloxacin 06/13/2017 Had in [facility] ER 03/09/2017. Made her feel very ill. C/o shakeness, nervousness Doxycycline 11/16/1997 Erythromycin 11/16/1997 Ranitidine 11/16/1997 rash documented as of this encounter (statuses as of 08/25/2024) Medications TYLENOL EXTRA STRENGTH 500 MG PO TABS 2 pills as needed Active aspirin 81 MG chewable tablet Take 1 Tab by mouth daily. 34 Tab 11 07/12/20 18 Active Cholecalciferol (VITAMIN D) 50 MCG (1999) Capsule Take 2,000 Units by mouth daily. Active Blood Glucose Monitoring Suppl (BiOWiSHTOUCH ULTRA MINI) w/Device KIT Use as directed [...] Tablet Sublingual (Nitrostat)Indica tions:Coronary artery disease involving nightmute coronary artery of nightmute heart without angina pectoris Place under the [...] 1 10/04/19 24 Active OneTouch Delica Plus [id number] ons:Type 2 diabetes mellitus with stage 3b chronic kidney disease, without long-term current use of insulin (HCC) Test once a day E11.9 100 Each 3 10/23/19 24 Active Clopidogrel Bisulfate 75 MG Oral Tablet (pLAVix) TAKE 1 TABLET BY MOUTH EVERY DAY IN THE MORNING 90 Tablet 3 11/06/19 24 Active Pantoprazole Sodium 40 MG Oral Tablet Delayed Release (Protonix)Indicat ions:Gastroesopha geal reflux disease, unspecified whether esophagitis present TAKE 1 TABLET BY MOUTH TWICE A DAY IN THE MORNING AND IN THE EVENING 180 Tablet 1 11/05/19 24 Active Ezetimibe 10 MG Oral Tablet [...] 54 g 1 11/25/19 24 Active Nystatin 964660 UNIT/ML Mouth/Throat Suspension As needed 09/20/19 24 [...] Blister Dosing Unit 1 02/11/20 24 Active amLODIPine Besylate 2.5 MG Oral Tablet (Norvasc) TAKE 1 TABLET BY MOUTH EVERY DAY 90 Tablet 1 03/10/20 24 Active Lisinopril 20 MG Oral Tablet (Prinivil)Indicat ions:HTN, goal below 140/90 Take 1.5 Tablets by mouth in the morning. 135 Tablet 3 04/01/20 24 Active Levothyroxine Sodium 100 MCG Oral Tablet (Levoxyl) Take 1 Tablet by mouth in the morning. (at least 30 min prior to breakfast or other meds). 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 Increased risk for hereditary breast and ovarian [...] as of this encounter (statuses as of 08/25/2024) Resolved Problems Problem Noted Date Diagnosed Date [...] CKD protocol Coronary artery disease invo lving nightm[place] coronary artery of nightm[place] heart without angina pectoris 05/12/2017 07/21/2018 Exertional [...] as of this encounter (statuses as of 08/25/2024) Immunizations Name Administration Dates Next Due COVID-19 [...] encounter Miscellaneous Notes * Telephone Encounter - Leanne Gross RN - 08/25/2024 9:28 AM EST Message left on pt's phone to call us with what medication she needs and what pharmacy she wants touse * Telephone Encounter - Sheri Pacheco OSA - 08/24/2024 12:14 PM EST Refill request documented in this encounter Plan of Treatment Upcoming Encounters Date Type Department Care Team (Late st Contact Info) Description 09/07/2024 3:20 PM EST Office Visit Nephrology [address] [place] [address] Ann-Marie Dudley MD [address] [place] [address] [place] [address] Scheduled Procedures Name Priority Associated Diagnoses Date/Ti [...] Screening 04/26/2021 04/26/2020 CKD PHOS USE SMARTSET 56979 12/01/202311/08, 11/10/2021, 05/24/2021, Additional history exists Albumin/Creatinine Ratio 04/17/2024 023, 11/30/2022, 11/10/2021, Additional history exists COVID-19 Vaccine ( season) 2024 10/23/2023, 10/10/2021, 01/16/2021, Additional history exists Influenza Vaccine (FLU shot) (#1) 2024 06/11/2023, 09/20/2022, 05/24/2021, Additional history exists Diabetic Foot Exam 06/11/2024 06/11/2023, 0 04/19/2020, 07/20/2019, Additional history exists Diabetic Eye Exam 07/30/2024 07/30/2023, , 12/28/2021, Additional history exists CKD HGB USE SMARTSET 19207 09/16/202409/16, 11/30/2022, 09/20/2022, Additional history exists GFR 09/26/2024 03/26/2024, 03/0 04/2024, 11/04/2023, Additional history exists HbA1c 09/26/2024 03/26/2024, 03/2 01/2024, 06/11/2023, Additional history exists O2 ASSESSMENT COMPLETED IN PAST YEAR FOR COPD 03/26/2025 03/26/2024 TSH 03/26/2025 03/26/2024, 010 04/2024, 11/30/2022, Additional history exists DTap/Tdap Vaccines (2 - Td or Tdap) 07/21/2028 07/21/2018, 04/26/2008 Pneumococcal Vaccine: 65+ Years Completed 09/29/2015, 08/23/2010, 08/11/1993 Alpha-1 Antitrypsin Discontinued HPV (Gardasil) Vaccine Aged Out No lo nger eligible based on patient's age to complete this topic MENINGOCOCCAL (MENACTRA/MENVEO) Aged Out No longer eligible based on patient's age to complete this topic documented as of this encounter Medical Devices Implanted Type Area Care Tech Device Identifier Shelf Expiration Date Model / Serial / Lot Stent Bl Pa [id number] - [id number] Implanted:Qty: 1 on 05/08/2012 at [place] [facility] [place]: Renal Artery JNJ : CORDIS ENDOVASCULAR 07/09/2014 [id number] / / [id number] Stent Bl Pa [id number] - [id number] Implanted:Qty: 1 on 05/08/2012 at [facility] Right: Renal Artery JNJ : CORDIS ENDOVASCULAR 01/06/2015 [id number] / / [id number] Stent Graft [id number] - [id number] Implanted:Qty: 1 on 01/22/2014 at [facility] Left: Renal [employer] 03/08/2016 [id number] / / [id number] Stent Graft [id number] - [id number] Implanted:Qty: 1 on 12/06/2014 by Warren Bashir MD at [facility] Right: Renal Artery [employer] 09/07/2017 [id number] / / [id number] documented as of this encounter Advance Directives [...] and were consensually agreed upon. Care Teams Cattle Producers Relationship Specialty Start Date End Date Gisela Coley MD [address] [place] [address] [place] [address] PCP - General Family Medicine 04/16/19 documented as of this encounter
--- OUTSIDE RECORDS SUMMARY | 2024-12-02 10:41 | External Medical Summary | Summary of Care ---
Author Name Unknown Organization [facility] Address [address] [facility] [place] [address] Phone [phone] Care Team Providers Care Journeyman Level Acoustic Analyst Name Role Phone Gisela Coley MD Primary Care Prov ider Reason for Visit * Reason Onset Date Comments Medication Question 07/27/2024 Encounter Details Date Type Department Care Team (Late st Contact Info) Description 07/27/2024 Telephone Family Medicine [address] [address] Gisela Coley MD [address] [place], [place] [address] [address] Medication Question Allergies Active Allergy Reactions Criticality Noted Date Comments Ampicillin 11/16/1997 vaginitis Ciprofloxacin 06/13/2017 Had in [facility] ER 03/09/2017. Made her feel very ill. C/o shakeness, nervousness Doxycycline 11/16/1997 Erythromycin 11/16/1997 Ranitidine 11/16/1997 rash documented as of this encounter (statuses as of 07/27/2024) Medications TYLENOL EXTRA STRENGTH 500 MG PO TABS 2 pills as needed Active aspirin 81 MG chewable tablet Take 1 Tab by mouth daily. 34 Tab 11 07/12/20 Active Cholecalciferol (VITAMIN D) 50 MCG (1999) Capsule Take 2,000 Units by mouth daily. Active Blood Glucose Monitoring Suppl (ZootcardTOUCH ULTRA MINI) w/Device KIT Use as directed [...] Tablet Sublingual (Nitrostat)Indica tions:Coronary artery disease involving [place] coronary artery of [place] heart without angina pectoris Place under the [...] 1 10/04/19 24 Active OneTouch Delica Plus [id number] ons:Type 2 diabetes mellitus with stage 3b [...] 54 g 1 11/25/19 24 Active Nystatin 561288 UNIT/ML Mouth/Throat Suspension As needed 09/20/19 24 [...] as of this encounter (statuses as of 07/27/2024) Active Problems Problem Noted Date Diagnosed Date [...] GOLD Classification Coronary artery disease invo lving [place] coronary artery of [place]bil[place] heart with angina pectoris 07/21/2018 Vitamin D deficiency 07/21/2018 Monoallelic mutation of BRCA2 gene 08/06/2017 Overview (08/06/2017): Pathogenic BRCA2 gene variant (c.4588A>T, p.Jjb8516E) detected via Oration. Increased risk for hereditary breast and ovarian [...] as of this encounter (statuses as of 07/27/2024) Resolved Problems Problem Noted Date Diagnosed Date [...] CKD protocol Coronary artery disease invo lving [place]bil[place] coronary artery of tun[place]-bil[place] heart without angina pectoris 05/12/2017 07/21/2018 Exertional [...] as of this encounter (statuses as of 07/27/2024) Immunizations Name Administration Dates Next Due COVID-19 [...] encounter Miscellaneous Notes * Telephone Encounter - Janelle Dudley PHARM Tech - 07/27/2024 12:24 PM EST Pt calling to request ativan. Informed pt that RX is available at their pharmacy. Pt verbalized understanding and stated they will check with their pharmacy regarding this medication. Thank you, Janelle Dudley fabric stretcher Core Composer Feeder II [facility] ([facility]) 07/27/2024,12:24 PM documented in this encounter Plan of Treatment Upcoming Encounters Date Type Department Care Team (Late st Contact Info) Description 09/07/2024 3:20 PM EST Office Visit Nephrology [address] [place] [phone] Ann-Marie Dudley MD [address] [place] [address] [place], [place] [address] Scheduled Procedures Name Priority Associated Diagnoses Date/Ti me ESOPHAGOGASTRODUODENOSCOPY ( EGD), FLEXIBLE, TRANSORAL, DIAGNOSTIC Recall Heartburn Abdominal pain, unspecified abdominal location Change in stool habits Loose stools Health Maintenance Due Date Last Done Comments DISCUSS TOBACCO CESSATION (REFER TO SMARTSET #6392) 1942 Discuss Risk-Reducing Salpingo Oophorectomy (RRSO) Recommendation BRCA1/BRCA2,Ages 30 & Up 1972 Hepatitis B Vaccine (2 of 3 - 19+ 3-dose series) 05/27/1998 04/29/1998 Adult Wellness Visit 2008 Zoster Vaccines (3 of 3) 12/17/2019 10/22/2019, 05/2009 Depression Screening 04/26/2021 04/26/2020 CKD PHOS USE SMARTSET 30433 12/01/202311/08, 11/10/2021, 05/24/2021, Additional history exists Albumin/Creatinine Ratio 04/17/2024 023, 11/30/2022, 11/10/2021, Additional history exists COVID-19 Vaccine ( season) 2024 10/23/2023, 10/10/2021, 01/16/2021, Additional history exists Influenza Vaccine (FLU shot) (#1) 2024 06/11/2023, 09/20/2022, 05/24/2021, Additional history exists Diabetic Foot Exam 06/11/2024 06/11/2023, 0 04/19/2020, 07/20/2019, Additional history exists Diabetic Eye Exam 07/30/2024 07/30/2023, , 12/28/2021, Additional history exists CKD HGB USE SMARTSET 15107 09/16/202409/16, 11/30/2022, 09/20/2022, Additional history exists GFR [...] this encounter Medical Devices Implanted Type Area Pre Parole Counseling Aide Device Identifier Shelf Expiration Date Model / Serial / Lot Stent Bl Pa [id number] - [id number] Implanted:Qty: 1 on 05/08/2012 [place] [facility] [place]: Renal Artery JNJ : CORDIS ENDOVASCULAR 07/09/2014 [id number] / / [id number] Stent Bl Pa [id number] - [id number] Implanted:Qty: 1 on 05/08/2012 at [place] [facility] [place] Right: Renal Artery JNJ : CORDIS ENDOVASCULAR 01/06/2015 [id number] / / [id number] Stent Graft [id number] - [id number] Implanted:Qty: 1 on 01/22/2014 at [place] [facility] [place] Left: Renal [employer] 03/08/2016 [id number] / / [id number] Stent Graft [id number] - [id number] Implanted:Qty: 1 on 12/06/2014 by Warren Bashir MD at [place] [facility] [place] Right: Renal Artery [employer] 09/07/2017 [id number] / / [id number] documented as of this encounter Advance Directives [...] and were consensually agreed upon. Care Teams Journeyman Level Acoustic Analyst Relationship Specialty Start Date End Date Gisela Coley MD [address] [place] [address] [place] [address] PCP - General Family Medicine 04/16/19 documented as of this encounter
--- OUTSIDE RECORDS SUMMARY | 2024-12-02 10:41 | External Medical Summary | Summary of Care ---
Author Name Unknown Organization [facility] Address [address] [facility] [place] [address] Phone [phone] Care Team Providers Care Die Cutting Machine Operator Name Role Phone Gisela Longoria MD Primary Care Prov ider Reason for Visit * Reason Comments eRx-Medication Refill Encounter Details Date Type Department Care Team (Late st Contact Info) Description 08/31/2024 Refill Family Medicine [address] [address] Gisela Longoria MD [address] [place] [address] Gastroesophageal reflux disease, unspecified whether esophagitis present Allergies Active Allergy Reactions Criticality Noted Date Comments Ampicillin 11/16/1997 vaginitis Ciprofloxacin 06/13/2017 Had in [facility] ER 03/09/2017. Made her feel very ill. C/o shakeness, nervousness Doxycycline 11/16/1997 Erythromycin 11/16/1997 Ranitidine 11/16/1997 rash documented as of this encounter (statuses as of 09/04/2024) Medications TYLENOL EXTRA STRENGTH 500 MG PO [...] Tablet Sublingual (Nitrostat)Indic ations:Coronary artery disease involving kw[place] coronary artery of [place] heart without angina pectoris Place under the [...] Each 1 024 Active OneTouch Delica Plus [id number] ions:Type 2 diabetes mellitus with stage 3b [...] Wheezing. 54 g 1 024 Active Nystatin 651834 UNIT/ML Mouth/Throat Suspension As needed 024 Active [...] MOUTH EVERY DAY 90 Tablet 024 Active metFORMIN HCl ER 500 MG [...] THE EVENING 180 Tablet 1 024 Active Pantoprazole Sodium 40 [...] meds). 90 Tablet 1 024 2023 Discontinued documented as of this encounter (statuses as of 09/04/2024) Active Problems Problem Noted Date Diagnosed Date [...] GOLD Classification Coronary artery disease invo lving [place] coronary artery of [place] heart with angina pectoris 07/21/2018 Vitamin D deficiency 07/21/2018 Monoallelic mutation of BRCA2 gene 08/06/2017 Overview (08/06/2017): Pathogenic BRCA2 gene variant (c.4588A>T, p.Ksw7547B) detected via tydy. Increased risk for hereditary breast and ovarian [...] as of this encounter (statuses as of 09/04/2024) Resolved Problems Problem Noted Date Diagnosed Date [...] CKD protocol Coronary artery disease invo lving [place] coronary artery of [place] heart without angina pectoris 05/12/2017 07/21/2018 Exertional [...] as of this encounter (statuses as of 09/04/2024) Immunizations Name Administration Dates Next Due COVID-19 mRNA, LNP-s, No Pre serve, 2-Dose Series (Moderna) 01/16/2021,01/06/2021 COVID-19, MRNA-LNP, PF, 30 M CG/0.3 mL, 12 YRS AND ABOVE, IM (PFIZER-Comirnat) 10/23/2023 COVID-19, mRNA, LNP-s, PF, B ooster, [...] encounter Miscellaneous Notes * Telephone Encounter - Emily Rodriguez - 09/04/2024 6:14 PM EST Received message from [facility] regarding patient needing labs. Patient was notified. Successfully contacted patient and provided [facility] message. * Telephone Encounter - Jenelle Hong [facility] - 09/03/2024 8:34 AM ESTSigned Prescriptions: Disp Refills Levothyroxine Sodium 100 MCG Oral Tablet (*90 Tab*0 Sig: TAKE 1 TABLET BY MOUTH IN THE MORNING. (AT LEAST 30 MIN PRIOR TO BREAKFAST OR OTHER MEDS). Authorizing Provider: GISELA LONGORIA User: JENELLE HONG amLODIPine Besylate 2.5 MG Oral Tablet (No*90 Tab*1 Sig: TAKE 1 TABLET BY MOUTH EVERY DAY Authorizi mame Provider: GISELA LONGORIA Ordering User: JENELLE HONG Pantoprazole Sodium 40 MG Oral Tablet Emeli*180 Ta*1 Sig: TAKE 1 TABLET BY MOUTH TWICE A DAY IN THE MORNING AND IN THE EVENING Authorizing Provider: GISELA LONGORIA Ordering User: JENELLE HONG * Telephone Encounter - Jenelle Hong RPh - 09/03/2024 8:31 AM EST Levothyroxine Provided 90 days supply with 0 refill(s). Per refill protocol patient should have repeat TSH on file within past 3 months since dose adjusted. Reviewed AMP report, Care Gaps/Health Maintenance, medications list, and for any routine labs typically ordered for this patient. Lab orders placed. Please contact patient to advise of labs ordered for blood draw. Fasting is not required. Advise toobtain labs before requesting the next refill. Thanks, Jenelle Hong, PharmD Clinical Pharmacist [facility] ([facility]) [phone] 09/03/2024 8:33 AM documented in this encounter Plan of Treatment Upcoming Encounters Date Type Department Care Team (Late st Contact Info) Description 09/07/2024 3:20 PM EST Office Visit Nephrology [address] [place] [address] Ann-Marie Dudley MD [address] [place] [address] [place], [place] [address] Scheduled Procedures Name Priority Associated Diagnoses Date/Ti me ESOPHAGOGASTRODUODENOSCOPY ( EGD), FLEXIBLE, TRANSORAL, DIAGNOSTIC Recall Heartburn Abdominal pain, unspecified abdominal location Change in stool habits Loose stools Health Maintenance Due Date Last Done Comments DISCUSS TOBACCO CESSATION (REFER TO SMARTSET #6359) 1942 Discuss Risk-Reducing Salpingo Oophorectomy (RRSO) Recommendation BRCA1/BRCA2,Ages 30 & Up 1972 Hepatitis B Vaccine (2 of 3 - 19+ 3-dose series) 05/27/1998 04/29/1998 Adult Wellness Visit 2008 Zoster Vaccines (3 of 3) 12/17/2019 10/22/2019, 03/0 05/2009 Depression Screening 04/26/2021 04/26/2020 CKD PHOS USE SMARTSET 59166 12/01/20232 12/2022, 11/10/2021, 05/24/2021, Additional history exists Albumin/Creatinine Ratio 04/17/2024 023, 11/30/2022, 11/10/2021, Additional history exists COVID-19 Vaccine ( season) 2024 10/23/2023, 10/10/2021, 01/16/2021, Additional history exists Influenza Vaccine (FLU shot) (#1) 2024 06/11/2023, 09/20/2022, 05/24/2021, Additional history exists Diabetic Foot Exam 06/11/2024 06/11/2023, 0 04/19/2020, 07/20/2019, Additional history exists Diabetic Eye Exam 07/30/2024 07/30/2023, , 12/28/2021, Additional history exists CKD HGB USE SMARTSET 06370 09/16/202409/16, 11/30/2022, 09/20/2022, Additional history exists GFR 09/26/2024 03/26/2024, 030 04/2024, 11/04/2023, Additional history exists HbA1c 09/26/2024 03/26/2024, 2 01/2024, 06/11/2023, Additional history exists O2 ASSESSMENT COMPLETED IN PAST YEAR FOR COPD 03/26/2025 03/26/2024 TSH 03/26/2025 03/26/2024, 0 04/2024, 11/30/2022, Additional history exists DTap/Tdap Vaccines [...] this encounter Medical Devices Implanted Type Area Cement Mixer Device Identifier Shelf Expiration Date Model / Serial / Lot Stent Bl Pa [id number] - [id number] Implanted:Qty: 1 on 05/08/2012 [place] [facility] [place]: Renal Artery JNJ : CORDIS ENDOVASCULAR 07/09/2014 [id number] / / [id number] Stent Bl Pa [id number] - [id number] Implanted:Qty: 1 on 05/08/2012 [place] [facility] [place]: Renal Artery JNJ : CORDIS ENDOVASCULAR 01/06/2015 [id number] / / [id number] Stent Graft [id number] - [id number] Implanted:Qty: 1 on 01/22/2014 [place] [facility] [place]: Renal [employer] 03/08/2016 [id number] / / [id number] Stent Graft [id number] - [id number] Implanted:Qty: 1 on 12/06/2014 by Warren Bashir MD at [place] [facility] [place]: Renal Artery [employer] 09/07/2017 [id number] / / [id number] documented as of this encounter Visit Diagnoses Diagnosis Gastroesophageal reflux disease, unspecified whether esophagitis present documented in this encounter Advance Directives * [...] and were consensually agreed upon. Care Teams Die Cutting Machine Operator Relationship Specialty Start Date End Date Gisela Longoria MD [address] [place] [address] [place] [phone] PCP - General Family Medicine 04/16/19 documented as of this encounter
--- OUTSIDE RECORDS SUMMARY | 2024-12-02 10:41 | External Medical Summary | Summary of Care ---
Author Name Unknown Organization [facility] Address [address] [facility] [place] [address] Phone [phone] Care Team Providers Care Machine Lay Out Worker Name Role Phone Gisela Coley MD Primary Care Prov ider Reason for Visit * Reason Comments eRx-Medication Refill Encounter Details Date Type Department Care Team (Late st Contact Info) Description 07/24/2024 Refill Family Medicine [address] [phone] Gisela Coley MD [address] [place] [id number] Type 2 diabetes mellitus with diabetic chronic kidney disease (HCC) Allergies Active Allergy Reactions Criticality Noted Date Comments Ampicillin 11/16/1997 vaginitis Ciprofloxacin 06/13/2017 Had in [facility] ER 03/09/2017. Made her feel very ill. C/o shakeness, nervousness Doxycycline 11/16/1997 Erythromycin 11/16/1997 Ranitidine 11/16/1997 rash documented as of this encounter (statuses as of 07/27/2024) Medications TYLENOL EXTRA STRENGTH 500 MG PO TABS 2 pills as needed Active aspirin 81 MG chewable tablet Take 1 Tab by mouth daily. 34 Tab 11 07/12/20 Active Cholecalciferol (VITAMIN D) 50 MCG (2000 [...] Tablet Sublingual (Nitrostat)Indica tions:Coronary artery disease involving [place] coronary artery of [place] heart without angina pectoris Place under the [...] 1 10/04/19 24 Active OneTouch Delica Plus [id number] ons:Type 2 diabetes mellitus with stage 3b [...] 54 g 1 11/25/19 24 Active Nystatin 934872 UNIT/ML Mouth/Throat Suspension As needed 09/20/19 24 [...] GOLD Classification Coronary artery disease invo lving [place] coronary artery of [place] heart with angina pectoris 07/21/2018 Vitamin D deficiency 07/21/2018 Monoallelic mutation of BRCA2 gene 08/06/2017 Overview (08/06/2017): Pathogenic BRCA2 gene variant (c.4588A>T, p.[id number]) detected via [employer]. Increased risk for hereditary breast and ovarian [...] CKD protocol Coronary artery disease invo lving [place] coronary artery of [place] heart without angina pectoris 05/12/2017 07/21/2018 Exertional [...] CG/0.3 mL, 12 YRS AND ABOVE, IM ([facility]) 10/23/2023 COVID-19, mRNA, LNP-s, PF, B [...] encounter Miscellaneous Notes * Telephone Encounter - Diana Barreto [facility] - 07/27/2024 1:29 PM EST Refused Prescriptions: Disp Refills metFORMIN HCl ER 500 MG Oral Tablet Extend*180 Ta*1 Sig: TAKE 2TABLETS BY MOUTH EVERY MORNINGRefused By: DIANA BARRETOReason for Refusal: Too soon------ documented in this encounter Plan of Treatment Upcoming Encounters Date Type Department Care Team (Late st Contact Info) Description 09/07/2024 3:20 PM EST Office Visit Nephrology [address] [place] [phone] Ann-Marie Dudley MD [address] [place] [address], [place] [address] Scheduled Procedures Name Priority [...] Screening 04/26/2021 04/26/2020 CKD PHOS USE SMARTSET 97629 12/01/202311/08, 11/10/2021, 05/24/2021, Additional history exists Albumin/Creatinine Ratio 04/17/2024 023, 11/30/2022, 11/10/2021, Additional history exists COVID-19 Vaccine ( season) 2024 10/23/2023, 10/10/2021, 01/16/2021, Additional history exists Influenza Vaccine (FLU shot) (#1) 2024 06/11/2023, 09/20/2022, 05/24/2021, Additional history exists Diabetic Foot Exam 06/11/2024 06/11/2023, 0 04/19/2020, 07/20/2019, Additional history exists Diabetic Eye Exam 07/30/2024 07/30/2023, , 12/28/2021, Additional history exists CKD HGB USE SMARTSET 68384 09/16/202409/16, 11/30/2022, 09/20/2022, Additional history exists GFR 09/26/2024 03/26/2024, 03/0 04/2024, 11/04/2023, Additional history exists HbA1c 09/26/2024 03/26/2024, 03/2 01/2024, 06/11/2023, Additional history exists O2 ASSESSMENT COMPLETED IN PAST YEAR FOR COPD 03/26/2025 03/26/2024 TSH 03/26/2025 03/26/2024, 01/0 04/2024, 11/30/2022, Additional history exists DTap/Tdap Vaccines [...] this encounter Medical Devices Implanted Type Area Director Global Market Research Device Identifier Shelf Expiration Date Model / Serial / Lot Stent Bl Pa [id number] - [id number] Implanted:Qty: 1 on 05/08/2012 at [place] [facility] Left: Renal Artery JNJ : CORDIS ENDOVASCULAR 07/09/2014 [id number] / / [id number] Stent Bl Pa [id number] - [id number] Implanted:Qty: 1 on 05/08/2012 at [facility] Right: Renal Artery JNJ : CORDIS ENDOVASCULAR 01/06/2015 [id number] / / [id number] Stent Graft [id number] - [id number] Implanted:Qty: 1 on 01/22/2014 at [place] [facility] Left: Renal [employer] 03/08/2016 [id number] / / [id number] Stent Graft [id number] - [id number] Implanted:Qty: 1 on 12/06/2014 by Warren Bashir MD at [facility] Right: Renal Artery [employer] 09/07/2017 [id number] / / [id number] documented as of this encounter Visit Diagnoses [...] and were consensually agreed upon. Care Teams Machine Lay Out Worker Relationship Specialty Start Date End Date Gisela Coley MD [address] [place] [address] [place] [address] PCP - General Family Medicine 04/16/19 documented as of this encounter
--- OUTSIDE RECORDS SUMMARY | 2024-12-02 10:41 | External Medical Summary | Summary of Care ---
Author Name Unknown Organization [facility] Address [address] [facility] [place] [address] Phone [phone] Care Team Providers Care Script Editor Name Role Phone Gisela Coley MD Primary Care Prov ider Reason for Visit * Reason Comments eRx-Medication Refill Encounter Details Date Type Department Care Team (Late st Contact Info) Description 08/31/2024 Refill Cardiology [address] [place] [address] Silvia Infante PA-C [address] [place] [address] Dyslipidemia, goal LDL below 70 Allergies Active Allergy Reactions Criticality Noted Date Comments Ampicillin 11/16/1997 vaginitis Ciprofloxacin 06/13/2017 Had in [facility] ER 03/09/2017. Made her feel very ill. C/o shakeness, nervousness Doxycycline 11/16/1997 Erythromycin 11/16/1997 Ranitidine 11/16/1997 rash documented as of this encounter (statuses as of 09/03/2024) Medications TYLENOL EXTRA STRENGTH 500 MG PO [...] Tablet Sublingual (Nitrostat)Indica tions:Coronary artery disease involving [place] coronary artery of [place] heart without angina pectoris Place under the [...] 1 10/04/19 24 Active OneTouch Delica Plus [id number] ons:Type 2 diabetes mellitus with stage 3b [...] 54 g 1 11/25/19 24 Active Nystatin 848885 UNIT/ML Mouth/Throat Suspension As needed 09/20/19 24 [...] as of this encounter (statuses as of 09/03/2024) Active Problems Problem Noted Date Diagnosed Date [...] GOLD Classification Coronary artery disease invo lving [place] coronary artery of [place] heart with angina pectoris 07/21/2018 Vitamin D deficiency 07/21/2018 Monoallelic mutation of BRCA2 gene 08/06/2017 Overview (08/06/2017): Pathogenic BRCA2 gene variant (c.4588A>T, p.[id number]) detected via [employer]. Increased risk for hereditary breast and ovarian [...] as of this encounter (statuses as of 09/03/2024) Resolved Problems Problem Noted Date Diagnosed Date [...] CKD protocol Coronary artery disease invo lving [place] coronary artery of [place] heart without angina pectoris 05/12/2017 07/21/2018 Exertional [...] as of this encounter (statuses as of 09/03/2024) Immunizations Name Administration Dates Next Due COVID-19 mRNA, LNP-s, No Pre serve, 2-Dose Series (Moderna) 01/16/2021,01/06/2021 COVID-19, MRNA-LNP, PF, 30 M CG/0.3 mL, 12 YRS AND ABOVE, IM ([employer]Comir[facility]) 10/23/2023 COVID-19, mRNA, LNP-s, PF, B ooster, [...] encounter Miscellaneous Notes * Telephone Encounter - Miriam Flynn RPh - 09/03/2024 9:58 AM ESTRefused Prescriptions: Disp Refills Atorvastatin Calcium 80 MG Oral Tablet (Li*90 Tab*0 Sig: TAKE 1TABLET BY MOUTH EVERY DAY IN THE EVENINGRefused By: Isaak FLYNN for Refusal: Too soon------ * Telephone Encounter - Miriam Flynn RPh - 09/03/2024 9:56 AM EST Per dispense records in [employer] 90 day supply dispensed 08/19/24 Miriam Durant PharmD Clinical Pharmacist [facility] ([facility]) 09/03/2024, 9:57 AM documented in this encounter Plan of Treatment Upcoming Encounters Date Type Department Care Team (Late st Contact Info) Description 09/07/2024 3:20 PM EST Office Visit Nephrology [address] [place] [address] Ann-Marie Dudley MD [address] [facility] [place], [place] [address] Scheduled Procedures Name Priority Associated Diagnoses Date/Ti me ESOPHAGOGASTRODUODENOSCOPY ( EGD), FLEXIBLE, TRANSORAL, DIAGNOSTIC Recall Heartburn Abdominal pain, unspecified abdominal location Change in stool habits Loose stools Health Maintenance Due Date Last Done Comments DISCUSS TOBACCO CESSATION (REFER TO SMARTSET #7925) 1942 Discuss Risk-Reducing Salpingo Oophorectomy (RRSO) Recommendation BRCA1/BRCA2,Ages 30 & Up 1972 Hepatitis B Vaccine (2 of 3 - 19+ 3-dose series) 05/27/1998 04/29/1998 Adult Wellness Visit 2008 Zoster Vaccines (3 of 3) 12/17/2019 10/22/2019, 03/0 05/2009 Depression Screening 04/26/2021 04/26/2020 CKD PHOS USE SMARTSET 25239 12/01/20232 12/2022, 11/10/2021, 05/24/2021, Additional history exists [...] Additional history exists CKD HGB USE SMARTSET 28854 09/16/202409/16, 11/30/2022, 09/20/2022, Additional history exists GFR [...] this encounter Medical Devices Implanted Type Area Marketing Rep Device Identifier Shelf Expiration Date Model / Serial / Lot Stent Bl Pa [id number] - [id number] Implanted:Qty: 1 on 05/08/2012 at [place] [facility] [place] Left: Renal Artery JNJ : CORDIS ENDOVASCULAR 07/09/2014 [id number] / / [id number] Stent Bl Pa [id number] - [id number] Implanted:Qty: 1 on 05/08/2012 at [facility] Right: Renal Artery JNJ : CORDIS ENDOVASCULAR 01/06/2015 [id number] / / [id number] Stent Graft [id number] - [id number] Implanted:Qty: 1 on 01/22/2014 at [facility] Left: Renal [employer] 03/08/2016 [id number] / / [id number] Stent Graft [id number] - [id number] Implanted:Qty: 1 on 12/06/2014 by Warren Bashir MD at [place] [facility] Right: Renal Artery [employer] 09/07/2017 [id number] / / [id number] documented as of this encounter Visit Diagnoses Diagnosis Dyslipidemia, goal LDL below 70 Other and unspecified hyperlipidemia documented in this encounter Advance Directives * [...] and were consensually agreed upon. Care Teams Script Editor Relationship Specialty Start Date End Date Gsiela Coley MD [address] [place] [address] [place] [phone] PCP - General Family Medicine 04/16/19 documented as of this encounter
--- OUTSIDE RECORDS SUMMARY | 2024-12-02 10:41 | External Medical Summary | Summary of Care ---
Author Name Unknown Organization [facility] Address [address] [facility] [place] [address] Phone [phone] Care Team Providers Care Water Plant Pump Operator Name Role Phone Kinga Longoria MD Primary Care Prov ider Reason for Visit * Reason Onset Date Comments Medication Refill 08/25/2024 Encounter Details Date Type Department Care Team (Late st Contact Info) Description 08/25/2024 Refill Family Medicine [address] [phone] Kinga Longoria MD [address] [place] [address] [place] [address] Anxiety Allergies Active Allergy Reactions Criticality Noted Date Comments Ampicillin 11/16/1997 vaginitis Ciprofloxacin 06/13/2017 Had in [facility] ER 03/09/2017. Made her feel very ill. C/o shakeness, nervousness Doxycycline 11/16/1997 Erythromycin 11/16/1997 Ranitidine 11/16/1997 rash documented as of this encounter (statuses as of 08/26/2024) Medications TYLENOL EXTRA STRENGTH 500 MG PO [...] Tablet Sublingual (Nitrostat)Indica tions:Coronary artery disease involving [place] coronary artery of [place] heart without angina pectoris Place under the [...] 1 10/04/19 24 Active OneTouch Delica Plus [id number] ons:Type 2 diabetes mellitus with stage 3b [...] 54 g 1 11/25/19 24 Active Nystatin 831773 UNIT/ML Mouth/Throat Suspension As needed 09/20/19 24 [...] ANXIETY 90 Tablet 2 08/26/20 24 Active LORazepam 1 MG Oral Tablet (Ativan)Indicatio ns:Anxiety TAKE 1 TABLET BY MOUTH EVERY 8 HOURS NEEDED FOR ANXIETY 90 Tablet 07/27/20 24 024 Discontin ued(Refil l) documented as of this encounter (statuses as of 08/26/2024) Active Problems Problem Noted Date Diagnosed Date [...] GOLD Classification Coronary artery disease invo lving [place] coronary artery of [place] heart with angina pectoris 07/21/2018 Vitamin D deficiency 07/21/2018 Monoallelic mutation of BRCA2 gene 08/06/2017 Overview (08/06/2017): Pathogenic BRCA2 gene variant (c.4588A>T, p.Wbz3059Z) detected via [employer]. Increased risk for hereditary breast and ovarian [...] as of this encounter (statuses as of 08/26/2024) Resolved Problems Problem Noted Date Diagnosed Date [...] CKD protocol Coronary artery disease invo lving [place] coronary artery of [place] heart without angina pectoris 05/12/2017 07/21/2018 Exertional [...] as of this encounter (statuses as of 08/26/2024) Immunizations Name Administration Dates Next Due COVID-19 mRNA, LNP-s, No Pre serve, 2-Dose Series (Moderna) 01/16/2021,01/06/2021 COVID-19, MRNA-LNP, PF, 30 M CG/0.3 mL, 12 YRS AND ABOVE, IM ([employer]-Comirnaty) 10/23/2023 COVID-19, mRNA, LNP-s, PF, B ooster, [...] encounter Miscellaneous Notes * Telephone Encounter - Kinga Longoria MD - 08/26/2024 9:42 AM EST Signed Prescriptions: Disp Refills LORazepam 1 MG Oral Tablet (Ativan) 90 Tab*2 Sig: TAKE 1 TABLET BY MOUTH EVERY 8 HOURS NEEDED FOR ANXIETY Authorizing Provider: KINGA LONGORIA * Telephone Encounter - Aubrey Pollack [facility] - 08/25/2024 3:46 PM ESTPending Prescriptions: Disp Refills LORazepam 1 MG Oral Tablet (Ativan) 90 Tab*0 Sig: TAKE 1 TABLET BY MOUTH EVERY 8 HOURS NEEDED FOR ANXIETY * Telephone Encounter - Aubrey Pollack [facility] - 08/25/2024 3:45 PM EST I have reviewed the patients controlled substance dispensing history in the Prescription Drug Monitoring Program in compliance with the [facility] regulations before prescribing a controlled substance. [...] medication is due for refill: 08/25/24 Pharmacy: [id number] Is this request for a controlled [...] approve if appropriate. Thank You, Aubrey Brizuela [facility] Clinical Pharmacist [facility] Clinical Pharmacy Services ([facility]) 08/25/2024, 3:45 PM * Telephone Encounter - Hedy Alejo CPhT - 08/25/2024 12:31 PM EST Did you pend patient's preferred pharmacy and medication before forwarding?yes Pharmacy: [id number] Pending Prescriptions: Disp Refills LORazepam 1 MG [...] 09/07/2024 3:20 PM EST Office Visit Nephrology [address] [place], [place] [address] Ann-Marie Dudley MD [address] [facility] [place], [place] [address] Scheduled Procedures Name Priority Associated Diagnoses Date/Ti [...] Screening 04/26/2021 04/26/2020 CKD PHOS USE SMARTSET 22548 12/01/2023 03/2 12/2022, 11/10/2021, 05/24/2021, Additional history exists Albumin/Creatinine Ratio 04/17/2024 023, 11/30/2022, 11/10/2021, Additional history exists COVID-19 Vaccine ( season) 2024 10/23/2023, 10/10/2021, 01/16/2021, Additional history exists Influenza Vaccine (FLU shot) (#1) 2024 06/11/2023, 09/20/2022, 05/24/2021, Additional history exists Diabetic Foot Exam 06/11/2024 06/11/2023, 0 04/19/2020, 07/20/2019, Additional history exists Diabetic Eye Exam 07/30/2024 07/30/2023, , 12/28/2021, Additional history exists CKD HGB USE SMARTSET 59354 09/16/202409/16, 11/30/2022, 09/20/2022, Additional history exists GFR [...] this encounter Medical Devices Implanted Type Area Perinatal Educator Device Identifier Shelf Expiration Date Model / Serial / Lot Stent Bl Pa [id number] - [id number] Implanted:Qty: 1 on 05/08/2012 at [place] [facility] [place] Left: Renal Artery JNJ : CORDIS ENDOVASCULAR 07/09/2014 [id number] / / [id number] Stent Bl Pa [id number] - [id number] Implanted:Qty: 1 on 05/08/2012 at [facility] Right: Renal Artery JNJ : CORDIS ENDOVASCULAR 01/06/2015 [id number] / / [id number] Stent Graft [id number] - [id number] Implanted:Qty: 1 on 01/22/2014 at [facility] Left: Renal [employer] 03/08/2016 [id number] / / [id number] Stent Graft [id number] - [id number] Implanted:Qty: 1 on 12/06/2014 by Warren Bashir MD at [facility] Right: Renal Artery [employer] 09/07/2017 [id number] / / [id number] documented as of this encounter Visit Diagnoses [...] and were consensually agreed upon. Care Teams Water Plant Pump Operator Relationship Specialty Start Date End Date Kinga Longoria MD [address] [place] [address] [place] [address] PCP - General Family Medicine 04/16/19 documented as of this encounter
--- OUTSIDE RECORDS SUMMARY | 2024-12-02 10:42 | External Medical Summary | Summary of Care ---
Author Name Unknown Organization [facility] Address [address] [facility] [place] [address] Phone [phone] Care Team Providers Care Remote Operations Producer Name Role Phone Kinga Longoria MD Primary Care Prov ider Reason for Visit * Reason Comments eRx-Medication Refill Encounter Details Date Type Department Care Team (Late st Contact Info) Description 06/18/2024 Refill Pharmacy, [address] [place] [id number] Kinga Longoria MD [address] [place] [address] [place] [phone] Irritable bowel syndrome, unspecified type Allergies Active Allergy Reactions Criticality Noted Date Comments Ampicillin 11/16/1997 vaginitis Ciprofloxacin 06/13/2017 Had in [facility] ER 03/09/2017. Made her feel very ill. C/o shakeness, nervousness Doxycycline 11/16/1997 Erythromycin 11/16/1997 Ranitidine 11/16/1997 rash documented as of this encounter (statuses as of 06/25/2024) Medications Medication Sig Dispensed Refills Start Date End Date Status TYLENOL EXTRA STRENGTH 500 MG PO TABS 2 pills as needed Active aspirin 81 MG chewable tablet Take 1 Tab by mouth daily. 34 Tab 11 8 Active Cholecalciferol (VITAMIN D) 50 MCG (1999) Capsule Take 2,000 Units by mouth daily. Active Blood Glucose Monitoring Suppl (ONETOUCH ULTRA MINI) w/Device KIT Use as directed to test blood sugars. E11.9 1 Kit 0 Active artificial tears (TEARS AGAIN) 1.4 % ophthalmic solutionIndicatio ns:Right-sided Henderson's palsy Instill 1 Drop into the right eye 4 times a day. 15 mL 0 Active Fluticasone Propionate 50 MCG/ACT Nasal Suspension (Flonase)Indicati ons:Allergic rhinitis, unspecified seasonality, unspecified trigger Administer 2 Sprays into each nostril daily. 48 g 1 1 Active OneTouch Ultra Blue In Vitro Strip (Glucose Blood) Use to test blood sugars once daily E11.9 100 Strip 3 1 Active Lancet Device Test once daily E11.9 100 Each 3 1 Active Zoster Vac Recomb Adjuvanted 50 MCG/0.5ML Intramuscular Suspension Reconstituted (Shingrix)Indicat ions:Need for shingles vaccine Inject 0.5 mL into a large muscle now and repeat dose in 60 to 180 days 1 Each 1 2 Active Nitroglycerin 0.4 MG Sublingual Tablet Sublingual (Nitrostat)Indica tions:Coronary artery disease involving grindstone coronary artery of grindstone heart without angina pectoris Place under the tongue 1 Tablet every 5 minutes as needed for Pain, Chest. 25 Tablet 1 2 Active B-12 1000 MCG Oral Tablet Take by mouth. 3 Active Loperamide HCl 2 MG Oral Capsule Take 1 Capsule by mouth 4 times a day as needed for Diarrhea. Active Metoprolol Succinate ER 25 MG Oral Tablet Extended Release 24 Hour (toPROL XL)Indications:He art palpitations,HTN, goal below 140/90 TAKE 1 TABLET BY MOUTH EVERY DAY 90 Tablet 3 3 Active Atorvastatin Calcium 80 MG Oral Tablet (Lipitor)Indicati ons:Dyslipidemia, goal LDL below 70 TAKE 1 TABLET BY MOUTH EVERY DAY IN THE EVENING 90 Tablet 3 3 Active Sertraline HCl 50 MG Oral Tablet (Zoloft)Indicatio ns:KWABENA (generalized anxiety disorder) Take 1 Tablet by mouth in the morning. 4 Active Icosapent Ethyl 1 GM Oral Capsule (Vascepa) Take 2 Capsules by mouth 2 times a day with morning and evening meals. Swallow capsules whole, do not open or break. 120 Capsule 11 4 Active Albuterol Sulfate (2.5 MG/3ML) 0.083% Inhalation Nebulization Solution (Proventil)Indica tions:COPD exacerbation (HCC) Inhale 1 Vial via nebulizer every 4 hours as needed for Wheezing. 120 mL 1 4 Active Additional Information Patient not taking.Reported on 11/26/2023 Compressor NebulizerIndicati ons:COPD exacerbation (HCC) Inhale via nebulizer. 1 nebulizer with tubing. Dx: COPD exacerbation 1 Each 1 4 Active OneTouch Delica Plus [id number] ons:Type 2 diabetes mellitus with stage 3b chronic kidney disease, without long-term current use of insulin (HCC) Test once a day E11.9 100 Each 3 4 Active Clopidogrel Bisulfate 75 MG Oral Tablet (pLAVix) TAKE 1 TABLET BY MOUTH EVERY DAY IN THE MORNING 90 Tablet 3 4 Active Pantoprazole Sodium 40 MG Oral Tablet Delayed Release (Protonix)Indicat ions:Gastroesopha geal reflux disease, unspecified whether esophagitis present TAKE 1 TABLET BY MOUTH TWICE A DAY IN THE MORNING AND IN THE EVENING 180 Tablet 1 4 Active Ezetimibe 10 MG Oral Tablet (Zetia)Indication s:High triglycerides,Dys lipidemia, goal LDL below 100 TAKE 1 TABLET BY MOUTH EVERY DAY IN THE MORNING 90 Tablet 3 4 Active Albuterol Sulfate HFA 108 (90 Base) MCG/ACT Inhalation Aerosol SolutionIndicatio ns:SOB (shortness of breath) Inhale 2 Puffs by mouth every 4 hours as needed for Cough, Shortness of Breath or Wheezing. 54 g 1 4 Active Nystatin 721140 UNIT/ML Mouth/Throat Suspension As needed 4 Active Loperamide HCl 2 MG Oral Tablet (Immodium (A-D)) Take 1 Tablet by mouth 4 times a day as needed for Diarrhea. 30 Tablet 4 Active Gabapentin 100 MG Oral Capsule (Neurontin)Indica tions:Diabetic peripheral neuropathy (HCC) Take 1 Capsule by mouth in the morning and 1 Capsule at noon and 1 Capsule before bedtime. 90 Capsule 5 4 Active Fluticasone-Umecl idin-Vilant 100-62.5-25 MCG/ACT Aerosol Powder Breath Activated (Trelegy Ellipta)Indicatio ns:COPD exacerbation (HCC) Inhale 1 Puff by mouth in the morning. 180 Blister Dosing Unit 1 4 Active amLODIPine Besylate 2.5 MG Oral Tablet (Norvasc) TAKE 1 TABLET BY MOUTH EVERY DAY 90 Tablet 1 4 Active metFORMIN HCl ER 500 MG Oral Tablet Extended Release 24 Hour (Glucophage XR)Indications:Ty pe 2 diabetes mellitus with diabetic chronic kidney disease (HCC) TAKE 2 TABLETS BY MOUTH EVERY DAY IN THE MORNING 180 Tablet 1 4 Active Lisinopril 20 MG Oral Tablet (Prinivil)Indicat ions:HTN, goal below 140/90 Take 1.5 Tablets by mouth in the morning. 135 Tablet 3 4 Active Levothyroxine Sodium 100 MCG Oral Tablet (Levoxyl) Take 1 Tablet by mouth in the morning. (at least 30 min prior to breakfast or other meds). 90 Tablet 1 4 Active hydroCHLOROthiazi de 12.5 MG Oral TabletIndications :HTN, goal below 140/90 TAKE 1 TABLET BY MOUTH EVERY DAY IN THE MORNING 30 Tablet 5 4 Active Dicyclomine HCl 20 MG Oral Tablet (Bentyl)Indicatio ns:Irritable bowel syndrome, unspecified type TAKE 1 TABLET BY MOUTH EVERY DAY IN THE MORNING AND AT BEDTIME 180 Tablet 1 4 Active Dicyclomine HCl 20 MG Oral Tablet (Bentyl)Indicatio ns:Irritable bowel syndrome, unspecified type TAKE 1 TABLET BY MOUTH EVERY DAY IN THE MORNING AND AT BEDTIME 180 Tablet 1 4 024 Discontinued LORazepam 1 MG Oral Tablet (Ativan)Indicatio ns:Anxiety TAKE 1 TABLET BY MOUTH EVERY 8 HOURS NEEDED FOR ANXIETY 90 Tablet 4 024 Discontinued(Re fill) documented as of this encounter (statuses as of 06/25/2024) Active Problems Problem Noted Date Diagnosed Date [...] GOLD Classification 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 Increased risk for hereditary breast and ovarian cancer. S/P coronary artery stent placement 05/12/2017 Overview: 03/25/17 to RCA Right-sided carotid artery disease 06/28/2016 Aortic ectasia, abdominal 06/28/2016 Ischemic nephropathy with at herosclerotic renal artery stenosis 06/23/2015 IBS (irritable bowel syndrome) 12/06/2011 High triglycerides 05/30/2011 Dyslipidemia, goal LDL below 70 08/18/2009 Gastroparesis 07/29/2009 MEDICATION USE AGREEMENT 08/06/2007 ADVANCE DIRECTIVE INFORMATION 11/20/2005 Overview: No, Advance Directive brochure given to patient at prior appointment. HTN, goal below 140/90 06/07/2004 Acquired hypothyroidism ADJ DISORDER W/DEPRES MOOD Esophageal reflux documented as of this encounter (statuses as of 06/25/2024) Resolved Problems Problem Noted Date Diagnosed Date [...] CKD protocol Coronary artery disease invo lving grindstone coronary artery of grindstone heart without angina pectoris 05/12/2017 07/21/2018 Exertional angina 10/04/2016 06/25/2017 Atypical chest pain 05/29/2016 10/04/19 17 Anemia in chronic kidney disease(285.21) 04/04/2012 03/14/2017 Anemia due to stage 3 chronic kidney disease 2 07/21/2020 Overview: Per CKD protocol #1 Dyslipidemia, goal to be determined 08/18/2009 04/01/2013 Overview: Per Lipid Taxonomy. 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 OSTEOARTHROS NOS-SHLDER 07/10 TEMPOROMANDIBULAR JOINT DISO RDERS, UNSPECIFIED 07/21/2018 Peptic ulcer 07/21/2018 DIVERTICULOSIS OF COLON 07/10 Mixed dyslipidemia 9 Overview: Resolved per Duplicate Protocol #2. documented as of this encounter (statuses as of 06/25/2024) Immunizations Name Administration Dates Next Due COVID-19 mRNA, LNP-s, No Pre serve, 2-Dose Series (Moderna) 01/16/2021,01/06/2021 COVID-19, MRNA-LNP, 23-24, P F, 30 MCG/0.3 mL, 12 YRS AND ABOVE, IM ([email or web address]) 10/23/2023 COVID-19, mRNA, LNP-s, PF, B ooster, [...] in the Last Year Never true 05/03/2020 Utilities Answer Date Recorded Do you have trouble paying y our heating, water, or electric bill? (Adult - for ages 18 years and over) Not on file 02/25/2024 Is your family able to pay t he heat, water, or electric bill? (Household - for ages 0-17 years) Not on file 02/25/2024 Does your family have access to good internet? (Household - for ages 0-17 years) Not on file 02/25/2024 Social Connections Answer Date Recorded How often do you feel lonely or isolated from those around you? (Adult - for ages 18 years and over) Not on file 02/25/2024 Sex and Gender Information Value Date Recorded Sex Assigned at Not on file Gender Identity Not on file Sexual Orientation Not on file Job Start Date Occupation Industry Not on file Not on file Not on file documented as of this encounter Functional Status Functional Status Response Date of Assess ment Are you deaf or do you have serious difficulty h earing? No 12/06/2014 Are you blind or do you have serious difficulty seeing, even when wearing glasses? No 12/06/2014 Do you have serious difficul ty walking or climbing stairs? (5 years old or older) No 12/06/2014 Do you have difficulty dress ing or bathing? (5 years old or older) No 12/06/2014 Because of a physical, menta l, or emotional condition, do you have difficulty doing errands alone such as visiting a doctor s office or shopping? (15 years old or older) No 12/07/19 15 Cognitive Status Response Date of Assessm ent Because of a physical, menta l, or emotional condition, do you have serious difficulty concentrating, remembering, or making decisions? (5 years old or older) No 12/06/2014 documented as of this encounter Miscellaneous Notes * Telephone Encounter - Kinga Longoria MD - 06/19/2024 10:27 AM EDTSigned Prescriptions: Disp Refills Dicyclomine HCl 20 MG Oral Tablet (Bentyl) 180 Ta*1 Sig: TAKE 1 TABLET BY MOUTH EVERY DAY IN THE MORNING AND AT BEDTIME Authorizing Provider: KINGA LONGORIA * Telephone Encounter - Magdalena Haney [facility] - 06/19/2024 10:17 AM EDT Pending Prescriptions: Disp Refills Dicyclomine HCl 20 MG Oral Tablet (Bentyl) 180 Ta*1 Sig: TAKE 1 TABLET BY MOUTH EVERY DAY IN THE MORNING AND AT BEDTIME * Telephone Encounter - Magdalena Haney [facility] - 06/19/2024 10:17 AM EDT Refill pharmacists currently not authorized to approve refills for this class of medication per refill protocol. Please approve if appropriate. Thank you, Magdalena Haney, PharmD. Clinical Pharmacist Pharmacy Refill Call Center 06/19/2024, 10:17 AM * Telephone Encounter - Cayla Khoury, [facility] - 06/18/2024 8:08 AM EDT Pending Prescriptions: Disp Refills Dicyclomine HCl 20 MG Oral Tablet [Pharmac*180 Ta*1 Sig: TAKE 1TABLET BY MOUTH EVERY DAY IN THE MORNING AND AT BEDTIME documented in this encounter Plan of Treatment Upcoming Encounters Date Type Department Care Team (Late st Contact Info) Description 09/07/2024 3:20 PM EST Office Visit Nephrology [address] [place] [phone] Ann-Marie Dudley MD [address] [place] [address], [place] [address] Scheduled Procedures Name Priority Associated [...] Screening 04/26/2021 04/26/2020 CKD PHOS USE SMARTSET 51696 12/01/202311/08, 11/10/2021, 05/24/2021, Additional history exists Albumin/Creatinine Ratio 04/17/2024 023, 11/30/2022, 11/10/2021, Additional history exists COVID-19 Vaccine ( season) 2024 10/23/2023, 10/10/2021, 01/16/2021, Additional history exists Influenza Vaccine (FLU shot) (#1) 2024 06/11/2023, 09/20/2022, 05/24/2021, Additional history exists Diabetic Foot Exam 06/11/2024 06/11/2023, 0 04/19/2020, 07/20/2019, Additional history exists Diabetic Eye Exam 07/30/2024 07/30/2023, , 12/28/2021, Additional history exists CKD HGB USE SMARTSET 64650 09/16/202409/16, 11/30/2022, 09/20/2022, Additional history exists GFR [...] this encounter Medical Devices Implanted Type Area 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 Engine 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 Device 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 Shelf Expiration Date Model / Serial / Lot Stent Bl Pa [id number] - [id number] Implanted:Qty: 1 on 05/08/2012 at [facility] Left: Renal Artery JNJ : [employer] 07/09/2014 [id number] / / [id number] Stent Bl Pa [id number] - [id number] Implanted:Qty: 1 on 05/08/2012 at [facility] Right: Renal Artery JNJ : [employer] 01/06/2015 [id number] / / [id number] Stent Graft [id number] - [id number] Implanted:Qty: 1 on 01/22/2014 at [facility] Left: Renal [employer] 03/08/2016 [id number] / / [id number] Stent Graft [id number] - [id number] Implanted:Qty: 1 on 12/06/2014 by Warren Bashir MD at [facility] Right: Renal Artery [employer] 09/07/2017 [id number] / / [id number] documented as of this encounter Visit Diagnoses Diagnosis Irritable bowel syndrome, unspecified type documented in this encounter Advance Directives [...] and were consensually agreed upon. Care Teams Remote Operations Producer Relationship Specialty Start Date End Date Kinga Longoria MD [address] [place] [address] [place] [id number] PCP - General Family Medicine 04/16/19 documented as of this encounter
--- OUTSIDE RECORDS SUMMARY | 2024-12-02 10:42 | External Medical Summary | Summary of Care ---
Author Name Unknown Organization [facility] Address [address] [facility] [place] [address] Phone [phone] Care Team Providers Care Consulting Psychiatrist Name Role Phone Gisela Coley MD Primary Care Prov ider Reason for Visit * Reason Comments eRx-Medication Refill Encounter Details Date Type Department Care Team (Late st Contact Info) Description 06/25/2024 Refill Family Medicine [address] [place] [address] Mir Steele [address] [place] [address] Anxiety Allergies Active Allergy Reactions Criticality Noted Date Comments Ampicillin 11/16/1997 vaginitis Ciprofloxacin 06/13/2017 Had in [facility] ER 03/09/2017. Made her feel very ill. C/o shakeness, nervousness Doxycycline 11/16/1997 Erythromycin 11/16/1997 Ranitidine 11/16/1997 rash documented as of this encounter (statuses as of 06/26/2024) Medications Medication Sig Dispensed Refills Start Date End Date Status TYLENOL EXTRA STRENGTH 500 MG PO TABS 2 pills as needed Active aspirin 81 MG chewable tablet Take 1 Tab by mouth daily. 34 Tab 11 07/12/2018 Active Cholecalciferol (VITAMIN D) 50 MCG (1999 UT) Capsule Take 2,000 Units by mouth daily. Active Blood Glucose Monitoring Suppl (Nixon ULTRA MINI) w/Device KIT Use as directed to test blood sugars. E11.9 1 Kit 10/13/2019 Active artificial tears (TEARS AGAIN) 1.4 % ophthalmic solutionIndications :Right-sided Henderson's palsy Instill 1 Drop into the right eye 4 times a day. 15 mL 04/23/2020 Active Fluticasone Propionate 50 MCG/ACT Nasal Suspension (Flonase)Indication s:Allergic rhinitis, unspecified seasonality, unspecified trigger Administer 2 Sprays into each nostril daily. 48 g 1 09/23/2020 Active eBillmeToActivaero Ultra Blue In Vitro Strip (Glucose Blood) Use to test blood sugars once daily E11.9 100 Strip 3 09/23/2020 Active Lancet Device Test once daily E11.9 100 Each 3 10/02/2020 Active Zoster Vac Recomb Adjuvanted 50 MCG/0.5ML Intramuscular Suspension Reconstituted (Shingrix)Indicatio ns:Need for shingles vaccine Inject 0.5 mL into a large muscle now and repeat dose in 60 to 180 days 1 Each 1 03/28/2022 Active Nitroglycerin 0.4 MG Sublingual Tablet Sublingual (Nitrostat)Indicati ons:Coronary artery disease involving [place] coronary artery of [place] heart without angina pectoris Place under the tongue 1 Tablet every 5 minutes as needed for Pain, Chest. 25 Tablet 1 03/28/2022 Active B-12 1000 MCG Oral Tablet Take by mouth. 01/16/2023 Active Loperamide HCl 2 MG Oral Capsule Take 1 Capsule by mouth 4 times a day as needed for Diarrhea. Active Metoprolol Succinate ER 25 MG Oral Tablet Extended Release 24 Hour (toPROL XL)Indications:Hear t palpitations,HTN, goal below 140/90 TAKE 1 TABLET BY MOUTH EVERY DAY 90 Tablet 3 08/21/2023 Active Atorvastatin Calcium 80 MG Oral Tablet (Lipitor)Indication s:Dyslipidemia, goal LDL below 70 TAKE 1 TABLET BY MOUTH EVERY DAY IN THE EVENING 90 Tablet 3 08/21/2023 Active Sertraline HCl 50 MG Oral Tablet (Zoloft)Indications :KWABENA (generalized anxiety disorder) Take 1 Tablet by mouth in the morning. 09/12/2023 Active Icosapent Ethyl 1 GM Oral Capsule (Vascepa) Take 2 Capsules by mouth 2 times a day with morning and evening meals. Swallow capsules whole, do not open or break. 120 Capsule 11 09/20/2023 Active Albuterol Sulfate (2.5 MG/3ML) 0.083% Inhalation Nebulization Solution (Proventil)Indicati ons:COPD exacerbation (HCC) Inhale 1 Vial via nebulizer every 4 hours as needed for Wheezing. 120 mL 1 10/04/2023 Active Additional Information Patient not taking.Reported on 11/26/2023 Compressor NebulizerIndication s:COPD exacerbation (HCC) Inhale via nebulizer. 1 nebulizer with tubing. Dx: COPD exacerbation 1 Each 1 10/04/2023 Active OneTouch Delica Plus [id number] s:Type 2 diabetes mellitus with stage 3b chronic kidney disease, without long-term current use of insulin (HCC) Test once a day E11.9 100 Each 3 10/23/2023 Active Clopidogrel Bisulfate 75 MG Oral Tablet (pLAVix) TAKE 1 TABLET BY MOUTH EVERY DAY IN THE MORNING 90 Tablet 3 11/06/2023 Active Pantoprazole Sodium 40 MG Oral Tablet Delayed Release (Protonix)Indicatio ns:Gastroesophageal reflux disease, unspecified whether esophagitis present TAKE 1 TABLET BY MOUTH TWICE A DAY IN THE MORNING AND IN THE EVENING 180 Tablet 1 11/05/2023 Active Ezetimibe 10 MG Oral Tablet (Zetia)Indications: High triglycerides,Dysli pidemia, goal LDL below 100 TAKE 1 TABLET BY MOUTH EVERY DAY IN THE MORNING 90 Tablet 3 11/06/2023 Active Albuterol Sulfate HFA 108 (90 Base) MCG/ACT Inhalation Aerosol SolutionIndications :SOB (shortness of breath) Inhale 2 Puffs by mouth every 4 hours as needed for Cough, Shortness of Breath or Wheezing. 54 g 1 11/25/2023 Active Nystatin 182950 UNIT/ML Mouth/Throat Suspension As needed 09/20/2023 Active Loperamide HCl 2 MG Oral Tablet (Immodium (A-D)) Take 1 Tablet by mouth 4 times a day as needed for Diarrhea. 30 Tablet 12/02/2023 Active Gabapentin 100 MG Oral Capsule (Neurontin)Indicati ons:Diabetic peripheral neuropathy (HCC) Take 1 Capsule by mouth in the morning and 1 Capsule at noon and 1 Capsule before bedtime. 90 Capsule 5 12/02/2023 Active Fluticasone-Umeclid in-Vilant 100-62.5-25 MCG/ACT Aerosol Powder Breath Activated (Trelegy Ellipta)Indications :COPD exacerbation (HCC) Inhale 1 Puff by mouth in the morning. 180 Blister Dosing Unit 1 02/11/2024 Active amLODIPine Besylate 2.5 MG Oral Tablet (Norvasc) TAKE 1 TABLET BY MOUTH EVERY DAY 90 Tablet 1 03/10/2024 Active metFORMIN HCl ER 500 MG Oral Tablet Extended Release 24 Hour (Glucophage XR)Indications:Type 2 diabetes mellitus with diabetic chronic kidney disease (HCC) TAKE 2 TABLETS BY MOUTH EVERY DAY IN THE MORNING 180 Tablet 1 03/25/2024 Active Lisinopril 20 MG Oral Tablet (Prinivil)Indicatio ns:HTN, goal below 140/90 Take 1.5 Tablets by mouth in the morning. 135 Tablet 3 04/01/2024 Active Levothyroxine Sodium 100 MCG Oral Tablet (Levoxyl) Take 1 Tablet by mouth in the morning. (at least 30 min prior to breakfast or other meds). 90 Tablet 1 03/30/2024 Active hydroCHLOROthiazide 12.5 MG Oral TabletIndications:H [place], goal below 140/90 TAKE 1 TABLET BY MOUTH EVERY DAY IN THE MORNING 30 Tablet 5 04/28/2024 Active Dicyclomine HCl 20 MG Oral Tablet (Bentyl)Indications :Irritable bowel syndrome, unspecified type TAKE 1 TABLET BY MOUTH EVERY DAY IN THE MORNING AND AT BEDTIME 180 Tablet 1 06/19/2024 Active LORazepam 1 MG Oral Tablet (Ativan)Indications :Anxiety TAKE 1 TABLET BY MOUTH EVERY 8 HOURS NEEDED FOR ANXIETY 90 Tablet 06/23/2024 Active documented as of this encounter (statuses as of 06/26/2024) Active Problems Problem Noted Date Diagnosed Date [...] GOLD Classification Coronary artery disease invo lving [place] coronary artery of [place] heart with angina pectoris 07/21/2018 Vitamin D deficiency 07/21/2018 Monoallelic mutation of BRCA2 gene 08/06/2017 Overview: Pathogenic BRCA2 gene variant (c.4588A>T, p.[id number]) detected via [employer]. Increased risk for hereditary breast and ovarian [...] as of this encounter (statuses as of 06/26/2024) Resolved Problems Problem Noted Date Diagnosed Date [...] CKD protocol Coronary artery disease invo lving [place] coronary artery of [place] heart without angina pectoris 05/12/2017 07/21/2018 Exertional [...] as of this encounter (statuses as of 06/26/2024) Immunizations Name Administration Dates Next Due COVID-19 mRNA, LNP-s, No Pre serve, 2-Dose Series (Moderna) 01/16/2021,01/06/2021 COVID-19, MRNA-LNP, 23-24, P F, 30 MCG/0.3 mL, 12 YRS AND ABOVE, IM [facility] 10/23/2023 COVID-19, mRNA, LNP-s, PF, B ooster, [...] encounter Miscellaneous Notes * Telephone Encounter - Tamika Alatorre [facility] - 06/26/2024 1:05 PM EDT Refused Prescriptions: Disp Refills LORazepam 1 MG Oral Tablet (Ativan) 90 Tab*0 Sig: TAKE 1 TABLET BY MOUTH EVERY 8 HOURS NEEDED FOR ANXIETYRefused By: TAMIKA ALATORRE for Refusal: Duplicate Request documented in this encounter Plan of Treatment Upcoming Encounters Date Type Department Care Team (Late st Contact Info) Description 09/07/2024 3:20 PM EST Office Visit Nephrology [address] [place] [address] Ann-Marie Dudley MD [address] [place] [address] [place], [place] [address] Scheduled Procedures Name Priority [...] Screening 04/26/2021 04/26/2020 CKD PHOS USE SMARTSET 42902 12/01/202311/08, 11/10/2021, 05/24/2021, Additional history exists Albumin/Creatinine Ratio 04/17/2024 023, 11/30/2022, 11/10/2021, Additional history exists COVID-19 Vaccine (5 season) 2024 10/23/2023, 10/10/2021, 01/16/2021, Additional history exists Influenza Vaccine (FLU shot) (#1) 2024 06/11/2023, 09/20/2022, 05/24/2021, Additional history exists Diabetic Foot Exam 06/11/2024 06/11/2023, 0 04/19/2020, 07/20/2019, Additional history exists Diabetic Eye Exam 07/30/2024 07/30/2023, , 12/28/2021, Additional history exists CKD HGB USE SMARTSET 75256 09/16/202409/16, 11/30/2022, 09/20/2022, Additional history exists GFR [...] this encounter Medical Devices Implanted 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 Device 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 Shelf Expiration Date Model / Serial / Lot Stent Bl Pa [id number] - [id number] Implanted:Qty: 1 on 05/08/2012 [place] [facility] [place] Renal Artery JNJ : CORDIS ENDOVASCULAR 07/09/2014 [id number] / / [id number] Stent Bl Pa [id number] - [id number] Implanted:Qty: 1 on 05/08/2012 at [facility] Right: Renal Artery JNJ : CORDIS ENDOVASCULAR 01/06/2015 [id number] / / [id number] Stent Graft [id number] - [id number] Implanted:Qty: 1 on 01/22/2014 at [facility] Left: Renal [employer] 03/08/2016 [id number] / / [id number] Stent Graft [id number] - [id number] Implanted:Qty: 1 on 12/06/2014 by Warren Bashir MD at [facility] Right: Renal Artery [employer] 09/07/2017 [id number] / / [id number] documented as of this encounter Visit Diagnoses [...] and were consensually agreed upon. Care Teams Consulting Psychiatrist Relationship Specialty Start Date End Date Gisela Coley MD [address] [place] [address] [place] [id number] PCP - General Family Medicine 04/16/19 documented as of this encounter
--- OUTSIDE RECORDS SUMMARY | 2024-12-02 10:42 | External Medical Summary | Summary of Care ---
Author Name Unknown Organization [facility] Address [address] [facility] [place] [address] Phone [phone] Care Team Providers Care Oracle Database Analyst Name Role Phone Kinga Longoria MD Primary Care Prov ider Reason for Visit * Reason Onset Date Comments Medication Refill 07/24/2024 Encounter Details Date Type Department Care Team (Late st Contact Info) Description 07/24/2024 Refill Family Medicine [address] [address] Kinga Longoria MD [address] [place] [address] [place] [address] Anxiety Allergies Active Allergy Reactions Criticality Noted Date Comments Ampicillin 11/16/1997 vaginitis Ciprofloxacin 06/13/2017 Had in [facility] ER 03/09/2017. Made her feel [...] Tablet Sublingual (Nitrostat)Indica tions:Coronary artery disease involving w[place] coronary artery of [place] heart without angina pectoris Place under the [...] 1 10/04/19 24 Active OneTouch Delica Plus [id number] ons:Type 2 diabetes mellitus with stage 3b [...] 54 g 1 11/25/19 24 Active Nystatin 226717 UNIT/ML Mouth/Throat Suspension As needed 09/20/19 24 [...] FOR ANXIETY 90 Tablet 07/27/20 24 Active LORazepam 1 MG Oral Tablet (Ativan)Indicatio ns:Anxiety TAKE 1 TABLET BY MOUTH EVERY 8 HOURS NEEDED FOR ANXIETY 90 Tablet 06/23/20 24 024 Discontin ued(Refil l) documented as [...] GOLD Classification 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 Increased risk for hereditary breast and ovarian [...] CKD protocol Coronary artery disease invo lving wilton coronary artery of w[place] heart without angina pectoris 05/12/2017 07/21/2018 Exertional [...] CG/0.3 mL, 12 YRS AND ABOVE, IM ([employer]) 10/23/2023 COVID-19, mRNA, LNP-s, PF, B ooster, [...] Telephone Encounter - Kinga Longoria MD - 07/27/2024 11:23 AM ESTSigned Prescriptions: Disp Refills LORazepam 1 MG Oral Tablet (Ativan) 90 Tab*0 Sig: TAKE 1 TABLET BY MOUTH EVERY 8 HOURS NEEDED FOR ANXIETY Authorizing Provider: KINGA LONGORIA * Telephone Encounter - Earlene Andre RP - 07/26/2024 3:30 PM EST Pending Prescriptions: Disp Refills LORazepam 1 MG Oral Tablet (Ativan) 90 Tab*0 Sig: TAKE 1 TABLET BY MOUTH EVERY 8 HOURS NEEDED FOR ANXIETY * Telephone Encounter - Earlene Andre RP - 07/26/2024 3:29 PM EST I have reviewed the patients controlled substance dispensing history in the Prescription Drug Monitoring Program in compliance with the [facility] regulations before prescribing a controlled substance. PDMP checked on 07/26/2024. Pending Prescriptions: Disp Refills LORazepam 1 MG Oral Tablet (Ativan) 90 Tab*0 Sig: TAKE 1 TABLET BY MOUTH EVERY 8 HOURS NEEDED FOR ANXIETY Last Visit: 03/26/2024 (in office), Visit date not found (telemedicine) Next Visit: Visit date not found Date medication was last filled: 06/23 Date medication is due for refill: 07/22 Pharmacy: [id number] [place] [address] Is this request for a controlled substance? [...] Review. Please approve if appropriate. Thank you, Earlene Andre, RuthD Clinical Pharmacist [facility] ([facility]) 07/26/24 3:29 PM [phone] * Telephone Encounter - Pauline Howell CPhT - 07/24/2024 3:48 PM EST Did you pend patient's preferred pharmacy and medication before forwarding?yes Pharmacy: [facility] [id number] Pending Prescriptions: Disp Refills LORazepam 1 [...] appointment Last date the medication was ordered: 06/23/24 Is this request for a controlled substance?Yes, What was the last refill date 06/23/24 w/ quantity 90 and dosage 1 MG and Urine Drug Screen Not completed Urine [...] 09/07/2024 3:20 PM EST Office Visit Nephrology [address] [place] [address] Ann-Marie Dudley MD [address] [facility] [place], [place] [address] Scheduled Procedures Name Priority Associated Diagnoses Date/Ti [...] Screening 04/26/2021 04/26/2020 CKD PHOS USE SMARTSET 81353 12/01/2023 03/2 12/2022, 11/10/2021, 05/24/2021, Additional history [...] Additional history exists CKD HGB USE SMARTSET 75673 09/16/202409/16, 11/30/2022, 09/20/2022, Additional history exists GFR [...] this encounter Medical Devices Implanted Type Area Rn Examiner Device Identifier Shelf Expiration Date Model / Serial / Lot Stent Bl Pa [id number] - [id number] Implanted:Qty: 1 on 05/08/2012 at [facility] [place] Left: Renal Artery JNJ : CORDIS ENDOVASCULAR 07/09/2014 [id number] / / [id number] Stent Bl Pa [id number] - [id number] Implanted:Qty: 1 on 05/08/2012 at [facility] [place] Right: Renal Artery JNJ : CORDIS ENDOVASCULAR 01/06/2015 [id number] / / [id number] Stent Graft [id number] - [id number] Implanted:Qty: 1 on 01/22/2014 at [facility] Left: Renal [employer] 03/08/2016 [id number] / / [id number] Stent Graft [id number] - [id number] Implanted:Qty: 1 on 12/06/2014 by Warren Bashir MD at [facility] Right: Renal Artery [employer] 09/07/2017 [id number] / / [id number] documented as of this encounter Visit Diagnoses [...] and were consensually agreed upon. Care Teams Oracle Database Analyst Relationship Specialty Start Date End Date Kinga Longoria MD [address] [place] [place] [address] [place] [phone] PCP - General Family Medicine 8/8/19 documented as of this encounter
--- OUTSIDE RECORDS SUMMARY | 2024-12-02 10:42 | External Medical Summary | Summary of Care ---
Author Name Unknown Organization [facility] Address [address] [facility] [place] [address] Phone [phone] Care Team Providers Care Employee Communications Intern Name Role Phone Gisela Coley MD Primary Care Prov ider Reason for Visit * Reason Onset Date Comments FYI 06/25/2024 Encounter Details Date Type Department Care Team (Late st Contact Info) Description 06/25/2024 Telephone Family Medicine [address] [address] Gisela Coley MD [address] [place], [place] [address] [address] FY Allergies Active Allergy Reactions Criticality Noted Date Comments Ampicillin 11/16/1997 vaginitis Ciprofloxacin 06/13/2017 Had in [facility] ER 03/09/2017. Made her feel very ill. C/o shakeness, nervousness Doxycycline 11/16/1997 Erythromycin 11/16/1997 Ranitidine 11/16/1997 rash documented as of this encounter (statuses as of 06/30/2024) Medications Medication Sig Dispensed Refills Start Date End Date Status TYLENOL EXTRA STRENGTH 500 MG PO TABS 2 pills as needed Active aspirin 81 MG chewable tablet Take 1 Tab by mouth daily. 34 Tab 11 07/12/2018 Active Cholecalciferol (VITAMIN D) 50 MCG (1999) [...] nostril daily. 48 g 1 09/23/2020 Active OneTouch Ultra Blue In Vitro Strip [...] Tablet Sublingual (Nitrostat)Indicati ons:Coronary artery disease involving [place] coronary artery of [place] heart without angina pectoris Place under the [...] Each 1 10/04/2023 Active OneTouch Delica Plus [id number] s:Type 2 diabetes mellitus with stage 3b [...] Wheezing. 54 g 1 11/25/2023 Active Nystatin 446678 UNIT/ML Mouth/Throat Suspension As needed 09/20/2023 Active [...] as of this encounter (statuses as of 06/30/2024) Active Problems Problem Noted Date Diagnosed Date [...] GOLD Classification Coronary artery disease invo lving [place] coronary artery of [place] heart with angina pectoris 07/21/2018 Vitamin D deficiency 07/21/2018 Monoallelic mutation of BRCA2 gene 08/06/2017 Overview: Pathogenic BRCA2 gene variant (c.4588A>T, p.Wvy1207T) detected via [employer]. Increased risk for hereditary breast and ovarian [...] as of this encounter (statuses as of 06/30/2024) Resolved Problems Problem Noted Date Diagnosed Date [...] CKD protocol Coronary artery disease invo lving [place] coronary artery of [place] heart without angina pectoris 05/12/2017 07/21/2018 Exertional [...] as of this encounter (statuses as of 06/30/2024) Immunizations Name Administration Dates Next Due COVID-19 mRNA, LNP-s, No Pre serve, 2-Dose Series (Moderna) 01/16/2021,01/06/2021 COVID-19, MRNA-LNP, 23-24, P F, 30 MCG/0.3 mL, 12 YRS AND ABOVE, IM [facility] 10/23/2023 COVID-19, mRNA, LNP-s, PF, B ooster, [...] encounter Miscellaneous Notes * Telephone Encounter - Shirley Sorinao CPhT - 06/25/2024 12:11 PM EDT Pt calling to request LORazepam 1 MG. Informed pt that RX is available at their pharmacy. Pt verbalized understanding and stated they will check with their pharmacy regarding this medication. Thank you, Shirley Soriano CPhT Back Tender II [facility] ([facility]) 06/25/2024,12:11 PM documented in this encounter Plan of Treatment Upcoming Encounters Date Type Department Care Team (Late st Contact Info) Description 09/07/2024 3:20 PM EST Office Visit Nephrology [address] [place] [address] Ann-Marie Dudley MD [address] [place] [address] [place] [address] Scheduled Procedures Name Priority Associated Diagnoses Date/Ti me ESOPHAGOGASTRODUODENOSCOPY ( EGD), FLEXIBLE, TRANSORAL, DIAGNOSTIC Recall Heartburn Abdominal pain, unspecified abdominal location Change in stool habits Loose stools Health Maintenance Due Date Last Done Comments DISCUSS TOBACCO CESSATION (REFER TO SMARTSET #5614) 1942 Discuss Risk-Reducing Salpingo Oophorectomy (RRSO) Recommendation BRCA1/BRCA2,Ages 30 & Up 1972 Hepatitis B Vaccine (2 of 3 - 19+ 3-dose series) 05/27/1998 04/29/1998 Adult Wellness Visit 2008 Zoster Vaccines (3 of 3) 12/17/2019 10/22/2019, 0305/2009 Depression Screening 04/26/2021 04/26/2020 CKD PHOS USE SMARTSET 04760 12/01/202311/08, 11/10/2021, 05/24/2021, Additional history exists Albumin/Creatinine Ratio 04/17/2024 023, 11/30/2022, 11/10/2021, Additional history exists COVID-19 Vaccine ( season) 2024 10/23/2023, 10/10/2021, 01/16/2021, Additional history exists Influenza Vaccine (FLU shot) (#1) 2024 06/11/2023, 09/20/2022, 05/24/2021, Additional history exists Diabetic Foot Exam 06/11/2024 06/11/2023, 0 04/19/2020, 07/20/2019, Additional history exists Diabetic Eye Exam 07/30/2024 07/30/2023, , 12/28/2021, Additional history exists CKD HGB USE SMARTSET 34980 09/16/202409/16, 11/30/2022, 09/20/2022, Additional history exists GFR [...] this encounter Medical Devices Implanted Type Area Sports Management Intern Device Identifier Shelf Expiration Date Model / Serial / Lot Stent Bl Pa [id number] - [id number] Implanted:Qty: 1 on 05/08/2012 [place] [facility] [place]: Renal Artery JNJ : CORDIS ENDOVASCULAR 07/09/2014 [id number] / / [id number] Stent Bl Pa [id number] - [id number] Implanted:Qty: 1 on 05/08/2012 at [place] [facility] [place] Right: Renal Artery JNJ : CORDIS ENDOVASCULAR 01/06/2015 [id number] / / [id number] Stent Graft [id number] - [id number] Implanted:Qty: 1 on 01/22/2014 at [facility] Left: Renal [employer] 03/08/2016 [id number] / / [id number] Stent Graft [id number] - [id number] Implanted:Qty: 1 on 12/06/2014 by Warren Bashir MD at [facility] Right: Renal Artery [employer] 09/07/2017 [id number] / / [id number] documented as of this encounter Advance Directives [...] and were consensually agreed upon. Care Teams Employee Communications Intern Relationship Specialty Start Date End Date Gisela Coley MD [address] [place] [address] [place] [phone] PCP - General Family Medicine 04/16/19 documented as of this encounter
--- OUTSIDE RECORDS SUMMARY | 2024-12-02 10:42 | External Medical Summary | Summary of Care ---
Author Name Unknown Organization [facility] Address [address] [facility] [place] [address] Phone [phone] Care Team Providers Care Entry Driver Operator Name Role Phone Gisela Coley MD Primary Care Prov ider Reason for Visit * Reason Comments eRx-Medication Refill Encounter Details Date Type Department Care Team (Late st Contact Info) Description 05/26/2024 Refill Family Medicine [address] [phone] Gisela Coley MD [address] [place] [address] Anxiety Allergies Active Allergy Reactions Criticality Noted Date Comments Ampicillin 11/16/1997 vaginitis Ciprofloxacin 06/13/2017 Had in [facility] ER 03/09/2017. Made her feel very ill. C/o shakeness, nervousness Doxycycline 11/16/1997 Erythromycin 11/16/1997 Ranitidine 11/16/1997 rash documented as of this encounter (statuses as of 06/23/2024) Medications Medication Sig Dispensed Refills Start Date [...] artificial tears (TEARS AGAIN) 1.4 % ophthalmic solutionIndication s:Right-sided Henderson's palsy Instill 1 Drop into the right eye 4 times a day. 15 mL 0 Active Fluticasone Propionate 50 MCG/ACT Nasal Suspension (Flonase)Indicatio ns:Allergic rhinitis, unspecified seasonality, unspecified trigger Administer 2 Sprays into each nostril daily. 48 g 1 1 Active OneTouch Ultra Blue In Vitro Strip (Glucose Blood) Use to test blood sugars once daily E11.9 100 Strip 3 1 Active Lancet Device Test once daily E11.9 100 Each 3 1 Active Zoster Vac Recomb Adjuvanted 50 MCG/0.5ML Intramuscular Suspension Reconstituted (Shingrix)Indicati ons:Need for shingles vaccine Inject 0.5 mL into a large muscle now and repeat dose in 60 to 180 days 1 Each 1 2 Active Nitroglycerin 0.4 MG Sublingual Tablet Sublingual (Nitrostat)Indicat ions:Coronary artery disease involving [place] coronary artery of [place]osh[place] heart without angina pectoris Place under the [...] Oral Tablet Extended Release 24 Hour (toPROL XL)Indications:Hea rt palpitations,HTN, goal below 140/90 TAKE 1 TABLET BY MOUTH EVERY DAY 90 Tablet 3 3 Active Atorvastatin Calcium 80 MG Oral Tablet (Lipitor)Indicatio ns:Dyslipidemia, goal LDL below 70 TAKE 1 TABLET BY MOUTH EVERY DAY IN THE EVENING 90 Tablet 3 3 Active Sertraline HCl 50 MG Oral Tablet (Zoloft)Indication s:KWABENA (generalized anxiety disorder) Take 1 Tablet by mouth in the morning. 4 Active Icosapent Ethyl 1 GM Oral Capsule (Vascepa) Take 2 Capsules by mouth 2 times a day with morning and evening meals. Swallow capsules whole, do not open or break. 120 Capsule 11 4 Active Albuterol Sulfate (2.5 MG/3ML) 0.083% Inhalation Nebulization Solution (Proventil)Indicat ions:COPD exacerbation (HCC) Inhale 1 Vial via nebulizer every 4 hours as needed for Wheezing. 120 mL 1 4 Active Additional Information Patient not taking.Reported on 11/26/2023 Compressor NebulizerIndicatio ns:COPD exacerbation (HCC) Inhale via nebulizer. 1 nebulizer with tubing. Dx: COPD exacerbation 1 Each 1 4 Active OneTouch Delica Plus [id number] ns:Type 2 diabetes mellitus with stage 3b chronic kidney disease, without long-term current use of insulin ([facility]) Test once a day E11.9 100 Each 3 4 Active Clopidogrel Bisulfate 75 MG Oral Tablet (pLAVix) TAKE 1 TABLET BY MOUTH EVERY DAY IN THE MORNING 90 Tablet 3 4 Active Pantoprazole Sodium 40 MG Oral Tablet Delayed Release (Protonix)Indicati ons:Gastroesophage al reflux disease, unspecified whether esophagitis present TAKE 1 TABLET BY MOUTH TWICE A DAY IN THE MORNING AND IN THE EVENING 180 Tablet 1 4 Active Ezetimibe 10 MG Oral Tablet (Zetia)Indications :High triglycerides,Dysl ipidemia, goal LDL below 100 TAKE 1 TABLET BY MOUTH EVERY DAY IN THE MORNING 90 Tablet 3 4 Active Albuterol Sulfate HFA 108 (90 Base) MCG/ACT Inhalation Aerosol SolutionIndication s:SOB (shortness of breath) Inhale 2 Puffs by mouth every 4 hours as needed for Cough, Shortness of Breath or Wheezing. 54 g 1 4 Active Nystatin 177979 UNIT/ML Mouth/Throat Suspension As needed 4 Active Loperamide HCl 2 MG Oral Tablet (Immodium (A-D)) Take 1 Tablet by mouth 4 times a day as needed for Diarrhea. 30 Tablet 4 Active Gabapentin 100 MG Oral Capsule (Neurontin)Indicat ions:Diabetic peripheral neuropathy (HCC) Take 1 Capsule by mouth in the morning and 1 Capsule at noon and 1 Capsule before bedtime. 90 Capsule 5 4 Active Fluticasone-Umecli din-Vilant 100-62.5-25 MCG/ACT Aerosol Powder Breath Activated (Trelegy Ellipta)Indication s:COPD exacerbation (HCC) Inhale 1 Puff by mouth in the morning. 180 Blister Dosing Unit 1 4 Active amLODIPine Besylate 2.5 MG Oral Tablet (Norvasc) TAKE 1 TABLET BY MOUTH EVERY DAY 90 Tablet 1 4 Active metFORMIN HCl ER 500 MG Oral Tablet Extended Release 24 Hour (Glucophage XR)Indications:Typ e 2 diabetes mellitus with diabetic chronic kidney disease (HCC) TAKE 2 TABLETS BY MOUTH EVERY DAY IN THE MORNING 180 Tablet 1 4 Active Lisinopril 20 MG Oral Tablet (Prinivil)Indicati ons:HTN, goal below 140/90 Take 1.5 Tablets by mouth in the morning. 135 Tablet 3 4 Active Levothyroxine Sodium 100 MCG Oral Tablet (Levoxyl) Take 1 Tablet by mouth in the morning. (at least 30 min prior to breakfast or other meds). 90 Tablet 1 4 Active hydroCHLOROthiazid e 12.5 MG Oral TabletIndications: HTN, goal below 140/90 TAKE 1 TABLET BY MOUTH EVERY DAY IN THE MORNING 30 Tablet 5 4 Active LORazepam 1 MG Oral Tablet (Ativan)Indication s:Anxiety TAKE 1 TABLET BY MOUTH EVERY 8 HOURS NEEDED FOR ANXIETY 90 Tablet 4 Active Dicyclomine HCl 20 MG Oral Tablet (Bentyl)Indication s:Irritable bowel syndrome, unspecified type TAKE 1 TABLET BY MOUTH EVERY DAY IN THE MORNING AND AT BEDTIME 180 Tablet 1 4 06/19/20 24 Discontinued documented as of this encounter (statuses as of 06/23/2024) Active Problems Problem Noted Date Diagnosed Date [...] GOLD Classification Coronary artery disease invo lving [place] coronary artery of [place] heart with angina pectoris 07/21/2018 Vitamin D deficiency 07/21/2018 Monoallelic mutation of BRCA2 gene 08/06/2017 Overview: Pathogenic BRCA2 gene variant (c.4588A>T, p.Lyz4086S) detected via [employer]. Increased risk for hereditary breast and ovarian [...] as of this encounter (statuses as of 06/23/2024) Resolved Problems Problem Noted Date Diagnosed Date [...] CKD protocol Coronary artery disease invo lving [place] coronary artery of [place] heart without angina pectoris 05/12/2017 07/21/2018 Exertional [...] as of this encounter (statuses as of 06/23/2024) Immunizations Name Administration Dates Next Due COVID-19 mRNA, LNP-s, No Pre serve, 2-Dose Series (Moderna) 01/16/2021,01/06/2021 COVID-19, MRNA-LNP, 23-24, P F, 30 MCG/0.3 mL, 12 YRS AND ABOVE, IM (PFIZER-Comirnaty) [...] as of this encounter Miscellaneous Notes * Addendum Note - Lora Burton LPN - 06/23/2024 1:05 PM EDTAddended by: LORA BURTON on: 06/23/2024 01:05 PM Modules accepted: Orders * Telephone Encounter - Lora Burton LPN - 06/23/2024 1:04 PM EDT Lorazepam refused by [facility] as duplicate request. Last refill 05/25/24 * Telephone Encounter - Pauline Joy OSA - 06/23/2024 12:53 PM EDT Pt would like a refill on Lorazepam. Please advise. * Telephone Encounter - Nayla Monterroso RPh - 05/27/2024 1:56 PM EDTRefused Prescriptions: Disp Refills LORazepam 1 MG Oral Tablet (Ativan) 90 Tab*0 Sig: TAKE 1 TABLETBY MOUTH EVERY 8 HOURS NEEDED FOR ANXIETYRefused By: NAYLA MONTERROSO for Refusal: Duplicate Request documented in this encounter Plan of Treatment Upcoming Encounters Date Type Department Care Team (Late st Contact Info) Description 09/07/2024 3:20 PM EST Office Visit Nephrology [address] [place] [phone] Ann-Marie Dudley MD [address] [facility] [place] [address] Scheduled Procedures Name Priority Associated Diagnoses Date/Ti me ESOPHAGOGASTRODUODENOSCOPY ( EGD), FLEXIBLE, TRANSORAL, DIAGNOSTIC Recall Heartburn Abdominal pain, unspecified abdominal location Change in stool habits Loose stools Health Maintenance Due Date Last Done Comments DISCUSS TOBACCO CESSATION (REFER TO SMARTSET #9301) 1942 Discuss Risk-Reducing Salpingo Oophorectomy (RRSO) Recommendation BRCA1/BRCA2,Ages 30 & Up 1972 Hepatitis B Vaccine (2 of 3 - 19+ 3-dose series) 05/27/1998 04/29/1998 Adult Wellness Visit 2008 Zoster Vaccines (3 of 3) 12/17/2019 10/22/2019, 0305/2009 Depression Screening 04/26/2021 04/26/2020 CKD PHOS USE SMARTSET 48326 12/01/202311/08, 11/10/2021, 05/24/2021, Additional history exists Albumin/Creatinine Ratio 04/17/2024 023, 11/30/2022, 11/10/2021, Additional history exists COVID-19 Vaccine ( season) 2024 10/23/2023, 10/10/2021, 01/16/2021, Additional history exists Influenza Vaccine (FLU shot) (#1) 2024 06/11/2023, 09/20/2022, 05/24/2021, Additional history exists Diabetic Foot Exam 06/11/2024 06/11/2023, 0 04/19/2020, 07/20/2019, Additional history exists Diabetic Eye Exam 07/30/2024 07/30/2023, , 12/28/2021, Additional history exists CKD HGB USE SMARTSET 16363 09/16/202409/16, 11/30/2022, 09/20/2022, Additional history exists GFR 09/26/2024 03/26/2024, 03/0 04/2024, 11/04/2023, Additional history exists HbA1c 09/26/2024 03/26/2024, 11/08, 06/11/2023, Additional history exists O2 ASSESSMENT COMPLETED [...] this encounter Medical Devices Implanted Type Area Insurance Loss Assessor Device Identifier Shelf Expiration Date Model / Serial / Lot Stent Bl Pa [id number] - [id number] Implanted:Qty: 1 on 05/08/2012 at OR [facility] Left: Renal Artery JNJ : CORDIS ENDOVASCULAR 07/09/2014 [id number] / / [id number] Stent Bl Pa [id number] - [id number] Implanted:Qty: 1 on 05/08/2012 at [facility] Right: Renal Artery JNJ : CORDIS ENDOVASCULAR 01/06/2015 [id number] / / [id number] Stent Graft [id number] - [id number] Implanted:Qty: 1 on 01/22/2014 at OR [facility] Left: Renal [employer] 03/08/2016 [id number] / / [id number] Stent Graft [id number] - [id number] Implanted:Qty: 1 on 12/06/2014 by Warren Bashir MD at OR [facility] Right: Renal Artery [employer] 09/07/2017 [id number] / / [id number] documented as of this encounter Visit Diagnoses [...] and were consensually agreed upon. Care Teams Entry Driver Operator Relationship Specialty Start Date End Date Gisela Coley MD [address] [place] [address] [place] [id number] PCP - General Family Medicine 04/16/19 documented as of this encounter
--- OUTSIDE RECORDS SUMMARY | 2024-12-02 10:42 | External Medical Summary | Summary of Care ---
Author Name Unknown Organization [facility] Address [address] [facility] [place] [address] Phone [phone] Care Team Providers Care College Recruiter Name Role Phone Gisela Longoria MD Primary Care Prov ider Reason for Visit * Reason Comments eRx-Medication Refill Encounter Details Date Type Department Care Team (Late st Contact Info) Description 07/17/2024 Refill Family Medicine [address] [phone] Gisela Longoria MD [address] [place] [address] Type 2 diabetes mellitus with diabetic chronic kidney disease (HCC) Allergies Active Allergy Reactions Criticality Noted Date Comments Ampicillin 11/16/1997 vaginitis Ciprofloxacin 06/13/2017 Had in [facility] ER 03/09/2017. Made her feel very ill. C/o shakeness, nervousness Doxycycline 11/16/1997 Erythromycin 11/16/1997 Ranitidine 11/16/1997 rash documented as of this encounter (statuses as of 07/19/2024) Medications TYLENOL EXTRA STRENGTH 500 MG PO TABS 2 pills as needed Active aspirin 81 MG chewable tablet Take 1 Tab by mouth daily. 34 Tab 11 018 Active Cholecalciferol (VITAMIN D) 50 MCG (2000 UT) Capsule Take 2,000 Units by mouth daily. Active Blood Glucose Monitoring Suppl (AlchemyAPITOUCH ULTRA MINI) w/Device KIT Use as directed [...] Tablet Sublingual (Nitrostat)Indic ations:Coronary artery disease involving [place] coronary artery of [place] heart without angina pectoris Place under the [...] BY MOUTH EVERY DAY 90 Tablet 3 023 Active Atorvastatin Calcium 80 MG Oral Tablet (Lipitor)Indicat ions:Dyslipidemi a, goal LDL below 70 TAKE 1 TABLET BY MOUTH EVERY DAY IN THE EVENING 90 Tablet 3 023 Active Sertraline HCl 50 MG Oral Tablet [...] Each 1 024 Active OneTouch Delica Plus [id number] ions:Type 2 diabetes mellitus with stage 3b chronic kidney disease, without long-term current use of insulin (HCC) Test once a day E11.9 100 Each 3 024 Active Clopidogrel Bisulfate 75 MG Oral Tablet (pLAVix) TAKE 1 TABLET BY MOUTH EVERY DAY IN THE MORNING 90 Tablet 3 024 Active Pantoprazole Sodium 40 MG Oral Tablet Delayed Release (Protonix)Indica tions:Gastroesop hageal reflux disease, unspecified whether esophagitis present TAKE 1 TABLET BY MOUTH TWICE A DAY IN THE MORNING AND IN THE EVENING 180 Tablet 1 024 Active Ezetimibe 10 MG Oral Tablet [...] Wheezing. 54 g 1 024 Active Nystatin 485327 UNIT/ML Mouth/Throat Suspension As needed 024 Active [...] 180 Blister Dosing Unit 1 024 Active amLODIPine Besylate 2.5 MG Oral Tablet (Norvasc) TAKE 1 TABLET BY MOUTH EVERY DAY 90 Tablet 1 024 Active Lisinopril 20 MG Oral Tablet (Prinivil)Indica tions:HTN, goal below 140/90 Take 1.5 Tablets by mouth in the morning. 135 Tablet 3 024 Active Levothyroxine Sodium 100 MCG Oral Tablet (Levoxyl) Take 1 Tablet by mouth in the morning. (at least 30 min prior to breakfast or other meds). 90 Tablet 1 024 Active hydroCHLOROthiaz melody 12.5 MG Oral TabletIndication s:HTN, goal below 140/90 TAKE 1 TABLET BY MOUTH EVERY DAY IN THE MORNING 30 Tablet 5 024 Active Dicyclomine HCl 20 MG Oral Tablet (Bentyl)Indicati ons:Irritable bowel syndrome, unspecified type TAKE 1 TABLET BY MOUTH EVERY DAY IN THE MORNING AND AT BEDTIME 180 Tablet 1 024 Active LORazepam 1 MG Oral Tablet (Ativan)Indicati ons:Anxiety TAKE 1 TABLET BY MOUTH EVERY 8 HOURS NEEDED FOR ANXIETY 90 Tablet 024 Active metFORMIN HCl ER 500 MG Oral Tablet Extended Release 24 Hour (Glucophage XR)Indications: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) TAKE 1 TABLET BY MOUTH EVERY DAY IN THE MORNING 90 Tablet 1 024 Active metFORMIN HCl ER 500 MG Oral Tablet Extended Release 24 Hour (Glucophage XR)Indications: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) TAKE 2 TABLETS BY MOUTH EVERY DAY IN THE MORNING 180 Tablet 1 024 2023 Discontinued documented as of this encounter (statuses as of 07/19/2024) Active Problems Problem Noted Date Diagnosed Date [...] GOLD Classification Coronary artery disease invo lving [place] coronary artery of [place] heart with angina pectoris 07/21/2018 Vitamin D deficiency 07/21/2018 Monoallelic mutation of BRCA2 gene 08/06/2017 Overview (08/06/2017): Pathogenic BRCA2 gene variant (c.4588A>T, p.Idr1941K) detected via [employer]. Increased risk for hereditary breast and ovarian [...] as of this encounter (statuses as of 07/19/2024) Resolved Problems Problem Noted Date Diagnosed Date [...] CKD protocol Coronary artery disease invo lving [place] coronary artery of [place] heart without angina pectoris 05/12/2017 07/21/2018 Exertional [...] as of this encounter (statuses as of 07/19/2024) Immunizations Name Administration Dates Next Due COVID-19 mRNA, LNP-s, No Pre serve, 2-Dose Series (Moderna) 01/16/2021,01/06/2021 COVID-19, MRNA-LNP, PF, 30 M CG/0.3 mL, 12 YRS AND ABOVE, IM (PFIZER-[facility]) 10/23/2023 COVID-19, mRNA, LNP-s, PF, B [...] years and over) Not on file 02/25/2024 Comments No Sex and Gender Information Value [...] Author No 12/06/2014 8:00 PM Helena Donato, RN * Are you blind or do [...] encounter Miscellaneous Notes * Telephone Encounter - Kate Childress [facility] - 07/19/2024 8:33 PM ESTSigned Prescriptions: Disp Refills metFORMIN HCl ER 500 MG Oral Tablet Extend*90 Tab*1 Sig: TAKE 1 TABLET BY MOUTH EVERY DAY IN THE MORNING Authorizing Provider: GISELA LONGORIA Ordering User: KATE CHILDRESS * Telephone Encounter - Cayla Khoury [facility] - 07/17/2024 12:59 PM EST Pending Prescriptions: Disp Refills metFORMIN HCl ER 500 MG Oral Tablet Extend*90 Tab*1 Sig: TAKE 1TABLET BY MOUTH EVERY DAY IN THE MORNING documented in this encounter Plan of Treatment Upcoming Encounters Date Type Department Care Team (Late st Contact Info) Description 09/07/2024 3:20 PM EST Office Visit Nephrology [address] [place], [place] [phone] Ann-Marie Dudley MD [address] [place] [address] Scheduled Procedures Name Priority Associated Diagnoses Date/Ti [...] Screening 04/26/2021 04/26/2020 CKD PHOS USE SMARTSET 88046 12/01/2023/12/2022, 11/10/2021, 05/24/2021, Additional history exists Albumin/Creatinine Ratio 04/17/2024 023, 11/30/2022, 11/10/2021, Additional history exists COVID-19 Vaccine ( season) 2024 10/23/2023, 10/10/2021, 01/16/2021, Additional history exists Influenza Vaccine (FLU shot) (#1) 2024 06/11/2023, 09/20/2022, 05/24/2021, Additional history exists Diabetic Foot Exam 06/11/2024 06/11/2023, 0 04/19/2020, 07/20/2019, Additional history exists Diabetic Eye Exam 07/30/2024 07/30/2023, , 12/28/2021, Additional history exists CKD HGB USE SMARTSET 04675 09/16/202409/16, 11/30/2022, 09/20/2022, Additional history exists GFR 09/26/2024 03/26/2024, 0 04/2024, 11/04/2023, Additional history exists HbA1c 09/26/2024 03/26/2024, /2 01/2024, 06/11/2023, Additional history exists O2 ASSESSMENT [...] this encounter Medical Devices Implanted Type Area Front End Java Developer Device Identifier Shelf Expiration Date Model / Serial / Lot Stent Bl Pa [id number] - [id number] Implanted:Qty: 1 on 05/08/2012 at OR [facility] Left: Renal Artery JNJ : CORDIS ENDOVASCULAR 07/09/2014 [id number] / / [id number] Stent Bl Pa [id number] - [id number] Implanted:Qty: 1 on 05/08/2012 at OR [facility] Right: Renal Artery JNJ : CORDIS ENDOVASCULAR 01/06/2015 [id number] / / [id number] Stent Graft [id number] - [id number] Implanted:Qty: 1 on 01/22/2014 at OR [facility] Left: Renal [employer] 03/08/2016 [id number] / / [id number] Stent Graft [id number] - [id number] Implanted:Qty: 1 on 12/06/2014 by Warren Bashir MD at [facility] Right: Renal Artery [employer] 09/07/2017 [id number] / / [id number] documented as of this encounter Visit Diagnoses [...] and were consensually agreed upon. Care Teams College Recruiter Relationship Specialty Start Date End Date Gisela Longoria MD [address] [place] [address] [place] [phone] PCP - General Family Medicine 04/16/19 documented as of this encounter
--- OUTSIDE RECORDS SUMMARY | 2024-12-02 10:42 | External Medical Summary | Summary of Care ---
Author Name Unknown Organization [facility] Address [address] [facility] [place] [address] Phone [phone] Care Team Providers Care Certified Maintenance Welder Name Role Phone Gisela Coley MD Primary Care Prov ider Reason for Visit * Reason Comments eRx-Medication Refill Encounter Details Date Type Department Care Team (Late st Contact Info) Description 05/26/2024 Refill Family Medicine [address] [phone] Gisela Coley MD [address] [place] [address] Anxiety Allergies Active Allergy Reactions Criticality Noted Date Comments Ampicillin 11/16/1997 vaginitis Ciprofloxacin 06/13/2017 Had in [facility] ER 03/09/2017. Made her feel very [...] Tablet Sublingual (Nitrostat)Indicat ions:Coronary artery disease involving [place] coronary artery of [place] heart without angina pectoris Place under the [...] Each 1 4 Active OneTouch Delica Plus [id number] ns:Type 2 diabetes mellitus with stage 3b chronic kidney disease, without long-term current use of insulin ([facility]) Test once a day E11.9 100 Each [...] Wheezing. 54 g 1 4 Active Nystatin 456520 UNIT/ML Mouth/Throat Suspension As needed 4 Active [...] GOLD Classification Coronary artery disease invo lving [place] coronary artery of [place] heart with angina pectoris 07/21/2018 Vitamin D deficiency 07/21/2018 Monoallelic mutation of BRCA2 gene 08/06/2017 Overview: Pathogenic BRCA2 gene variant (c.4588A>T, p.Vrs2930O) detected via [employer]. Increased risk for hereditary breast and ovarian [...] CKD protocol Coronary artery disease invo lving [place] coronary artery of [place] heart without angina pectoris 05/12/2017 07/21/2018 Exertional [...] Miscellaneous Notes * Telephone Encounter - Pauline Joy OSA - 06/23/2024 12:53 PM EDT Pt would like a refill on Lorazepam. Please advise. * Telephone Encounter - Nayla Monterroso [facility] - 05/27/2024 1:56 PM EDTRefused Prescriptions: Disp Refills LORazepam 1 MG Oral Tablet (Ativan) 90 Tab*0 Sig: TAKE 1 TABLETBY MOUTH EVERY 8 HOURS NEEDED FOR ANXIETYRefused By: NAYLA MONTERROSO for Refusal: Duplicate Request documented in this encounter Plan of Treatment Upcoming Encounters Date Type Department Care Team (Late st Contact Info) Description 09/07/2024 3:20 PM EST Office Visit Nephrology [address] [place] [phone] Ann-Marie Dudley MD [address] [place] [address], [place] [phone] Scheduled Procedures Name Priority Associated Diagnoses Date/Ti me ESOPHAGOGASTRODUODENOSCOPY ( EGD), FLEXIBLE, TRANSORAL, DIAGNOSTIC Recall Heartburn Abdominal pain, unspecified abdominal location Change in stool habits Loose stools Health Maintenance Due Date Last Done Comments DISCUSS TOBACCO CESSATION (REFER TO SMARTSET #3191) 1942 Discuss Risk-Reducing Salpingo Oophorectomy (RRSO) Recommendation BRCA1/BRCA2,Ages 30 & Up 1972 Hepatitis B Vaccine (2 of 3 - 19+ 3-dose series) 05/27/1998 04/29/1998 Adult Wellness Visit 2008 Zoster Vaccines (3 of 3) 12/17/2019 10/22/2019, 03/0 05/2009 Depression Screening 04/26/2021 04/26/2020 CKD PHOS USE SMARTSET 42274 12/01/20232 12/2022, 11/10/2021, 05/24/2021, Additional history exists [...] Additional history exists CKD HGB USE SMARTSET 74503 09/16/202409/16, 11/30/2022, 09/20/2022, Additional history exists GFR [...] this encounter Medical Devices Implanted Type Area Supervisor Electronics Inspection Device Identifier Shelf Expiration Date Model / Serial / Lot Stent Bl Pa [id number] - [id number] Implanted:Qty: 1 on 05/08/2012 at OR [facility] [place] Left: Renal Artery JNJ : CORDIS ENDOVASCULAR 07/09/2014 [id number] / / [id number] Stent Bl Pa [id number] - [id number] Implanted:Qty: 1 on 05/08/2012 at OR [facility] [place] Right: Renal Artery JNJ : CORDIS ENDOVASCULAR 01/06/2015 [id number] / / [id number] Stent Graft [id number] - [id number] Implanted:Qty: 1 on 01/22/2014 at OR [facility] [place] Left: Renal [employer] 03/08/2016 [id number] / / [id number] Stent Graft [id number] - [id number] Implanted:Qty: 1 on 12/06/2014 by Warren Bashir MD at OR [facility] [place] Right: Renal Artery [employer] 09/07/2017 [id number] / / [id number] documented as of this encounter Visit Diagnoses [...] and were consensually agreed upon. Care Teams Certified Maintenance Welder Relationship Specialty Start Date End Date Gisela Coley MD [address] [place] [address] [place] [phone] PCP - General Family Medicine 04/16/19 documented as of this encounter
--- OUTSIDE RECORDS SUMMARY | 2024-12-02 10:43 | External Medical Summary | Summary of Care ---
Author Name Unknown Organization [facility] Address [address] [place] [address] Phone [phone] Care Team Providers Care Fabric Sourcer Name Role Phone Kinga Longoria MD Primary Care Prov ider Reason for Visit * Reason Comments eRx-Medication Refill Encounter Details Date Type Department Care Team (Late st Contact Info) Description 06/18/2024 Refill Pharmacy, [address] [place] [id number] Kinga Longoria MD [address] [place] [address] [place] [phone] Irritable bowel syndrome, unspecified type Allergies Active Allergy Reactions Criticality Noted Date Comments Ampicillin 11/16/1997 vaginitis Ciprofloxacin 06/13/2017 Had in [facility] 03/09/2017. Made her feel very ill. C/o shakeness, nervousness Doxycycline 11/16/1997 Erythromycin 11/16/1997 Ranitidine 11/16/1997 rash documented as of this encounter (statuses as of 06/19/2024) Medications Medication Sig Dispensed Refills Start Date [...] nostril daily. 48 g 1 1 Active Ocarina TechnologiesTouch Ultra Blue In Vitro Strip (Glucose Blood) [...] Tablet Sublingual (Nitrostat)Indicat ions:Coronary artery disease involving levelock coronary artery of levelock heart without angina pectoris Place under the [...] Each 1 4 Active OneTouch Delica Plus [id number] ns:Type 2 diabetes mellitus with stage 3b chronic kidney disease, without long-term current use of insulin ([facility]) Test once a day E11.9 100 Each [...] Wheezing. 54 g 1 4 Active Nystatin 767003 UNIT/ML Mouth/Throat Suspension As needed 4 Active [...] as of this encounter (statuses as of 06/19/2024) Active Problems Problem Noted Date Diagnosed Date [...] GOLD Classification Coronary artery disease invo lving levelock coronary artery of levelock heart with angina pectoris 07/21/2018 Vitamin D deficiency 07/21/2018 Monoallelic mutation of BRCA2 gene 08/06/2017 Overview: Pathogenic BRCA2 gene variant (c.4588A>T, p.[id number]) detected via [facility]. Increased risk for hereditary breast and ovarian [...] as of this encounter (statuses as of 06/19/2024) Resolved Problems Problem Noted Date Diagnosed Date [...] CKD protocol Coronary artery disease invo lving levelock coronary artery of levelock heart without angina pectoris 05/12/2017 07/21/2018 Exertional [...] as of this encounter (statuses as of 06/19/2024) Immunizations Name Administration Dates Next Due COVID-19 mRNA, LNP-s, No Pre serve, 2-Dose Series (Moderna) 01/16/2021,01/06/2021 COVID-19, MRNA-LNP, 23-24, P F, 30 MCG/0.3 mL, 12 YRS AND ABOVE, IM ([facility]) 10/23/2023 COVID-19, mRNA, LNP-s, PF, [...] LONGORIA * Telephone Encounter - Magdalena Haney RPh - 06/19/2024 10:17 AM EDT Pending Prescriptions: Disp Refills Dicyclomine HCl 20 MG Oral Tablet (Bentyl) 180 Ta*1 Sig: TAKE 1 TABLET BY MOUTH EVERY DAY IN THE MORNING AND AT BEDTIME * Telephone Encounter - Magdalena Haney RPh - 06/19/2024 10:17 AM EDT Refill pharmacists currently not authorized to approve refills for this class of medication per refill protocol. Please approve if appropriate. Thank you, Magdalena Haney PharmD. Clinical Pharmacist Pharmacy Refill Call Center 06/19/2024, 10:17 AM * Telephone Encounter - Cayla Khoury [facility] - 06/18/2024 8:08 AM EDT Pending Prescriptions: Disp Refills Dicyclomine HCl 20 MG Oral Tablet [Pharmac*180 Ta*1 Sig: TAKE 1TABLET BY MOUTH EVERY DAY IN THE MORNING AND AT BEDTIME documented in this encounter Plan of Treatment Upcoming Encounters Date Type Department Care Team (Late st Contact Info) Description 09/07/2024 3:20 PM EST Office Visit Nephrology [address] [place] [phone] Ann-Marie Dudley MD [address] [place] [address] [place] [address] Scheduled Procedures Name Priority Associated Diagnoses Date/Ti [...] Screening 04/26/2021 04/26/2020 CKD PHOS USE SMARTSET 48695 12/01/202311/08, 11/10/2021, 05/24/2021, Additional history exists Albumin/Creatinine Ratio 04/17/2024 023, 11/30/2022, 11/10/2021, Additional history exists COVID-19 Vaccine ( season) 2024 10/23/2023, 10/10/2021, 01/16/2021, Additional history exists Influenza Vaccine (FLU shot) (#1) 2024 06/11/2023, 09/20/2022, 05/24/2021, Additional history exists Diabetic Foot Exam 06/11/2024 06/11/2023, 0 04/19/2020, 07/20/2019, Additional history exists Diabetic Eye Exam 07/30/2024 07/30/2023, , 12/28/2021, Additional history exists CKD HGB USE SMARTSET 04576 09/16/202409/16, 11/30/2022, 09/20/2022, Additional history exists GFR [...] this encounter Medical Devices Implanted Type Area Jig Maker Device Identifier Shelf Expiration Date Model / Serial / Lot Stent Bl Pa [id number] - [id number] Implanted:Qty: 1 on 05/08/2012 at [place] [facility] [place] Left: Renal Artery JNJ : [employer] 07/09/2014 [id number] / / [id number] Stent Bl Pa [id number] - [id number] Implanted:Qty: 1 on 05/08/2012 at [facility] Right: Renal Artery JNJ : [employer] 01/06/2015 [id number] / / [id number] Stent Graft [id number] - [id number] Implanted:Qty: 1 on 01/22/2014 at [facility] Left: Renal [employer] 03/08/2016 [id number] / / [id number] Stent Graft [id number] - [id number] Implanted:Qty: 1 on 12/06/2014 by Warren Bashir MD at [facility] Right: Renal Artery [employer] 09/07/2017 [id number] / / [id number] documented as of this encounter Visit Diagnoses [...] and were consensually agreed upon. Care Teams Fabric Sourcer Relationship Specialty Start Date End Date Kinga Longoria MD [address] [place] [address] [place] [phone] PCP - General Family Medicine 04/16/19 documented as of this encounter
[2024-12-02 11:40] LABS: ANTI-Xa, UFH(UnfractionatedHep 0.18 IU/ml (0.3-0.7)
[2024-12-02] MEDS: HEPARIN SOD (PORCINE) 1000 UNIT/ML IV ONE (12:25)
--- NOTE | 2024-12-02 13:31 | Electrocardiogram Report ---
Test Reason : Blood Pressure : */* mmHG Vent. Rate : 56 BPM Atrial Rate : * BPM P-R Int : * ms QRS Dur : 88 ms QT Int : 462 ms P-R-T Axes : * 1 157 degrees QTcB Int : 445 ms Atrial fibrillation with slow ventricular response Left ventricular hypertrophy with repolarization abnormality ( R in aVL ) Inferior infarct , age undetermined Abnormal ECG When compared with ECG of 01-Dec-2024 22:18, Vent. rate has decreased by [address] no longer depressed in Inferior leads Non-specific change in ST segment in Anterior leads T wave inversion no longer evident in Inferior leads Confirmed by Herber Herrera ([id number]) on 12/02/2024 1:31:12 PM Referred By: REFERRED SELF Confirmed By: Herber Herrera
[2024-12-02] MEDS: LORazepam 0.5 MG TAB PO SCH ×2 (14:07→20:52)
--- NOTE | 2024-12-02 16:59 | Hospitalist Progress Note ---
Date of Service December 02, 2024 Assessment & Plan (1) Atrial fibrillation with RVR: Plan: New onset Multifactorial: Left-sided abdominal pain from recurrent diverticulitis attack, mild chronic inflammation as per CT imaging, no sepsis for now Unasyn followed by Augmentin course for recurrent diverticulitis, outpatient GI consult for recurrent diverticulitis Anxiety and bereavement from recent demise contributory Remains bradycardic with a heart rate around 50s Appreciate cardiology in input and recommendation Metoprolol dose has been decreased The patient remains stable and denies any cardiac symptoms Troponin elevation secondary to tachyarrhythmia hx CAD status post stent/PVD status post surgery hx CVA on dual antiplatelet Rx Hypertension, slight elevated Blood pressure remains on the lower side and will monitor Hyperlipidemia, on statin Rx COPD, not in acute exacerbation hx GERD/Jernigan's esophagus, 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 DM 2, on oral medications, suboptimal control as of recent hemoglobin A1c of 7.7 last March 2024 Basal bolus insulin adjusted for clear liquid diet, ISS BG goal 1 10-1 40, carb count coverage Hypothyroidism, TSH elevated at 6, normal free T4 Chronic anemia, hemoglobin at baseline Past tobacco abuse Anxiolytic as needed Her PCP is trying to wean off anxiolytics and will be given Ativan as she has been taking as an outpatient Psych consult as per patient request for uncontrolled anxiety following demise (Patient awaiting counselor appointment to be arranged by PCPs office.) DVT prophylaxis. IV heparin Full code Patient son requesting updates from providers. Mr. Jero Roberts, contact #[phone]. Text document was generated using [employer] voice recognition software. It may contain grammatical or spelling errors. Kindly contact undersigned for clarification of any documentation item in question. Admission and Anticipated Discharge Date Admission Date: December 02, 2024 Subjective 12/02/2024 The patient was seen and examined in telemetry unit She has been feeling much better and denies any palpitation, chest pressure or pain Denies any shortness of breath and has been saturating normally on room air Remains bradycardic at around 50s Review of Systems Review of Systems: All systems reviewed and are unremarkable except as noted below Physical Exam Physical Exam: Lying in bed without any acute distress Constitutional: average body habitus; not ill appearing Eyes: PERRL, conjunctivae normal, anicteric sclerae ENMT: external ear and nose normal, oropharynx normal Neck: trachea midline, no thyromegaly Respiratory: no respiratory distress Auscultation: lungs clear to auscultation bilaterally Cardiovascular: Rate/Rhythm: + irregularly irregular; not tachycardic Heart Sounds: normal S1, normal S2 and + murmur Extremities: no edema Gastrointestinal (Abdomen): Inspection/Auscultation: normal bowel sounds; abdomen not distended Percussion/Palpation: abdomen soft; abdomen nontender Musculoskeletal: No acute arthritis involving any of the joint Neurologic: normal touch/pain/proprioception and moves all extremities; no focal motor deficits Lymphatic: no cervical or axillary lymphadenopathy Results & Data Results & Data Vital Signs (Past 12 Hours) Vital Signs Temp Pulse Pulse Resp BP Pulse Ox O2 Del Method 12/02/24 15:44 36.8 C 54 L 16 113/74 91 Room Air 12/02/24 14:17 60 12/02/24 11:19 36.5 C 58 L 18 130/72 97 Room Air 12/02/24 10:56 Room Air 12/02/24 07:45 50 L 12/02/24 07:28 36.7 C 56 L 18 118/74 95 Room Air Laboratory Results Short CBC 12/01/24 12/02/24 Range/Units 22:10 05:36 WBC 7.15 8.54 (4.8-10.8) K/ul Hgb 11.8 L 10.0 L (12.0-16.0) g/dl Hct 38.3 32.5 L (37.0-47.0) % Plt Count 272 256 (130-400) K/uL BMP 12/01/24 12/02/24 22:10 05:36 Sodium 135 L 137 Potassium 3.8 3.7 Chloride 100 106 Carbon Dioxide 26 27 BUN 13 10 Creatinine 1.06 0.88 Glucose 197 H 150 H Calcium 9.7 8.5 L Liver Function 12/01/24 Range/Units 22:10 Total Bilirubin 0.3 (0.2-1.0) mg/dl AST 14 (13-39) U/L ALT 11 (7-52) U/L Alkaline Phosphatase 62 (34-104) U/L Albumin 4.8 (3.4-5.0) gm/dl Urine 12/01/24 Range/Units 22:39 Urine Color Yellow Urine Appearance Clear (Clear) Urine pH 6.5 (4.5-7.5) Ur Specific [place] 1.004 (1.000-1.030) Urine Protein 2+ H (Negative) Urine Glucose (UA) Negative (Negative) Medications Administered Current Inpatient Medications Acetaminophen (Acetaminophen 325 Mg Tab) 650 mg PO QID PRN PRN Reason: pain/fever Stop: 01/01/25 03:06 Amlodipine Besylate (Amlodipine Besylate 5 Mg Tab) 2.5 mg PO DAILY YARI Stop: 01/01/25 08:59 Last Admin: 12/02/24 09:24 Dose: 2.5 mg Amoxicillin/Clavulanate Potassium (Amoxicillin/Clavulanate 875 Mg Tab) 1 tab PO BIDM [facility]; Protocol Stop: 12/12/24 19:59 Artificial Tears (Artificial Tears) 1 drops OP QID YARI Stop: 01/01/25 08:59 Last Admin: 12/02/24 12:28 Dose: Not Given Aspirin (Aspirin 81 Mg Ectab) 81 mg PO DAILY YARI Stop: 01/01/25 08:59 Last Admin: 12/02/24 09:24 Dose: 81 mg Atorvastatin Calcium (Atorvastatin 40 Mg Tab) 80 mg PO QPM YARI Stop: 01/01/25 20:59 Buspirone HCl (Buspirone 5 Mg Tab) 5 mg PO BID YARI Stop: 01/01/25 08:59 Last Admin: 12/02/24 09:23 Dose: 5 mg Clopidogrel Bisulfate (Clopidogrel Bisulfate 75 Mg Tab) 75 mg PO DAILY YARI Stop: 01/01/25 08:59 Last Admin: 12/02/24 09:24 Dose: 75 mg Cyanocobalamin (Cyanocobalamin (B-12) 500 Mcg Tablet) 1,000 mcg PO DAILY [facility] Stop: 01/01/25 08:59 Last Admin: 12/02/24 09:23 Dose: 1,000 mcg Dextrose (Dextrose 50% 50 Ml Syringe) 25 - 50 ml IV UD PRN; Protocol PRN Reason: Hypoglycemia Protocol Stop: 01/01/25 03:33 Ezetimibe (Ezetimibe 10 Mg Tab) 10 mg PO QAM [facility] Stop: 01/01/25 08:59 Last Admin: 12/02/24 09:25 Dose: 10 mg Fluticasone Furoate (Fluticasone Furoate 100mcg 14 Puffs/Inhaler) 1 puffs INH DAILY YARI Stop: 01/01/25 08:59 Last Admin: 12/02/24 09:23 Dose: 1 puffs Gabapentin (Gabapentin 100 Mg Cap) 100 mg PO TID [facility] Stop: 01/01/25 08:59 Last Admin: 12/02/24 13:12 Dose: 100 mg Glucagon (Glucagon For Inj 1 Mg Vial) 1 mg SQ UD PRN; Protocol PRN Reason: Hypoglycemia Protocol Stop: 01/01/25 03:33 Glucose (Glucose 40% Gel 15 Gm Tube) 15 - 30 gm PO UD PRN; Protocol PRN Reason: Hypoglycemia Protocol Stop: 01/01/25 03:33 Glucose (Glucose 10 Tab/Tube) 4 - 8 tab PO UD PRN; Protocol PRN Reason: Hypoglycemia Protocol Stop: 01/01/25 03:33 Heparin Sodium/Dextrose (Heparin 32965 Unit/500 Ml D5w) 25,000 units in 500 mls @ 17 mls/hr IV .Q24H YARI; Protocol Stop: 01/01/25 03:29 Last Titration: 12/02/24 12:26 Dose: 850 units/hr, 17 mls/hr Promethazine HCl (Phenergan) 6.25 mg in 50.25 mls @ 201 mls/hr IV Q6H PRN PRN Reason: Nausea And Vomiting Stop: 01/01/25 03:07 Insulin Aspart (Insulin Aspart Per Unit Charge) 0 units SC ACHS [facility] Stop: 01/01/25 03:33 Last Admin: 12/02/24 12:25 Dose: 2 units Insulin Glargine (Lantus Per Unit Charge) 5 units SQ DAILY [facility] Stop: 01/01/25 04:14 Last Admin: 12/02/24 04:48 Dose: 5 units Levothyroxine Sodium (Levothyroxine Sodium 100 Mcg Tablet) 100 mcg PO DAILYBB [facility] Stop: 01/01/25 06:29 Last Admin: 12/02/24 06:11 Dose: 100 mcg Lisinopril (Lisinopril 10 Mg Tab) 30 mg PO QAM [facility] Stop: 01/01/25 08:59 Last Admin: 12/02/24 09:23 Dose: 30 mg Lorazepam (Lorazepam 0.5 Mg Tab) 0.5 mg PO BID@0900,1400 [facility] Stop: 01/01/25 13:59 Last Admin: 12/02/24 14:07 Dose: 0.5 mg Lorazepam (Lorazepam 0.5 Mg Tab) 1 mg PO HS YARI Stop: 01/01/25 20:59 Metoprolol Succinate (Metoprolol Succ 25mg Ext Rel Tab) 25 mg PO DAILY YARI Stop: 01/02/25 08:59 Miscellaneous (Vascepa - Order Awaiting Action) 1 each N/A QS YARI Stop: 01/01/25 07:59 Last Admin: 12/02/24 09:19 Dose: Not Given Miscellaneous (Carbohydrates For Hypoglycemia ) 15 - 30 gm PO UD PRN PRN Reason: Hypoglycemia Protocol Stop: 01/01/25 03:33 Nitroglycerin (Nitroglycerin Sl 0.4 Mg/Tab Tab) 0.4 mg SL UD PRN PRN Reason: Chest Pain Stop: 01/01/25 03:04 Pantoprazole Sodium (Pantoprazole 40 Mg Tab) 40 mg PO BID YARI Stop: 01/01/25 08:59 Last Admin: 12/02/24 09:25 Dose: 40 mg Sertraline HCl (Sertraline Hcl 50 Mg Tablet) 50 mg PO DAILY YARI Stop: 01/01/25 08:59 Last Admin: 12/02/24 09:24 Dose: 50 mg Tramadol HCl (Tramadol Hcl 50 Mg Tablet) 25 mg PO Q4H PRN PRN Reason: Pain Stop: 01/01/25 03:06 Umeclidinium/Vilanterol (Umeclidinium/Vilanterol 62.5/25mcg 7 Puffs/Inhaler) 1 puffs INH DAILY YARI Stop: 01/01/25 08:59 Last Admin: 12/02/24 09:23 Dose: 1 puffs
[2024-12-02 19:59] LABS: ANTI-Xa, UFH(UnfractionatedHep 0.35 IU/ml (0.3-0.7)
[2024-12-02] MEDS: AMOXICILLIN/CLAVULANATE 875 MG TAB PO SCH (20:52)
[2024-12-02] MEDS: ATORVASTATIN 40 MG TAB PO SCH (20:53)
[2024-12-02] MEDS ORDERED: METOPROLOL SUCC 25MG EXT REL TAB PO SCH (21:00)
[2024-12-03 07:07] LABS: Basophils # (auto) 0.06 K/uL (0.00-0.20); Basophils % (auto) 0.8 %; Eosinophils # (auto) 0.13 K/uL (0.00-0.50); Eosinophils % (auto) 1.8 %; Hemoglobin 9.3 g/dl (12.0-16.0); Immature Granulocytes # (auto) 0.01 K/uL (0.01-0.20); Immature Granulocytes % (auto) 0.1 %; Lymphocytes % (auto) 35.2 %; Mean Corpuscular Volume 79.9 fL (80.0-100.0); Mean Platelet Volume 9.8 fL (9.4-12.4); Monocytes # (auto) 0.49 K/uL (0.11-0.59); Monocytes % (auto) 6.9 %; Neutrophils # (auto) 3.91 K/uL (1.40-6.50); Neutrophils % (auto) 55.2 %; Platelet Count 212 K/uL (130-400); RDW Standard Deviation 46.7 fL (36.4-46.3); Red Blood Count 3.88 M/uL (4.20-5.40)
[2024-12-03 07:24] LABS: ANTI-Xa, UFH(UnfractionatedHep 0.35 IU/ml (0.3-0.7)
[2024-12-03 07:30] LABS: BUN Creatinine Ratio 8.2 (10-20); Calcium 8.4 mg/dl (8.6-10.3); Creatinine Clr Calc Pharmacy 41.9 ml/min; Magnesium 2.1 mg/dl (1.7-2.4); Potassium 4.2 mmol/L (3.5-5.1)
[2024-12-03] MEDS: METOPROLOL SUCC 25MG EXT REL TAB PO SCH (12:44)
--- NOTE | 2024-12-03 15:10 | Cardiology Progress Note ---
Date of Service December 03, 2024 Assessment & Plan (1) Atrial fibrillation with RVR: (2) Elevated troponin: (3) Vascular disease: (4) CAD (coronary artery disease): Plan New AF RVR - rates improved. The Toprol dose reduced back to 25 mg daily and was actually held this morning for bradycardia. Will reduce the parameter for heart rate less than 50 bpm. Given age and underlying vascular risk factors, patient felt to be at high risk for cardioembolic stroke. 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 Will discontinue aspirin and proceed with clopidogrel with plans to transition from heparin to Eliquis on 12/03/[address] segment depression noted when patient in A-fib with RVR. Mild troponin elevation, lateral repolarization abnormalities persist with controlled rate as noted on repeat EKG 12/02/2024. No anginal symptoms. Reassuring echocardiogram. Continue medical management with clopidogrel, beta-andres, atorvastatin, ezetimibe. Constant history of labile hypertension-continue [employer]PER[employer]OR lisinopril, amlodipine, metoprolol dose adjusted as noted Admission and Anticipated Discharge Date Admission Date: December 02, 2024 Subjective Patient seen in cardiology follow-up. She notes feeling improved. Son is at the bedside. She is still on a liquid diet, but notes that she is feeling hungry and that her abdomen feels better. Physical Exam Physical Exam: General: no acute distress and stated age Eyes: conjunctiva are pink and non-injected, sclera clear Neck: normal jugular venous pulse, no hepatojugular reflux Chest: normal shape and normal respiratory effort Lungs: clear to auscultation and percussion Cardiac Exam: -Irregular rhythm, 1/6 systolic murmur, no edema Abdomen: abdomen soft, non-tender, no abnormal masses and no hepatosplenomegaly Musculoskeletal: no gait disturbance, no weakness Extremities: no edema and no cyanosis Neuro:awake, conversant, follows commands, no focal motor deficits Psych: appropriate affect and insight. Results & Data Vital Signs (Past 12 Hours) Vital Signs Temp Pulse Pulse Resp BP Pulse Ox O2 Del Method 12/03/24 12:10 36.7 C 62 18 98/59 L 95 Room Air 12/03/24 08:23 36.7 C 52 L 20 141/75 H 95 Room Air 12/03/24 07:44 Room Air 12/03/24 07:29 61 Laboratory Results CBC 12/03/24 Range/Units 06:43 WBC 7.10 (4.8-10.8) K/ul RBC 3.88 L (4.20-5.40) M/uL Hgb 9.3 L (12.0-16.0) g/dl Hct 31.0 L (37.0-47.0) % Plt Count 212 (130-400) K/uL Neut # (Auto) 3.91 (1.40-6.50) K/uL Lymph # (Auto) 2.50 (1.20-3.40) K/uL Curry # (Auto) 0.49 (0.11-0.59) K/uL Eos # (Auto) 0.13 (0.00-0.50) K/uL Baso # (Auto) 0.06 (0.00-0.20) K/uL Comprehensive Metabolic Panel 12/03/24 Range/Units 06:43 Sodium 136 (136-145) mmol/L Potassium 4.2 (3.5-5.1) mmol/L Chloride 105 (98-107) mmol/L Carbon Dioxide 26 (21-32) mmol/L BUN 8 (6-23) mg/dl Creatinine 0.97 (0.6-1.2) mg/dl Glucose 134 H (70-99(Fasting)) mg/dl Calcium 8.4 L (8.6-10.3) mg/dl Intake and Output 12/03/24 12/03/24 12/03/24 06:59 14:59 22:59 Intake Total 197.767 / 197.767 Balance 197.767 / 197.767 Intake: IV 197.767 / 197.767 Heparin 93493 Unit/500 ml D5w 197.767 / 197.767 25,000 units In 500 ml @ 850 UNITS/HR 17 mls/hr IV .Q24H YARI Rx#:[id number] Other: # Unmeasured Voids 1 Weight 66.5 kg Weight Measurement Method Built in [facility]
--- NOTE | 2024-12-03 15:18 | Hospitalist Progress Note ---
Date of Service December 03, 2024 Assessment & Plan (1) Atrial fibrillation with RVR: Plan: New onset Multifactorial: Left-sided abdominal pain from recurrent diverticulitis attack, mild chronic inflammation as per CT imaging, no sepsis for now Unasyn followed by Augmentin course for recurrent diverticulitis, outpatient GI consult for recurrent diverticulitis Anxiety and bereavement from recent demise contributory Remains bradycardic with a heart rate around 50s Appreciate cardiology in input and recommendation Metoprolol dose has been decreased The patient remains stable and denies any cardiac symptoms Still on intravenous heparin and aspirin likely to be transferred to [facility] on discharge Will get PT and OT evaluation Troponin elevation secondary to tachyarrhythmia hx CAD status post stent/PVD status post surgery hx CVA on dual antiplatelet Rx Hypertension, slight elevated Blood pressure remains on the lower side and will monitor Blood pressure remains on the lower side and will decrease the dose of lisinopril to 10 mg from tomorrowl Hyperlipidemia, on statin Rx COPD, not in acute exacerbation hx GERD/Jernigan's esophagus, 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 DM 2, on oral medications, suboptimal control as of recent hemoglobin A1c of 7.7 last March 2024 Basal bolus insulin adjusted for clear liquid diet, ISS BG goal 1 10-1 40, carb count coverage Hypothyroidism, TSH elevated at 6, normal free T4 Chronic anemia, hemoglobin at baseline Past tobacco abuse Anxiolytic as needed Her PCP is trying to wean off anxiolytics and will be given Ativan as she has been taking as an outpatient Psych consult as per patient request for uncontrolled anxiety following demise (Patient awaiting counselor appointment to be arranged by PCPs office.) DVT prophylaxis. IV heparin Full code Patient son requesting updates from providers. Mr. Jero Roberts, contact #[phone]. Text document was generated using [employer] voice recognition software. It may contain grammatical or spelling errors. Kindly contact undersigned for clarification of any documentation item in question. Admission and Anticipated Discharge Date Admission Date: December 02, 2024 Subjective 12/02/2024 The patient was seen and examined in telemetry unit She has been feeling much better and denies any palpitation, chest pressure or pain Denies any shortness of breath and has been saturating normally on room air Remains bradycardic at around 50s 12/03/2024 The patient was seen and examined in telemetry unit She has been feeling much better but remains generally weak Heart rate remains controlled with occasional bradycardia Denies any more abdominal pain Review of Systems Review of Systems: All systems reviewed and are unremarkable except as noted below Physical Exam Physical Exam: Lying in bed without any acute distress Constitutional: average body habitus; not ill appearing Eyes: PERRL, conjunctivae normal, anicteric sclerae ENMT: external ear and nose normal, oropharynx normal Neck: trachea midline, no thyromegaly Respiratory: no respiratory distress Auscultation: lungs clear to auscultation bilaterally Cardiovascular: Rate/Rhythm: + irregularly irregular; not tachycardic Heart Sounds: normal S1, normal S2 and + murmur Extremities: no edema Gastrointestinal (Abdomen): Inspection/Auscultation: normal bowel sounds; abdomen not distended Percussion/Palpation: abdomen soft; abdomen nontender Neurologic: normal touch/pain/proprioception and moves all extremities; no focal motor deficits Lymphatic: no cervical or axillary lymphadenopathy Results & Data Results & Data Vital Signs (Past 12 Hours) Vital Signs Temp Pulse Pulse Resp BP Pulse Ox O2 Del Method 12/03/24 12:10 36.7 C 62 18 98/59 L 95 Room Air 12/03/24 08:23 36.7 C 52 L 20 141/75 H 95 Room Air 12/03/24 07:44 Room Air 12/03/24 07:29 61 Laboratory Results Short CBC 12/03/24 Range/Units 06:43 WBC 7.10 (4.8-10.8) K/ul Hgb 9.3 L (12.0-16.0) g/dl Hct 31.0 L (37.0-47.0) % Plt Count 212 (130-400) K/uL BMP 12/03/24 06:43 Sodium 136 Potassium 4.2 Chloride 105 Carbon Dioxide 26 BUN 8 Creatinine 0.97 Glucose 134 H Calcium 8.4 L Medications Administered Current Inpatient Medications Acetaminophen (Acetaminophen 325 Mg Tab) 650 mg PO QID PRN PRN Reason: pain/fever Stop: 01/01/25 03:06 Amlodipine Besylate (Amlodipine Besylate 5 Mg Tab) 2.5 mg PO DAILY [facility] Stop: 01/01/25 08:59 Last Admin: 12/03/24 09:03 Dose: 2.5 mg Amoxicillin/Clavulanate Potassium (Amoxicillin/Clavulanate 875 Mg Tab) 1 tab PO BIDM [facility]; Protocol Stop: 12/12/24 19:59 Last Admin: 12/03/24 09:03 Dose: 1 tab Artificial Tears (Artificial Tears) 1 drops OP QID [facility] Stop: 01/01/25 08:59 Last Admin: 12/03/24 13:49 Dose: Not Given Atorvastatin Calcium (Atorvastatin 40 Mg Tab) 80 mg PO QPM [facility] Stop: 01/01/25 20:59 Last Admin: 12/02/24 20:53 Dose: 80 mg Buspirone HCl (Buspirone 5 Mg Tab) 5 mg PO BID [facility] Stop: 01/01/25 08:59 Last Admin: 12/03/24 09:04 Dose: 5 mg Clopidogrel Bisulfate (Clopidogrel Bisulfate 75 Mg Tab) 75 mg PO DAILY [facility] Stop: 01/01/25 08:59 Last Admin: 12/03/24 09:04 Dose: 75 mg Cyanocobalamin (Cyanocobalamin (B-12) 500 Mcg Tablet) 1,000 mcg PO DAILY [facility] Stop: 01/01/25 08:59 Last Admin: 12/03/24 09:05 Dose: 1,000 mcg Dextrose (Dextrose 50% 50 Ml Syringe) 25 - 50 ml IV UD PRN; Protocol PRN Reason: Hypoglycemia Protocol Stop: 01/01/25 03:33 Ezetimibe (Ezetimibe 10 Mg Tab) 10 mg PO QAM [facility] Stop: 01/01/25 08:59 Last Admin: 12/03/24 09:05 Dose: 10 mg Fluticasone Furoate (Fluticasone Furoate 100mcg 14 Puffs/Inhaler) 1 puffs INH DAILY [facility] Stop: 01/01/25 08:59 Last Admin: 12/03/24 09:05 Dose: 1 puffs Gabapentin (Gabapentin 100 Mg Cap) 100 mg PO TID [facility] Stop: 01/01/25 08:59 Last Admin: 12/03/24 13:49 Dose: 100 mg Glucagon (Glucagon For Inj 1 Mg Vial) 1 mg SQ UD PRN; Protocol PRN Reason: Hypoglycemia Protocol Stop: 01/01/25 03:33 Glucose (Glucose 40% Gel 15 Gm Tube) 15 - 30 gm PO UD PRN; Protocol PRN Reason: Hypoglycemia Protocol Stop: 01/01/25 03:33 Glucose (Glucose 10 Tab/Tube) 4 - 8 tab PO UD PRN; Protocol PRN Reason: Hypoglycemia Protocol Stop: 01/01/25 03:33 Heparin Sodium/Dextrose (Heparin 77468 Unit/500 Ml D5w) 25,000 units in 500 mls @ 17 mls/hr IV .Q24H [facility]; Protocol Stop: 12/03/24 21:00 Last Admin: 12/03/24 07:38 Dose: 850 units/hr, 17 mls/hr Promethazine HCl (Phenergan) 6.25 mg in 50.25 mls @ 201 mls/hr IV Q6H PRN PRN Reason: Nausea And Vomiting Stop: 01/01/25 03:07 Insulin Aspart (Insulin Aspart Per Unit Charge) 0 units SC ACHS [facility] Stop: 01/01/25 03:33 Last Admin: 12/03/24 13:48 Dose: 4 units Insulin Glargine (Lantus Per Unit Charge) 5 units SQ DAILY [facility] Stop: 01/01/25 04:14 Last Admin: 12/03/24 09:08 Dose: 5 units Levothyroxine Sodium (Levothyroxine Sodium 100 Mcg Tablet) 100 mcg PO DAILYBB [facility] Stop: 01/01/25 06:29 Last Admin: 12/03/24 06:09 Dose: 100 mcg Lisinopril (Lisinopril 10 Mg Tab) 30 mg PO QAM [facility] Stop: 01/01/25 08:59 Last Admin: 12/03/24 09:07 Dose: 30 mg Lorazepam (Lorazepam 0.5 Mg Tab) 0.5 mg PO BID@0900,1400 [facility] Stop: 01/01/25 13:59 Last Admin: 12/03/24 13:49 Dose: 0.5 mg Lorazepam (Lorazepam 0.5 Mg Tab) 1 mg PO HS [facility] Stop: 01/01/25 20:59 Last Admin: 12/02/24 20:52 Dose: 1 mg Metoprolol Succinate (Metoprolol Succ 25mg Ext Rel Tab) 25 mg PO DAILY [facility] Stop: 01/02/25 08:59 Last Admin: 12/03/24 12:44 Dose: Not Given Miscellaneous (Vascepa - Order Awaiting Action) 1 each N/A QS [facility] Stop: 01/01/25 07:59 Last Admin: 12/03/24 09:03 Dose: Not Given Miscellaneous (Carbohydrates For Hypoglycemia ) 15 - 30 gm PO UD PRN PRN Reason: Hypoglycemia Protocol Stop: 01/01/25 03:33 Nitroglycerin (Nitroglycerin Sl 0.4 Mg/Tab Tab) 0.4 mg SL UD PRN PRN Reason: Chest Pain Stop: 01/01/25 03:04 Pantoprazole Sodium (Pantoprazole 40 Mg Tab) 40 mg PO BID [facility] Stop: 01/01/25 08:59 Last Admin: 12/03/24 09:09 Dose: 40 mg Sertraline HCl (Sertraline Hcl 50 Mg Tablet) 50 mg PO DAILY [facility] Stop: 01/01/25 08:59 Last Admin: 12/03/24 09:09 Dose: 50 mg Tramadol HCl (Tramadol Hcl 50 Mg Tablet) 25 mg PO Q4H PRN PRN Reason: Pain Stop: 01/01/25 03:06 Umeclidinium/Vilanterol (Umeclidinium/Vilanterol 62.5/25mcg 7 Puffs/Inhaler) 1 puffs INH DAILY [facility] Stop: 01/01/25 08:59 Last Admin: 12/03/24 09:05 Dose: 1 puffs
[2024-12-03] MEDS: APIXABAN 5 MG TABLET PO SCH (20:37)
[2024-12-04 06:58] LABS: BUN Creatinine Ratio 7.1 (10-20); Calcium 8.3 mg/dl (8.6-10.3); Magnesium 1.9 mg/dl (1.7-2.4); Potassium 4.1 mmol/L (3.5-5.1)
[2024-12-04 07:11] LABS: ANTI-Xa, UFH(UnfractionatedHep 0.73 IU/ml (0.3-0.7)
[2024-12-04 08:09] VITALS: RESP 18; TEMP 98.2
[2024-12-04] MEDS: lisinopril 10 MG TAB PO SCH (08:28)
[2024-12-04 12:32] VITALS: BP 136/98; PULSE 75; O2SAT 95
--- NOTE | 2024-12-04 13:21 | Hospitalist Progress Note ---
Date of Service December 04, 2024 Assessment & Plan (1) Atrial fibrillation with RVR: Plan: New onset Multifactorial: Left-sided abdominal pain from recurrent diverticulitis attack, mild chronic inflammation as per CT imaging, no sepsis for now Unasyn followed by Augmentin course for recurrent diverticulitis, outpatient GI consult for recurrent diverticulitis Anxiety and bereavement from recent demise contributory Remains bradycardic with a heart rate around 50s Appreciate cardiology in input and recommendation Metoprolol dose has been decreased The patient remains stable and denies any cardiac symptoms Still on intravenous heparin and aspirin likely to be transferred to [facility] on discharge Will get PT and OT evaluation Has had PT evaluation and he will need to go with the walker Remains stable and will be discharged this afternoon Troponin elevation secondary to tachyarrhythmia hx CAD status post stent/PVD status post surgery hx CVA on dual antiplatelet Rx Hypertension, slight elevated Blood pressure remains on the lower side and will monitor Blood pressure remains on the lower side and will decrease the dose of lisinopril to 10 mg from tomorrow Blood pressure seems to be stable and the heart rate is stable to Hyperlipidemia, on statin Rx COPD, not in acute exacerbation hx GERD/Jernigan's esophagus, 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 DM 2, on oral medications, suboptimal control as of recent hemoglobin A1c of 7.7 last March 2024 Basal bolus insulin adjusted for clear liquid diet, ISS BG goal 1 10-1 40, carb count coverage Hypothyroidism, TSH elevated at 6, normal free T4 Chronic anemia, hemoglobin at baseline Past tobacco abuse Anxiolytic as needed Her PCP is trying to wean off anxiolytics and will be given Ativan as she has been taking as an outpatient Psych consult as per patient request for uncontrolled anxiety following demise (Patient awaiting counselor appointment to be arranged by PCPs office.) Denies any significant anxiety DVT prophylaxis. IV heparin Full code Patient son requesting updates from providers. Mr. Jero Roberts, contact #[phone]. Text document was generated using [employer] voice recognition software. It may contain grammatical or spelling errors. Kindly contact undersigned for clarification of any documentation item in question. Admission and Anticipated Discharge Date Admission Date: December 02, 2024 Subjective 12/02/2024 The patient was seen and examined in telemetry unit She has been feeling much better and denies any palpitation, chest pressure or pain Denies any shortness of breath and has been saturating normally on room air Remains bradycardic at around 50s 12/03/2024 The patient was seen and examined in telemetry unit She has been feeling much better but remains generally weak Heart rate remains controlled with occasional bradycardia Denies any more abdominal pain 12/04/2024 The patient was seen and examined in telemetry unit She has been feeling much better and remains minimally weak Denies any abdominal pain or any cardiac symptoms She wants to be discharged Review of Systems Review of Systems: All systems reviewed and are unremarkable except as noted below Physical Exam Physical Exam: Lying in bed without any acute distress Constitutional: average body habitus; not ill appearing Eyes: PERRL, conjunctivae normal, anicteric sclerae ENMT: external ear and nose normal, oropharynx normal Neck: trachea midline, no thyromegaly Respiratory: no respiratory distress Auscultation: lungs clear to auscultation bilaterally Cardiovascular: Rate/Rhythm: + irregularly irregular; not tachycardic Heart Sounds: normal S1, normal S2 and + murmur Extremities: no edema Gastrointestinal (Abdomen): Inspection/Auscultation: normal bowel sounds; abdomen not distended Percussion/Palpation: abdomen soft; abdomen nontender Neurologic: normal touch/pain/proprioception and moves all extremities; no focal motor deficits Lymphatic: no cervical or axillary lymphadenopathy Results & Data Results & Data Vital Signs (Past 12 Hours) Vital Signs Temp Pulse Pulse Resp BP Pulse Ox O2 Del Method 12/04/24 12:30 36.8 C 75 18 136/98 95 Room Air 12/04/24 08:00 36.8 C 72 18 166/81 H 94 Room Air 12/04/24 07:05 56 L 12/04/24 03:00 12/04/24 02:26 36.5 C 62 20 177/76 H 95 Room Air O2 Del Method 12/04/24 12:30 12/04/24 08:00 12/04/24 07:05 12/04/24 03:00 Room Air 12/04/24 02:26 Laboratory Results BMP 12/04/24 06:00 Sodium 137 Potassium 4.1 Chloride 106 Carbon Dioxide 24 BUN 7 Creatinine 0.99 Glucose 126 H Calcium 8.3 L Medications Administered Current Inpatient Medications Acetaminophen (Acetaminophen 325 Mg Tab) 650 mg PO QID PRN PRN Reason: pain/fever Stop: 01/01/25 03:06 Amlodipine Besylate (Amlodipine Besylate 5 Mg Tab) 2.5 mg PO DAILY [facility] Stop: 01/01/25 08:59 Last Admin: 12/04/24 08:28 Dose: 2.5 mg Amoxicillin/Clavulanate Potassium (Amoxicillin/Clavulanate 875 Mg Tab) 1 tab PO BIDM [facility]; Protocol Stop: 12/12/24 19:59 Last Admin: 12/04/24 08:27 Dose: 1 tab Apixaban (Apixaban 5 Mg Tablet) 5 mg PO BID [facility] Stop: 01/02/25 20:59 Last Admin: 12/04/24 08:27 Dose: 5 mg Artificial Tears (Artificial Tears) 1 drops OP QID [facility] Stop: 01/01/25 08:59 Last Admin: 12/04/24 12:43 Dose: 1 drops Atorvastatin Calcium (Atorvastatin 40 Mg Tab) 80 mg PO QPM [facility] Stop: 01/01/25 20:59 Last Admin: 12/03/24 20:37 Dose: 80 mg Buspirone HCl (Buspirone 5 Mg Tab) 5 mg PO BID [facility] Stop: 01/01/25 08:59 Last Admin: 12/04/24 08:28 Dose: 5 mg Clopidogrel Bisulfate (Clopidogrel Bisulfate 75 Mg Tab) 75 mg PO DAILY [facility] Stop: 01/01/25 08:59 Last Admin: 12/04/24 08:28 Dose: 75 mg Cyanocobalamin (Cyanocobalamin (B-12) 500 Mcg Tablet) 1,000 mcg PO DAILY [facility] Stop: 01/01/25 08:59 Last Admin: 12/04/24 08:28 Dose: 1,000 mcg Dextrose (Dextrose 50% 50 Ml Syringe) 25 - 50 ml IV UD PRN; Protocol PRN Reason: Hypoglycemia Protocol Stop: 01/01/25 03:33 Ezetimibe (Ezetimibe 10 Mg Tab) 10 mg PO QAM [facility] Stop: 01/01/25 08:59 Last Admin: 12/04/24 08:29 Dose: 10 mg Fluticasone Furoate (Fluticasone Furoate 100mcg 14 Puffs/Inhaler) 1 puffs INH DAILY [facility] Stop: 01/01/25 08:59 Last Admin: 12/04/24 08:29 Dose: 1 puffs Gabapentin (Gabapentin 100 Mg Cap) 100 mg PO TID [facility] Stop: 01/01/25 08:59 Last Admin: 12/04/24 14:35 Dose: 100 mg Glucagon (Glucagon For Inj 1 Mg Vial) 1 mg SQ UD PRN; Protocol PRN Reason: Hypoglycemia Protocol Stop: 01/01/25 03:33 Glucose (Glucose 40% Gel 15 Gm Tube) 15 - 30 gm PO UD PRN; Protocol PRN Reason: Hypoglycemia Protocol Stop: 01/01/25 03:33 Glucose (Glucose 10 Tab/Tube) 4 - 8 tab PO UD PRN; Protocol PRN Reason: Hypoglycemia Protocol Stop: 01/01/25 03:33 Promethazine HCl (Phenergan) 6.25 mg in 50.25 mls @ 201 mls/hr IV Q6H PRN PRN Reason: Nausea And Vomiting Stop: 01/01/25 03:07 Insulin Aspart (Insulin Aspart Per Unit Charge) 0 units SC ACHS [facility] Stop: 01/01/25 03:33 Last Admin: 12/04/24 12:43 Dose: 3 units Insulin Glargine (Lantus Per Unit Charge) 5 units SQ DAILY [facility] Stop: 01/01/25 04:14 Last Admin: 12/04/24 08:34 Dose: 5 units Levothyroxine Sodium (Levothyroxine Sodium 100 Mcg Tablet) 100 mcg PO DAILYBB [facility] Stop: 01/01/25 06:29 Last Admin: 12/04/24 06:13 Dose: 100 mcg Lisinopril (Lisinopril 10 Mg Tab) 10 mg PO QAM [facility] Stop: 01/03/25 08:59 Last Admin: 12/04/24 08:28 Dose: 10 mg Lorazepam (Lorazepam 0.5 Mg Tab) 0.5 mg PO BID@0900,1400 [facility] Stop: 01/01/25 13:59 Last Admin: 12/04/24 14:35 Dose: 0.5 mg Lorazepam (Lorazepam 0.5 Mg Tab) 1 mg PO HS [facility] Stop: 01/01/25 20:59 Last Admin: 12/03/24 20:36 Dose: 1 mg Metoprolol Succinate (Metoprolol Succ 25mg Ext Rel Tab) 25 mg PO DAILY [facility] Stop: 01/02/25 08:59 Last Admin: 12/04/24 08:28 Dose: 25 mg Miscellaneous (Vascepa - Order Awaiting Action) 1 each N/A QS [facility] Stop: 01/01/25 07:59 Last Admin: 12/04/24 08:29 Dose: Not Given Miscellaneous (Carbohydrates For Hypoglycemia ) 15 - 30 gm PO UD PRN PRN Reason: Hypoglycemia Protocol Stop: 01/01/25 03:33 Nitroglycerin (Nitroglycerin Sl 0.4 Mg/Tab Tab) 0.4 mg SL UD PRN PRN Reason: Chest Pain Stop: 01/01/25 03:04 Pantoprazole Sodium (Pantoprazole 40 Mg Tab) 40 mg PO BID [facility] Stop: 01/01/25 08:59 Last Admin: 12/04/24 08:28 Dose: 40 mg Sertraline HCl (Sertraline Hcl 50 Mg Tablet) 50 mg PO DAILY [facility] Stop: 01/01/25 08:59 Last Admin: 12/04/24 08:28 Dose: 50 mg Tramadol HCl (Tramadol Hcl 50 Mg Tablet) 25 mg PO Q4H PRN PRN Reason: Pain Stop: 01/01/25 03:06 Umeclidinium/Vilanterol (Umeclidinium/Vilanterol 62.5/25mcg 7 Puffs/Inhaler) 1 puffs INH DAILY [facility] Stop: 01/01/25 08:59 Last Admin: 12/04/24 08:29 Dose: 1 puffs
--- NOTE | 2024-12-04 14:15 | Cardiology Progress Note ---
Date of Service December 04, 2024 Assessment & Plan (1) Atrial fibrillation with RVR: (2) Elevated troponin: (3) Vascular disease: (4) CAD (coronary artery disease): Plan New AF RVR - rates improved. She is already on aspirin and clopidogrel due to her complex history of mult iple renal artery interventions. Aspirin discontinued. Proceed with clopidogrel Plus Eliquis. Continue metoprolol succinate [address] segment depression noted when patient in A-fib with RVR. Mild troponin elevation, lateral repolarization abnormalities persist with controlled rate as noted on repeat EKG 12/02/2024. No anginal symptoms. Reassuring echocardiogram. Continue medical management with clopidogrel, beta-andres, atorvastatin, ezetimibe. History of labile hypertension-continue [employer] lisinopril, amlodipine, metoprolol dose adjusted as noted Admission and Anticipated Discharge Date Admission Date: December 02, 2024 Subjective Patient seen in cardiology follow-up. She was walking in the hallway and feeling well without dyspnea exertion. Denies subjective palpitations. Telemetry reveals atrial fibrillation with rates in the range of 62 bpm. No bradycardia since early a.m. hours of 12/03/2024. Physical Exam Physical Exam: General: no acute distress and stated age Eyes: conjunctiva are pink and non-injected, sclera clear Neck: normal jugular venous pulse, no hepatojugular reflux Chest: normal shape and normal respiratory effort Lungs: clear to auscultation and percussion Cardiac Exam: -Irregular rhythm, 1/6 systolic murmur, no edema Abdomen: abdomen soft, non-tender, no abnormal masses and no hepatosplenomegaly Musculoskeletal: no gait disturbance, no weakness Extremities: no edema and no cyanosis Neuro:awake, conversant, follows commands, no focal motor deficits Psych: appropriate affect and insight. Results & Data Vital Signs (Past 12 Hours) Vital Signs Temp Pulse Pulse Resp BP Pulse Ox O2 Del Method 12/04/24 12:30 36.8 C 75 18 136/98 95 Room Air 12/04/24 08:00 36.8 C 72 18 166/81 H 94 Room Air 12/04/24 07:05 56 L 12/04/24 03:00 12/04/24 02:26 36.5 C 62 20 177/76 H 95 Room Air O2 Del Method 12/04/24 12:30 12/04/24 08:00 12/04/24 07:05 12/04/24 03:00 Room Air 12/04/24 02:26 Laboratory Results Comprehensive Metabolic Panel 12/04/24 Range/Units 06:00 Sodium 137 (136-145) mmol/L Potassium 4.1 (3.5-5.1) mmol/L Chloride 106 (98-107) mmol/L Carbon Dioxide 24 (21-32) mmol/L BUN 7 (6-23) mg/dl Creatinine 0.99 (0.6-1.2) mg/dl Glucose 126 H (70-99(Fasting)) mg/dl Calcium 8.3 L (8.6-10.3) mg/dl Intake and Output 12/03/24 12/04/24 12/04/24 22:59 06:59 14:59 Intake Total 621 / 1018.767 200 / 7469.769 5811 / 1040 Balance 621 / 1018.767 200 / 2173.245 2017 / 1040 Intake: IV 221 / 418.767 0 / 0 Heparin 22283 Unit/500 ml D5w 221 / 418.767 0 / 0 25,000 units In 500 ml @ 0 UNITS/HR IV .Q0M [facility] Rx#: [id number] Oral 400 / 600 200 / 600 1040 / 1040 Other: # Unmeasured Voids 1 2 4 Weight 66 kg Weight Measurement Method Built in [facility]
== END 2024-12-04 15:16 | disposition home or self-care (01) | DRG 309 ==
LOC: ED 22:08 → SUATTDRO 12-02 02:18 → 4W 12-02 02:18